=== PATIENT | female | born 1945 | race Caucasian/White ===

== ENCOUNTER → 2016-05-04 | Outpatient (CLI) | payer MEDICARE ==
--- NOTE | 2016-05-04 11:31 | BD ---
EXAMINATION TYPE: MG DEXA axial skeleton. DATE OF EXAM: 05/04/2016 9:32 AM COMPARISON: 09.09.2012 CLINICAL HISTORY: M85.9 DISORDER OF BONE Height: 60 Weight: 190 FRAX RISK QUESTIONS: Alcohol (3 or more units per day): NO Family History (Parent hip fracture): NO BROKEN BONES Glucocorticoids (More than 3mos): NO (Ex: prednisone, prednisolone, methylprednisolone, dexamethasone, and hydrocortisone). History of Fracture in Adulthood: YES Secondary Osteoporosis: NO 1. Type 1 Diabetes: NO 2. Hyperthyroidism: NO 3. Menopause before 45: NO, AT 43 4. Malnutrition: NO 5. Chronic liver disease: SLIGHTLY FATTY Rheumatoid Arthritis: NO Current Tobacco Use: NO RISK FACTORS HISTORY OF: Surgery to LT WRIST CARPAL TUNNEL SURG When: 6-8 YRS AGO Family History of Osteoporosis: YES, HER MOTHER Active: SOMEWHAT Diet low in dairy products/other sources of calcium: NO Postmenopausal woman: TOTAL HYST AT AGE 43 Take estrogen and/or progesterone medications: TOOK HORMONES FOR ONLY 1 MONTH Lost more than 2 inches in height since high school: YES Adrenal Insufficiency: NO STRESS FX, LT FOOT 2 YRS AGO MEDICATIONS: Additional Medications: LOPRESSOR, PRILOSEC, ENALAPRIL MALEATE, MAGNESIUM, ASPIRIN, ALIGN, SIMVASTATI N Additional History: ANEMIA, DJD, REFLUX, DIVERTICULITIS...BLEEDING, VIT D DEFICENCY EXAM MEASUREMENTS: Bone mineral densitometry was performed using the [employer] System. Bone mineral density as measured about the Lumbar spine is: ----- L1-L4(G/cm2): 1.232 T Score Values are as follows: ----- L1: -0.7 ----- L2: -0.7 ----- L3: 0.9 ----- L4: 1.6 ----- L1-L4: 0.4 Bone mineral density has: Increased 2.5% since study of: 09.09.2012 Bone mineral density about the R hip (g/cm2): 0.970 Bone mineral density about the L hip (g/cm2): 0.841 T Score values are as follows: -----R Neck: -0.5 -----L Neck: -1.4 -----R Intertrochanter: -1.8 -----L Intertrochanter: -2.3 Bone mineral density has: Increased 0.5% since study of: 09.09.2012 FRAX %'S: FOR MAJOR OSTEOPOROTIC FX: 14.8%.......FOR HIP FX: 2.1% PROBABILITY OF FX IN 10 YRS TIME IMPRESSION: Osteopenia (T Score between -2.5 and -1 as noted by T score values There is slightly increased risk of fracture and the patient may be considered for treatment. Re-Screen 1-2 years. FOR BOTH OF HER HIPS NOTE: T-SCORE=SD OF THE YOUNG ADULT MEAN.
--- NOTE | 2016-05-05 10:07 | MM ---
Reason for exam: screening (asymptomatic). Last mammogram was performed 2 years and 5 months ago. History: Patient is postmenopausal. Family history of breast cancer in 2 cousins at age 55. Benign excisional biopsy of the right breast, 1989. Physical Findings: A clinical breast exam by your physician is recommended on an annual basis and results should be correlated with mammographic findings. MG 3D Screening Mammo W/Cad Bilateral CC and MLO view(s) were taken. Prior study comparison: November 28, 2013, bilateral MG screening mammo w CAD. September 09, 2012, bilateral digital screening mammo w/CAD. There are scattered fibroglandular densities. Finding: There are typically benign vascular, round calcifications in both breasts. There is no discrete abnormality. ASSESSMENT: Benign, BI-RAD 2 RECOMMENDATION: Routine screening mammogram of both breasts in 1 year.
== END | disposition home or self-care (01) ==
LOC: RADMAMWWP 08:48
PROVIDERS: ATTEND Internal Medicine
DX: Z12.31 Encounter for screening mammogram for malignant neoplasm of breast (principal); M85.851 Other specified disorders of bone density and structure, right thigh; M85.852 Other specified disorders of bone density and structure, left thigh
CPT/HCPCS: 77080; 77063; G0202

== ENCOUNTER → 2017-05-02 | Outpatient (CLI) | payer MEDICARE ==
--- NOTE | 2017-05-02 10:59 | XR ---
EXAMINATION TYPE: XR cervical spine comp DATE OF EXAM: 05/02/2017 COMPARISON: NONE HISTORY: Pain TECHNIQUE: Four views are submitted. FINDINGS: The odontoid view is limited. There are no compression deformities. The prevertebral soft tissue st ructures are within normal limits. Degenerative disc disease at C4-5, C5-6 and C6-C7. Multilevel fac et arthropathy. Foraminal encroachment level C3-C7 bilaterally. IMPRESSION: 1. Multilevel degenerative disc disease, facet arthropathy and foraminal encroachment. Correlate with MRI as clinically warranted.
== END | disposition home or self-care (01) ==
LOC: RADXRMAIN 10:22
PROVIDERS: ATTEND Internal Medicine
DX: M50.321 Other cervical disc degeneration at C4-C5 level (principal); M46.92 Unspecified inflammatory spondylopathy, cervical region
CPT/HCPCS: 72050

== ENCOUNTER → 2017-05-19 | Outpatient (CLI) | payer MEDICARE ==
--- NOTE | 2017-05-19 14:47 | MR ---
EXAMINATION TYPE: MR cervical spine wo con DATE OF EXAM: 05/19/2017 COMPARISON: NONE HISTORY: Cervical disc degeneration TECHNIQUE: Multiplanar, multisequence images of the cervical spine were acquired. C2-C3: No evidence for degenerative disc disease. No disc bulge/herniation or protrusion. No Canal stenosis. Foramina are patent bilaterally. C3-C4: No evidence for degenerative disc disease. No disc bulge/herniation or protrusion. No Canal stenosis. Foramina are patent bilaterally. C4-C5: Broad-based disc bulge is present with mild anterior thecal sac compression. No cord contact i s evident. No spinal canal stenosis present. Vertebral joint hypertrophy is present with mild to mode rate foraminal narrowing bilaterally C5-C6: Minimal disc bulge is present with anterior thecal sac contact. No AP spinal canal stenosis or neural foraminal stenosis present. C6-C7: Mild symmetrical disc bulging is anterior thecal sac flattening. No AP spinal canal stenosis p resent. Neural foramen are patent. C7-T1: No evidence for degenerative disc disease. No disc bulge/herniation or protrusion. No Canal stenosis. Foramina are patent bilaterally. Cervical spinal cord appears normal. Vertebral body heights are preserved. Disc hydration appears pre served. There is narrowing of the C4-5 disc height. IMPRESSION: Disc bulge and uncovertebral joint hypertrophy C4-5 with mild anterior thecal sac compression and mil d to moderate bilateral foraminal narrowing. 2. Minimal disc bulge C5-6, C6-7
== END | disposition home or self-care (01) ==
LOC: RADMRIMAIN 13:56
PROVIDERS: ATTEND Internal Medicine
DX: M99.71 Connective tissue and disc stenosis of intervertebral foramina of cervical region (principal); M50.021 Cervical disc disorder at C4-C5 level with myelopathy; M53.82 Other specified dorsopathies, cervical region
CPT/HCPCS: 72141

== ENCOUNTER → 2017-05-29 | Outpatient (CLI) | payer MEDICARE ==
--- NOTE | 2017-05-31 10:54 | MM ---
Reason for exam: screening (asymptomatic). Last mammogram was performed 1 year and 1 month ago. History: Patient is postmenopausal. Family history of breast cancer in 2 cousins at age 55. Benign excisional biopsy of the right breast, 1989. Physical Findings: A clinical breast exam by your physician is recommended on an annual basis and results should be correlated with mammographic findings. MG 3D Screening Mammo W/Cad Bilateral CC and MLO view(s) were taken. Prior study comparison: May 04, 2016, bilateral MG 3d screening mammo w/cad. November 28, 2013, bilateral MG screening mammo w CAD. Finding: There are stable coarse heterogeneous, grouped/clustered calcifications in the lower inner quadrant, middle position of the right breast consistent with 2017, increased in density from 2013. New finding since May 04, 2016 ASSESSMENT: Incomplete: need additional imaging evaluation, BI-RAD 0 RECOMMENDATION: Special view mammogram of the right breast. If lesion persists on supplemental views, image directed ultrasound is recommended. [facility] will attempt to contact patient to return for supplemental views and ultrasound if indicated.
== END | disposition home or self-care (01) ==
LOC: RADMAMWWP 10:24
PROVIDERS: ATTEND Internal Medicine
DX: Z12.31 Encounter for screening mammogram for malignant neoplasm of breast (principal)
CPT/HCPCS: 77063; 77067

== ENCOUNTER → 2017-06-04 | Outpatient (CLI) | payer MEDICARE ==
--- NOTE | 2017-06-05 08:41 | MM ---
Reason for exam: additional evaluation requested from abnormal screening. Last mammogram was performed less than 1 month ago. History: Patient is postmenopausal. Family history of breast cancer in 2 cousins at age 55. Benign excisional biopsy of the right breast, 1989. Physical Findings: Nurse did not find any significant physical abnormalities on exam. MG 3D Work Up W/Cad RT CC with magnification, LM with magnification, and LM view(s) were taken of the right breast. Prior study comparison: May 29, 2017, bilateral MG 3d screening mammo w/cad. May 04, 2016, bilateral MG 3d screening mammo w/cad. There are scattered fibroglandular densities. There are benign appearing vascular calcifications, rounded calcifications and 3mm group of heterogeneous stable calcifications in the lower inner quadrant on the right breast unchanged back to 2012. No suspicious abnormality. These results were verbally communicated with the patient and result sheet given to the patient on 06/04/17. ASSESSMENT: Benign, BI-RAD 2 RECOMMENDATION: Return to routine screening mammogram schedule for both breasts.
== END | disposition home or self-care (01) ==
LOC: RADMAMWWP 14:23
PROVIDERS: ATTEND Internal Medicine
DX: R92.8 Other abnormal and inconclusive findings on diagnostic imaging of breast (principal)
CPT/HCPCS: 77065; G0279

== ENCOUNTER 2017-06-20 08:04 | Day surgery (SDC) | payer MEDICARE ==
[2017-06-14 16:57] VITALS: BMI 37.0
[~2017-06-20 08:04] MED LIST: LACTATED RINGERS 1,000 ML IV SCH; LIDOCAINE 1% 20 ML VIAL (10MG/ML) FOR IV START INTRADERMA PRN
--- NOTE | 2017-06-20 08:12 | P.GSHP ---
History of Present Illness H&P Date: 06/20/17 CHIEF COMPLAINT: Colon screen HISTORY OF PRESENT ILLNESS: The patient is a 71-year-old female who presents for colon screen. Lower endoscopy was offered for further evaluation and management. PAST MEDICAL HISTORY: Please see list. PAST SURGICAL HISTORY: Please see list. MEDICATIONS: Please see list. ALLERGIES: Please see list. SOCIAL HISTORY: No illicit drug use FAMILY HISTORY: No reports of Crohn disease or ulcerative colitis. REVIEW OF ORGAN SYSTEMS: CONSTITUTIONAL: No reports of fevers or chills. PHYSICAL EXAM: VITAL SIGNS: Stable GENERAL: Well-developed pleasant in no acute distress. HEENT: No scleral icterus. Extraocular movements grossly intact. Moist buccal mucosa. NECK: Supple without lymphadenopathy. CHEST: Unlabored respirations. Equal bilateral excursions. CARDIOVASCULAR: Regular rate and rhythm. Distal 2+ pulses. ABDOMEN: Soft, nontender, nondistended. MUSCULOSKELETAL: No clubbing, cyanosis, or edema. ASSESSMENT: 1. Colon screen. PLAN: 1. Recommend proceeding with a lower endoscopy Past Medical History Past Medical History: Chest Pain / Angina, GERD/Reflux, GI Bleed, Hyperlipidemia , Hypertension, Musculoskeletal Disorder, Osteoarthritis (OA) Additional Past Medical History / Comment(s): Diverticulitis - HX RESECTION. OLD HX Angina. Hiatal hernia. RECTAL BLEEDING. DDD IN NECK. History of Any Multi-Drug Resistant Organisms: None Reported Past Surgical History: Bowel Resection, Heart Catheterization, Hysterectomy, Orthopedic Surgery Additional Past Surgical History / Comment(s): LT Foot sx. CTR LT WRIST. Past Anesthesia/Blood Transfusion Reactions: No Reported Reaction Smoking Status: Never smoker - Past Family History Father Family Medical History: Cancer Mother Family Medical History: Cancer Brother(s) Family Medical History: Coronary Artery Disease (CAD), Myocardial Infarction ([place] ) Sister(s) Family Medical History: Neurologic Disorder Additional Family Medical History / Comment(s): PARKINSON'S Daughter(s) Family Medical History: Pulmonary Embolus Son(s) Family Medical History: Coronary Artery Disease (CAD) Medications and Allergies Home Medications Medication Instructions Recorded Confirmed Type Enalapril [Vasotec] 20 mg PO BID 09/07/15 06/14/17 History Metoprolol Tartrate [Lopressor] 50 mg PO BID 09/07/15 06/14/17 History Omeprazole [PriLOSEC] 20 mg PO AC-BRKFST 09/07/15 06/14/17 History Simvastatin [Zocor] 20 mg PO HS 09/07/15 06/14/17 History [place]-3 Fatty Acids/Fish Oil [Fish 1,200 mg PO DAILY 09/08/15 06/14/17 History Oil 1,000 mg Softgel] Aspirin EC [Ecotrin Low Dose] 325 mg PO DAILY 10/28/15 06/14/17 History Cholecalciferol (Vitamin D3) 2,000 unit PO DAILY 06/14/17 06/14/17 History [Vitamin D3] Citrucel Tab 500 mg PO DAILY 06/14/17 History Docusate [Colace] 100 mg PO BID 06/14/17 06/14/17 History L.acidoph,Paracasei, B.lactis 1 each PO DAILY 06/14/17 06/14/17 History [Probiotic] Magnesium Oxide [Mag-Ox] 250 mg PO DAILY 06/14/17 06/14/17 History Allergies Allergy/AdvReac Type Severity Reaction Status Date / Time ciprofloxacin Allergy Rash/Hives Verified 06/14/17 16:35 cortisone Allergy HAD Verified 06/14/17 16:35 NUMBNESS AT BACK OF HEAD FOLLOWING INJECTION hydrocortisone Allergy Unknown Verified 06/14/17 16:35 [From Cortizone-10] Penicillins Allergy Rash/Hives Verified 06/14/17 16:35
[2017-06-20 09:00] VITALS: TEMP 97.8
[2017-06-20] MEDS ORDERED: PROPOFOL 10 MG/ML 20 ML VIAL IV ONE (09:31)
[2017-06-20] MEDS ORDERED: LIDOCAINE 1% INJ 10MG/ML (20 ML MDV) ONE (09:31)
[2017-06-20 10:00] VITALS: RESP 18
[2017-06-20 10:09] VITALS: BP 121/71; PULSE 65
--- NOTE | 2017-06-20 10:46 | P.PCN ---
Date of Procedure: 06/20/17 Description of Procedure: PREOPERATIVE DIAGNOSIS: Colonoscopy screening. History of diverticulitis. History of sigmoid resection POSTOPERATIVE DIAGNOSIS: Colonoscopy screening. History of diverticulitis. History of sigmoid resection Severe scattered diverticulosis including descending colon Proctitis Internal hemorrhoids, grade 2 External hemorrhoids, grade 3 Colon lesion, sigmoid Proctitis OPERATION: Colonoscopy to the ileocecal valve and appendiceal orifice. Colonoscopy with cold forceps biopsy along sigmoid colon SURGEON: Mariya Carbajal MD. ANESTHESIA: MAC. INDICATIONS: The patient is a 71-year-old female who presents for colonoscopy screening. Benefits and risks were described and informed consent was obtained. DESCRIPTION OF PROCEDURE: The patient had undergone Gatorade, MiraLAX and Dulcolax prep. She had been brought into the operating room and laid in the left lateral decubitus position. After adequate intravenous sedation, the rectum was examined with 2% lidocaine jelly. External hemorrhoids were encountered. The rectal tone was within normal limits. No lesions were palpated in the rectal vault. An Olympus colonoscope was advanced until the ileocecal valve and appendiceal orifice were clearly viewed. The prep was excellent with clear visualization of the mucosal folds. The scope was removed with visualization of each mucosal fold. Severe scattered diverticulosis was encountered including along the remnant sigmoid colon and descending colon. No colonic polyps were found. Focal colitis was found at the rectum. A flat lesion of the anastomosis biopsied. Retroflexion of the scope demonstrated grade 2 internal hemorrhoids with inflammation. The colon was desufflated. The patient had tolerated the procedure well. Withdrawal time was over 6 minutes. FINDINGS: Internal hemorrhoids, grade 2 External hemorrhoids, grade 3 No arteriovenous malformations. No adenomatous polyps. Proctitis with recent bleed Severe sigmoid diverticulosis including along the descending colon and scattered RECOMMENDATIONS: Lower endoscopy in 5 years, 2022 Start Flagyl for proctitis Plan - Discharge Summary New Discharge Prescriptions: New metroNIDAZOLE [Flagyl] 500 mg PO TID #30 tab No Action Omeprazole [PriLOSEC] 20 mg PO AC-BRKFST Simvastatin [Zocor] 20 mg PO HS Metoprolol Tartrate [Lopressor] 50 mg PO BID Enalapril [Vasotec] 20 mg PO BID [place]-3 Fatty Acids/Fish Oil [Fish Oil 1,000 mg Softgel] 1,200 mg PO DAILY Aspirin EC [Ecotrin Low Dose] 325 mg PO DAILY Cholecalciferol (Vitamin D3) [Vitamin D3] 2,000 unit PO DAILY Citrucel Tab 500 mg PO DAILY Docusate [Colace] 100 mg PO BID L.acidoph,Paracasei, B.lactis [Probiotic] 1 each PO DAILY Magnesium Oxide [Mag-Ox] 250 mg PO DAILY Discharge Medication List Enalapril [Vasotec] 20 mg PO BID 09/07/15 [History] Metoprolol Tartrate [Lopressor] 50 mg PO BID 09/07/15 [History] Omeprazole [PriLOSEC] 20 mg PO AC-BRKFST 09/07/15 [History] Simvastatin [Zocor] 20 mg PO HS 09/07/15 [History] [place]-3 Fatty Acids/Fish Oil [Fish Oil 1,000 mg Softgel] 1,200 mg PO DAILY 09/07 [History] Aspirin EC [Ecotrin Low Dose] 325 mg PO DAILY 10/28/15 [History] Cholecalciferol (Vitamin D3) [Vitamin D3] 2,000 unit PO DAILY 06/14/17 [History] Citrucel Tab 500 mg PO DAILY 06/14/17 [History] Docusate [Colace] 100 mg PO BID 06/14/17 [History] L.acidoph,Paracasei, B.lactis [Probiotic] 1 each PO DAILY 06/14/17 [History] Magnesium Oxide [Mag-Ox] 250 mg PO DAILY 06/14/17 [History] metroNIDAZOLE [Flagyl] 500 mg PO TID #30 tab 06/20/17 [Rx] Follow up Appointment(s)/Referral(s): Mariya Carbajal MD [STAFF PHYSICIAN] - 07/17/17 Patient Instructions/Handouts: Diverticulitis Diet (GEN), Diverticulitis (GEN) Discharge Disposition: HOME SELF-CARE
== END 2017-06-20 10:52 | disposition home or self-care (01) ==
LOC: ORWHC2ENDO 08:04
PROVIDERS: ATTEND Surgery Plastic and Reconstructive Surgery
DX: Z12.11 Encounter for screening for malignant neoplasm of colon (principal); K62.89 Other specified diseases of anus and rectum; E78.5 Hyperlipidemia, unspecified; K64.1 Second degree hemorrhoids; K64.4 Residual hemorrhoidal skin tags; K57.31 Diverticulosis of large intestine without perforation or abscess with bleeding; I10 Essential (primary) hypertension; K21.9 Gastro-esophageal reflux disease without esophagitis; M19.90 Unspecified osteoarthritis, unspecified site; Z90.49 Acquired absence of other specified parts of digestive tract; Z90.710 Acquired absence of both cervix and uterus; Z82.49 Family history of ischemic heart disease and other diseases of the circulatory system; Z88.1 Allergy status to other antibiotic agents; Z88.8 Allergy status to other drugs, medicaments and biological substances; Z88.0 Allergy status to penicillin; Z79.82 Long term (current) use of aspirin
CPT/HCPCS: 45380; J2001; J2704; 88305

== ENCOUNTER → 2020-01-08 | Outpatient (CLI) | payer MEDICARE ==
--- NOTE | 2020-01-08 15:23 | BD ---
EXAMINATION TYPE: Axial Bone Density DATE OF EXAM: 01/08/2020 COMPARISON: DEXA bone scan May 04, 2016 CLINICAL HISTORY: Postmenopausal female. Osteoporosis. Height: 63 Weight: 198.9 FRAX RISK QUESTIONS: Alcohol (3 or more units per day): NO Family History (Parent hip fracture): no Glucocorticoids (More than 3mos): no (Ex: prednisone, prednisolone, methylprednisolone, dexamethasone, and hydrocortisone). History of Fracture in Adulthood: yes Secondary Osteoporosis: 1. Type 1 Diabetes: no 2. Hyperthyroidism: no 3. Menopause before 45: yes 4. Malnutrition: no 5. Chronic liver disease: no Rheumatoid Arthritis: no Current Tobacco Use: no RISK FACTORS HISTORY OF: Surgery to Spine/Hip(right/left)/Wrist (right/left): no Family History of Osteoporosis: yes Active: yes Diet low in dairy products/other sources of calcium: yes Postmenopausal woman: age 39 Lost more than 2 inches in height since high school: yes MEDICATIONS: blood pressure meds , cholesterol meds Additional History: EXAM MEASUREMENTS: Bone mineral densitometry was performed using the [employer] System. Bone mineral density as measured about the Lumbar spine is: ----- L1-L4(G/cm2): 1.262 T Score Values are as follows: ----- L2: -0.5 ----- L3: 1.8 ----- L4: 1.8 ----- L1-L4: 0.7 Bone mineral density has: increased 3.7 % since study of: 05.04.2016 Bone mineral density about the R hip (g/cm2): 0.841 Bone mineral density about the L hip (g/cm2): 0.840 T Score values are as follows: -----R Neck: -1.4 -----L Neck: -1.4 -----R Total: -1.4 -----L Total: -1.5 Bone mineral density has: increased 0.1 % since study of: 05.04.2016 IMPRESSION: Osteopenia (T Score between -2.5 and -1) in both hips now identified. There remains slightly increased risk of fracture and the patient may be considered for treatment. Re-Screen 2-5 years. NOTE: T-SCORE=SD OF THE YOUNG ADULT MEAN.
--- NOTE | 2020-01-12 13:58 | MM ---
Reason for exam: screening (asymptomatic). Last mammogram was performed 2 years and 7 months ago. History: Patient is postmenopausal. Family history of breast cancer in 2 cousins at age 55 and breast cancer in daughter at age 47. Benign excisional biopsy of the right breast, 1989. Physical Findings: A clinical breast exam by your physician is recommended on an annual basis and results should be correlated with mammographic findings. MG 3D Screening Mammo W/Cad Bilateral CC and MLO view(s) were taken. Prior study comparison: June 04, 2017, right breast MG 3d work up w/cad RT. May 29, 2017, bilateral MG 3d screening mammo w/cad. There are scattered fibroglandular densities. No significant changes when compared with prior studies. ASSESSMENT: Benign, BI-RAD 2 RECOMMENDATION: Routine screening mammogram of both breasts in 1 year.
== END | disposition home or self-care (01) ==
LOC: RADMAMWWP 12:42
PROVIDERS: ATTEND Internal Medicine
DX: Z12.31 Encounter for screening mammogram for malignant neoplasm of breast (principal); M85.89 Other specified disorders of bone density and structure, multiple sites
CPT/HCPCS: 77063; 77067; 77080

== ENCOUNTER → 2020-08-11 | Outpatient (CLI) | payer MEDICARE ==
--- NOTE | 2020-08-11 16:17 | XR ---
EXAMINATION TYPE: XR thoracic spine 2V DATE OF EXAM: 08/11/2020 COMPARISON: CT abdomen and pelvis 09/07/2015 CLINICAL HISTORY: Back pain for a few years, progressively worse Findings:: Hypoplastic ribs at T12. There is mild dextrocurvature of the lumbar spine centered at T10 vertebral body. There is bony demineralization causing limited evaluation for acute fracture. Multip le minimal superior compression deformities of the mid to lower thoracic vertebral bodies. If focal p ain, MRI could be obtained. Paravertebral soft tissues are unremarkable. Atherosclerotic aortic knob. IMPRESSION: 1. Minimal superior endplate compression deformities of mid to lower thoracic vertebral bodies. These may represent age-indeterminate fractures. If clinically indicated, with focal pain, MRI could be ob tained.
== END | disposition home or self-care (01) ==
LOC: RADXRMAIN 12:26
PROVIDERS: ATTEND Internal Medicine
DX: M43.8X4 Other specified deforming dorsopathies, thoracic region (principal)
CPT/HCPCS: 72070

== ENCOUNTER 2020-12-08 07:29 | Day surgery (SDC) | payer MEDICARE ==
[2020-12-07 09:42] VITALS: BMI 37.8
--- NOTE | 2020-12-08 07:05 | P.GSHP ---
History of Present Illness H&P Date: 12/08/20 CHIEF COMPLAINT: GERD and colon screen HISTORY OF PRESENT ILLNESS: The patient is a 75-year-old female who presents with gastroesophageal reflux disease and need for colon screen. Upper and lower endoscopy were offered for further evaluation and management. PAST MEDICAL HISTORY: Please see list. PAST SURGICAL HISTORY: Please see list. MEDICATIONS: Please see list. ALLERGIES: Please see list. SOCIAL HISTORY: No illicit drug use FAMILY HISTORY: No reports of Crohn disease or ulcerative colitis. REVIEW OF ORGAN SYSTEMS: CONSTITUTIONAL: No reports of fevers or chills. GI: Denies any blood in stools or constipation. PHYSICAL EXAM: VITAL SIGNS: Stable GENERAL: Well-developed pleasant in no acute distress. HEENT: No scleral icterus. Extraocular movements grossly intact. Moist buccal mucosa. NECK: Supple without lymphadenopathy. CHEST: Unlabored respirations. Equal bilateral excursions. CARDIOVASCULAR: Regular rate and rhythm. Distal 2+ pulses. ABDOMEN: Soft, nondistended. MUSCULOSKELETAL: No clubbing, cyanosis, or edema. ASSESSMENT: 1. Gastroesophageal reflux disease 2. Colon screen. PLAN: 1. Recommend proceeding with an upper and lower endoscopy Past Medical History Past Medical History: GERD/Reflux, GI Bleed, Hypertension, Osteoarthritis (OA) Additional Past Medical History / Comment(s): Diverticulitis. Angina. Hiatal hernia. Recent stomach problems and rectal bleeding. "Bad back, disintegrating discs in neck, head shakes." History of Any Multi-Drug Resistant Organisms: None Reported Past Surgical History: Bowel Resection, Heart Catheterization, Hysterectomy, Orthopedic Surgery Additional Past Surgical History / Comment(s): Left foot surgery, left carpal tunnel surgery, colonoscopy X2. Past Anesthesia/Blood Transfusion Reactions: No Reported Reaction Past Psychological History: No Psychological Hx Reported Smoking Status: Never smoker Past Alcohol Use History: None Reported Past Drug Use History: None Reported - Past Family History Father Family Medical History: Cancer Mother Family Medical History: Cancer Brother(s) Family Medical History: Coronary Artery Disease (CAD), Myocardial Infarction ([place]) Sister(s) Family Medical History: Neurologic Disorder Daughter(s) Family Medical History: Pulmonary Embolus Son(s) Family Medical History: Coronary Artery Disease (CAD) Medications and Allergies Home Medications Medication Instructions Recorded Confirmed Type Enalapril [Vasotec] 20 mg PO BID 09/07/15 12/07/20 History Metoprolol Tartrate [Lopressor] 50 mg PO BID 09/07/15 12/07/20 History Omeprazole [PriLOSEC] 20 mg PO DAILY 09/07/15 12/07/20 History [place]-3 Fatty Acids/Fish Oil [Fish 1,030 mg PO DAILY 09/08/15 12/07/20 History Oil 1,000 mg Softgel] Cholecalciferol (Vitamin D3) 2,000 unit PO DAILY 06/14/17 12/07/20 History [Vitamin D3] L.acidoph,Paracasei, B.lactis 1 each PO DAILY 06/14/17 12/07/20 History [Probiotic] Magnesium Oxide [Mag-Ox] 250 mg PO DAILY 06/14/17 12/07/20 History Aspirin [Adult Low Dose Aspirin EC] 81 mg PO DAILY 12/07/20 12/07/20 History Cyanocobalamin (Vitamin B-12) 1,000 mcg PO DAILY 12/07/20 12/07/20 History [Vitamin B-12] amLODIPine [Norvasc] 10 mg PO HS 12/07/20 12/07/20 History Allergies Allergy/AdvReac Type Severity Reaction Status Date / Time ciprofloxacin Allergy Rash/Hives Verified 12/07/20 09:22 cortisone Allergy HAD Verified 12/07/20 09:22 NUMBNESS AT BACK OF HEAD FOLLOWING INJECTION hydrocortisone Allergy Unknown Verified 12/07/20 09:22 [From Cortizone-10] Penicillins Allergy Rash/Hives Verified 12/07/20 09:22
[~2020-12-08 07:29] MED LIST changes: -LIDOCAINE 1% 20 ML VIAL (10MG/ML) FOR IV START INTRADERMA PRN
[2020-12-08 08:21] VITALS: RESP 16; TEMP 97
[2020-12-08] MEDS ORDERED: LIDOCAINE 1% (10MG/ML) FOR IV START INTRADERMA ONE (08:21)
[2020-12-08] MEDS ORDERED: PROPOFOL 10 MG/ML 20 ML VIAL IV ONE (08:45)
[2020-12-08] MEDS ORDERED: LIDOCAINE 1% INJ 10MG/ML (20 ML MDV) ONE (08:45)
--- NOTE | 2020-12-08 09:03 | P.PCN ---
Date of Procedure: 12/08/20 Description of Procedure: PREOPERATIVE DIAGNOSIS: Anemia Epigastric abdominal pain Gastrointestinal bleeding POSTOPERATIVE DIAGNOSIS: Gastric polyps Anemia Epigastric abdominal pain Gastrointestinal bleeding OPERATION: Esophagogastroduodenoscopy SURGEON: Mariya Carbajal MD ANESTHESIA: MAC. INDICATIONS: The patient is a 44-year-old female who presents with anemia, gastrointestinal bleeding and epigastric abdominal pain. Benefits and risks of the procedure were described. Informed consent was obtained. DESCRIPTION: The patient was brought into the endoscopy suite and laid in the left lateral decubitus position. An Olympus gastroscope was passed along the posterior oropharynx down to the distal esophagus where the squamocolumnar junction was encountered at 39 cm from the incisors. The stomach was entered and no bile reflux was found. Additional findings are listed below. Biopsies with cold forceps were obtained of the antrum. The first through third portion of the duodenum was examined and unremarkable. Retroflexion of the scope confirmed Hill grade 2 lower esophageal valve. The squamocolumnar junction demonstrated LA grade A erosive esophagitis. The stomach was desufflated. The patient tolerated the procedure well. FINDINGS: Squamocolumnar junction 39 cm from the incisors. Diaphragmatic hiatus at 39 cm. Hill grade 2 lower esophageal valve. LA grade A erosive esophagitis. No active duodenitis. Gastric polyps RECOMMENDATIONS: Upper endoscopy as needed.
[2020-12-08 09:20] VITALS: PULSE 64
--- NOTE | 2020-12-08 09:21 | P.PCN ---
Date of Procedure: 12/08/20 Description of Procedure: PREOPERATIVE DIAGNOSIS: Gastrointestinal bleeding Anemia Rectal bleeding POSTOPERATIVE DIAGNOSIS: Gastrointestinal bleeding Anemia Rectal bleeding Grade 3 internal/external hemorrhoids Sigmoid diverticulitis Pandiverticulosis OPERATION: Colonoscopy to the cecum, ileocecal valve and appendiceal orifice. Colonoscopy with cold forceps biopsy SURGEON: Mariya Carbajal MD. ANESTHESIA: MAC. INDICATIONS: The patient is a 75-year-old female who presents with anemia including rectal bleeding. Benefits and risks were described and informed consent was obtained. DESCRIPTION OF PROCEDURE: The patient had undergone Sutab prep. The patient had been brought into the operating room and laid in the left lateral decubitus position. After adequate intravenous sedation, the rectum was examined with 2% lidocaine jelly. External hemorrhoids were encountered. The rectal tone was within normal limits. No lesions were palpated in the rectal vault. An Olympus colonoscope was advanced until the cecum, ileocecal valve and appendiceal orifice were clearly viewed. The prep was excellent. Pandiverticulosis with erythematous sigmoid colon along the anastomosis and sigmoid diverticulitis was found. Blind portion of the rectum had moderate erythema with biopsies obtained with cold forceps. No colonic polyps were found. Retroflexion of the scope demonstrated grade 3 internal hemorrhoids without active bleeding or inflammation. The colon was desufflated. The patient had tolerated the procedure well. Withdrawal time was over 6 minutes. FINDINGS: Aronchick preparation quality scale 1 (1-5) Internal hemorrhoids, grade 3 External prolapsed hemorrhoids, grade 3 No arteriovenous malformations. No adenomatous polyps. Sigmoid diverticulitis at anastomosis, 15 cm from the anal verge including blind rectal stump Pandiverticulosis RECOMMENDATIONS: Lower endoscopy as needed Plan - Discharge Summary Discharge Rx Participant: No New Discharge Prescriptions: Continue Omeprazole [PriLOSEC] 20 mg PO DAILY Metoprolol Tartrate [Lopressor] 50 mg PO BID Enalapril [Vasotec] 20 mg PO BID [place]-3 Fatty Acids/Fish Oil [Fish Oil 1,000 mg Softgel] 1,030 mg PO DAILY Cholecalciferol (Vitamin D3) [Vitamin D3] 2,000 unit PO DAILY L.acidoph,Paracasei, B.lactis [Probiotic] 1 each PO DAILY Magnesium Oxide [Mag-Ox] 250 mg PO DAILY Aspirin [Adult Low Dose Aspirin EC] 81 mg PO DAILY amLODIPine [Norvasc] 10 mg PO HS Cyanocobalamin (Vitamin B-12) [Vitamin B-12] 1,000 mcg PO DAILY Discharge Medication List Enalapril [Vasotec] 20 mg PO BID 09/07/15 [History] Metoprolol Tartrate [Lopressor] 50 mg PO BID 09/07/15 [History] Omeprazole [PriLOSEC] 20 mg PO DAILY 09/07/15 [History] [place]-3 Fatty Acids/Fish Oil [Fish Oil 1,000 mg Softgel] 1,030 mg PO DAILY 09/08/15 [History] Cholecalciferol (Vitamin D3) [Vitamin D3] 2,000 unit PO DAILY 06/14/17 [History] L.acidoph,Paracasei, B.lactis [Probiotic] 1 each PO DAILY 06/14/17 [History] Magnesium Oxide [Mag-Ox] 250 mg PO DAILY 06/14/17 [History] Aspirin [Adult Low Dose Aspirin EC] 81 mg PO DAILY 12/07/20 [History] Cyanocobalamin (Vitamin B-12) [Vitamin B-12] 1,000 mcg PO DAILY 12/07/20 [History] amLODIPine [Norvasc] 10 mg PO HS 12/07/20 [History] Follow up Appointment(s)/Referral(s): Mariya Carbajal MD [STAFF PHYSICIAN] - 12/21/20 Patient Instructions/Handouts: Diverticulitis (DC), Diverticulitis Diet (DC) Activity/Diet/Wound Care/Special Instructions: Lower endoscopy as needed Discharge Disposition: HOME SELF-CARE
[2020-12-08 09:36] VITALS: BP 124/73
== END 2020-12-08 10:19 | disposition home or self-care (01) ==
LOC: ORWHC2ENDO 07:29
PROVIDERS: ATTEND Surgery Plastic and Reconstructive Surgery
DX: K52.9 Noninfective gastroenteritis and colitis, unspecified (principal); K51.30 Ulcerative (chronic) rectosigmoiditis without complications; K57.32 Diverticulitis of large intestine without perforation or abscess without bleeding; K22.10 Ulcer of esophagus without bleeding; K64.2 Third degree hemorrhoids; K44.9 Diaphragmatic hernia without obstruction or gangrene; Z90.49 Acquired absence of other specified parts of digestive tract; D64.9 Anemia, unspecified; K31.7 Polyp of stomach and duodenum; K21.9 Gastro-esophageal reflux disease without esophagitis; I10 Essential (primary) hypertension; M19.90 Unspecified osteoarthritis, unspecified site; M53.82 Other specified dorsopathies, cervical region; Z90.710 Acquired absence of both cervix and uterus; Z98.890 Other specified postprocedural states; Z80.9 Family history of malignant neoplasm, unspecified; Z82.49 Family history of ischemic heart disease and other diseases of the circulatory system; Z82.0 Family history of epilepsy and other diseases of the nervous system; Z79.82 Long term (current) use of aspirin; Z79.899 Other long term (current) drug therapy; Z88.1 Allergy status to other antibiotic agents; Z88.0 Allergy status to penicillin; Z88.8 Allergy status to other drugs, medicaments and biological substances
CPT/HCPCS: 88305; 88342; 88341; 45380; 43235; J2001; J2704

== ENCOUNTER → 2020-12-22 | Outpatient (CLI) | payer MEDICARE ==
--- NOTE | 2020-12-22 09:08 | US ---
EXAMINATION TYPE: US gallbladder DATE OF EXAM: 12/22/2020 COMPARISON: NONE CLINICAL HISTORY: K81.1 CHRONIC CHOLYCISTITIS. EXAM MEASUREMENTS: Liver Length: 14.0 cm Gallbladder Wall: 0.3 cm CBD: 0.3 cm Right Kidney: 9.0 x 4.1 x 4.4 cm Pancreas: visualized portions wnl Liver: cyst left lobe measures 1.2 x 0.9 x 1.1 cm Gallbladder: No stones seen Evidence for sonographic Doyle's sign: No CBD: wnl Right Kidney: No hydronephrosis or masses seen IMPRESSION: 1. Hepatic cyst
== END | disposition home or self-care (01) ==
LOC: RADUSWWP 07:38
PROVIDERS: ATTEND Surgery Plastic and Reconstructive Surgery
DX: K76.89 Other specified diseases of liver (principal)
CPT/HCPCS: 76705

== ENCOUNTER 2021-01-25 01:13 | Inpatient (IN) | payer MEDICARE ==
--- NOTE | 2021-01-25 02:32 | XR ---
EXAMINATION TYPE: XR chest 1V portable DATE OF EXAM: 01/25/2021 COMPARISON: NONE HISTORY: Diverticulitis TECHNIQUE: Single view FINDINGS: There is coarse interstitial density in the lungs. There is pulmonary interstitial edema. T here are chest leads. There are no hilar masses. Mediastinum is normal. IMPRESSION: There is pulmonary interstitial edema and probable small right pleural effusion which are new compared to old exam. This could be acute heart failure or acute pneumonia.
[2021-01-25 02:44] LABS: Basophils # (A) 0.2 k/uL (0-0.2); Basophils % (A) 1 %; Eosinophils # (A) 0.3 k/uL (0-0.7); Eosinophils % (A) 2 %; HGB 11.8 gm/dL (11.4-16.0); Hypochromasia Moderate; Lymphocytes # (A) 4.7 k/uL (1.0-4.8); Lymphocytes % (A) 32 %; MCH 28.5 pg (25.0-35.0); MCHC 31.1 g/dL (31.0-37.0); MCV 91.5 fL (80.0-100.0); Mean Platelet Volume 9.2; Monocytes # (A) 0.6 k/uL (0-1.0); Monocytes % (A) 4 %; Neutrophils # (A) 8.5 k/uL (1.3-7.7); Neutrophils % (A) 59 %; Platelet Count 328 k/uL (150-450); RBC 4.15 m/uL (3.80-5.40); RDW 13.3 % (11.5-15.5); WBC 14.5 k/uL (3.8-10.6)
[2021-01-25 02:54] LABS: INR 0.9 (<1.2); Partial Thromboplastin Time 22.9 sec (22.0-30.0); Prothrombin Time 9.9 sec (9.0-12.0)
[2021-01-25 02:55] LABS: Albumin 4.4 g/dL (3.5-5.0); Calcium 9.8 mg/dL (8.4-10.2); Potassium 4.5 mmol/L (3.5-5.1); Total Bilirubin 0.4 mg/dL (0.2-1.3); Total Protein 7.5 g/dL (6.3-8.2)
[2021-01-25] MEDS ORDERED: ASPIRIN 325 MG TAB PO STA (04:53)
--- NOTE | 2021-01-25 04:59 | ED ---
General Adult HPI - General Chief complaint: Chest Pain Stated complaint: Chest pain, SOB Time Seen by Provider: 01/25/21 01:32 Source: patient Mode of arrival: wheelchair Limitations: no limitations - History of Present Illness Initial comments: This patient is 75-year-old woman who presents to be evaluated for chest pain and dyspnea. The patient states that she had been having some mild upper back and upper chest pressure going on for a few days. She states that tonight at 10 she noticed she was starting to feel more short of breath and the pressure was heavier. She waited at home for a couple of hours and when things did not get better she woke her and they came here to be evaluated. Patient states that symptoms are worse if she lies flat. She has had occasional cough she felt was related to a cold. -: days(s) Location: chest, back Quality: dull Consistency: constant Improves with: none Worsens with: none Associated Symptoms: shortness of breath - Related Data Home Medications Medication Instructions Recorded Confirmed Enalapril [Vasotec] 20 mg PO BID 09/07/15 01/25/21 Metoprolol Tartrate [Lopressor] 50 mg PO BID 09/07/15 01/25/21 [place]-3 Fatty Acids/Fish Oil [Fish 1 cap PO DAILY 09/08/15 01/25/21 Oil 1,000 mg Softgel] Cholecalciferol (Vitamin D3) 50 mcg PO DAILY 06/14/17 01/25/21 [Vitamin D3] L.acidoph,Paracasei, B.lactis 1 cap PO DAILY 06/14/17 01/25/21 [Probiotic] Magnesium Oxide [Mag-Ox] 250 mg PO DAILY 06/14/17 01/25/21 Aspirin [Adult Low Dose Aspirin EC] 81 mg PO DAILY 12/07/20 01/25/21 Cyanocobalamin (Vitamin B-12) 1,000 mcg PO DAILY 12/07/20 01/25/21 [Vitamin B-12] amLODIPine [Norvasc] 10 mg PO HS 12/07/20 01/25/21 Acetaminophen/Chlorpheniramine 1 - 2 tab PO Q6H PRN 01/25/21 01/25/21 [Coricidin Hbp Cold & Flu Tab] Omeprazole 40 mg PO DAILY 01/25/21 01/25/21 Simvastatin [Zocor] 20 mg PO HS 01/25/21 01/25/21 Allergies Allergy/AdvReac Type Severity Reaction Status Date / Time ciprofloxacin Allergy Rash/Hives Verified 01/25/21 07:09 cortisone Allergy HAD Verified 01/25/21 07:09 NUMBNESS AT BACK OF HEAD FOLLOWING INJECTION hydrocortisone Allergy Unknown Verified 01/25/21 07:09 [From Cortizone-10] Penicillins Allergy Rash/Hives Verified 01/25/21 07:09 Review of Systems ROS Statement: Those systems with pertinent positive or pertinent negative responses have been documented in the HPI. ROS Other: All systems not noted in ROS Statement are negative. Constitutional: Denies: fever, chills Respiratory: Reports: cough, dyspnea. Denies: wheezes, hemoptysis Cardiovascular: Reports: chest pain, orthopnea. Denies: palpitations, edema, syncope Gastrointestinal: Denies: abdominal pain, nausea, vomiting Genitourinary: Denies: dysuria, hematuria Musculoskeletal: Denies: back pain Skin: Denies: rash Neurological: Denies: headache, weakness, numbness Past Medical History Past Medical History: GERD/Reflux, GI Bleed, Hypertension, Osteoarthritis (OA) Additional Past Medical History / Comment(s): Diverticulitis. Angina. Hiatal hernia. Recent stomach problems and rectal bleeding. "Bad back, disintegrating discs in neck, head shakes." History of Any Multi-Drug Resistant Organisms: None Reported Past Surgical History: Bowel Resection, Heart Catheterization, Hysterectomy, Orthopedic Surgery Additional Past Surgical History / Comment(s): Left foot surgery, left carpal tunnel surgery, colonoscopy X2. Past Anesthesia/Blood Transfusion Reactions: No Reported Reaction Past Psychological History: No Psychological Hx Reported Smoking Status: Never smoker Past Alcohol Use History: None Reported Past Drug Use History: None Reported - Past Family History Father Family Medical History: Cancer Mother Family Medical History: Cancer Brother(s) Family Medical History: Coronary Artery Disease (CAD), Myocardial Infarction (CA) Sister(s) Family Medical History: Neurologic Disorder Daughter(s) Family Medical History: Pulmonary Embolus Son(s) Family Medical History: Coronary Artery Disease (CAD) General Exam Limitations: no limitations General appearance: alert, in no apparent distress Head exam: Present: atraumatic, normocephalic Eye exam: Present: normal appearance. Absent: scleral icterus, conjunctival injection ENT exam: Present: normal oropharynx Neck exam: Present: normal inspection Respiratory exam: Present: respiratory distress (Mild tachypnea), rales (To the mid lungs bilaterally), accessory muscle use. Absent: wheezes, rhonchi, stridor, decreased breath sounds, prolonged expiratory Cardiovascular Exam: Present: normal rhythm, tachycardia, normal heart sounds. Absent: systolic murmur, diastolic murmur, rubs, gallop GI/Abdominal exam: Present: soft. Absent: distended, tenderness, guarding, rebound, rigid, mass Extremities exam: Present: normal inspection, normal capillary refill. Absent: pedal edema, calf tenderness Back exam: Present: normal inspection. Absent: CVA tenderness (R), CVA tenderness (L) Neurological exam: Present: alert Skin exam: Present: warm, dry, intact, normal color. Absent: rash Course Vital Signs 01/25/21 01/25/21 01/25/21 01:13 01:35 01:55 Temperature 97.7 F Pulse Rate 99 92 Respiratory 22 32 H 28 H Rate Blood Pressure 119/87 116/70 O2 Sat by Pulse 92 L 97 Oximetry 01/25/21 01/25/21 01/25/21 02:26 03:00 04:00 Temperature Pulse Rate 87 78 82 Respiratory 22 20 20 Rate Blood Pressure 126/80 113/75 114/71 O2 Sat by Pulse 99 97 97 Oximetry 01/25/21 01/25/21 05:03 06:20 Temperature Pulse Rate 86 92 Respiratory 18 21 Rate Blood Pressure 114/78 123/81 O2 Sat by Pulse 96 98 Oximetry EKG Findings - EKG Comments: EKG Findings:: Posterior infarct. Finding appears new when compared with previous from 2016 - EKG Results: EKG: interpreted by ERMD, sinus rhythm (Rate 102 BPM), normal axis Procedures - [place] Protocol (Time Out) Nurse: Cely Chen Medical Decision Making - Medical Decision Making Patient is 75-year-old woman presenting with thoracic discomfort and orthopnea. The patient has had relief of symptoms with medication here. Patient's troponin is elevated and suspect that she has had recent CA and developed some congestive heart failure secondary to that. Patient's case is discussed with her funds transfer clerk and with the hole filler and she'll be admitted for further evaluation and treatment. - Lab Data Result diagrams: 01/25/21 02:22 01/25/21 02:22 Lab Results 01/25/21 01/25/21 01/25/21 Range/Units 02:22 02:22 02:22 WBC 14.5 H (3.8-10.6) k/uL RBC 4.15 (3.80-5.40) m/uL Hgb 11.8 (11.4-16.0) gm/dL Hct 38.0 (34.0-46.0) % MCV 91.5 (80.0-100.0) fL MCH 28.5 (25.0-35.0) pg MCHC 31.1 (31.0-37.0) g/dL RDW 13.3 (11.5-15.5) % Plt Count 328 (150-450) k/uL MPV 9.2 Neutrophils % 59 % Lymphocytes % 32 % Monocytes % 4 % Eosinophils % 2 % Basophils % 1 % Neutrophils # 8.5 H (1.3-7.7) k/uL Lymphocytes # 4.7 (1.0-4.8) k/uL Monocytes # 0.6 (0-1.0) k/uL Eosinophils # 0.3 (0-0.7) k/uL Basophils # 0.2 (0-0.2) k/uL Hypochromasia Moderate PT 9.9 (9.0-12.0) sec INR 0.9 (<1.2) APTT 22.9 (22.0-30.0) sec Sodium 135 L (137-145) mmol/L Potassium 4.5 (3.5-5.1) mmol/L Chloride 104 (98-107) mmol/L Carbon Dioxide 15 L (22-30) mmol/L Anion Gap 16 mmol/L BUN 17 (7-17) mg/dL Creatinine 0.75 (0.52-1.04) mg/dL Est GFR (CKD-EPI)AfAm 89 (>60 ml/min/1.73 sqM) Est GFR (CKD-EPI)NonAf 77 (>60 ml/min/1.73 sqM) Glucose 194 H (74-99) mg/dL Lactic Ac Sepsis Rflx Plasma Lactic Acid Mata (0.7-2.0) mmol/L Calcium 9.8 (8.4-10.2) mg/dL Total Bilirubin 0.4 (0.2-1.3) mg/dL AST 33 (14-36) U/L ALT 19 (4-34) U/L Alkaline Phosphatase 95 (38-126) U/L Troponin I (0.000-0.034) ng/mL NT-Pro-B Natriuret Pep pg/mL Total Protein 7.5 (6.3-8.2) g/dL Albumin 4.4 (3.5-5.0) g/dL Coronavirus (PCR) (Not Detectd) 01/25/21 01/25/21 01/25/21 Range/Units 02:22 02:22 03:13 WBC (3.8-10.6) k/uL RBC (3.80-5.40) m/uL Hgb (11.4-16.0) gm/dL Hct (34.0-46.0) % MCV (80.0-100.0) fL MCH (25.0-35.0) pg MCHC (31.0-37.0) g/dL RDW (11.5-15.5) % Plt Count (150-450) k/uL MPV Neutrophils % % Lymphocytes % % Monocytes % % Eosinophils % % Basophils % % Neutrophils # (1.3-7.7) k/uL Lymphocytes # (1.0-4.8) k/uL Monocytes # (0-1.0) k/uL Eosinophils # (0-0.7) k/uL Basophils # (0-0.2) k/uL Hypochromasia PT (9.0-12.0) sec INR (<1.2) APTT (22.0-30.0) sec Sodium (137-145) mmol/L Potassium (3.5-5.1) mmol/L Chloride (98-107) mmol/L Carbon Dioxide (22-30) mmol/L Anion Gap mmol/L BUN (7-17) mg/dL Creatinine (0.52-1.04) mg/dL Est GFR (CKD-EPI)AfAm (>60 ml/min/1.73 sqM) Est GFR (CKD-EPI)NonAf (>60 ml/min/1.73 sqM) Glucose (74-99) mg/dL Lactic Ac Sepsis Rflx Y Plasma Lactic Acid Mata 3.5 H* (0.7-2.0) mmol/L Calcium (8.4-10.2) mg/dL Total Bilirubin (0.2-1.3) mg/dL AST (14-36) U/L ALT (4-34) U/L Alkaline Phosphatase (38-126) U/L Troponin I 1.620 H* (0.000-0.034) ng/mL NT-Pro-B Natriuret Pep pg/mL Total Protein (6.3-8.2) g/dL Albumin (3.5-5.0) g/dL Coronavirus (PCR) (Not Detectd) 01/25/21 01/25/21 Range/Units 03:26 04:11 WBC (3.8-10.6) k/uL RBC (3.80-5.40) m/uL Hgb (11.4-16.0) gm/dL Hct (34.0-46.0) % MCV (80.0-100.0) fL MCH (25.0-35.0) pg MCHC (31.0-37.0) g/dL RDW (11.5-15.5) % Plt Count (150-450) k/uL MPV Neutrophils % % Lymphocytes % % Monocytes % % Eosinophils % % Basophils % % Neutrophils # (1.3-7.7) k/uL Lymphocytes # (1.0-4.8) k/uL Monocytes # (0-1.0) k/uL Eosinophils # (0-0.7) k/uL Basophils # (0-0.2) k/uL Hypochromasia PT (9.0-12.0) sec INR (<1.2) APTT (22.0-30.0) sec Sodium (137-145) mmol/L Potassium (3.5-5.1) mmol/L Chloride (98-107) mmol/L Carbon Dioxide (22-30) mmol/L Anion Gap mmol/L BUN (7-17) mg/dL Creatinine (0.52-1.04) mg/dL Est GFR (CKD-EPI)AfAm (>60 ml/min/1.73 sqM) Est GFR (CKD-EPI)NonAf (>60 ml/min/1.73 sqM) Glucose (74-99) mg/dL Lactic Ac Sepsis Rflx Plasma Lactic Acid Mata (0.7-2.0) mmol/L Calcium (8.4-10.2) mg/dL Total Bilirubin (0.2-1.3) mg/dL AST (14-36) U/L ALT (4-34) U/L Alkaline Phosphatase (38-126) U/L Troponin I (0.000-0.034) ng/mL NT-Pro-B Natriuret Pep 2700 pg/mL Total Protein (6.3-8.2) g/dL Albumin (3.5-5.0) g/dL Coronavirus (PCR) Not Detected (Not Detectd) Disposition Clinical Impression: Acute non-ST elevation myocardial infarction (NSTEMI), CHF (congestive heart failure) Disposition: ADMITTED IP TO THIS HOSP Condition: Fair
[2021-01-25] MEDS ORDERED: FUROSEMIDE 10 MG/ML 4 ML VIAL IV SCH (05:00)
[2021-01-25] MEDS ORDERED: HEPARIN SODIUM 1,000 UN/ML (10ML VL) IV ONE (05:09)
[2021-01-25] MEDS ORDERED: HEPARIN SODIUM 1,000 UN/ML (10ML VL) IV PRN (05:09)
[2021-01-25] MEDS ORDERED: MORPHINE SULFATE 4 MG/ML SYRINGE IV STA (05:09)
[2021-01-25] MEDS: HEPARIN SOD,PORK IN 0.45% NACL 25,000 UNIT in 0.45% NACL 1 250ML.BAG IV SCH (06:02)
[2021-01-25] MEDS: FUROSEMIDE 10 MG/ML 4 ML VIAL IV SCH ×3 (08:57→23:52)
[2021-01-25] MEDS: NITROGLYCERIN OINT 1 INCH/GM PACKET TOPICAL SCH ×4 (08:58→21:57)
[2021-01-25] MEDS: CHOLECALCIFEROL 25 MCG (1000 IU) TABLET PO SCH (08:58)
[2021-01-25] MEDS: LACTOBACILLUS ACIDOPH & BULGAR 1 EACH PACKET PO SCH (08:58)
[2021-01-25] MEDS: CLOPIDOGREL 75 MG TAB PO SCH (08:58)
[2021-01-25] MEDS: CYANOCOBALAMIN 500 MCG TAB PO SCH (08:59)
[2021-01-25] MEDS: MAGNESIUM OXIDE 400 MG TAB PO SCH (08:59)
[2021-01-25] MEDS: PANTOPRAZOLE 40 MG TABLET PO SCH (08:59)
[2021-01-25] MEDS: METOPROLOL TARTRATE 50 MG TAB PO SCH ×2 (08:59→21:57)
[2021-01-25] MEDS: lisinopriL 20 MG TAB PO SCH ×2 (08:59→23:53)
[2021-01-25] MEDS ORDERED: PANTOPRAZOLE 40 MG TABLET PO SCH (09:00)
[2021-01-25] MEDS ORDERED: ALPRAZolam 0.5 MG TAB PO PRN (10:10)
[2021-01-25] MEDS ORDERED: NITROGLYCERIN SL TABS 0.4 MG TAB SUBLINGUAL PRN (10:10)
--- NOTE | 2021-01-25 11:41 | P.CRDCN ---
History of Present Illness Consult date: 01/25/21 History of present illness: HISTORY OF PRESENT ILLNESS: This is a 75 year old female with a past medical history significant for hypertension and hyperlipidemia. Patient has not been seen in the office since 2016. We have been asked to see the patient in consultation for abnormal troponins. Patient examined at the bedside. Patient reports she has been having ear pain and jaw pain for the last week. She reports the pain has been intermittent. She also reports having progressive shortness of breath over the past week which prompted her to come to the ER. She currently denies chest pain or pressure. Patient was placed on a bipap and states her breathing has improved but she is still unable to lay flat. EKG reveals sinus mechanism with ST depression in anterolateral leads Chest xray there is pulmonary interstitial edema and probable small right pleural effusion which is new compared to exam. This could be acute heart failure or acute pneumonia. Most recent echocardiogram obtained in 2016 revealed ejection fraction 50-55%, mild mitral regurgitation, mild tricuspid regurgitation REVIEW OF SYSTEMS: At the time of my exam: CONSTITUTIONAL: Denies fever or chills. HEENT: Denies blurred vision, vision changes, or eye pain. Denies hemoptysis CARDIOVASCULAR: Denies chest pain. Denies orthopnea. Denies PND. Denies palpitations RESPIRATORY: Denies shortness of breath. GASTROINTESTINAL: Denies abdominal pain. Denies nausea or vomiting. HEMATOLOGIC: Denies bleeding disorders. GENITOURINARY: Denies any blood in urine. SKIN: Denies pruitis. Denies rash. PHYSICAL EXAM: VITAL SIGNS: Reviewed. GENERAL: Well-developed in no acute distress. HEENT: Head is normocephalic. Pupils are equal, round. Sclerae anicteric. Mucous membranes of the mouth are moist. Neck supple. No JVD or thyromegaly LUNGS: Respirations even and unlabored. Lungs diminished to auscultation bilaterally. HEART: Regular rate and rhythm. S1 and S2 heard. ABDOMEN: Soft. Nondistended. Nontender. EXTREMITIES: Normal range of motion. No clubbing or cyanosis. Peripheral pulses intact. Trace lower extremity edema NEUROLOGIC: Awake and alert. Oriented x 3. ASSESSMENT: Shortness of breath Acute hypoxic respiratory failure, requiring BiPAP Acute congestive heart failure, diastolic, EF 50-55% in 2016, repeat echo pending Non-STEMI Hypertension Hyperlipidemia PLAN: Obtain 2-D echo to assess cardiac structure and function Continue IV heparin Resume home cardiac medications Continue IV Lasix Monitor kidney function Patient to undergo cardiac catheterization tomorrow with Dr. Warner Further recommendations pending patient's course Nurse practitioner note has been reviewed by physician. Signing provider agrees with the documented findings, assessment, and plan of care. Past Medical History Past Medical History: GERD/Reflux, GI Bleed, Hypertension, Osteoarthritis (OA) Additional Past Medical History / Comment(s): Diverticulitis. Angina. Hiatal hernia. Recent stomach problems and rectal bleeding. "Bad back, disintegrating discs in neck, head shakes." History of Any Multi-Drug Resistant Organisms: None Reported Past Surgical History: Bowel Resection, Heart Catheterization, Hysterectomy, Orthopedic Surgery Additional Past Surgical History / Comment(s): Left foot surgery, left carpal tunnel surgery, colonoscopy X2. Past Anesthesia/Blood Transfusion Reactions: No Reported Reaction Past Psychological History: No Psychological Hx Reported Smoking Status: Never smoker Past Alcohol Use History: None Reported Past Drug Use History: None Reported - Past Family History Father Family Medical History: Cancer Mother Family Medical History: Cancer Brother(s) Family Medical History: Coronary Artery Disease (CAD), Myocardial Infarction (M I) Sister(s) Family Medical History: Neurologic Disorder Daughter(s) Family Medical History: Pulmonary Embolus Son(s) Family Medical History: Coronary Artery Disease (CAD) Medications and Allergies Home Medications Medication Instructions Recorded Confirmed Type Enalapril [Vasotec] 20 mg PO BID 09/07/15 01/25/21 History Metoprolol Tartrate [Lopressor] 50 mg PO BID 09/07/15 01/25/21 History [place]-3 Fatty Acids/Fish Oil [Fish 1 cap PO DAILY 09/08/15 01/25/21 History Oil 1,000 mg Softgel] Cholecalciferol (Vitamin D3) 50 mcg PO DAILY 06/14/17 01/25/21 History [Vitamin D3] L.acidoph,Paracasei, B.lactis 1 cap PO DAILY 06/14/17 01/25/21 History [Probiotic] Magnesium Oxide [Mag-Ox] 250 mg PO DAILY 06/14/17 01/25/21 History Aspirin [Adult Low Dose Aspirin EC] 81 mg PO DAILY 12/07/20 01/25/21 History Cyanocobalamin (Vitamin B-12) 1,000 mcg PO DAILY 12/07/20 01/25/21 History [Vitamin B-12] amLODIPine [Norvasc] 10 mg PO HS 12/07/20 01/25/21 History Acetaminophen/Chlorpheniramine 1 - 2 tab PO Q6H PRN 01/25/21 01/25/21 History [Coricidin Hbp Cold & Flu Tab] Omeprazole 40 mg PO DAILY 01/25/21 01/25/21 History Simvastatin [Zocor] 20 mg PO HS 01/25/21 01/25/21 History Allergies Allergy/AdvReac Type Severity Reaction Status Date / Time ciprofloxacin Allergy Rash/Hives Verified 01/25/21 07:09 cortisone Allergy HAD Verified 01/25/21 07:09 NUMBNESS AT BACK OF HEAD FOLLOWING INJECTION hydrocortisone Allergy Unknown Verified 01/25/21 07:09 [From Cortizone-10] Penicillins Allergy Rash/Hives Verified 01/25/21 07:09 Physical Exam Vitals: Vital Signs Temp Pulse Resp BP Pulse Ox 01/25/21 11:08 75 20 101/68 98 01/25/21 08:56 81 20 123/81 98 01/25/21 07:45 85 22 112/78 98 01/25/21 06:20 92 21 123/81 98 01/25/21 05:03 86 18 114/78 96 01/25/21 04:00 82 20 114/71 97 01/25/21 03:00 78 20 113/75 97 01/25/21 02:26 87 22 126/80 99 01/25/21 01:55 92 28 H 116/70 97 01/25/21 01:35 32 H 01/25/21 01:13 97.7 F 99 22 119/87 92 L Intake and Output 01/24/21 01/25/21 01/25/21 22:59 06:59 14:59 Other: Weight 86.636 kg Results 01/25/21 02:22 01/25/21 02:22 Cardiac Enzymes 01/25/21 01/25/21 01/25/21 Range/Units 02:22 02:22 05:15 AST 33 (14-36) U/L Troponin I 1.620 H* 1.850 H* (0.000-0.034) ng/mL 01/25/21 Range/Units 08:47 AST (14-36) U/L Troponin I 2.110 H* (0.000-0.034) ng/mL Coagulation 01/25/21 Range/Units 02:22 PT 9.9 (9.0-12.0) sec APTT 22.9 (22.0-30.0) sec CBC 01/25/21 Range/Units 02:22 WBC 14.5 H (3.8-10.6) k/uL RBC 4.15 (3.80-5.40) m/uL Hgb 11.8 (11.4-16.0) gm/dL Hct 38.0 (34.0-46.0) % Plt Count 328 (150-450) k/uL Comprehensive Metabolic Panel 01/25/21 Range/Units 02:22 Sodium 135 L (137-145) mmol/L Potassium 4.5 (3.5-5.1) mmol/L Chloride 104 (98-107) mmol/L Carbon Dioxide 15 L (22-30) mmol/L BUN 17 (7-17) mg/dL Creatinine 0.75 (0.52-1.04) mg/dL Glucose 194 H (74-99) mg/dL Calcium 9.8 (8.4-10.2) mg/dL AST 33 (14-36) U/L ALT 19 (4-34) U/L Alkaline Phosphatase 95 (38-126) U/L Total Protein 7.5 (6.3-8.2) g/dL Albumin 4.4 (3.5-5.0) g/dL Current Medications Generic Name Dose Route Start Last Admin Trade Name Freq PRN Reason Stop Dose Admin Alprazolam 0.25 mg 01/25/21 10:10 Alprazolam 0.25 Mg Tab PO Q6HR PRN Mild Anxiety Alprazolam 0.5 mg 01/25/21 10:10 Alprazolam 0.5 Mg Tab PO Q6HR PRN Moderate Anxiety Amlodipine Besylate 10 mg 01/25/21 21:00 Amlodipine 10 Mg Tab PO HS TIANNA Aspirin 81 mg 01/26/21 09:00 Aspirin 81 Mg PO DAILY TIANNA Aspirin 325 mg 01/26/21 07:00 Aspirin 325 Mg Tab PO 01/26/21 07:01 ONCE ONE Atorvastatin Calcium 80 mg 01/25/21 21:00 Atorvastatin 80 Mg Tab PO HS TIANNA Atorvastatin Calcium 80 mg 01/26/21 07:00 Atorvastatin 80 Mg Tab PO 01/26/21 07:01 ONCE ONE Cholecalciferol 50 mcg 01/25/21 09:00 01/25/21 08:58 Cholecalciferol 25 Mcg (1000 Iu) Tablet PO 50 mcg DAILY TIANNA Administration Clopidogrel Bisulfate 75 mg 01/25/21 09:00 01/25/21 08:58 Clopidogrel 75 Mg Tab PO 75 mg DAILY TIANNA Administration Cyanocobalamin 1,000 mcg 01/25/21 09:00 01/25/21 08:59 Cyanocobalamin 500 Mcg Tab PO 1,000 mcg DAILY TIANNA Administration Furosemide 40 mg 01/25/21 08:15 01/25/21 08:57 Furosemide 10 Mg/Ml 4 Ml Vial IV 40 mg Q8HR TIANNA Administration Heparin Sodium (Porcine) 0 unit 01/25/21 05:09 Heparin Sodium 1,000 Un/Ml (10ml Vl) IV PER PROTOCOL PRN Low PTT Protocol Heparin Sodium/Sodium Chloride 250 mls @ 10.05 mls/hr 01/25/21 05:15 01/25/21 06:02 25,000 unit/ Sodium Chloride IV 11.6 units/kg/hr .Q24H TIANNA 10.05 mls/hr Administration Protocol 11.6 UNITS/KG/HR Sodium Chloride 1,000 ml/ IV 1,000 mls @ 86.636 mls/hr 01/25/21 23:00 Solution IV .[id number] TIANNA 1 ML/KG/HR Heparin Sodium (Porcine) 10, 1,001 mls @ 999 mls/hr 01/26/21 07:00 000 unit/ Sodium Chloride IRRIGATION 01/26/21 23:00 ONCE PRN INTRA-OP Heparin Sodium (Porcine) 2,500 250.5 mls @ 250 mls/hr 01/26/21 07:00 unit/ Sodium Chloride IRRIGATION 01/26/21 23:00 ONCE PRN INTRA-OP Lactobacillus Acidoph/Bulgaricus 1 each 01/25/21 09:00 01/25/21 08:58 Lactobacillus Acidoph & Bulgar 1 Each Packet PO 1 each DAILY TIANNA Administration Lisinopril 20 mg 01/25/21 09:00 01/25/21 08:59 Lisinopril 20 Mg Tab PO 20 mg BID TIANNA Administration Magnesium Oxide 200 mg 01/25/21 09:00 01/25/21 08:59 Magnesium Oxide 400 Mg Tab PO 200 mg DAILY TIANNA Administration Metoprolol Tartrate 50 mg 01/25/21 09:00 01/25/21 08:59 Metoprolol Tartrate 50 Mg Tab PO 50 mg BID TIANNA Administration Nitroglycerin 0.5 inch 01/25/21 09:00 01/25/21 08:58 Nitroglycerin Oint 1 Inch/Gm Packet TOPICAL 0.5 inch QID TIANNA Administration Nitroglycerin 0.4 mg 01/25/21 10:10 Nitroglycerin Sl Tabs 0.4 Mg Tab SUBLINGUAL Q5M PRN Chest Pain Pantoprazole Sodium 40 mg 01/25/21 09:00 01/25/21 08:59 Pantoprazole 40 Mg Tablet PO 40 mg DAILY TIANNA Administration Sodium Chloride 10 ml 01/25/21 09:00 01/25/21 09:00 Sodium Chloride 0.9% Flush 10 Ml Syringe IV 10 ml BID TIANNA Administration Intake and Output 01/24/21 01/25/21 01/25/21 22:59 06:59 14:59 Other: Weight 86.636 kg 01/25/21 02:22 01/25/21 02:22
--- NOTE | 2021-01-25 12:34 | ECHOF ---
Referral Reason:Heart Failure MEASUREMENTS -------- HEIGHT: 152.4 cm WEIGHT: 86.6 kg BP: IVSd: 1.4 cm (0.6 - 1.1) LVIDd: 4.7 cm (3.9 - 5.3) LVPWd: 1.0 cm (0.6 - 1.1) IVSs: 1.7 cm LVIDs: 4.6 cm LVPWs: 1.0 cm LAESV Index (A-L): 43.35 ml/m Ao Diam: 2.8 cm (2.0 - 3.7) AV Cusp: 1.9 cm (1.5 - 2.6) MV EXCURSION: 19.436 mm (> 18.000) MV EF SLOPE: 66 mm/s (70 - 150) MV E Arpit: 0.77 m/s MV DecT: 149 ms MV A Arpit: 0.80 m/s MV E/A Ratio: 0.96 RAP: 5.00 mmHg RVSP: 28.88 mmHg FINDINGS -------- Sinus rhythm. This was a techncally difficult study with suboptimal views, , Lumason utilized for enhancement of im ages. The left ventricular size is normal. Left ventricular wall thickness is normal. Overall left vent ricular systolic function is moderate-severely impaired with, an EF between 30 - 35 %. Basal latera l LV wall motion is hypokinetic. Mid lateral LV wall motion is hypokinetic. Mid inferior LV wal l motion is hypokinetic. Apical lateral LV wall motion is hypokinetic. The right ventricle is normal in size. LA is severely dilated >40 ml/m2 The right atrial size is normal. There is mild aortic valve sclerosis. There is no evidence of aortic regurgitation. Mild mitral annular calcification present. Mild mitral regurgitation is present. The tricuspid valve appears structurally normal. Mild tricuspid regurgitation present. Right vent ricular systolic pressure is normal at < 35 mmHg. There is no pulmonic regurgitation present. The aortic root size is normal. There is no pericardial effusion. CONCLUSIONS -------- 1. This was a techncally difficult study with suboptimal views, , Lumason utilized for enhancement of images. 2. Left ventricular wall thickness is normal. 3. Overall left ventricular systolic function is moderate-severely impaired with, an EF between 30 - 35 %. 4. Basal lateral LV wall motion is hypokinetic. 5. Mid lateral LV wall motion is hypokinetic. 6. Mid inferior LV wall motion is hypokinetic. 7. Apical lateral LV wall motion is hypokinetic. 8. LA is severely dilated >40 ml/m2 9. There is mild aortic valve sclerosis. 10. Mild mitral regurgitation is present. 11. Mild tricuspid regurgitation present. 12. There is no pericardial effusion. INTERMODAL DISPATCHER: Lili Heller RDCS
--- NOTE | 2021-01-25 13:33 | P.HPIM ---
History of Present Illness H&P Date: 01/25/21 HISTORY OF PRESENT ILLNESS This is a 75-year-old female patient of Dr. 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 Patient complains of shortness of breath off and on for a week with exertional dyspnea. She states she has been sleeping on 3-4 pillows at night starting yesterday she became increasingly short of breath and couldn't lay down. She does complain of discomfort in her chest with right ear and right jaw pain. She denies any lower extremity edema. Patient presented to [facility] emergency center for e valuation. She is found to be afebrile, heart rate 99, respiratory rate 32, blood pressure 119/87, pulse ox 92% on room air. Patient was later changed over to nonrebreather and then to BiPAP. Blood work reveals WBC 14.5, hemoglobin 9.8, platelet count 328. INR 0.9. Sodium 135, potassium 4.5, chloride 104, CO2 15, BUN 17 and creatinine 0.75. Blood sugar 194. Lactic acid 3.5 and repeat of 1.3. Troponins 1.620, 1.850, 2.11. ProBNP 2700. Coronavirus PCR not detected. Chest x-ray reveals pulmonary interstitial edema and probable small right pleural effusion which are new. This could be acute heart failure or acute pneumonia. Echocardiogram reveals EF of 30-35%, LA is severely dilated, LV wall motion is hypokinetic, mild mitral regurgitation, mild tricuspid regurgitation. Patient is seen today in the emergency center waiting for bed on the cardiac stepdown unit. REVIEW OF SYSTEMS Constitutional: No fever, no chills, no night sweats. No weight change. No weakness, reports fatigue no lethargy. No daytime sleepiness. EENT: No headache. No blurred vision or double vision, no loss of vision. No loss of Hearing, no ringing in the ears, no dizziness. No nasal drainage or congestion. No epistaxis. No sore throat. Lungs: Reports shortness of breath, cough, no sputum production. No wheezing. Reports 6 social shortness of breath Cardiovascular: Reports vague chest pain, no lower extremity edema. No palpitations. No paroxysmal nocturnal dyspnea. Reports orthopnea. No lightheadedness or dizziness. No syncopal episodes. Abdominal: No abdominal pain. No nausea, vomiting. No diarrhea. No constipation. No bloody or tarry stools. No loss of appetite. Genitourinary: No dysuria, increased frequency, urgency. No urinary retention. Musculoskeletal: No myalgias. No muscle weakness, no gait dysfunction, no frequent falls. No back pain. No neck pain. Integumentary: No wounds, no lesions. No rash or pruritus. No unusual bruising. No change in hair or nails. Neurologic: No aphasia. No facial droop. No change in mentation. No head injury. No headache. No paralysis. No paresthesia. Psychiatric: No depression. No anxiety. No mood swings. Endocrine: No abnormal blood sugars. No weight change. No excessive sweating or thirst. No cold intolerance. MEDICAL HISTORY Hypertension Hyperlipidemia Gastroesophageal reflux disease History of GI bleed Diverticulitis Degenerative disc disease in the cervical spine SURGICAL HISTORY Cardiac catheterization Hysterectomy Bowels resection Left carpal tunnel release Left foot surgery Colonoscopy SOCIAL HISTORY Patient is a lifelong nonsmoker, no alcohol use, marijuana or illicit drug use. She lives at home with her . FAMILY HISTORY [ ]. PHYSICAL EXAMINATION Gen: This is a 75-year-old female. She is resting on the ER stretcher with BiPAP in place with mild accessory muscle usage HEENT: Head is atraumatic, normocephalic. Pupils equal, round. Sclerae is anicteric. NECK: Supple. No JVD. No lymphadenopathy. No thyromegaly. LUNGS: Clear to auscultation. No wheezes or rhonchi. No intercostal retractions. HEART: Regular rate and rhythm. No murmur. ABDOMEN: Soft. Bowel sounds are present. No masses. No tenderness. EXTREMITIES: No pedal edema. No calf tenderness. NEUROLOGICAL: Patient is awake, alert and oriented x3. Cranial nerves 2 through 12 are grossly intact. ASSESSMENT AND PLAN 1. Acute hypoxic respiratory failure secondary to acute diastolic heart failure. Patient has been started on IV Lasix which we'll increase to 40 mg every 8 hours, monitor I&O and daily weights, monitor renal function and electrolytes, cardiology consult. 2. Non-ST elevated myocardial infarction. Patient's been started on heparin drip, cardiology consult, possible cardiac catheterization tomorrow. Continue aspirin 81 mg daily, Lipitor 80 mg at bedtime, Plavix 75 mg daily, Lopressor 50 mg twice daily. 3. Hyperglycemia without diagnosis of diabetes. 4. Hypertension. Continue Norvasc 10 mg at bedtime, lisinopril 20 mg twice daily, Lopressor. 5. Hyperlipidemia. Continue atorvastatin 80 mg at bedtime. 6. Gastroesophageal reflux disease and GI prophylaxis. Continue Protonix 40 mg daily. 7. History of GI bleed, no active bleeding at this time. 8. History of diverticulitis. 9. Degenerative disc disease in the cervical spine. 10. DVT prophylaxis. Heparin. 11. COVID-19 testing negative. Patient has been hospitalized during a pandemic. Patient will be admitted to the hospital for a minimum of 2 night stay. DISCHARGE PLAN To be determined. Impression and plan of care have been directed as dictated by the signing physician. Lizzie Solomon nurse practitioner acting as scribe for signing physician. Past Medical History Past Medical History: GERD/Reflux, GI Bleed, Hypertension, Osteoarthritis (OA) Additional Past Medical History / Comment(s): Diverticulitis. Angina. Hiatal hernia. Recent stomach problems and rectal bleeding. "Bad back, disintegrating discs in neck, head shakes." History of Any Multi-Drug Resistant Organisms: None Reported Past Surgical History: Bowel Resection, Heart Catheterization, Hysterectomy, Orthopedic Surgery Additional Past Surgical History / Comment(s): Left foot surgery, left carpal tunnel surgery, colonoscopy X2. Past Anesthesia/Blood Transfusion Reactions: No Reported Reaction Past Psychological History: No Psychological Hx Reported Smoking Status: Never smoker Past Alcohol Use History: None Reported Past Drug Use History: None Reported - Past Family History Father Family Medical History: Cancer Mother Family Medical History: Cancer Brother(s) Family Medical History: Coronary Artery Disease (CAD), Myocardial Infarction (OR) Sister(s) Family Medical History: Neurologic Disorder Daughter(s) Family Medical History: Pulmonary Embolus Son(s) Family Medical History: Coronary Artery Disease (CAD) Medications and Allergies Home Medications Medication Instructions Recorded Confirmed Type Enalapril [Vasotec] 20 mg PO BID 09/07/15 01/25/21 History Metoprolol Tartrate [Lopressor] 50 mg PO BID 09/07/15 01/25/21 History [place]-3 Fatty Acids/Fish Oil [Fish 1 cap PO DAILY 09/08/15 01/25/21 History Oil 1,000 mg Softgel] Cholecalciferol (Vitamin D3) 50 mcg PO DAILY 06/14/17 01/25/21 History [Vitamin D3] L.acidoph,Paracasei, B.lactis 1 cap PO DAILY 06/14/17 01/25/21 History [Probiotic] Magnesium Oxide [Mag-Ox] 250 mg PO DAILY 06/14/17 01/25/21 History Aspirin [Adult Low Dose Aspirin EC] 81 mg PO DAILY 12/07/20 01/25/21 History Cyanocobalamin (Vitamin B-12) 1,000 mcg PO DAILY 12/07/20 01/25/21 History [Vitamin B-12] amLODIPine [Norvasc] 10 mg PO HS 12/07/20 01/25/21 History Acetaminophen/Chlorpheniramine 1 - 2 tab PO Q6H PRN 01/25/21 01/25/21 History [Coricidin Hbp Cold & Flu Tab] Omeprazole 40 mg PO DAILY 01/25/21 01/25/21 History Simvastatin [Zocor] 20 mg PO HS 01/25/21 01/25/21 History Allergies Allergy/AdvReac Type Severity Reaction Status Date / Time ciprofloxacin Allergy Rash/Hives Verified 01/25/21 07:09 cortisone Allergy HAD Verified 01/25/21 07:09 NUMBNESS AT BACK OF HEAD FOLLOWING INJECTION hydrocortisone Allergy Unknown Verified 01/25/21 07:09 [From Cortizone-10] Penicillins Allergy Rash/Hives Verified 01/25/21 07:09 Physical Exam Vitals: Vital Signs Temp Pulse Resp BP Pulse Ox 01/25/21 07:45 85 22 112/78 98 01/25/21 06:20 92 21 123/81 98 01/25/21 05:03 86 18 114/78 96 01/25/21 04:00 82 20 114/71 97 01/25/21 03:00 78 20 113/75 97 01/25/21 02:26 87 22 126/80 99 01/25/21 01:55 92 28 H 116/70 97 01/25/21 01:35 32 H 01/25/21 01:13 97.7 F 99 22 119/87 92 L Intake and Output 01/24/21 01/25/21 01/25/21 22:59 06:59 14:59 Other: Weight 86.636 kg Results CBC & Chem 7: 01/26/21 07:12 01/25/21 02:22 Labs: Abnormal Lab Results - Last 24 Hours (Table) 01/25/21 01/25/21 01/25/21 Range/Units 02:22 02:22 02:22 WBC 14.5 H (3.8-10.6) k/uL Neutrophils # 8.5 H (1.3-7.7) k/uL Sodium 135 L (137-145) mmol/L Carbon Dioxide 15 L (22-30) mmol/L Glucose 194 H (74-99) mg/dL Plasma Lactic Acid Mata 3.5 H* (0.7-2.0) mmol/L Troponin I (0.000-0.034) ng/mL 01/25/21 01/25/21 Range/Units 02:22 05:15 WBC (3.8-10.6) k/uL Neutrophils # (1.3-7.7) k/uL Sodium (137-145) mmol/L Carbon Dioxide (22-30) mmol/L Glucose (74-99) mg/dL Plasma Lactic Acid Mata (0.7-2.0) mmol/L Troponin I 1.620 H* 1.850 H* (0.000-0.034) ng/mL
[2021-01-25] MEDS ORDERED: ATORVASTATIN 10 MG TAB PO SCH (21:00)
[2021-01-25] MEDS ORDERED: amLODIPine 10 MG TAB PO SCH (21:00)
[2021-01-25] MEDS: ATORVASTATIN 80 MG TAB PO SCH (21:57)
[2021-01-25] MEDS: SODIUM CHLORIDE 0.9% 1,000 ML in EMPTY BAG 1 BAG IV SCH (23:03)
[2021-01-26] MEDS: HEPARIN SOD,PORK IN 0.45% NACL 25,000 UNIT in 0.45% NACL 1 250ML.BAG IV SCH (04:36)
[2021-01-26] MEDS: CLOPIDOGREL 75 MG TAB PO SCH (06:42)
[2021-01-26] MEDS: CHOLECALCIFEROL 25 MCG (1000 IU) TABLET PO SCH (06:42)
[2021-01-26] MEDS: MAGNESIUM OXIDE 400 MG TAB PO SCH (06:43)
[2021-01-26] MEDS: CYANOCOBALAMIN 500 MCG TAB PO SCH (06:43)
[2021-01-26] MEDS: METOPROLOL TARTRATE 50 MG TAB PO SCH (06:43)
[2021-01-26] MEDS: PANTOPRAZOLE 40 MG TABLET PO SCH (06:44)
[2021-01-26] MEDS: NITROGLYCERIN OINT 1 INCH/GM PACKET TOPICAL SCH ×3 (06:45→21:07)
[2021-01-26] MEDS: FUROSEMIDE 10 MG/ML 4 ML VIAL IV SCH ×2 (06:45→21:15)
[2021-01-26] MEDS: ASPIRIN 81 MG PO SCH (06:45)
[2021-01-26] MEDS: LACTOBACILLUS ACIDOPH & BULGAR 1 EACH PACKET PO SCH (06:46)
[2021-01-26] MEDS ORDERED: ATORVASTATIN 80 MG TAB PO ONE (07:00)
[2021-01-26] MEDS ORDERED: ASPIRIN 325 MG TAB PO ONE (07:00)
[2021-01-26] MEDS ORDERED: HEPARIN SODIUM,PORCINE 10,000 UNIT in SODIUM CHLORIDE 0.9% 1,000 ML IRRIGATION PRN (07:00)
[2021-01-26] MEDS ORDERED: HEPARIN SODIUM,PORCINE 2,500 UNIT in SODIUM CHLORIDE 0.9% 250 ML IRRIGATION PRN (07:00)
[2021-01-26 07:55] LABS: Basophils % (A) 1 %; Eosinophils # (A) 0.2 k/uL (0-0.7); Eosinophils % (A) 3 %; HCT 31.2 % (34.0-46.0); Lymphocytes # (A) 2.1 k/uL (1.0-4.8); Lymphocytes % (A) 28 %; MCH 27.9 pg (25.0-35.0); MCHC 32.3 g/dL (31.0-37.0); Monocytes # (A) 0.4 k/uL (0-1.0); Monocytes % (A) 6 %; Neutrophils # (A) 4.6 k/uL (1.3-7.7); Neutrophils % (A) 60 %; Platelet Count 427 k/uL (150-450); RBC 3.62 m/uL (3.80-5.40); RDW 13.7 % (11.5-15.5); WBC 7.6 k/uL (3.8-10.6)
[2021-01-26 08:02] LABS: MCV 86.4 fL (80.0-100.0)
[2021-01-26 08:03] LABS: HGB 10.1 gm/dL (11.4-16.0)
[2021-01-26 08:15] LABS: Partial Thromboplastin Time 40.3 sec (22.0-30.0); Prothrombin Time 10.6 sec (9.0-12.0)
[2021-01-26 08:59] LABS: Calcium 9.2 mg/dL (8.4-10.2); Potassium 3.8 mmol/L (3.5-5.1)
[2021-01-26] MEDS ORDERED: ASPIRIN 325 MG TAB PO SCH (09:00)
[2021-01-26] MEDS: lisinopriL 20 MG TAB PO SCH (10:11)
[2021-01-26] MEDS ORDERED: IV FLUID CONTINUATION 1,000 ML IV ONE (12:14)
[2021-01-26] MEDS ORDERED: MIDAZOLAM 2 MG/2 ML VIAL IV ONE (12:43)
[2021-01-26] MEDS ORDERED: LIDOCAINE 1% INJ 10MG/ML (20 ML MDV) SQ ONE ×2 (12:43→12:52)
[2021-01-26] MEDS ORDERED: fentaNYL (PF) 50 MCG/ML 2 ML AMP IV ONE (12:43)
[2021-01-26 13:24] VITALS: BMI 36.7
[2021-01-26] MEDS ORDERED: RX INFO: IV CONTRAST WAS GIVEN 1 EACH MISC MISCELLANE PRN (13:34)
--- NOTE | 2021-01-26 13:48 | P.CARDCATH ---
Date of Procedure: 01/26/21 Preoperative Diagnosis: Non-STEMIAnd the pulmonary edema and ischemic cardiomyopathy Postoperative Diagnosis: Triple-vessel disease, critical left main and subtotal circumflex Procedure(s) Performed: Left heart catheterization without left ventriculography and also intra-aortic balloon insertion Description of Procedure: HISTORY: This is a 75-year-old female with history of hypertension and hypercholesterolemia and also probably GI bleeding was admitted to the hospital with complaints of chest pain and progressive shortness of breath. Her troponins are mildly elevated and she was in pulmonary edema. Echo Cardigan showed severe hypokinesis of the inferolateral wall with generalized hypokinesia and ejection fraction about 35%. Patient is advised to have cardiac catheterization for definitive diagnosis CONSENT:I have discussed the risks, benefits and alternative therapies for the above-mentioned procedure and for both sedation/analgesia as well as necessary blood product administration, if indicated, as they pertain to this patient. The patient has indicated understanding and acceptance of the risks and procedures discussed. PROCEDURE: Patient was brought to the lab in a fasting state. Patient was given some IV sedation. The right groin is infiltrated with lidocaine and right femoral artery was entered using Seldinger technique. A 6-[place] catheter was left in place and selective coronary arteriography was performed. Patient tolerated the procedure well. Patient is found to have left main and severe triple-vessel disease ,started having chest pain which was not relieved with nitroglycerin.Patient had implantable pump insertion. A stat cardiac surgery consult is obtained. Versed: 1 mg Fentanyl 25 g Duration 49minutes HEMODYNAMICS: The aortic pressure has been 100/70. Left ventricle end-diastolic pressure is close to 30 SELECTIVE CORONARY ARTERIOGRAPHY: LEFT MAIN: 95% eccentric lesion THE LEFT ANTERIOR DESCENDING CORONARY ARTERY: Fair caliber vessel with the ostial involvement of the lesion from the left main. 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 Patient also went to have intra-aortic balloon pump PROGNOSIS: Guarded
[2021-01-26] MEDS ORDERED: HEPARIN SODIUM 1,000 UN/ML (10ML VL) IV ONE (13:50)
--- NOTE | 2021-01-26 13:50 | P.PCN ---
Date of Procedure: 01/26/21 Preoperative Diagnosis: Severe triple-vessel disease with ongoing angina Postoperative Diagnosis: The same Procedure(s) Performed: Intra-aortic balloon pump insertion Description of Procedure: Patient is already in the table, prepped and draped. The sheath in the right groin is exchanged for intractable with the 7.5-Macedonian sheath. A 7.5-Macedonian balloon pump was inserted and was placed just below the arch of the aorta. This is connected to the balloon pump and one-to-one information is initiated. Patient tolerated the procedure well. The sheath was sutured to the floor. By Final impression: Successful implantation of antibiotic balloon pump
[2021-01-26 13:51] LABS: Magnesium 1.9 mg/dL (1.6-2.3)
[2021-01-26] MEDS ORDERED: HEPARIN SOD,PORK IN 0.45% NACL 25,000 UNIT in 0.45% NACL 1 250ML.BAG IV ONE (13:52)
--- NOTE | 2021-01-26 15:27 | P.PN ---
Subjective Progress Note Date: 01/26/21 HISTORY OF PRESENT ILLNESS This is a 75-year-old female patient of Dr. Avina with past medical history of hypertension, hyperlipidemia, gastroesophageal reflux disease, history of GI bleed, recurrent sigmoid diverticulitis status post sigmoid colectomy and low anterior resection, degenerative disc disease in the cervical spine. Patient complains of shortness of breath off and on for a week with exertional dyspnea. She states she has been sleeping on 3-4 pillows at night starting yesterday she became increasingly short of breath and couldn't lay down. She does complain of discomfort in her chest with right ear and right jaw pain. She denies any lower extremity edema. Patient presented to [facility] emergency center for evaluation. She is found to be afebrile, heart rate 99, respiratory rate 32, blood pressure 119/87, pulse ox 92% on room air. Patient was later changed over to nonrebreather and then to BiPAP. Blood work reveals WBC 14.5, hemoglobin 9.8, platelet count 328. INR 0.9. Sodium 135, potassium 4.5, chloride 104, CO2 15, BUN 17 and creatinine 0.75. Blood sugar 194. Lactic acid 3.5 and repeat of 1.3. Troponins 1.620, 1.850, 2.11. ProBNP 2700. Coronavirus PCR not detected. Chest x-ray reveals pulmonary interstitial edema and probable small right pleural effusion which are new. This could be acute heart failure or acute pne umonia. Echocardiogram reveals EF of 30-35%, LA is severely dilated, LV wall motion is hypokinetic, mild mitral regurgitation, mild tricuspid regurgitation. Patient is seen today in the emergency center waiting for bed on the cardiac stepdown unit. 01/26: Patient is seen today on the selective care unit, sitting up her recliner and is at bedside. She currently states that she is feeling better from yesterday and denied any chest pain or pressure and denies any neck pain. Patient does state that she did have some rectal bleeding most likely secondary to her history of diverticulosis. Patient underwent heart catheterization which revealed left main disease of 95%, LAD total occlusion of the diagonal branches, left circumflex subtotally occluded, right coronary artery 70-80% distally. Due to severe triple-vessel disease, patient was transferred to the intensive care unit post procedure. Patient also underwent intra-aortic balloon pump insertion. After procedures, patient went to the intensive care unit and consult with cardiothoracic surgery added. REVIEW OF SYSTEMS Constitutional: No fever, no chills, no night sweats. No weight change. No we akness, reports fatigue no lethargy. No daytime sleepiness. EENT: No headache. No blurred vision or double vision, no loss of vision. No loss of Hearing, no ringing in the ears, no dizziness. No nasal drainage or congestion. No epistaxis. No sore throat. Lungs: Reports shortness of breath, cough, no sputum production. No wheezing. Reports exertional shortness of breath Cardiovascular: Denies chest pain, no lower extremity edema. No palpitations. No paroxysmal nocturnal dyspnea. Reports orthopnea. No lightheadedness or dizziness. No syncopal episodes. Abdominal: No abdominal pain. No nausea, vomiting. No diarrhea. No constipation. No bloody or tarry stools. No loss of appetite. Genitourinary: No dysuria, increased frequency, urgency. No urinary retention. Musculoskeletal: No myalgias. No muscle weakness, no gait dysfunction, no frequent falls. No back pain. No neck pain. Integumentary: No wounds, no lesions. No rash or pruritus. No unusual bruising. No change in hair or nails. Neurologic: No aphasia. No facial droop. No change in mentation. No head injury. No headache. No paralysis. No paresthesia. Psychiatric: No depression. No anxiety. No mood swings. Endocrine: No abnormal blood sugars. No weight change. No excessive sweating or thirst. No cold intolerance. PHYSICAL EXAMINATION Gen: This is a 75-year-old female. She is sitting in recliner on the cardiac stepdown unit. is at bedside. HEENT: Head is atraumatic, normocephalic. Pupils equal, round. Sclerae is anicteric. NECK: Supple. No JVD. No lymphadenopathy. No thyromegaly. LUNGS: Clear to auscultation. No wheezes or rhonchi. No intercostal retractions. HEART: Regular rate and rhythm. No murmur. ABDOMEN: Soft. Bowel sounds are present. No masses. No tenderness. EXTREMITIES: No pedal edema. No calf tenderness. Dorsalis pedis palpable bilaterally. NEUROLOGICAL: Patient is awake, alert and oriented x3. Cranial nerves 2 through 12 are grossly intact. ASSESSMENT AND PLAN 1. Acute hypoxic respiratory failure secondary to acute systolic heart failure. Continue IV Lasix 40 mg every 12 hours, monitor I&O and daily weights, monitor renal function and electrolytes, cardiology consult appreciated. Echocardiogram as above. 2. Non-ST elevated myocardial infarction status post heart catheterization finding triple-vessel disease, status post intra-aortic balloon pump. Patient's been transferred to the intensive care unit, consult with cardiothoracic surgery. Continue aspirin 81 mg daily, Lipitor 80 mg at bedtime, heparin drip. 3. Hyperglycemia without diagnosis of diabetes. Continue to monitor. 4. Hypertension. Patient is off Norvasc, lisinopril and Lopressor due to hypotension. 5. Hyperlipidemia. Continue atorvastatin 80 mg at bedtime. 6. Gastroesophageal reflux disease and GI prophylaxis. Continue Protonix 40 mg daily. 7. History of GI bleed, no active bleeding at this time. Patient had rectal bleeding 1 most likely secondary to diverticulitis 8. History of diverticulitis status post sigmoid colectomy and low anterior resection. 9. Degenerative disc disease in the cervical spine. 10. DVT prophylaxis. Heparin. 11. COVID-19 testing negative. Patient has been hospitalized during a pandemic. DISCHARGE PLAN To be determined. Impression and plan of care have been directed as dictated by the signing physician. Lizzie Solomon nurse practitioner acting as scribe for signing physician. Objective - Vital Signs Vital signs: Vital Signs Temp 97.8 F 01/26/21 04:00 Pulse 77 01/26/21 04:00 Resp 18 01/26/21 04:00 BP 113/74 01/26/21 06:41 Pulse Ox 97 01/26/21 04:00 Intake & Output 01/25/21 01/26/21 01/26/21 18:59 06:59 18:59 Intake Total 236.795 Output Total 820 Balance -583.205 Weight 85.3 kg Intake: IV 10 Invasive Line 1 10 Intake, IV Titration 226.795 Amount Heparin Sod,Pork in 0.45% 226.795 NaCl 25,000 unit In 0.45 % NaCl 1 250ml.bag @ 11.6 UNITS/KG/HR 10.05 mls/hr IV .Q24H [facility] Rx#: [id number] Output: Urine 820 Other: Voiding Method Bedside Commode - Labs CBC & Chem 7: 01/26/21 07:12 01/26/21 07:12 Labs: Abnormal Lab Results - Last 24 Hours (Table) 01/25/21 01/25/21 01/26/21 Range/Units 08:47 11:05 07:12 RBC 3.62 L (3.80-5.40) m/uL Hgb 10.1 L (11.4-16.0) gm/dL Hct 31.2 L (34.0-46.0) % APTT 47.3 H (22.0-30.0) sec Troponin I 2.110 H* (0.000-0.034) ng/mL
--- NOTE | 2021-01-26 15:32 | P.GSCN ---
History of Present Illness Consult date: 01/26/21 Reason for Consult: Triple-vessel coronary artery disease with left main disease, non-STEMI this admission Requesting physician: Gus Warner History of present illness: This is a 75-year-old female patient who follows on an outpatient basis with Dr. Avina for primary care. She has a previous medical history of hypertension, hyperlipidemia, GERD, GI bleed, diverticulosis status post robotic-assisted colectomy, degenerative disc disease, and family history of coronary artery disease. She presented to [facility] emergency room with complaints of intermittent jaw and ear pain with chest pressure and progressive shortness of breath, along with orthopnea over the previous week. In addition she reports bright red blood from her rectum, most recent colonoscopy and EGD completed in November of this year. Chest x-ray demonstrated evidence of heart failure. EKG demonstrated ST depression in anterolateral leads. Troponins were elevated and patient was ruled in for non-STEMI. In addition her BNP was 2700, transthoracic echocardiogram was completed demonstrating impaired left ventricular systolic function with EF 30-35%, left ventricular wall hypokinesis, mild mitral and tricuspid regurgitation. She was initiated on IV Lasix. She was recommended to undergo heart catheterization which was completed today and which demonstrated 95% distal left main stenosis with ostial LAD involvement 1 00%, occluded diagonal, subtotal proximal circumflex, and 70-80% distal RCA stenosis. She continued to have 9 out of 10 chest pain on the Lathe Set Up Operator table and intra-aortic balloon pump was placed with mostly relieved chest pain. Consultation was placed to Dr. Ruiz from cardiothoracic surgery for re vascularization recommendations. Review of Systems Review of systems was completed and was negative except as noted - Cardiovascular Reports as per HPI, Reports chest pain, Reports decreased exercise tolerance, Reports orthopnea, Reports shortness of breath - Gastrointestinal Reports as per HPI, Reports BRBPR Past Medical History Past Medical History: GERD/Reflux, GI Bleed, Hyperlipidemia, Hypertension, Osteoarthritis (OA) Additional Past Medical History / Comment(s): Diverticulitis. Angina. Hiatal hernia. Recent stomach problems and rectal bleeding. "Bad back, disintegrating discs in neck, head shakes." History of Any Multi-Drug Resistant Organisms: None Reported Past Surgical History: Bowel Resection, Heart Catheterization, Hysterectomy, Orthopedic Surgery Additional Past Surgical History / Comment(s): Left foot surgery, left carpal tunnel surgery, colonoscopy X2. Past Anesthesia/Blood Transfusion Reactions: No Reported Reaction Past Psychological History: No Psychological Hx Reported Smoking Status: Never smoker Past Alcohol Use History: None Reported Past Drug Use History: None Reported - Past Family History Father Family Medical History: Cancer Mother Family Medical History: Cancer Brother(s) Family Medical History: Coronary Artery Disease (CAD), Myocardial Infarction (PA) Sister(s) Family Medical History: Neurologic Disorder Daughter(s) Family Medical History: Pulmonary Embolus Son(s) Family Medical History: Coronary Artery Disease (CAD) Medications and Allergies Home Medications Medication Instructions Recorded Confirmed Type Enalapril [Vasotec] 20 mg PO BID 09/07/15 01/25/21 History Metoprolol Tartrate [Lopressor] 50 mg PO BID 09/07/15 01/25/21 History [place]-3 Fatty Acids/Fish Oil [Fish 1 cap PO DAILY 09/08/15 01/25/21 History Oil 1,000 mg Softgel] Cholecalciferol (Vitamin D3) 50 mcg PO DAILY 06/14/17 01/25/21 History [Vitamin D3] L.acidoph,Paracasei, B.lactis 1 cap PO DAILY 06/14/17 01/25/21 History [Probiotic] Magnesium Oxide [Mag-Ox] 250 mg PO DAILY 06/14/17 01/25/21 History Aspirin [Adult Low Dose Aspirin EC] 81 mg PO DAILY 12/07/20 01/25/21 History Cyanocobalamin (Vitamin B-12) 1,000 mcg PO DAILY 12/07/20 01/25/21 History [Vitamin B-12] amLODIPine [Norvasc] 10 mg PO HS 12/07/20 01/25/21 History Acetaminophen/Chlorpheniramine 1 - 2 tab PO Q6H PRN 01/25/21 01/25/21 History [Coricidin Hbp Cold & Flu Tab] Omeprazole 40 mg PO DAILY 01/25/21 01/25/21 History Simvastatin [Zocor] 20 mg PO HS 01/25/21 01/25/21 History Allergies Allergy/AdvReac Type Severity Reaction Status Date / Time ciprofloxacin Allergy Rash/Hives Verified 01/25/21 07:09 cortisone Allergy HAD Verified 01/25/21 07:09 NUMBNESS AT BACK OF HEAD FOLLOWING INJECTION hydrocortisone Allergy Unknown Verified 01/25/21 07:09 [From Cortizone-10] Penicillins Allergy Rash/Hives Verified 01/25/21 07:09 Surgical - Exam Vital Signs Temp Pulse Resp BP Pulse Ox 97.7 F 99 22 119/87 92 L 01/25/21 01:13 01/25/21 01:13 01/25/21 01:13 01/25/21 01:13 01/25/21 01:13 CONSTITUTIONAL: Awake and alert, appears comfortable, cooperative, well- developed, well-nourished, no pain, no acute distress EYES: Pupils equal, round, reactive to light, normal ocular movement ENT: Moist mucous membranes without oral lesions present NECK: No masses, no bruits, trachea midline RESPIRATORY: Lungs sounds clear to auscultation bilaterally. Respirations even, nonlabored. Currently on 6 L nasal cannula with oxygen saturation 97%. Strong cough. No chest wall deformities. No clubbing or cyanosis present CARDIOVASCULAR: S1, S2 present. Regular rate and rhythm, sinus rhythm on telemetry. Palpable peripheral pulses bilaterally. No edema present. No calf pain or tenderness noted. No significant lower extremity varicosities noted. GASTROINTESTINAL: Abdomen soft, nontender, nondistended without masses or organomegaly noted. There is no rebound or guarding present. Active bowel s ounds present 4 quadrants. GENITOURINARY: Deferred INTEGUMENTARY: Skin is warm and dry with evidence of good perfusion. NEUROLOGIC: Cranial nerves II through XII intact, normal coordination, no obvious motor or sensory deficits, speech is normal MUSKULOSKELETAL: Able to move all extremities, strength equal bilaterally, normal posture PSYCHIATRIC: Alert and oriented to person place and time, appropriate affect, intact judgment and insight Results - Labs 01/26/21 07:12 01/26/21 07:12 Abnormal Lab Results - Last 24 Hours (Table) 01/26/21 01/26/21 01/26/21 Range/Units 07:12 07:12 07:12 RBC 3.62 L (3.80-5.40) m/uL Hgb 10.1 L (11.4-16.0) gm/dL Hct 31.2 L (34.0-46.0) % APTT 40.3 H (22.0-30.0) sec Sodium 135 L (137-145) mmol/L BUN 19 H (7-17) mg/dL Glucose 108 H (74-99) mg/dL Diabetes panel 01/26/21 Range/Units 07:12 Sodium 135 L (137-145) mmol/L Potassium 3.8 (3.5-5.1) mmol/L Chloride 100 (98-107) mmol/L Carbon Dioxide 27 (22-30) mmol/L BUN 19 H (7-17) mg/dL Creatinine 0.91 (0.52-1.04) mg/dL Glucose 108 H (74-99) mg/dL Calcium 9.2 (8.4-10.2) mg/dL Thyroid panel 01/26/21 Range/Units 07:12 TSH 1.310 (0.465-4.680) mIU/L Calcium panel 01/26/21 Range/Units 07:12 Calcium 9.2 (8.4-10.2) mg/dL Pituitary panel 01/26/21 01/26/21 Range/Units 07:12 07:12 Sodium 135 L (137-145) mmol/L Potassium 3.8 (3.5-5.1) mmol/L Chloride 100 (98-107) mmol/L Carbon Dioxide 27 (22-30) mmol/L BUN 19 H (7-17) mg/dL Creatinine 0.91 (0.52-1.04) mg/dL Glucose 108 H (74-99) mg/dL Calcium 9.2 (8.4-10.2) mg/dL TSH 1.310 (0.465-4.680) mIU/L Adrenal panel 01/26/21 Range/Units 07:12 Sodium 135 L (137-145) mmol/L Potassium 3.8 (3.5-5.1) mmol/L Chloride 100 (98-107) mmol/L Carbon Dioxide 27 (22-30) mmol/L BUN 19 H (7-17) mg/dL Creatinine 0.91 (0.52-1.04) mg/dL Glucose 108 H (74-99) mg/dL Calcium 9.2 (8.4-10.2) mg/dL - Imaging Chest x-ray: report reviewed, image reviewed EKG: image reviewed Additional studies: Heart catheterization and echocardiogram films reviewed with Dr. Ruiz Assessment and Plan Assessment: 1. Triple-vessel coronary artery disease with left main disease 2. Chest pain, progressive shortness of breath on admission, non-STEMI on admission 3. Acute systolic heart failure present on admission 4. History of hypertension 5. History of hyperlipidemia, treated 6. GERD 7. History of GI bleed with bleeding per rectum this morning 8. History of diverticulosis status post robotic-assisted colectomy 9. Degenerative disc disease 10. Family history of coronary artery disease Plan: The patient was seen and examined in the extended stay unit with Dr. Ruiz. Chart/diagnostics reviewed. Patient states her pain is currently 3 out of 10 which is much improved since placement of intra-aortic balloon pump. She does report bleeding per rectum this morning without bowel movement, hemoglobin 10.1 this morning which is about the patient's normal. She did have Plavix this morning as well as yesterday morning. The usual perioperative course of open heart surgery was discussed in detail with the patient and her , risks and benefits were reviewed, all questions were answered. Preoperative testing has been initiated. We recommend continuing aspirin, statin, beta carlo therapy. Plavix was discontinued. We will consult Dr. Carbajal who is well known to the patient with most recent colonoscopy and EGD at the beginning of November this year. We will consult pulmonology for anesthesia assistant management. Once preoperative testing has been completed we will calculate STS risk score and discussed with the patient and her . No 5 m walk test to be completed as patient is currently on strict bedrest with IABP in place. Ideally we would like patient to be off Plavix for 5-7 days prior to any surgical intervention, however patient's course of treatment will depend on her symptomatology as well as results of preoperative testing and consultation from Dr. Carbajal. This was discussed between Dr. Ruiz and Dr. Warner. More recommendations to follow depending on patient's progress. Thank you Dr. Warner for this consult. We look forward to working with you in the care of your patient Time with Patient: Greater than 30
--- NOTE | 2021-01-26 15:57 | US ---
EXAMINATION TYPE: US carotid duplex BILAT DATE OF EXAM: 01/26/2021 COMPARISON: NONE CLINICAL HISTORY: 75-year-old female preop cardiac surgery. TECHNIQUE: Carotid duplex ultrasound examination. An direct Doppler criteria is utilized. FINDINGS: EXAM MEASUREMENTS: RIGHT: Peak Systolic Velocity (PSV) cm/sec ----- Right CCA: 79.4 ----- Right ICA: 91.2 ----- Right ECA: 67.7 ICA/CCA ratio: 1.1 RIGHT: End Diastole cm/sec ----- Right CCA: 32.5 ----- Right ICA: 6.4 ----- Right ECA: 5.1 LEFT: Peak Systolic Velocity (PSV) cm/sec ----- Left CCA: 68.0 ----- Left ICA: 92.2 ----- Left ECA: 49.9 ICA/CCA ratio: 1.4 LEFT: End Diastole cm/sec ----- Left CCA: 19.7 ----- Left ICA: 2.1 ----- Left ECA: 16.0 VERTEBRALS (direction of flow): Right Vertebral: Antegrade Left Vertebral: Antegrade Rhythm: Arrhythmia No significant stenosis seen. IMPRESSION: No hemodynamically significant ICA stenosis on either side. Incidentally, the textile colorist dyer notes an ar rhythmia. Clinically correlate. Criteria for Assigning % of Stenosis / Diameter reduction (Estimation based on the indirect measurements of the internal carotid artery velocities (ICA PSV). 1. Normal (no stenosis)=ICA PSV < 125 cm/s: ratio < 2.0: ICA EDV<40 cm/s. 2. Less than 50% stenosis=ICA PSV < 125 cm/s: ratio < 2.0: ICA EDV<40 cm/s. 3. 50 to 69% stenosis=ICA PSV of 125 to 230 cm/s: ration 2.0 ? 4.0: ICA EDV 40-100 cm/s. 4. Greater than 70% stenosis to near occlusion= ICA PSV > 230 cm/s: ratio > 4.0: ICA EDV > 100 cm/s. 5. Near occlusion= ICA PSV velocities may be low or undetectable: variable ratio and ICA EDV. 6. Total occlusion=unable to detect flow.
[2021-01-26 17:01] LABS: Glucose,Whole Blood 96 mg/dL (75-99)
[2021-01-26] MEDS: SODIUM CHLORIDE 0.9% 1,000 ML in EMPTY BAG 1 BAG IV SCH (18:25)
[2021-01-26] MEDS: SODIUM CHLORIDE 0.9% 1,000 ML IV SCH (18:26)
[2021-01-26 20:16] LABS: LDL Cholesterol,Calculated 47.1 mg/dL (0.0-131.0)
[2021-01-26] MEDS ORDERED: lisinopriL 10 MG TAB PO SCH (21:00)
[2021-01-26] MEDS: ATORVASTATIN 80 MG TAB PO SCH (21:16)
[2021-01-27 04:52] LABS: HCT 29.1 % (34.0-46.0); HGB 9.5 gm/dL (11.4-16.0); MCH 28.1 pg (25.0-35.0); MCHC 32.8 g/dL (31.0-37.0); MCV 85.7 fL (80.0-100.0); Mean Platelet Volume 7.1; Platelet Count 373 k/uL (150-450); RBC 3.39 m/uL (3.80-5.40); RDW 13.8 % (11.5-15.5); WBC 6.9 k/uL (3.8-10.6)
[2021-01-27 05:17] LABS: Albumin 3.7 g/dL (3.5-5.0); Calcium 9.1 mg/dL (8.4-10.2); Potassium 3.9 mmol/L (3.5-5.1); Total Bilirubin 0.5 mg/dL (0.2-1.3); Total Protein 6.6 g/dL (6.3-8.2)
[2021-01-27] MEDS: NITROGLYCERIN OINT 1 INCH/GM PACKET TOPICAL SCH ×5 (05:32→22:00)
[2021-01-27] MEDS ORDERED: ACETAMINOPHEN TAB 325 MG TAB PO PRN (07:16)
--- NOTE | 2021-01-27 08:08 | XR ---
EXAMINATION TYPE: XR chest 1V portable DATE OF EXAM: 01/27/2021 COMPARISON: 01/25/2021 INDICATION: Heart failure TECHNIQUE: Single frontal view of the chest is obtained. FINDINGS: The heart size is normal. The pulmonary vasculature is normal. Previous infiltrates have largely resolved. IMPRESSION: 1. Resolving heart failure.
[2021-01-27] MEDS: LIDOCAINE 5% PATCH TOPICAL SCH (08:41)
--- NOTE | 2021-01-27 08:59 | P.PN ---
Subjective Progress Note Date: 01/27/21 Principal diagnosis: Triple-vessel coronary artery disease with left main disease, chest pain, progressive shortness of breath, non-STEMI, acute systolic heart failure present on admission, reported bleeding per rectum. Previous medical history of hypertension, hyperlipidemia, GERD, GI bleed, diverticulosis, localized colitis, degenerative disc disease with chronic low back pain, and family history of coronary artery disease The patient is currently laying in bed in the intensive care unit in no acute distress. Intra-aortic balloon pump in place with 1:1 augmentation. Patient denies any chest pain or shortness of breath currently, her only complaint is of lower back pain which is chronic for her. Denies any further episodes of rectal bleeding, remains on IV heparin, Plavix discontinued yesterday after patient received dose. Remains in sinus rhythm and hemodynamically stable. Preoperative testing completed except pulmonary function test and 5 m walk test which are unable to be obtained as patient is laying flat in bed. Preoperative teaching continues. Objective - Vital Signs Vital signs: Vital Signs Temp 98.6 F 01/27/21 04:00 Pulse 85 01/27/21 07:40 Resp 22 01/27/21 07:40 BP 108/59 01/27/21 07:40 Pulse Ox 97 01/27/21 07:40 Intake & Output 01/26/21 01/27/21 01/27/21 18:59 06:59 18:59 Intake Total 102 950 50 Output Total 200 1600 0 Balance -98 -650 50 Weight 85.3 kg 86 kg Intake: IV 102 700 50 0.9 700 50 Intake, IV Titration 250 Amount Heparin Sod,Pork in 0.45% 250 NaCl 25,000 unit In 0.45 % NaCl 1 250ml.bag @ 11.6 UNITS/KG/HR 10.05 mls/hr IV .[facility] Rx#: [id number] Oral 0 Output: Urine 200 1600 0 Other: Voiding Method Bedside Commode External Catheter - Exam CONSTITUTIONAL: Appears comfortable, cooperative, no acute distress RESPIRATORY: Lungs sounds diminished bilaterally. Respirations even, nonlabored. Currently on 2 L nasal cannula with oxygen saturation 96%. Able to achieve 1000 mL on incentive spirometry. Strong nonproductive cough. CARDIOVASCULAR: S1, S2 present. Regular rate and rhythm, sinus rhythm on telemetry. Palpable peripheral pulses bilaterally, Doppler pulse to right DP/PT. No edema present. No calf pain or tenderness noted. GASTROINTESTINAL: Abdomen soft, nontender, nondistended. Active bowel sounds present 4 quadrants. Tolerating full liquid diet. GENITOURINARY: Continues to void clear, yellow urine, [place] in place INTEGUMENTARY: Skin is warm and dry with evidence of good perfusion. NEUROLOGIC: Cranial nerves II through XII intact MUSKULOSKELETAL: Able to move all extremities, strength equal bilaterally PSYCHIATRIC: Alert and oriented to person place and time, appropriate affect, intact judgment and insight INVASIVE LINES AND TUBES: Right femoral intra-aortic balloon pump in place, 1:1 augmentation, EKG triggered, 34 cc/7.5-Indian sheath with with no blood backup present in the tubing, right groin is soft and nontender - Allied health notes Allied health notes reviewed: nursing - Labs CBC & Chem 7: 01/27/21 04:08 01/27/21 04:08 Labs: Abnormal Lab Results - Last 24 Hours (Table) 01/26/21 01/26/21 01/26/21 Range/Units 07:12 07:12 17:10 RBC (3.80-5.40) m/uL Hgb (11.4-16.0) gm/dL Hct (34.0-46.0) % APTT (22.0-30.0) sec Sodium 135 L (137-145) mmol/L BUN 19 H (7-17) mg/dL Glucose 108 H (74-99) mg/dL Troponin I 1.550 H* (0.000-0.034) ng/mL Triglycerides 152.00 H (0.00-149.00) mg/dL 01/26/21 01/27/21 01/27/21 Range/Units 20:12 04:08 04:08 RBC 3.39 L (3.80-5.40) m/uL Hgb 9.5 L (11.4-16.0) gm/dL Hct 29.1 L (34.0-46.0) % APTT 44.2 H 40.5 H (22.0-30.0) sec Sodium (137-145) mmol/L BUN (7-17) mg/dL Glucose (74-99) mg/dL Troponin I (0.000-0.034) ng/mL Triglycerides (0.00-149.00) mg/dL 01/27/21 Range/Units 04:08 RBC (3.80-5.40) m/uL Hgb (11.4-16.0) gm/dL Hct (34.0-46.0) % APTT (22.0-30.0) sec Sodium 135 L (137-145) mmol/L BUN (7-17) mg/dL Glucose 101 H (74-99) mg/dL Troponin I (0.000-0.034) ng/mL Triglycerides (0.00-149.00) mg/dL - Imaging and Cardiology Chest x-ray: report reviewed, image reviewed Assessment and Plan Assessment: 1. Triple-vessel coronary artery disease with left main disease 2. Chest pain, progressive shortness of breath on admission, non-STEMI on admission 3. Acute systolic heart failure present on admission 4. History of hypertension 5. History of hyperlipidemia, treated 6. GERD 7. History of GI bleed with reported bleeding per rectum this admission 8. History of diverticulosis, localized colitis 9. Degenerative disc disease, chronic low back pain 10. Family history of coronary artery disease Plan: 1. Continue aspirin, statin. Recommend initiation of low-dose beta carlo. Continue to hold Plavix, last dose 01/26/2021 2. Wean O2 as tolerated. Encourage incentive spirometry use 3. Patient remain on bed rest. Balloon pump, heart failure management per cardiology 4. We'll continue to monitor labs 5. Appreciate recommendations from Dr. Carbajal, no scope planned. Flagyl started per Dr. Carbajal for diverticulitis 6. Will calculate STS risk score and discuss with the patient 7. More recommendations to follow Time with Patient: Greater than 30
[2021-01-27] MEDS: SODIUM CHLORIDE 0.9% 1,000 ML in EMPTY BAG 1 BAG IV SCH ×3 (09:05→22:00)
[2021-01-27] MEDS: HEPARIN SOD,PORK IN 0.45% NACL 25,000 UNIT in 0.45% NACL 1 250ML.BAG IV SCH ×2 (09:05→13:23)
[2021-01-27] MEDS: metroNIDAZOLE-NS PMX 500 MG in SALINE 1 100ML.BAG IVPB SCH ×2 (09:07→16:02)
[2021-01-27] MEDS: SODIUM CHLORIDE 0.9% 1,000 ML IV SCH (09:12)
[2021-01-27] MEDS: FUROSEMIDE 10 MG/ML 4 ML VIAL IV SCH ×2 (09:12→20:38)
[2021-01-27] MEDS: PANTOPRAZOLE 40 MG TABLET PO SCH (09:13)
[2021-01-27] MEDS: MAGNESIUM OXIDE 400 MG TAB PO SCH (09:13)
[2021-01-27] MEDS: CHOLECALCIFEROL 25 MCG (1000 IU) TABLET PO SCH (09:13)
[2021-01-27] MEDS: CYANOCOBALAMIN 500 MCG TAB PO SCH (09:15)
[2021-01-27] MEDS: ASPIRIN 81 MG PO SCH (09:30)
[2021-01-27 10:45] LABS: Appearance,Urine Clear (Clear); Bacteria,Urine Rare /hpf; Bilirubin,Urine Negative (Negative); Blood,Urine Small (Negative); Color,Urine Light Yellow; Glucose,Urine (UA) Negative (Negative); Ketones,Urine Trace (Negative); Leukocyte Esterase,Urine Negative (Negative); Nitrite,Urine Negative (Negative); PH, Urine 5.5 (5.0-8.0); Protein,Urine Negative (Negative); Specific Gravity,Urine 1.012 (1.001-1.035); Urobilinogen,Urine <2.0 mg/dL (<2.0); WBC,Urine <1 /hpf (0-5)
[2021-01-27] MEDS: LACTOBACILLUS ACIDOPH & BULGAR 1 EACH PACKET PO SCH (11:09)
--- NOTE | 2021-01-27 11:12 | P.CNPUL ---
History of Present Illness Consult date: 01/27/21 Requesting physician: Dorian Ruiz Reason for consult: dyspnea, chest pain Chief complaint: Chest pain, shortness of breath History of present illness: This 75-year-old white female patient of Dr. Avina with past medical history of hypertension, hyperlipidemia, GERD/reflux, history of GI bleed, diverticulitis, DJD, who came to the emergency department on 01/25/2021 with complaints of chest pain, and right ear and right jaw pain and shortness of breath. Patient had been having chest pain and shortness of breath for a few nights prior to presentation. In addition patient has been having delusional dyspnea and orthopnea. No lower extremity edema. No fever or chills. She was significantl y dyspneic, patient was placed on nonrebreather mask and subsequently BiPAP support. EKG showed sinus mechanism with ST depression in anterolateral leads. Chest x-ray showed pulmonary interstitial edema and probable small right pleural effusion which was new compared to old exam. Initial blood work showed white blood cell count of 14.5, hemoglobin of 11.8, Coreg patient profile was within normal limits, sodium was 135, potassium is 4.5, CO2 is 15, BUN was 17, creatinine 0.75, lactic acid was 3.5, troponins were 1.620, 1.850, 2.110, 1.550, proBNP was 2700, progesterone level was 0.04, COVID-19 screen was negative. Patient was diagnosed acute congestive heart failure systolic dysfunction, echocardiogram was completed showing EF of 30-35%, mild mitral regurgitation, mild tricuspid regurgitation, and right ventricular systolic pressure was less than 35 mmHg. Patient was started on heparin infusion, diuretics in the form of Lasix 40 mg every 12 hours. Patient was also seen in consultation by by GI service in regards to her history of diverticulitis status post robotic-assisted colectomy, and patient had a recent colonoscopy and EGD in November of this year. She is currently on Flagyl. Patient underwent heart catheterization yesterday on 01/26/2021 and was found to have 95% distal left main stenosis with ostial LAD involvement of 100%, occluded diagonal, subtotal proximal circumflex, and 70-80% distal RCA stenosis. Patient continued to have chest pain, in the [facility], and intra-aortic balloon pump was placed. Consultation has been placed to CT surgery for revascularization recommendations. Patient is currently seen in the intensive care unit where she was admitted yesterday, she is awake and alert, oriented 3, resting comfortably in bed, denies any chest pain, no shortness of breath, she is on 2 L of oxygen pulse ox is 98%, hemodynamically patient is stable, she is on 0.9, saline at a rate of 50 ML per hour, no other drips, she is in sinus mechanism. She continues on Lasix 40 mg every 12 hours, Hackett catheter is in place, and she is in -748 mL negative fluid balance in the last 24 hours, today's chest x-ray showing resolving heart failure. Today's white count is 6.9, hemoglobin is 9.5, sodium is 135, the rest of electrolytes are within normal limits, urinalysis showed trace ketones and small amount of blood, negative for infection. Review of Systems All systems: negative Constitutional: Denies chills, Denies fever Eyes: denies blurred vision, denies pain Ears, nose, mouth and throat: Denies headache, Denies sore throat Cardiovascular: Reports chest pain, Reports dyspnea on exertion, Reports orthopnea, Denies shortness of breath Respiratory: Denies cough Gastrointestinal: Denies abdominal pain, Denies diarrhea, Denies nausea, Denies vomiting Genitourinary: Denies dysuria, Denies hematuria Musculoskeletal: Denies myalgias Integumentary: Denies pruritus, Denies rash Neurological: Denies numbness, Denies weakness Psychiatric: Denies anxiety, Denies depression Endocrine: Denies fatigue, Denies weight change Past Medical History Past Medical History: GERD/Reflux, GI Bleed, Hyperlipidemia, Hypertension, Osteoarthritis (OA) Additional Past Medical History / Comment(s): Diverticulitis. Angina. Hiatal hernia. Recent stomach problems and rectal bleeding. "Bad back, disintegrating discs in neck, head shakes." History of Any Multi-Drug Resistant Organisms: None Reported Past Surgical History: Bowel Resection, Heart Catheterization, Hysterectomy, Orthopedic Surgery Additional Past Surgical History / Comment(s): Left foot surgery, left carpal tunnel surgery, colonoscopy X2. Past Anesthesia/Blood Transfusion Reactions: No Reported Reaction Past Psychological History: No Psychological Hx Reported Smoking Status: Never smoker Past Alcohol Use History: None Reported Past Drug Use History: None Reported - Past Family History Father Family Medical History: Cancer Mother Family Medical History: Cancer Brother(s) Family Medical History: Coronary Artery Disease (CAD), Myocardial Infarction (ND) Sister(s) Family Medical History: Neurologic Disorder Daughter(s) Family Medical History: Pulmonary Embolus Son(s) Family Medical History: Coronary Artery Disease (CAD) Medications and Allergies Home Medications Medication Instructions Recorded Confirmed Type Enalapril [Vasotec] 20 mg PO BID 09/07/15 01/25/21 History Metoprolol Tartrate [Lopressor] 50 mg PO BID 09/07/15 01/25/21 History [place]-3 Fatty Acids/Fish Oil [Fish 1 cap PO DAILY 09/08/15 01/25/21 History Oil 1,000 mg Softgel] Cholecalciferol (Vitamin D3) 50 mcg PO DAILY 06/14/17 01/25/21 History [Vitamin D3] L.acidoph,Paracasei, B.lactis 1 cap PO DAILY 06/14/17 01/25/21 History [Probiotic] Magnesium Oxide [Mag-Ox] 250 mg PO DAILY 06/14/17 01/25/21 History Aspirin [Adult Low Dose Aspirin EC] 81 mg PO DAILY 12/07/20 01/25/21 History Cyanocobalamin (Vitamin B-12) 1,000 mcg PO DAILY 12/07/20 01/25/21 History [Vitamin B-12] amLODIPine [Norvasc] 10 mg PO HS 12/07/20 01/25/21 History Acetaminophen/Chlorpheniramine 1 - 2 tab PO Q6H PRN 01/25/21 01/25/21 History [Coricidin Hbp Cold & Flu Tab] Omeprazole 40 mg PO DAILY 01/25/21 01/25/21 History Simvastatin [Zocor] 20 mg PO HS 01/25/21 01/25/21 History Allergies Allergy/AdvReac Type Severity Reaction Status Date / Time ciprofloxacin Allergy Rash/Hives Verified 01/25/21 07:09 cortisone Allergy HAD Verified 01/25/21 07:09 NUMBNESS AT BACK OF HEAD FOLLOWING INJECTION hydrocortisone Allergy Unknown Verified 01/25/21 07:09 [From Cortizone-10] Penicillins Allergy Rash/Hives Verified 01/25/21 07:09 Physical Exam Vitals: Vital Signs Temp Pulse Pulse Resp BP BP BP 01/27/21 10:00 93 23 90/58 01/27/21 09:00 90 24 99/70 01/27/21 08:00 98.5 F 88 22 115/36 01/27/21 07:40 85 22 108/59 01/27/21 07:20 86 23 108/53 01/27/21 07:00 84 22 95/45 01/27/21 06:40 86 22 88/67 01/27/21 06:20 86 23 110/52 01/27/21 06:00 88 20 107/58 01/27/21 05:40 87 22 98/42 01/27/21 05:20 85 22 90/56 01/27/21 05:00 87 15 106/92 01/27/21 04:40 83 17 109/49 01/27/21 04:20 85 21 91/47 01/27/21 04:00 98.6 F 85 21 102/37 01/27/21 03:40 83 19 81/40 01/27/21 03:20 82 18 113/58 01/27/21 03:00 85 20 103/44 01/27/21 02:40 85 22 88/59 01/27/21 02:20 85 19 90/42 01/27/21 02:00 85 20 81/40 01/27/21 01:40 83 17 89/59 01/27/21 01:20 86 20 97/43 01/27/21 01:00 87 18 86/43 01/27/21 00:40 86 19 85/40 01/27/21 00:20 82 19 101/48 01/27/21 00:00 98.4 F 84 20 111/47 01/26/21 23:40 84 18 99/69 01/26/21 23:20 86 21 103/46 01/26/21 23:00 84 26 H 112/77 01/26/21 22:40 83 24 104/55 01/26/21 22:38 01/26/21 22:20 88 12 83/39 01/26/21 22:00 90 18 113/59 01/26/21 21:40 89 22 95/53 01/26/21 21:20 89 19 107/47 01/26/21 21:00 89 20 114/50 01/26/21 20:40 90 25 H 123/47 01/26/21 20:20 91 22 113/51 01/26/21 20:00 87 18 100/48 01/26/21 19:40 88 21 106/64 01/26/21 19:20 92 16 111/43 01/26/21 19:00 91 19 112/70 01/26/21 18:00 89 23 111/40 01/26/21 17:00 97 23 01/26/21 16:57 97 21 114/65 01/26/21 16:00 84 18 87/55 01/26/21 15:38 74 18 84/70 01/26/21 15:01 80 16 122/74 01/26/21 14:45 79 16 133/61 01/26/21 14:31 83 16 124/60 01/26/21 14:16 80 16 125/60 01/26/21 14:02 16 107/55 Pulse Ox 01/27/21 10:00 98 01/27/21 09:00 99 01/27/21 08:00 98 01/27/21 07:40 97 01/27/21 07:20 99 01/27/21 07:00 98 01/27/21 06:40 97 01/27/21 06:20 97 01/27/21 06:00 97 01/27/21 05:40 96 01/27/21 05:20 97 01/27/21 05:00 98 01/27/21 04:40 97 01/27/21 04:20 97 01/27/21 04:00 97 01/27/21 03:40 97 01/27/21 03:20 97 01/27/21 03:00 98 01/27/21 02:40 97 01/27/21 02:20 97 01/27/21 02:00 98 01/27/21 01:40 96 01/27/21 01:20 96 01/27/21 01:00 94 L 01/27/21 00:40 96 01/27/21 00:20 98 01/27/21 00:00 99 01/26/21 23:40 99 01/26/21 23:20 98 01/26/21 23:00 97 01/26/21 22:40 97 01/26/21 22:38 98 01/26/21 22:20 95 01/26/21 22:00 95 01/26/21 21:40 97 01/26/21 21:20 94 L 01/26/21 21:00 92 L 01/26/21 20:40 92 L 01/26/21 20:20 90 L 01/26/21 20:00 89 L 01/26/21 19:40 86 L 01/26/21 19:20 87 L 01/26/21 19:00 87 L 01/26/21 18:00 88 L 01/26/21 17:00 88 L 01/26/21 16:57 91 L 01/26/21 16:00 98 01/26/21 15:38 98 01/26/21 15:01 97 01/26/21 14:45 97 01/26/21 14:31 97 01/26/21 14:16 97 01/26/21 14:02 90 L Intake and Output 01/26/21 01/27/21 01/27/21 22:59 06:59 14:59 Intake Total 300 650 625.34 Output Total 1600 650 Balance 300 -950 -24.66 Intake: IV 300 400 100 0.9 300 400 100 Intake, IV Titration 250 285.34 Amount Heparin Sod,Pork in 0.45% 35.34 NaCl 25,000 unit In 0.45 % NaCl 1 250ml.bag @ 0 mls/hr IV .[facility] Rx #:[id number] Heparin Sod,Pork in 0.45% 250 NaCl 25,000 unit In 0.45 % NaCl 1 250ml.bag @ 11.6 UNITS/KG/HR 10.05 mls/hr IV .Q24H [facility] Rx#: [id number] Sodium Chloride 0.9% 1, 150 000 ml @ 50 mls/hr IV . Q20H [facility] Rx#:[id number] metroNIDAZOLE-NS PMX 500 100 mg In Saline 1 100ml.bag @ 100 mls/hr IVPB Q8HR [facility] Rx#:[id number] Oral 240 Output: Urine 1600 650 Other: Voiding Method External Catheter External Catheter Weight 86 kg GENERAL EXAM: Alert, very pleasant, 75-year-old white female, on 2 L of oxygen with a pulse ox of 100%, resting comfortably in bed, in intensive care unit, comfortable in no apparent distress. Patient currently has intra-aortic balloon pump placed via right groin to 1-1 augmentation HEAD: Normocephalic/atraumatic. EYES: Normal reaction of pupils, equal size. Conjunctiva pink, sclera white. NOSE: Clear with pink turbinates. THROAT: No erythema or exudates. NECK: No masses, no JVD, no thyroid enlargement, no adenopathy. CHEST: No chest wall deformity. Symmetrical expansion. LUNGS: Equal air entry with no crackles, wheeze, rhonchi or dullness. CVS: Regular rate and rhythm, normal S1 and S2, no gallops, no murmurs, no rubs ABDOMEN: Soft, nontender. No hepatosplenomegaly, normal bowel sounds, no guarding or rigidity. EXTREMITIES: No clubbing, no edema, no cyanosis, 2+ pulses and upper and lower extremities. MUSCULOSKELETAL: Muscle strength and tone normal. Right groin sheath in place, with intra-aortic balloon pump with 1-1 augmentation SPINE: No scoliosis or deformity SKIN: No rashes CENTRAL NERVOUS SYSTEM: Alert and oriented -3. No focal deficits, tone is normal in all 4 extremities. PSYCHIATRIC: Alert and oriented -3. Appropriate affect. Intact judgment and insight. Results - Laboratory Findings CBC and BMP: 01/27/21 04:08 01/27/21 04:08 PT/INR, D-dimer PT 10.6 sec (9.0-12.0) 01/26/21 07:12 INR 1.0 (<1.2) 01/26/21 07:12 Abnormal lab findings: Abnormal Labs 01/25/21 01/25/21 01/25/21 02:22 02:22 02:22 WBC 14.5 H RBC Hgb Hct Neutrophils # 8.5 H APTT Sodium 135 L Carbon Dioxide 15 L BUN Glucose 194 H Plasma Lactic Acid Mata 3.5 H* Troponin I Triglycerides 01/25/21 01/25/21 01/25/21 02:22 05:15 08:47 WBC RBC Hgb Hct Neutrophils # APTT Sodium Carbon Dioxide BUN Glucose Plasma Lactic Acid Mata Troponin I 1.620 H* 1.850 H* 2.110 H* Triglycerides 01/25/21 01/26/21 01/26/21 11:05 07:12 07:12 WBC RBC 3.62 L Hgb 10.1 L Hct 31.2 L Neutrophils # APTT 47.3 H 40.3 H Sodium Carbon Dioxide BUN Glucose Plasma Lactic Acid Mata Troponin I Triglycerides 01/26/21 01/26/21 01/26/21 07:12 07:12 17:10 WBC RBC Hgb Hct Neutrophils # APTT Sodium 135 L Carbon Dioxide BUN 19 H Glucose 108 H Plasma Lactic Acid Mata Troponin I 1.550 H* Triglycerides 152.00 H 01/26/21 01/27/21 01/27/21 20:12 04:08 04:08 WBC RBC 3.39 L Hgb 9.5 L Hct 29.1 L Neutrophils # APTT 44.2 H 40.5 H Sodium Carbon Dioxide BUN Glucose Plasma Lactic Acid Mata Troponin I Triglycerides 01/27/21 04:08 WBC RBC Hgb Hct Neutrophils # APTT Sodium 135 L Carbon Dioxide BUN Glucose 101 H Plasma Lactic Acid Mata Troponin I Triglycerides - Diagnostic Findings Chest x-ray: report reviewed, image reviewed Assessment and Plan Plan: Assessment: #1. Acute non-ST elevated myocardial infarction #2. Multivessel coronary artery disease with left main stenosis of 95%, awaiting evaluation for coronary artery bypass grafting #3. Acute congestive heart failure, with pulmonary edema with systolic dysfunction, requiring placement of intra-aortic balloon pump on 01/26/2021 currently with one-to-one augmentation #4. Hypertension #5. Hyperlipidemia #6. History of GI bleeding, with a recent history of colonoscopy and EGD on 12/08/2020, postop diagnosis of gastric polyps, hemorrhoids and colitis #7. History of diverticulitis with perforation, status post bowel resection in 2016 #8. DJD #9. Chronic back pain #10. Osteoarthritis #12. History of hysterectomy, left carpal tunnel surgery #13. Lifetime nonsmoker, no history of chronic lung disease Plan: We'll continue current medical management Continue close hemodynamic monitoring in the intensive care unit, Shortness of breath is improving, no complaints of chest pain Intra-aortic balloon pump is in place with one-to-one augmentation Continue IV diuretics Patient is maintaining negative fluid balance Breathing easier We will await recommendations from CT surgery in terms of timing of the surgery We will obtain bedside FEV1 if possible We'll continue to closely follow I performed a history & physical examination of the patient and discussed their management with my nurse practitioner, Polly Molina. I reviewed the nurse grisel burch's note and agree with the documented findings and plan of care. Lung sounds are positive for diminished breath sounds throughout the lung rodas. The findings and the impression was discussed with the patient. I attest to the documentation by the nurse practitioner. Time with Patient: Greater than 30
--- NOTE | 2021-01-27 11:18 | P.PN ---
Subjective Progress Note Date: 01/27/21 This is a 75-year-old female who was admitted to the hospital with non-STEMI and CHF and pulmonary edema. Patient had a cardiac catheterization yesterday and was noted to have significant left main disease and subtotal occlusion of proximal circumflex and significant lesion involving the RCA. Patient also had intact balloon pump because of ongoing angina. Today she is complaining of back pain. It. No complaints of chest pain. Her troponin value was stable. Chest x-ray shows improvement. Urine output has been good. Patient had evaluation by Dr. Fuentes for her GI bleeding. She started her some Flagyl for diverticulitis but cleared for surgery. Patient is also seen by pulmonology and cleared for surgery waiting for surgery to make additional regarding timing. Lungs are clear. Heart regular. So we'll continue current management. She is off DREW inhibitor R because of low blood pressure. Prognosis still guarded Objective - Vital Signs Vital signs: Vital Signs Temp 98.5 F 01/27/21 08:00 Pulse 90 01/27/21 11:00 Resp 16 01/27/21 11:00 BP 108/87 01/27/21 11:00 Pulse Ox 97 01/27/21 11:00 Intake & Output 01/26/21 01/27/21 01/27/21 18:59 06:59 18:59 Intake Total 102 950 687.04 Output Total 200 1600 650 Balance -98 -650 37.04 Weight 85.3 kg 86 kg Intake: IV 102 700 100 0.9 700 100 Intake, IV Titration 250 347.04 Amount Heparin Sod,Pork in 0.45% 47.04 NaCl 25,000 unit In 0.45 % NaCl 1 250ml.bag @ 0 mls/hr IV .[facility] Rx #:[id number] Heparin Sod,Pork in 0.45% 250 NaCl 25,000 unit In 0.45 % NaCl 1 250ml.bag @ 11.6 UNITS/KG/HR 10.05 mls/hr IV .Q24H [facility] Rx#: [id number] Sodium Chloride 0.9% 1, 200 000 ml @ 50 mls/hr IV . Q20H [facility] Rx#:[id number] metroNIDAZOLE-NS PMX 500 100 mg In Saline 1 100ml.bag @ 100 mls/hr IVPB Q8HR [facility] Rx#:[id number] Oral 0 240 Output: Urine 200 1600 650 Other: Voiding Method Bedside Commode External Catheter External Catheter - Exam GENERAL EXAM: Patient is alert and oriented and doesn't appear to be in any acute distress HEENT: Normocephalic. Normal reaction of pupils, equal size, normal range of extraocular motion. No erythema or exudates in the throat. NECK: No masses, no nuchal rigidity. CHEST: No chest wall deformity. LUNGS: Equal air entry with no crackles or wheeze. HEART: S1 and S2 normal with no audible mumurs or gallops. Regular rhythm, femorals equal on both sides.. ABDOMEN: No hepatosplenomegaly, normal bowel sounds, no guarding or rigidity. SKIN: No rashes CENTRAL NERVOUS SYSTEM: No focal deficits. EXTREMITIES: No cyanosis, clubbing or edema. Balloon pump in place - Labs CBC & Chem 7: 01/27/21 04:08 01/27/21 04:08 Labs: Abnormal Lab Results - Last 24 Hours (Table) 01/26/21 01/26/21 01/26/21 Range/Units 07:12 17:10 20:12 RBC (3.80-5.40) m/uL Hgb (11.4-16.0) gm/dL Hct (34.0-46.0) % APTT 44.2 H (22.0-30.0) sec Sodium (137-145) mmol/L Glucose (74-99) mg/dL Troponin I 1.550 H* (0.000-0.034) ng/mL Triglycerides 152.00 H (0.00-149.00) mg/dL Urine Ketones (Negative) Urine Blood (Negative) Urine Bacteria (None) /hpf 01/27/21 01/27/21 01/27/21 Range/Units 04:08 04:08 04:08 RBC 3.39 L (3.80-5.40) m/uL Hgb 9.5 L (11.4-16.0) gm/dL Hct 29.1 L (34.0-46.0) % APTT 40.5 H (22.0-30.0) sec Sodium 135 L (137-145) mmol/L Glucose 101 H (74-99) mg/dL Troponin I (0.000-0.034) ng/mL Triglycerides (0.00-149.00) mg/dL Urine Ketones (Negative) Urine Blood (Negative) Urine Bacteria (None) /hpf 01/27/21 Range/Units 10:25 RBC (3.80-5.40) m/uL Hgb (11.4-16.0) gm/dL Hct (34.0-46.0) % APTT (22.0-30.0) sec Sodium (137-145) mmol/L Glucose (74-99) mg/dL Troponin I (0.000-0.034) ng/mL Triglycerides (0.00-149.00) mg/dL Urine Ketones Trace H (Negative) Urine Blood Small H (Negative) Urine Bacteria Rare H (None) /hpf Microbiology - Last 24 Hours (Table) 01/27/21 04:45 Nasal Screen MRSA/MSSA - Preliminary Nasal Swab Assessment and Plan (1) Acute non-ST elevation myocardial infarction (NSTEMI) Current Visit: Yes Status: Acute Code(s): I21.4 - NON-ST ELEVATION (NSTEMI) MYOCARDIAL INFARCTION SNOMED Code(s): 675029482 (2) CHF (congestive heart failure) Current Visit: Yes Status: Acute Code(s): I50.9 - HEART FAILURE, UNSPECIFIED SNOMED Code(s): 79736297 (3) Diverticulosis Current Visit: No Status: Acute Code(s): K57.90 - DVRTCLOS OF INTEST, PART UNSP, W/O PERF OR ABSCESS W/O BLEED SNOMED Code(s): 44150876 (4) GI bleed Current Visit: No Status: Acute Code(s): K92.2 - GASTROINTESTINAL HEMORRHAGE, UNSPECIFIED SNOMED Code(s): 81108901 (5) Severe obesity (BMI 35.0-35.9 with comorbidity) Current Visit: No Status: Chronic Code(s): E66.01 - MORBID (SEVERE) OBESITY DUE TO EXCESS CALORIES; Z68.35 - BODY MASS INDEX [BMI] 35.0-35.9, ADULT SNOMED Code(s): 326239415 Plan: Continue current management. Surgical and also pulmonary consults obtained. The waiting for the cardiac surgery decision making regarding timing of the surgery.
--- NOTE | 2021-01-27 11:32 | P.GSCN ---
History of Present Illness Consult date: 01/27/21 Requesting physician: Bisi Robles History of present illness: CHIEF COMPLAINT: Chest pain and shortness of breath HISTORY OF PRESENT ILLNESS: This a 75-year-old female with a past medical history including hypertension, hyperlipidemia, gastro-esophageal reflux disease, and history of diverticulitis status post colectomy who presented to the emergency department 2 days ago with complaints of shortness of breath with chest pain and chest pressure. Patient was a Non-STEMI with pulmonary edema and ischemic cardiomyopathy. She underwent heart catheterization yesterday that demonstrated triple-vessel coronary artery disease with left main disease. She had an antibiotic balloon pump implanted. Patient was seen by cardiothoracic surgery and plan is to move forward with possible CABG. Apparently yesterday the patient also had some complaints of bright red blood per rectum. Patient states she was urinating and noticed there was bright red blood in the toilet. General surgery has been consulted for rectal bleeding. Patient does have a history of recent lower GI bleed and underwent EGD and colonoscopy by Dr. Carbajal. On 12/08/2020 patient underwent EGD showing gastric polyps and colonoscopy showed grade 3 internal hemorrhoids and external hemorrhoids, sigmoid reticulitis and P and diverticulosis. The patient states she has not had any further bleeding since that one episode. States her last bowel movement was Sunday. She is denying any abdominal pain or cramping, denying any nausea or vomiting. The patient recently was seen as well and Dr. Carbajal's office for focal colitis and recommended to follow up outpatient with the colorectal specialist. On admission patient had mild elevation in WBC of 14.5, today's labs WBC 6.9 hemoglobin 9.5 platelet count 373,000 sodium 135, potassium 3.9 BUN 16 creatinine 0.76, troponins elevated 2. Patient has been afebrile. She is currently on heparin drip PAST MEDICAL HISTORY: Hypertension, hyperlipidemia, gastroesophageal reflux disease, diverticulitis status post colectomy, focal colitis, pulmonary edema, ischemic cardiomyopathy PAST SURGICAL HISTORY: Bowel resection, heart catheterization, hysterectomy, orthopedic surgery MEDICATIONS: See list. ALLERGIES: See list. SOCIAL HISTORY: No illicit drug use. Nonsmoker. REVIEW OF SYSTEMS: CONSTITUTIONAL: Denies fever or chills. HEENT: Denies blurred vision, vision changes, or eye pain. Denies hemoptysis ENDOCRINE: Denies heat or cold intolerance. CARDIOVASCULAR: Patient had chest pain and pressure on admission, currently denies at this time. RESPIRATORY: Shortness of breath on admission, stable at this time. GASTROINTESTINAL: Denies abdominal pain. Denies nausea or vomiting. Patient states had one episode of bright red blood in toilet after urinating. NEURO: Denies history of seizures. PSYCH: No depression or suicidal ideation HEMATOLOGIC: Denies bleeding disorders. LYMPHATIC: The patient denies any lumps and bumps around the neck. GENITOURINARY: Denies any blood in urine or increased urinary frequency. MUSCULOSKELETAL: Denies myalgias. Denies joint swelling. Denies decreased range of motion beyond patients baseline. SKIN: Denies pruitis. Denies rash. PHYSICAL EXAM: VITAL SIGNS: Reviewed GENERAL: Well-developed in no acute distress. HEENT: No sclera icterus. Extraocular movements grossly intact. Moist buccal mucosa. Head is atraumatic, normocephalic. Hears conversational speech. No nasal drainage. NECK: Supple without lymphadenopathy. CHEST: Non-labored respirations and equal bilateral excursions. CARDIOVASCULAR: Palpable 2+ radial pulses. ABDOMEN: Soft. Nondistended. Nontender MUSCULOSKELETAL: No clubbing or cyanosis. NEUROLOGIC: No focal or lateralizing signs. Cranial nerves II through XII grossly intact. PSYCH: Appropriate affect. Alert and oriented to person, place and time. SKIN: Well perfused. Good skin turgor. LABORATORY DATA: WBC 6.9 hemoglobin 9.5 hematocrit 29 platelet count 373,000 INR 1.0 Sodium 135 potassium 3.9 BUN 16 creatinine 0.76 glucose 101 Troponins were 2.11, 1.55 BNP 2700 IMAGING: Chest x-ray reports heart size normal, pulmonary vasculature normal, previous infiltrates have largely resolved. ASSESSMENT: 1. Rectal bleeding likely related to focal colitis 2. History of Grade 3 internal hemorrhoids/external hemorrhoids 3. History of diverticulitis status post colectomy 4. Non-STEMI with triple-vessel coronary artery disease with left main disease 5. Congestive heart failure 6. History of hypertension 7. History of hyperlipidemia 8. History of diverticulitis status post colectomy 9. Gastroesophageal reflux disease PLAN: -Continue Protonix as ordered -Continue ICU medical management -No plans on any endoscopic evaluation or indications for surgical intervention Thank you for this consultation, and allowing us take part in the plan of care of your patient during her hospital stay. The impression and plan of care has been dictated as directed. Dr. Carbajal I performed a history and examination of this patient, discussed the same with the dictator. I agree with the dictator's note ,documented as a scribe. Any additional findings or plans will be noted. Past Medical History Past Medical History: GERD/Reflux, GI Bleed, Hyperlipidemia, Hypertension, Osteoarthritis (OA) Additional Past Medical History / Comment(s): Diverticulitis. Angina. Hiatal hernia. Recent stomach problems and rectal bleeding. "Bad back, disintegrating discs in neck, head shakes." History of Any Multi-Drug Resistant Organisms: None Reported Past Surgical History: Bowel Resection, Heart Catheterization, Hysterectomy, Orthopedic Surgery Additional Past Surgical History / Comment(s): Left foot surgery, left carpal tunnel surgery, colonoscopy X2. Past Anesthesia/Blood Transfusion Reactions: No Reported Reaction Past Psychological History: No Psychological Hx Reported Smoking Status: Never smoker Past Alcohol Use History: None Reported Past Drug Use History: None Reported - Past Family History Father Family Medical History: Cancer Mother Family Medical History: Cancer Brother(s) Family Medical History: Coronary Artery Disease (CAD), Myocardial Infarction ([place]) Sister(s) Family Medical History: Neurologic Disorder Daughter(s) Family Medical History: Pulmonary Embolus Son(s) Family Medical History: Coronary Artery Disease (CAD) Medications and Allergies Home Medications Medication Instructions Recorded Confirmed Type Enalapril [Vasotec] 20 mg PO BID 09/07/15 01/25/21 History Metoprolol Tartrate [Lopressor] 50 mg PO BID 09/07/15 01/25/21 History Maddock-3 Fatty Acids/Fish Oil [Fish 1 cap PO DAILY 09/08/15 01/25/21 History Oil 1,000 mg Softgel] Cholecalciferol (Vitamin D3) 50 mcg PO DAILY 06/14/17 01/25/21 History [Vitamin D3] L.acidoph,Paracasei, B.lactis 1 cap PO DAILY 06/14/17 01/25/21 History [Probiotic] Magnesium Oxide [Mag-Ox] 250 mg PO DAILY 06/14/17 01/25/21 History Aspirin [Adult Low Dose Aspirin EC] 81 mg PO DAILY 12/07/20 01/25/21 History Cyanocobalamin (Vitamin B-12) 1,000 mcg PO DAILY 12/07/20 01/25/21 History [Vitamin B-12] amLODIPine [Norvasc] 10 mg PO HS 12/07/20 01/25/21 History Acetaminophen/Chlorpheniramine 1 - 2 tab PO Q6H PRN 01/25/21 01/25/21 History [Coricidin Hbp Cold & Flu Tab] Omeprazole 40 mg PO DAILY 01/25/21 01/25/21 History Simvastatin [Zocor] 20 mg PO HS 01/25/21 01/25/21 History Allergies Allergy/AdvReac Type Severity Reaction Status Date / Time ciprofloxacin Allergy Rash/Hives Verified 01/25/21 07:09 cortisone Allergy HAD Verified 01/25/21 07:09 NUMBNESS AT BACK OF HEAD FOLLOWING INJECTION hydrocortisone Allergy Unknown Verified 01/25/21 07:09 [From Cortizone-10] Penicillins Allergy Rash/Hives Verified 01/25/21 07:09 Surgical - Exam Vital Signs Temp Pulse Resp BP Pulse Ox 97.7 F 99 22 119/87 92 L 01/25/21 01:13 01/25/21 01:13 01/25/21 01:13 01/25/21 01:13 01/25/21 01:13 Results - Labs 01/27/21 04:08 01/27/21 04:08 Abnormal Lab Results - Last 24 Hours (Table) 01/26/21 01/26/21 01/26/21 Range/Units 07:12 07:12 17:10 RBC (3.80-5.40) m/uL Hgb (11.4-16.0) gm/dL Hct (34.0-46.0) % APTT (22.0-30.0) sec Sodium 135 L (137-145) mmol/L BUN 19 H (7-17) mg/dL Glucose 108 H (74-99) mg/dL Troponin I 1.550 H* (0.000-0.034) ng/mL Triglycerides 152.00 H (0.00-149.00) mg/dL 01/26/21 01/27/21 01/27/21 Range/Units 20:12 04:08 04:08 RBC 3.39 L (3.80-5.40) m/uL Hgb 9.5 L (11.4-16.0) gm/dL Hct 29.1 L (34.0-46.0) % APTT 44.2 H 40.5 H (22.0-30.0) sec Sodium (137-145) mmol/L BUN (7-17) mg/dL Glucose (74-99) mg/dL Troponin I (0.000-0.034) ng/mL Triglycerides (0.00-149.00) mg/dL 01/27/21 Range/Units 04:08 RBC (3.80-5.40) m/uL Hgb (11.4-16.0) gm/dL Hct (34.0-46.0) % APTT (22.0-30.0) sec Sodium 135 L (137-145) mmol/L BUN (7-17) mg/dL Glucose 101 H (74-99) mg/dL Troponin I (0.000-0.034) ng/mL Triglycerides (0.00-149.00) mg/dL Diabetes panel 01/26/21 01/26/21 01/26/21 Range/Units 07:12 07:12 07:12 Sodium 135 L (137-145) mmol/L Potassium 3.8 (3.5-5.1) mmol/L Chloride 100 (98-107) mmol/L Carbon Dioxide 27 (22-30) mmol/L BUN 19 H (7-17) mg/dL Creatinine 0.91 (0.52-1.04) mg/dL Glucose 108 H (74-99) mg/dL Hemoglobin A1c 5.6 (4.0-6.0) % Calcium 9.2 (8.4-10.2) mg/dL AST (14-36) U/L ALT (4-34) U/L Alkaline Phosphatase (38-126) U/L Total Protein (6.3-8.2) g/dL Albumin (3.5-5.0) g/dL Triglycerides 152.00 H (0.00-149.00) mg/dL HDL Cholesterol 48.50 (40.00-60.00) mg/dL 01/27/21 Range/Units 04:08 Sodium 135 L (137-145) mmol/L Potassium 3.9 (3.5-5.1) mmol/L Chloride 102 (98-107) mmol/L Carbon Dioxide 23 (22-30) mmol/L BUN 16 (7-17) mg/dL Creatinine 0.76 (0.52-1.04) mg/dL Glucose 101 H (74-99) mg/dL Hemoglobin A1c (4.0-6.0) % Calcium 9.1 (8.4-10.2) mg/dL AST 26 (14-36) U/L ALT 13 (4-34) U/L Alkaline Phosphatase 68 (38-126) U/L Total Protein 6.6 (6.3-8.2) g/dL Albumin 3.7 (3.5-5.0) g/dL Triglycerides (0.00-149.00) mg/dL HDL Cholesterol (40.00-60.00) mg/dL Thyroid panel 01/26/21 Range/Units 07:12 TSH 1.310 (0.465-4.680) mIU/L Calcium panel 01/26/21 01/27/21 Range/Units 07:12 04:08 Calcium 9.2 9.1 (8.4-10.2) mg/dL Albumin 3.7 (3.5-5.0) g/dL Pituitary panel 01/26/21 01/26/21 01/27/21 Range/Units 07:12 07:12 04:08 Sodium 135 L 135 L (137-145) mmol/L Potassium 3.8 3.9 (3.5-5.1) mmol/L Chloride 100 102 (98-107) mmol/L Carbon Dioxide 27 23 (22-30) mmol/L BUN 19 H 16 (7-17) mg/dL Creatinine 0.91 0.76 (0.52-1.04) mg/dL Glucose 108 H 101 H (74-99) mg/dL Calcium 9.2 9.1 (8.4-10.2) mg/dL TSH 1.310 (0.465-4.680) mIU/L Adrenal panel 01/26/21 01/27/21 Range/Units 07:12 04:08 Sodium 135 L 135 L (137-145) mmol/L Potassium 3.8 3.9 (3.5-5.1) mmol/L Chloride 100 102 (98-107) mmol/L Carbon Dioxide 27 23 (22-30) mmol/L BUN 19 H 16 (7-17) mg/dL Creatinine 0.91 0.76 (0.52-1.04) mg/dL Glucose 108 H 101 H (74-99) mg/dL Calcium 9.2 9.1 (8.4-10.2) mg/dL Total Bilirubin 0.5 (0.2-1.3) mg/dL AST 26 (14-36) U/L ALT 13 (4-34) U/L Alkaline Phosphatase 68 (38-126) U/L Total Protein 6.6 (6.3-8.2) g/dL Albumin 3.7 (3.5-5.0) g/dL
[2021-01-27] MEDS: HYDROcodone/APAP 5-325MG 1 EACH TAB PO PRN ×2 (13:22→20:42)
[2021-01-27] MEDS ORDERED: LACTULOSE 20 GM/30 ML CUP PO PRN (14:17)
--- NOTE | 2021-01-27 14:28 | P.PN ---
Subjective Progress Note Date: 01/27/21 HISTORY OF PRESENT ILLNESS This is a 75-year-old female patient of Dr. Avina with past medical history of hypertension, hyperlipidemia, gastroesophageal reflux disease, history of GI bleed, recurrent sigmoid diverticulitis status post sigmoid colectomy and low anterior resection, degenerative disc disease in the cervical spine. Patient complains of shortness of breath off and on for a week with exertional dyspnea. She states she has been sleeping on 3-4 pillows at night starting yesterday she became increasingly short of breath and couldn't lay down. She does complain of discomfort in her chest with right ear and right jaw pain. She denies any lower extremity edema. Patient presented to [facility] emergency center for evaluation. She is found to be afebrile, heart rate 99, respiratory rate 32, blood pressure 119/87, pulse ox 92% on room air. Patient was later changed over to nonrebreather and then to BiPAP. Blood work reveals WBC 14.5, hemoglobin 9.8, platelet count 328. INR 0.9. Sodium 135, potassium 4.5, chloride 104, CO2 15, BUN 17 and creatinine 0.75. Blood sugar 194. Lactic acid 3.5 and repeat of 1.3. Troponins 1.620, 1.850, 2.11. ProBNP 2700. Coronavirus PCR not detected. Chest x-ray reveals pulmonary interstitial edema and probable small right pleural effusion which are new. This could be acute heart failure or acute pne umonia. Echocardiogram reveals EF of 30-35%, LA is severely dilated, LV wall motion is hypokinetic, mild mitral regurgitation, mild tricuspid regurgitation. Patient is seen today in the emergency center waiting for bed on the cardiac stepdown unit. 01/26: Patient is seen today on the selective care unit, sitting up her recliner and is at bedside. She currently states that she is feeling better from yesterday and denied any chest pain or pressure and denies any neck pain. Patient does state that she did have some rectal bleeding most likely secondary to her history of diverticulosis. Patient underwent heart catheterization which revealed left main disease of 95%, LAD total occlusion of the diagonal branches, left circumflex subtotally occluded, right coronary artery 70-80% distally. Due to severe triple-vessel disease, patient was transferred to the intensive care unit post procedure. Patient also underwent intra-aortic balloon pump insertion. After procedures, patient went to the intensive care unit and consult with cardiothoracic surgery added. 01/27:Patient has been seen by cardiothoracic team with plan for CABG possibly on Sunday or Sunday. Patient is seen today in the intensive care unit and continued on intra-aortic balloon pump and continued on heparin drip. She denies having any chest pain and shortness of breath is improved. [place] 5/325 ordered. Patient was seen by Dr. Cormier regarding rectal bleeding with no plan for intervention at this time and patient started on Flagyl. Patient is also followed by pulmonary medicine with plan to obtain bedside FEV1. She remains afebrile, heart rate in the 90s, blood pressure and 100/54, pulse ox 96% on 2 L nasal cannula. athletic monitor sinus rhythm. Repeat blood work reveals WBC 6.9, hemoglobin 9.5, platelet count 373. Sodium 135, blood sugar 101. Electrolytes renal function are normal. Liver function tests are within normal limits. Urinalysis showed small amount of blood. Patient is reaching 750 on incentive spirometry. Repeat blood work and chest x-ray ordered for tomorrow morning. REVIEW OF SYSTEMS Constitutional: No fever, no chills, no night sweats. No weight change. No weakness, reports fatigue no lethargy. No daytime sleepiness. EENT: No headache. No blurred vision or double vision, no loss of vision. No loss of Hearing, no ringing in the ears, no dizziness. No nasal drainage or congestion. No epistaxis. No sore throat. Lungs: Reports shortness of breath-improved, cough, no sputum production. No wheezing. Reports exertional shortness of breath Cardiovascular: Denies chest pain, no lower extremity edema. No palpitations. No paroxysmal nocturnal dyspnea. Reports orthopnea. No lightheadedness or dizziness. No syncopal episodes. Abdominal: No abdominal pain. No nausea, vomiting. No diarrhea. No constipation. No bloody or tarry stools. No loss of appetite. Genitourinary: No dysuria, increased frequency, urgency. No urinary retention. Musculoskeletal: No myalgias. No muscle weakness, no gait dysfunction, no frequent falls. No back pain. No neck pain. Integumentary: No wounds, no lesions. No rash or pruritus. No unusual bruising. No change in hair or nails. Neurologic: No aphasia. No facial droop. No change in mentation. No head injury. No headache. No paralysis. No paresthesia. Psychiatric: No depression. No anxiety. No mood swings. Endocrine: Mildly abnormal blood sugars. No weight change. PHYSICAL EXAMINATION Gen: This is a 75-year-old female. She is resting in ICU bed and appears to be comfortable. and daughter at bedside. HEENT: Head is atraumatic, normocephalic. Pupils equal, round. Sclerae is anicteric. NECK: Supple. No JVD. No lymphadenopathy. No thyromegaly. LUNGS: Clear to auscultation. No wheezes or rhonchi. No intercostal retract ions. HEART: Regular rate and rhythm. No murmur. ABDOMEN: Soft. Bowel sounds are present. No masses. No tenderness. External female catheter in place draining clear cory urine. EXTREMITIES: No pedal edema. No calf tenderness. Dorsalis pedis palpable bilaterally. NEUROLOGICAL: Patient is awake, alert and oriented x3. Cranial nerves 2 through 12 are grossly intact. ASSESSMENT AND PLAN 1. Acute hypoxic respiratory failure secondary to acute systolic heart failure. Continue IV Lasix 40 mg every 12 hours, monitor I&O and daily weights, monitor renal function and electrolytes, cardiology consult appreciated. Echocardiogram as above. 2. Non-ST elevated myocardial infarction status post heart catheterization finding triple-vessel disease, status post intra-aortic balloon pump. Patient's been transferred to the intensive care unit, consult with cardiothoracic surgery. Continue aspirin 81 mg daily, Lipitor 80 mg at bedtime, heparin drip. 3. Ischemic cardiomyopathy. 4. Rectal bleeding secondary to diverticulitis. Consult with general surgery appreciated, patient started on Flagyl 500 mg IV piggyback every 8 hours. 5. Hyperglycemia without diagnosis of diabetes. Continue to monitor. 6. Hypertension. Patient is off Norvasc, lisinopril and Lopressor due to hypotension. 7. Hyperlipidemia. Continue atorvastatin 80 mg at bedtime. 8. Gastroesophageal reflux disease and GI prophylaxis. Continue Protonix 40 mg daily. 9. History of GI bleed, no active bleeding at this time. Patient had rectal bleeding 1 most likely secondary to diverticulitis 10. History of diverticulitis status post sigmoid colectomy and low anterior resection. 11. Degenerative disc disease in the cervical spine. 12. DVT prophylaxis. Heparin. 13. COVID-19 testing negative. Patient has been hospitalized during a pandemic. DISCHARGE PLAN To be determined. Impression and plan of care have been directed as dictated by the signing physician. Lizzie Solomon nurse practitioner acting as scribe for signing physician. Objective - Vital Signs Vital signs: Vital Signs Temp 98.5 F 01/27/21 08:00 Pulse 90 01/27/21 11:00 Resp 16 01/27/21 11:00 BP 108/87 01/27/21 11:00 Pulse Ox 97 01/27/21 11:00 Intake & Output 01/26/21 01/27/21 01/27/21 18:59 06:59 18:59 Intake Total 102 950 687.04 Output Total 200 1600 650 Balance -98 -650 37.04 Weight 85.3 kg 86 kg Intake: IV 102 700 100 0.9 700 100 Intake, IV Titration 250 347.04 Amount Heparin Sod,Pork in 0.45% 47.04 NaCl 25,000 unit In 0.45 % NaCl 1 250ml.bag @ 0 mls/hr IV .[facility] Rx #:[id number] Heparin Sod,Pork in 0.45% 250 NaCl 25,000 unit In 0.45 % NaCl 1 250ml.bag @ 11.6 UNITS/KG/HR 10.05 mls/hr IV .Q24H [facility] Rx#: [id number] Sodium Chloride 0.9% 1, 200 000 ml @ 50 mls/hr IV . Q20H [facility] Rx#:[id number] metroNIDAZOLE-NS PMX 500 100 mg In Saline 1 100ml.bag @ 100 mls/hr IVPB Q8HR [facility] Rx#:[id number] Oral 0 240 Output: Urine 200 1600 650 Other: Voiding Method Bedside Commode External Catheter External Catheter - Labs CBC & Chem 7: 01/27/21 04:08 01/27/21 04:08 Labs: Abnormal Lab Results - Last 24 Hours (Table) 01/26/21 01/26/21 01/26/21 Range/Units 07:12 17:10 20:12 RBC (3.80-5.40) m/uL Hgb (11.4-16.0) gm/dL Hct (34.0-46.0) % APTT 44.2 H (22.0-30.0) sec Sodium (137-145) mmol/L Glucose (74-99) mg/dL Troponin I 1.550 H* (0.000-0.034) ng/mL Triglycerides 152.00 H (0.00-149.00) mg/dL Urine Ketones (Negative) Urine Blood (Negative) Urine Bacteria (None) /hpf 01/27/21 01/27/21 01/27/21 Range/Units 04:08 04:08 04:08 RBC 3.39 L (3.80-5.40) m/uL Hgb 9.5 L (11.4-16.0) gm/dL Hct 29.1 L (34.0-46.0) % APTT 40.5 H (22.0-30.0) sec Sodium 135 L (137-145) mmol/L Glucose 101 H (74-99) mg/dL Troponin I (0.000-0.034) ng/mL Triglycerides (0.00-149.00) mg/dL Urine Ketones (Negative) Urine Blood (Negative) Urine Bacteria (None) /hpf 01/27/21 Range/Units 10:25 RBC (3.80-5.40) m/uL Hgb (11.4-16.0) gm/dL Hct (34.0-46.0) % APTT (22.0-30.0) sec Sodium (137-145) mmol/L Glucose (74-99) mg/dL Troponin I (0.000-0.034) ng/mL Triglycerides (0.00-149.00) mg/dL Urine Ketones Trace H (Negative) Urine Blood Small H (Negative) Urine Bacteria Rare H (None) /hpf Microbiology - Last 24 Hours (Table) 01/27/21 04:45 Nasal Screen MRSA/MSSA - Preliminary Nasal Swab
[2021-01-27] MEDS: ATORVASTATIN 80 MG TAB PO SCH (20:38)
[2021-01-27] MEDS: MUPIROCIN 2% OINT 22 GM TUBE NASAL SCH (20:46)
[2021-01-28] MEDS: metroNIDAZOLE-NS PMX 500 MG in SALINE 1 100ML.BAG IVPB SCH ×4 (00:37→23:06)
[2021-01-28] MEDS: ALPRAZolam 0.25 MG TAB PO PRN ×2 (03:33→21:16)
[2021-01-28 05:23] LABS: HGB 9.9 gm/dL (11.4-16.0); MCH 28.5 pg (25.0-35.0); MCHC 33.2 g/dL (31.0-37.0); Platelet Count 377 k/uL (150-450); RBC 3.49 m/uL (3.80-5.40); RDW 13.6 % (11.5-15.5); WBC 8.1 k/uL (3.8-10.6)
[2021-01-28 05:32] LABS: Partial Thromboplastin Time 47.5 sec (22.0-30.0)
[2021-01-28] MEDS: SODIUM CHLORIDE 0.9% 1,000 ML IV SCH (06:09)
[2021-01-28 06:20] LABS: Calcium 9.3 mg/dL (8.4-10.2); Potassium 3.8 mmol/L (3.5-5.1)
--- NOTE | 2021-01-28 07:31 | XR ---
EXAMINATION TYPE: XR chest 1V portable DATE OF EXAM: 01/28/2021 COMPARISON: 01/27/2021 HISTORY: Heart failure TECHNIQUE: Single frontal view of the chest is obtained. FINDINGS: Pulmonary edema is slightly worsened since the prior examination. Cardiac silhouette is unchanged. IMPRESSION: Interval worsening of pulmonary edema.
--- NOTE | 2021-01-28 07:47 | P.PN ---
Subjective Progress Note Date: 01/28/21 Principal diagnosis: Triple-vessel coronary artery disease with left main disease, chest pain, progressive shortness of breath, non-STEMI, acute systolic heart failure present on admission, reported bleeding per rectum. Previous medical history of hypertension, hyperlipidemia, GERD, GI bleed, diverticulosis, localized colitis, degenerative disc disease with chronic low back pain, and family history of coronary artery disease The patient is currently laying in bed in the intensive care unit in no acute distress. Intra-aortic balloon pump in place with 1:1 augmentation. Patient denies any chest pain or shortness of breath currently, states lower back pain is better controlled with the addition of [place], admits she did get some sleep last night. Denies any further episodes of rectal bleeding, remains on IV heparin, Plavix remains on hold. Remains in sinus rhythm and hemodynamically stable. Preoperative testing completed except pulmonary function test and 5 m walk test which are unable to be obtained as patient is laying flat in bed. Preoperative teaching continues. Dr. Nickerson reviewed patient's heart catheterization and echocardiogram films as well as the rest of preoperative testing. The patient continues to be chest pain free, her balloon pump was plac ed on standby by Dr. Nickerson was talking with the patient and family and she continued to be chest pain free. She would benefit from maximizing therapy including heart failure mangement, recovery from nstemi, allowing flushing of kidneys after dye load from catheterization, and Plavix metabolism and to avoid intraoperative and postoperative bleeding. This was discussed in detail with the patient and her family by Dr. Nickerson, as well as with Dr. Warner by Dr. Nickerson. The patient stated this morning she was told by nursing that there is a possibility of transfer to another facility which patient states she does not want. Objective - Vital Signs Vital signs: Vital Signs Temp 98.1 F 01/28/21 04:00 Pulse 82 01/28/21 07:00 Resp 15 01/28/21 07:00 BP 118/57 01/28/21 07:00 Pulse Ox 97 01/28/21 07:00 Intake & Output 01/27/21 01/28/21 01/28/21 18:59 06:59 18:59 Intake Total 1698.94 840.4 61.7 Output Total 1550 700 100 Balance 148.94 140.4 -38.3 Weight 87.2 kg Intake: IV 100 0.9 100 Intake, IV Titration 878.94 840.4 61.7 Amount Heparin Sod,Pork in 0.45% 128.94 140.4 11.7 NaCl 25,000 unit In 0.45 % NaCl 1 250ml.bag @ 0 mls/hr IV [facility] Rx #:[id number] Sodium Chloride 0.9% 1, 550 600 50 000 ml @ 50 mls/hr IV . Q20H [facility] Rx#:[id number] metroNIDAZOLE-NS PMX 500 200 100 mg In Saline 1 100ml.bag @ 100 mls/hr IVPB Q8HR [facility] Rx#:[id number] Oral 720 Output: Urine 1550 700 100 Other: Voiding Method External Catheter External Catheter - Exam CONSTITUTIONAL: Appears comfortable, cooperative, no acute distress RESPIRATORY: Lungs sounds diminished bilaterally. Respirations even, nonlabore d. Currently on 2 L nasal cannula with oxygen saturation 97%. Able to achieve 1000 mL on incentive spirometry. Strong nonproductive cough. CARDIOVASCULAR: S1, S2 present. Regular rate and rhythm, sinus rhythm on telemetry. Palpable peripheral pulses bilaterally, Doppler pulse to right DP/PT. No edema present. No calf pain or tenderness noted. GASTROINTESTINAL: Abdomen soft, nontender, nondistended. Active bowel sounds present 4 quadrants. Tolerating diet. GENITOURINARY: Continues to void clear, yellow urine, [place] in place INTEGUMENTARY: Skin is warm and dry with evidence of good perfusion. NEUROLOGIC: Cranial nerves II through XII intact MUSKULOSKELETAL: Able to move all extremities, strength equal bilaterally PSYCHIATRIC: Alert and oriented to person place and time, appropriate affect, intact judgment and insight INVASIVE LINES AND TUBES: Right femoral intra-aortic balloon pump in place, 1:1 augmentation, EKG triggered, 34 cc/7.5-[place] sheath with with no blood backup present in the tubing, right groin is soft and nontender - Allied health notes Allied health notes reviewed: nursing - Labs CBC & Chem 7: 01/28/21 04:58 01/28/21 04:58 Labs: Abnormal Lab Results - Last 24 Hours (Table) 01/27/21 01/27/21 01/28/21 Range/Units 10:25 12:22 04:58 RBC 3.49 L (3.80-5.40) m/uL Hgb 9.9 L (11.4-16.0) gm/dL Hct 30.0 L (34.0-46.0) % APTT 48.8 H (22.0-30.0) sec Sodium (137-145) mmol/L Glucose (74-99) mg/dL Urine Ketones Trace H (Negative) Urine Blood Small H (Negative) Urine Bacteria Rare H (None) /hpf 01/28/21 01/28/21 Range/Units 04:58 04:58 RBC (3.80-5.40) m/uL Hgb (11.4-16.0) gm/dL Hct (34.0-46.0) % APTT 47.5 H (22.0-30.0) sec Sodium 135 L (137-145) mmol/L Glucose 127 H (74-99) mg/dL Urine Ketones (Negative) Urine Blood (Negative) Urine Bacteria (None) /hpf Microbiology - Last 24 Hours (Table) 01/27/21 04:45 Nasal Screen MRSA/MSSA - Preliminary Nasal Swab - Imaging and Cardiology Chest x-ray: report reviewed, image reviewed Assessment and Plan Assessment: 1. Triple-vessel coronary artery disease with left main disease, current intra- aortic balloon pump in place 2. Chest pain, progressive shortness of breath on admission, non-STEMI on admission 3. Acute systolic heart failure present on admission 4. History of hypertension 5. History of hyperlipidemia, treated 6. GERD 7. History of GI bleed with reported bleeding per rectum this admission 8. History of diverticulosis, localized colitis 9. Degenerative disc disease, chronic low back pain 10. Family history of coronary artery disease Plan: 1. Continue aspirin, statin. Recommend initiation of low-dose beta carlo when able to tolerate. Continue to hold Plavix, last dose 01/26/2021 2. Wean O2 as tolerated. Encourage incentive spirometry use 3. Patient remains on bed rest. Balloon pump, heart failure management per cardiology. Dr. Nickerson recommends weaning and removal of balloon pump 4. We'll continue to monitor labs, chest x-rays 5. Appreciate recommendations from Dr. Carbajal, no scope planned. Flagyl started per Dr. Carbajal for diverticulitis 6. Our plan is for off pump coronary artery bypass with left internal mammary artery, endoscopic vein harvest, and ligation of left atrial appendage Sunday02/01/[address] Nickerson as long as patient continues to be stable and chest pain free 7. More recommendations to follow Time with Patient: Greater than 30
[2021-01-28] MEDS: LIDOCAINE 5% PATCH TOPICAL SCH (08:08)
[2021-01-28] MEDS: CYANOCOBALAMIN 500 MCG TAB PO SCH (08:08)
[2021-01-28] MEDS: CHOLECALCIFEROL 25 MCG (1000 IU) TABLET PO SCH (08:09)
[2021-01-28] MEDS: PANTOPRAZOLE 40 MG TABLET PO SCH (08:09)
[2021-01-28] MEDS: MAGNESIUM OXIDE 400 MG TAB PO SCH (08:09)
[2021-01-28] MEDS: FUROSEMIDE 10 MG/ML 4 ML VIAL IV SCH ×2 (08:09→20:25)
[2021-01-28] MEDS: HYDROcodone/APAP 5-325MG 1 EACH TAB PO PRN ×3 (08:09→20:25)
[2021-01-28] MEDS: ASPIRIN 81 MG PO SCH (08:09)
[2021-01-28] MEDS ORDERED: Potassium Replacement Protocol 1 EACH MISC MISCELLANE PRN (08:30)
[2021-01-28] MEDS ORDERED: POTASSIUM BICARBONATE/CIT AC 20 MEQ TABLET.EFF PO SCH (09:00)
[2021-01-28] MEDS ORDERED: lisinopriL 10 MG TAB PO SCH (09:00)
--- NOTE | 2021-01-28 09:01 | P.PN ---
Subjective Progress Note Date: 01/28/21 This 75-year-old white female patient of Dr. Avina with past medical history of hypertension, hyperlipidemia, GERD/reflux, history of GI bleed, diverticulitis, DJD, who came to the emergency department on 01/25/2021 with complaints of chest pain, and right ear and right jaw pain and shortness of breath. Patient had been having chest pain and shortness of breath for a few nights prior to presentation. In addition patient has been having delusional dyspnea and orthopnea. No lower extremity edema. No fever or chills. She was significantly dyspneic, patient was placed on nonrebreather mask and subse quently BiPAP support. EKG showed sinus mechanism with ST depression in anterolateral leads. Chest x-ray showed pulmonary interstitial edema and probable small right pleural effusion which was new compared to old exam. Initial blood work showed white blood cell count of 14.5, hemoglobin of 11.8, Coreg patient profile was within normal limits, sodium was 135, potassium is 4.5, CO2 is 15, BUN was 17, creatinine 0.75, lactic acid was 3.5, troponins were 1.620, 1.850, 2.110, 1.550, proBNP was 2700, progesterone level was 0.04, COVID- 19 screen was negative. Patient was diagnosed acute congestive heart failure systolic dysfunction, echocardiogram was completed showing EF of 30-35%, mild mitral regurgitation, mild tricuspid regurgitation, and right ventricular systolic pressure was less than 35 mmHg. Patient was started on heparin infusion, diuretics in the form of Lasix 40 mg every 12 hours. Patient was also seen in consultation by by GI service in regards to her history of diverticuli tis status post robotic-assisted colectomy, and patient had a recent colonoscopy and EGD in November of this year. She is currently on Flagyl. Patient underwent heart catheterization yesterday on 01/26/2021 and was found to have 95% distal left main stenosis with ostial LAD involvement of 100%, occluded diagonal, subtotal proximal circumflex, and 70-80% distal RCA stenosis. Patient continued to have chest pain, in the [employer]ensing [employer], and intra-aortic balloon pump was placed. Consultation has been placed to CT surgery for revascularization recommendations. Patient is currently seen in the intensive care unit where she was admitted yesterday, she is awake and alert, oriented 3, resting comfortably in bed, denies any chest pain, no shortness of breath, she is on 2 L of oxygen pulse ox is 98%, hemodynamically patient is stable, she is on 0.9, saline at a rate of 50 ML per hour, no other drips, she is in sinus mechanism. She continues on Lasix 40 mg every 12 hours, Hackett catheter is in place, and she is in -748 mL negative fluid balance in the last 24 hours, today's chest x-ray showing resolving heart failure. Today's white count is 6.9, hemoglobin is 9.5, sodium is 135, the rest of electrolytes are within normal limits, urinalysis showed trace ketones and small amount of blood, negative for infection. On today's evaluation on 01/28/2021 patient seen in follow-up in intensive care unit, she is awake and alert, she is currently on 2 L of oxygen pulse ox is 97%, breathing comfortably, no complaints of chest pain or worsening shortness of breath overnight. Her chest x-ray today still showing pulmonary edema. Patient remains on Lasix 40 mg push every 12 hours, and patient is slightly and positive net fluid balance of 289 mL over the last 24 hours, intra-aortic balloon pump remains in place via the right groin, still to 121 augmentation, augmented diastolic today is improved and is up to 141 from 96 on yesterday's exam, her blood pressure is 115/59, she is in sinus mechanism with a rate of 85 bpm. lung sounds are positive for diminished breath sounds with mild crackles at the bases, but clinically patient is breathing comfortably, she is on 0.9 normal saline at a rate of 50 ML per hour in addition to heparin infusion per weight based protocol. Patient has slightly diminished pulse in the right pedal area, and 1+ pedal pulse in the left acute oh. Extremities are warm. Today's labs have been reviewed, with blood cell count is 8.1, hemoglobin is 9.9, INR is 1.0, sodium is 135, the rest of electrolytes and renal profile were unremarkable. This has also been noted showing trace ketones and blood but no evidence of urinary tract infection. Objective - Vital Signs Vital signs: Vital Signs Temp 98.3 F 01/28/21 08:00 Pulse 80 01/28/21 08:00 Resp 20 11/12/21 08:00 BP 115/59 01/28/21 08:00 Pulse Ox 98 01/28/21 08:00 Intake & Output 01/27/21 01/28/21 01/28/21 18:59 06:59 18:59 Intake Total 1698.94 840.4 463.4 Output Total 1550 700 350 Balance 148.94 140.4 113.4 Weight 87.2 kg Intake: IV 100 0.9 100 Intake, IV Titration 878.94 840.4 223.4 Amount Heparin Sod,Pork in 0.45% 128.94 140.4 23.4 NaCl 25,000 unit In 0.45 % NaCl 1 250ml.bag @ 0 mls/hr IV .[facility] Rx #:[id number] Sodium Chloride 0.9% 1, 550 600 100 000 ml @ 50 mls/hr IV . Q20H [facility] Rx#:[id number] metroNIDAZOLE-NS PMX 500 200 100 100 mg In Saline 1 100ml.bag @ 100 mls/hr IVPB Q8HR [facility] Rx#:[id number] Oral 720 240 Output: Urine 1550 700 350 Other: Voiding Method External Catheter External Catheter - Exam GENERAL EXAM: Alert, very pleasant, 75-year-old white female, on 2 L of oxygen with a pulse ox of 100%, resting comfortably in bed, in intensive care unit, comfortable in no apparent distress. Patient currently has intra-aortic balloon pump placed via right groin to 1-1 augmentation HEAD: Normocephalic/atraumatic. EYES: Normal reaction of pupils, equal size. Conjunctiva pink, sclera white. NOSE: Clear with pink turbinates. THROAT: No erythema or exudates. NECK: No masses, no JVD, no thyroid enlargement, no adenopathy. CHEST: No chest wall deformity. Symmetrical expansion. LUNGS: Equal air entry with no crackles, wheeze, rhonchi or dullness. CVS: Regular rate and rhythm, normal S1 and S2, no gallops, no murmurs, no rubs ABDOMEN: Soft, nontender. No hepatosplenomegaly, normal bowel sounds, no guarding or rigidity. EXTREMITIES: No clubbing, no edema, no cyanosis, diminished pulse in the right pedal, and 1+ palpable pulse in the left pedal MUSCULOSKELETAL: Muscle strength and tone normal. Right groin sheath in place, with intra-aortic balloon pump with 1-1 augmentation SPINE: No scoliosis or deformity SKIN: No rashes CENTRAL NERVOUS SYSTEM: Alert and oriented -3. No focal deficits, tone is normal in all 4 extremities. PSYCHIATRIC: Alert and oriented -3. Appropriate affect. Intact judgment and insight. - Labs CBC & Chem 7: 01/28/21 04:58 01/28/21 04:58 Labs: Abnormal Lab Results - Last 24 Hours (Table) 01/27/21 01/27/21 01/28/21 Range/Units 10:25 12:22 04:58 RBC 3.49 L (3.80-5.40) m/uL Hgb 9.9 L (11.4-16.0) gm/dL Hct 30.0 L (34.0-46.0) % APTT 48.8 H (22.0-30.0) sec Sodium (137-145) mmol/L Glucose (74-99) mg/dL Urine Ketones Trace H (Negative) Urine Blood Small H (Negative) Urine Bacteria Rare H (None) /hpf 01/28/21 01/28/21 Range/Units 04:58 04:58 RBC (3.80-5.40) m/uL Hgb (11.4-16.0) gm/dL Hct (34.0-46.0) % APTT 47.5 H (22.0-30.0) sec Sodium 135 L (137-145) mmol/L Glucose 127 H (74-99) mg/dL Urine Ketones (Negative) Urine Blood (Negative) Urine Bacteria (None) /hpf Microbiology - Last 24 Hours (Table) 01/27/21 04:45 Nasal Screen MRSA/MSSA - Preliminary Nasal Swab Assessment and Plan Plan: Assessment: #1. Acute non-ST elevated myocardial infarction #2. Multivessel coronary artery disease with left main stenosis of 95%, awaiting coronary artery bypass grafting surgery possibly on Sunday02/01/2021 #3. Acute congestive heart failure, with pulmonary edema with systolic dysfunction, requiring placement of intra-aortic balloon pump on 01/26/2021 currently with one-to-one augmentation #4. Hypertension #5. Hyperlipidemia #6. History of GI bleeding, with a recent history of colonoscopy and EGD on 12/08/2020, postop diagnosis of gastric polyps, hemorrhoids and colitis #7. History of diverticulitis with perforation, status post bowel resection in 2016 #8. DJD #9. Chronic back pain #10. Osteoarthritis #12. History of hysterectomy, left carpal tunnel surgery #13. Lifetime nonsmoker, no history of chronic lung disease Plan: Continue IV diuretics, today's chest x-ray has been reviewed still showing pulmonary edema However clinically patient denies any worsening dyspnea and hypoxia, she is just on 2 L of oxygen, and has not required BiPAP support No complaints of chest pain, she still has intra-aortic balloon pump in place with 1:1 augmentation Today labs have been reviewed Continue hemodynamic monitoring No acute events overnight Defer to cardiology and CT surgery in terms of intra-aortic balloon pump management Possible surgery is scheduled for next 02/01/2021 Not able to obtain bedside FEV1 right now as the patient is on strict bedrest We'll continue to closely follow I performed a history & physical examination of the patient and discussed their management with my nurse practitioner, Polly Molina. I reviewed the nurse practitioner's note and agree with the documented findings and plan of care. Lung sounds are positive for diminished breath sounds throughout the lung rdoas. The findings and the impression was discussed with the patient. I attest to the documentation by the nurse practitioner. Time with Patient: Greater than 30
[2021-01-28] MEDS: HEPARIN SOD,PORK IN 0.45% NACL 25,000 UNIT in 0.45% NACL 1 250ML.BAG IV SCH (09:46)
[2021-01-28] MEDS: MUPIROCIN 2% OINT 22 GM TUBE NASAL SCH ×2 (09:47→20:26)
[2021-01-28] MEDS: LACTOBACILLUS ACIDOPH & BULGAR 1 EACH PACKET PO SCH (09:47)
[2021-01-28] MEDS: NITROGLYCERIN OINT 1 INCH/GM PACKET TOPICAL SCH ×4 (09:49→21:16)
--- NOTE | 2021-01-28 12:07 | P.PN ---
Subjective Progress Note Date: 01/28/21 This is a 75-year-old female who was admitted to the hospital with non-STEMI and CHF and pulmonary edema. Patient had a cardiac catheterization yesterday and was noted to have significant left main disease and subtotal occlusion of proximal circumflex and significant lesion involving the RCA. Patient also had intact balloon pump because of ongoing angina. Today she is complaining of back pain. It. No complaints of chest pain. Her troponin value was stable. Chest x-ray shows improvement. Urine output has been good. Patient had evaluation by Dr. Fuentes for her GI bleeding. She started her some Flagyl for diverticulitis but cleared for surgery. Patient is also seen by pulmonology and cleared for surgery waiting for surgery to make additional regarding timing. Lungs are clear. Heart regular. So we'll continue current management. She is off DREW inhibitor R because of low blood pressure. Prognosis still guarded. 01/28/2021: This patient seemed to be relatively stable. Denies any chest pain or shortness of breath. Still on intact balloon pump . Patient was seen and evaluated with cardiac surgeon and tentatively surgery is scheduled for next Sunday. It is felt that patient could be taken off antiarrhythmic balloon pump. As long as patient is asymptomatic, surgery will be done next Sunday. There is a concern that patient was on Plavix, patient received 2 doses of Pl avix and also had a recent NM. There is always a risk that patient become unstable, while waiting for surgery. It was discussed with family and given various options. Patient and family decided to stay here and have surgery next Sunday. Her chest x-ray shows some congestion. Patient however is lying flat without any significant difficulty. No active GI bleeding at this time. Patient is being treated with Flagyl. We'll continue current medical therapy Objective - Vital Signs Vital signs: Vital Signs Temp 98.3 F 01/28/21 08:00 Pulse 76 01/28/21 10:00 Resp 18 01/28/21 10:00 BP 113/58 01/28/21 10:00 Pulse Ox 97 01/28/21 10:00 Intake & Output 01/27/21 01/28/21 01/28/21 18:59 06:59 18:59 Intake Total 1698.94 840.4 826.956 Output Total 1550 700 800 Balance 148.94 140.4 26.956 Weight 87.2 kg Intake: IV 100 0.9 100 Intake, IV Titration 878.94 840.4 586.956 Amount Heparin Sod,Pork in 0.45% 128.94 140.4 46.8 NaCl 25,000 unit In 0.45 % NaCl 1 250ml.bag @ 0 mls/hr IV .[facility] Rx #:[id number] Heparin Sod,Pork in 0.45% 240.156 NaCl 25,000 unit In 0.45 % NaCl 1 250ml.bag @ 11.6 UNITS/KG/HR 10.05 mls/hr IV .Q24H [facility] Rx#: [id number] Sodium Chloride 0.9% 1, 550 600 200 000 ml @ 50 mls/hr IV . Q20H [facility] Rx#:[id number] metroNIDAZOLE-NS PMX 500 200 100 100 mg In Saline 1 100ml.bag @ 100 mls/hr IVPB Q8HR [facility] Rx#:[id number] Oral 720 240 Output: Urine 1550 700 800 Other: Voiding Method External Catheter External Catheter External Catheter - Exam GENERAL EXAM: Patient is alert and oriented and doesn't appear to be in any acute distress HEENT: Normocephalic. Normal reaction of pupils, equal size, normal range of extraocular motion. No erythema or exudates in the throat. NECK: No masses, no nuchal rigidity. CHEST: No chest wall deformity. LUNGS: Equal air entry with no crackles or wheeze. HEART: S1 and S2 normal with no audible mumurs or gallops. Regular rhythm, femorals equal on both sides.. ABDOMEN: No hepatosplenomegaly, normal bowel sounds, no guarding or rigidity. SKIN: No rashes CENTRAL NERVOUS SYSTEM: No focal deficits. EXTREMITIES: No cyanosis, clubbing or edema. Balloon pump in place - Labs CBC & Chem 7: 01/28/21 04:58 01/28/21 04:58 Labs: Abnormal Lab Results - Last 24 Hours (Table) 01/27/21 01/28/21 01/28/21 Range/Units 12:22 04:58 04:58 RBC 3.49 L (3.80-5.40) m/uL Hgb 9.9 L (11.4-16.0) gm/dL Hct 30.0 L (34.0-46.0) % APTT 48.8 H 47.5 H (22.0-30.0) sec Sodium (137-145) mmol/L Glucose (74-99) mg/dL 01/28/21 Range/Units 04:58 RBC (3.80-5.40) m/uL Hgb (11.4-16.0) gm/dL Hct (34.0-46.0) % APTT (22.0-30.0) sec Sodium 135 L (137-145) mmol/L Glucose 127 H (74-99) mg/dL Microbiology - Last 24 Hours (Table) 01/27/21 04:45 Nasal Screen MRSA/MSSA - Final Nasal Swab Assessment and Plan (1) Acute non-ST elevation myocardial infarction (NSTEMI) Current Visit: Yes Status: Acute Code(s): I21.4 - NON-ST ELEVATION (NSTEMI) MYOCARDIAL INFARCTION SNOMED Code(s): 000417226 (2) CHF (congestive heart failure) Current Visit: Yes Status: Acute Code(s): I50.9 - HEART FAILURE, UNSPECIFIED SNOMED Code(s): 88031177 (3) Diverticulosis Current Visit: No Status: Acute Code(s): K57.90 - DVRTCLOS OF INTEST, PART UNSP, W/O PERF OR ABSCESS W/O BLEED SNOMED Code(s): 61457210 (4) GI bleed Current Visit: No Status: Acute Code(s): K92.2 - GASTROINTESTINAL HEMORRHAGE, UNSPECIFIED SNOMED Code(s): 89962499 (5) Severe obesity (BMI 35.0-35.9 with comorbidity) Current Visit: No Status: Chronic Code(s): E66.01 - MORBID (SEVERE) OBESITY DUE TO EXCESS CALORIES; Z68.35 - BODY MASS INDEX [BMI] 35.0-35.9, ADULT SNOMED Code(s): 615388376 Plan: Remained stable. Plan to remove entirely balloon pump and monitor her closely. Surgery planned for next Sunday. Meanwhile we'll continue with medical ther apy
--- NOTE | 2021-01-28 14:08 | P.PN ---
Subjective Progress Note Date: 01/28/21 CHIEF COMPLAINT: Rectal bleeding HISTORY OF PRESENT ILLNESS: 75-year-old female with multiple comorbidities who presented to the emergency department as a Non-STEMI with pulmonary edema and ischemic cardiomyopathy she had undergone heart catheterization demonstrating triple vessel coronary artery disease with left main disease. She currently has antibiotic balloon pump implanted. Gen. surgery was consulted as the patient had reported of rectal bleeding on admission in the emergency department 1 episode. The patient has recently undergone EGD and colonoscopy on 12/08/2020. Patient had grade 3 internal hemorrhoids as well as external hemorrhoids, sigmoid diverticulitis and pandiverticulosis. Patient was referred to outpatient colorectal specialist for focal colitis. Patient is scheduled for cardiac surgery next week Sunday. She's had no reported further bleeding. Her hemoglobin has been stable 9.9. She continues to deny any abdominal pain, nausea, or vomiting. PHYSICAL EXAM: VITAL SIGNS: Reviewed GENERAL: Well-developed in no acute distress. HEENT: No sclera icterus. Extraocular movements grossly intact. Moist buccal mucosa. Head is atraumatic, normocephalic. Hears conversational speech. No nasal drainage. NECK: Supple without lymphadenopathy. CHEST: Non-labored respirations and equal bilateral excursions. CARDIOVASCULAR: Palpable 2+ radial pulses. ABDOMEN: Soft. Nondistended. Nontender. MUSCULOSKELETAL: No clubbing or cyanosis. NEUROLOGIC: No focal or lateralizing signs. Cranial nerves II through XII grossly intact. PSYCH: Appropriate affect. Alert and oriented to person, place and time. SKIN: Well perfused. Good skin turgor. ASSESSMENT: 1. Rectal bleeding likely related to focal colitis 2. History of Grade 3 internal hemorrhoids/external hemorrhoids 3. History of diverticulitis status post colectomy 4. Non-STEMI with triple-vessel coronary artery disease with left main disease 5. Congestive heart failure 6. History of hypertension 7. History of hyperlipidemia 8. History of diverticulitis status post colectomy 9. Gastroesophageal reflux disease PLAN: -Continue Protonix as ordered -Continue ICU medical management -No plans on any endoscopic evaluation or indications for surgical intervention -We will follow on an as-needed basis The impression and plan of care has been dictated as directed. Dr. Carbajal I performed a history and examination of this patient, discussed the same with the dictator. I agree with the dictator's note ,documented as a scribe. Any additional findings or plans will be noted. Objective - Vital Signs Vital signs: Vital Signs Temp 98.3 F 01/28/21 08:00 Pulse 76 01/28/21 10:00 Resp 18 01/28/21 10:00 BP 113/58 01/28/21 10:00 Pulse Ox 97 01/28/21 10:00 Intake & Output 01/27/21 01/28/21 01/28/21 18:59 06:59 18:59 Intake Total 1698.94 840.4 826.956 Output Total 1550 700 800 Balance 148.94 140.4 26.956 Weight 87.2 kg Intake: IV 100 0.9 100 Intake, IV Titration 878.94 840.4 586.956 Amount Heparin Sod,Pork in 0.45% 128.94 140.4 46.8 NaCl 25,000 unit In 0.45 % NaCl 1 250ml.bag @ 0 mls/hr IV [facility] Rx #:[id number] Heparin Sod,Pork in 0.45% 240.156 NaCl 25,000 unit In 0.45 % NaCl 1 250ml.bag @ 11.6 UNITS/KG/HR 10.05 mls/hr IV .Q24H [facility] Rx#: [id number] Sodium Chloride 0.9% 1, 550 600 200 000 ml @ 50 mls/hr IV . Q20H [facility] Rx#:[id number] metroNIDAZOLE-NS PMX 500 200 100 100 mg In Saline 1 100ml.bag @ 100 mls/hr IVPB Q8HR [facility] Rx#:[id number] Oral 720 240 Output: Urine 1550 700 800 Other: Voiding Method External Catheter External Catheter External Catheter - Labs CBC & Chem 7: 01/28/21 04:58 01/28/21 04:58 Labs: Abnormal Lab Results - Last 24 Hours (Table) 01/27/21 01/28/21 01/28/21 Range/Units 12:22 04:58 04:58 RBC 3.49 L (3.80-5.40) m/uL Hgb 9.9 L (11.4-16.0) gm/dL Hct 30.0 L (34.0-46.0) % APTT 48.8 H 47.5 H (22.0-30.0) sec Sodium (137-145) mmol/L Glucose (74-99) mg/dL 01/28/21 Range/Units 04:58 RBC (3.80-5.40) m/uL Hgb (11.4-16.0) gm/dL Hct (34.0-46.0) % APTT (22.0-30.0) sec Sodium 135 L (137-145) mmol/L Glucose 127 H (74-99) mg/dL Microbiology - Last 24 Hours (Table) 01/27/21 04:45 Nasal Screen MRSA/MSSA - Final Nasal Swab
--- NOTE | 2021-01-28 17:43 | P.PN ---
Subjective Progress Note Date: 01/28/21 Progress Note Date: 01/28/21 HISTORY OF PRESENT ILLNESS This is a 75-year-old female patient of Dr. Avina with past medical history of hypertension, hyperlipidemia, gastroesophageal reflux disease, history of GI bleed, recurrent sigmoid diverticulitis status post sigmoid colectomy and low anterior resection, degenerative disc disease in the cervical spine. Patient complains of shortness of breath off and on for a week with exertional dyspnea. She states she has been sleeping on 3-4 pillows at night starting yesterday she became increasingly short of breath and couldn't lay down. She does complain of discomfort in her chest with right ear and right jaw pain. She denies any lower extremity edema. Patient presented to [facility] emergency center for evaluation. She is found to be afebrile, heart rate 99, respiratory rate 32, blood pressure 119/87, pulse ox 92% on room air. Patient was later changed over to nonrebreather and then to BiPAP. Blood work reveals WBC 14.5, hemoglobin 9.8, platelet count 328. INR 0.9. Sodium 135, potassium 4.5, chloride 104, CO2 15, BUN 17 and creatinine 0.75. Blood sugar 194. Lactic acid 3.5 and repeat of 1.3. Troponins 1.620, 1.850, 2.11. ProBNP 2700. Coronavirus PCR not detected. Chest x-ray reveals pulmonary interstitial edema and probable small right pleural effusion which are new. This could be acute heart failure or acute pneumonia. Echocardiogram reveals EF of 30-35%, LA is severely dilated, LV wall motion is hypokinetic, mild mitral regurgitation, mild tricuspid regurgitation. Patient is seen today in the emergency center waiting for bed on the cardiac stepdown unit. 01/26: Patient is seen today on the selective care unit, sitting up her recliner and is at bedside. She currently states that she is feeling better from yesterday and denied any chest pain or pressure and denies any neck pain. Patient does state that she did have some rectal bleeding most likely secondary to her history of diverticulosis. Patient underwent heart catheterization which revealed left main disease of 95%, LAD total occlusion of the diagonal branches, left circumflex subtotally occluded, right coronary artery 70-80% distally. Due to severe triple-vessel disease, patient was transferred to the intensive care unit post procedure. Patient also underwent intra-aortic balloon pump insertion. After procedures, patient went to the intensive care unit and consult with cardiothoracic surgery added. 01/27:Patient has been seen by cardiothoracic team with plan for CABG possibly on Sunday or Sunday. Patient is seen today in the intensive care unit and continued on intra-aortic balloon pump and continued on heparin drip. She denies having any chest pain and shortness of breath is improved. [place] 5/325 ordered. Patient was seen by Dr. Cormier regarding rectal bleeding with no plan for intervention at this time and patient started on Flagyl. Patient is a lso followed by pulmonary medicine with plan to obtain bedside FEV1. She remains afebrile, heart rate in the 90s, blood pressure and 100/54, pulse ox 96% on 2 L nasal cannula. patient monitor sinus rhythm. Repeat blood work reveals WBC 6.9, hemoglobin 9.5, platelet count 373. Sodium 135, blood sugar 101. Electrolytes renal function are normal. Liver function tests are within normal limits. Urinalysis showed small amount of blood. Patient is reaching 750 on incentive spirometry. Repeat blood work and chest x-ray ordered for tomorrow morning. 01/28: Patient is laying down in bed flat to due to the fact that she had intra- aortic balloon pump, she denies any chest pain at this time, she is not complaining of shortness of breath, she stated that her pain is well controlled but she would left to take it more often than every 8 hours, I spoke with the nursing staff about increasing her [place] to every 4-6 hours as needed, moderate the patient very closely, continue with bowel care, continue lactulose and Senokot, patient was seen earlier by thoracic surgery as well as by cardiology it was recommended that the patient will go for coronary artery bypass grafting next Sunday unless she become and stable, she has been requiring 2 L nasal cannula, her blood pressure is stable, her oxygen saturation stable, her hemoglobin is stable at this time, she was seen by Dr. Fuentes and he was recommended for the patient to be continued on Flagyl for now with no further intervention. REVIEW OF SYSTEMS Constitutional: No fever, no chills, no night sweats. No weight change. No weakness, reports fatigue no lethargy. No daytime sleepiness. HEENT: No headache. No blurred vision or double vision, no loss of vision. No loss of Hearing, no ringing in the ears, no dizziness. No nasal drainage or congestion. No epistaxis. No sore throat. Lungs: Reports shortness of breath-improved, cough, no sputum production. No wheezing. Reports exertional shortness of breath Cardiovascular: Denies chest pain, no lower extremity edema. No palpitations. No paroxysmal nocturnal dyspnea. Reports orthopnea. No lightheadedness or dizziness. No syncopal episodes. Abdominal: No abdominal pain. No nausea, vomiting. No diarrhea. No constipation. No bloody or tarry stools. No loss of appetite. Genitourinary: No dysuria, increased frequency, urgency. No urinary retention. Musculoskeletal: No myalgias. No muscle weakness, no gait dysfunction, no frequent falls. Positive for back pain. No neck pain. Integumentary: No wounds, no lesions. No rash or pruritus. No unusual bruising. No change in hair or nails. Neurologic: No aphasia. No facial droop. No change in mentation. No head injury. No headache. No paralysis. No paresthesia. Psychiatric: No depression. Positive for anxiety. No mood swings. Endocrine: Mildly abnormal blood sugars. No weight change. PHYSICAL EXAMINATION Gen: This is a 75-year-old female. She is resting in ICU bed and appears to be comfortable. and daughter at bedside. HEENT: Head is atraumatic, normocephalic. Pupils equal, round. Sclerae is anicteric. NECK: Supple. No JVD. No lymphadenopathy. No thyromegaly. LUNGS: Clear to auscultation. No wheezes or rhonchi. No intercostal retractions. HEART: first heart sound is depressed, second heart sound is normal, there is systolic ejection murmur 2/6 located in the left sternal border, there is intra- aortic balloon pump in place, there is a gallop ABDOMEN: Soft. Bowel sounds are present. No masses. No tenderness. External female catheter in place draining clear cory urine. EXTREMITIES: No pedal edema. No calf tenderness. Dorsalis pedis palpable bilaterally. NEUROLOGICAL: Patient is awake, alert and oriented x3. Cranial nerves 2 through 12 are grossly intact. ASSESSMENT AND PLAN 1. Acute hypoxic respiratory failure secondary to acute systolic heart failure with cardiogenic shock Continue IV Lasix 40 mg every 12 hours, monitor I&O and daily weights, monitor renal function and electrolytes, cardiology consult appreciated. Echocardiogram as above. 2. Non-ST elevated myocardial infarction status post heart catheterization finding triple-vessel disease, status post intra-aortic balloon pump. Patient's been transferred to the intensive care unit, consult with cardiothoracic surgery. Continue aspirin 81 mg daily, Lipitor 80 mg at bedtime, heparin drip. 3. Ischemic cardiomyopathy. Ejection fraction about 30%, patient is not able to tolerate beta carlo this time, we'll continue with Lasix 40 mg IV push every 12 hours, continue aspirin 81 mg once every day, she is currently off Plavix 3 4. Rectal bleeding secondary to diverticulitis. Consult with general surgery appreciated, patient started on Flagyl 500 mg IV piggyback every 8 hours. 5. Hyperglycemia without diagnosis of diabetes. Continue to monitor. 6. Hypertension and hypertensive cardiovascular disease. Patient has been off lisinopril, and metoprolol. 7. Hyperlipidemia. Continue atorvastatin 80 mg at bedtime. 8. Gastroesophageal reflux disease and GI prophylaxis. Continue Protonix 40 mg daily. 9. History of GI bleed, no active bleeding at this time. Patient had rectal bleeding 1 most likely secondary to diverticulitis 10. History of diverticulitis status post sigmoid colectomy and low anterior resection. 11. Degenerative disc disease in the cervical spine. 12. DVT prophylaxis. Continue heparin drip. 13. COVID-19 testing negative. Patient has been hospitalized during a pandemic. Objective - Vital Signs Vital signs: Vital Signs Temp 98.1 F 01/28/21 04:00 Pulse 82 01/28/21 06:00 Resp 17 01/28/21 06:00 BP 113/64 01/28/21 06:00 Pulse Ox 98 01/28/21 06:00 Intake & Output 01/27/21 01/28/21 01/28/21 18:59 06:59 18:59 Intake Total 1698.94 840.4 61.7 Output Total 1550 700 100 Balance 148.94 140.4 -38.3 Weight 87.2 kg Intake: IV 100 0.9 100 Intake, IV Titration 878.94 840.4 61.7 Amount Heparin Sod,Pork in 0.45% 128.94 140.4 11.7 NaCl 25,000 unit In 0.45 % NaCl 1 250ml.bag @ 0 mls/hr IV .[facility] Rx #:[id number] Sodium Chloride 0.9% 1, 550 600 50 000 ml @ 50 mls/hr IV . Q20H [facility] Rx#:[id number] metroNIDAZOLE-NS PMX 500 200 100 mg In Saline 1 100ml.bag @ 100 mls/hr IVPB Q8HR [facility] Rx#:[id number] Oral 720 Output: Urine 1550 700 100 Other: Voiding Method External Catheter External Catheter - Labs CBC & Chem 7: 01/28/21 04:58 01/28/21 04:58 Labs: Abnormal Lab Results - Last 24 Hours (Table) 01/27/21 01/27/21 01/28/21 Range/Units 10:25 12:22 04:58 RBC 3.49 L (3.80-5.40) m/uL Hgb 9.9 L (11.4-16.0) gm/dL Hct 30.0 L (34.0-46.0) % APTT 48.8 H (22.0-30.0) sec Sodium (137-145) mmol/L Glucose (74-99) mg/dL Urine Ketones Trace H (Negative) Urine Blood Small H (Negative) Urine Bacteria Rare H (None) /hpf 01/28/21 01/28/21 Range/Units 04:58 04:58 RBC (3.80-5.40) m/uL Hgb (11.4-16.0) gm/dL Hct (34.0-46.0) % APTT 47.5 H (22.0-30.0) sec Sodium 135 L (137-145) mmol/L Glucose 127 H (74-99) mg/dL Urine Ketones (Negative) Urine Blood (Negative) Urine Bacteria (None) /hpf Microbiology - Last 24 Hours (Table) 01/27/21 04:45 Nasal Screen MRSA/MSSA - Preliminary Nasal Swab
[2021-01-28] MEDS: ATORVASTATIN 80 MG TAB PO SCH (20:25)
[2021-01-29] MEDS: SODIUM CHLORIDE 0.9% 1,000 ML IV SCH ×2 (06:10→22:56)
[2021-01-29] MEDS: HEPARIN SOD,PORK IN 0.45% NACL 25,000 UNIT in 0.45% NACL 1 250ML.BAG IV SCH (07:07)
[2021-01-29] MEDS ORDERED: ONDANSETRON 4 MG/2 ML VIAL IVP PRN (07:21)
[2021-01-29 07:27] LABS: HCT 30.9 % (34.0-46.0); HGB 9.9 gm/dL (11.4-16.0); MCHC 32.1 g/dL (31.0-37.0); MCV 87.2 fL (80.0-100.0); Mean Platelet Volume 7.2; Platelet Count 334 k/uL (150-450); RBC 3.54 m/uL (3.80-5.40); RDW 13.2 % (11.5-15.5); WBC 7.9 k/uL (3.8-10.6)
[2021-01-29 07:32] LABS: African American GFR (CKD) >90 (>60 ml/min/1.73 sqM); Anion Gap 7 mmol/L; Blood Urea Nitrogen 16 mg/dL (7-17); Calcium 9.3 mg/dL (8.4-10.2); Carbon Dioxide 25 mmol/L (22-30); Chloride 100 mmol/L (98-107); Glucose 123 mg/dL (74-99); Non-African American GFR(CKD) 82 (>60 ml/min/1.73 sqM); Potassium 3.8 mmol/L (3.5-5.1); Sodium 132 mmol/L (137-145)
--- NOTE | 2021-01-29 07:45 | P.PN ---
Subjective Progress Note Date: 01/29/21 Principal diagnosis: Triple-vessel coronary artery disease with left main disease, chest pain, progressive shortness of breath, non-STEMI, acute systolic heart failure present on admission, reported bleeding per rectum. Previous medical history of hypertension, hyperlipidemia, GERD, GI bleed, diverticulosis, localized colitis, degenerative disc disease with chronic low back pain, and family history of coronary artery disease The patient is currently laying in bed in the intensive care unit in no acute distress. Intra-aortic balloon pump in place with 1:1 augmentation. Patient denies any chest pain or shortness of breath currently, states lower back pain is much better controlled with the addition of [place]. Denies any further episodes of rectal bleeding, remains on IV heparin, Plavix remains on hold. Remains in sinus rhythm and hemodynamically stable. Preoperative testing completed except pulmonary function test and 5 m walk test which are unable to be obtained as patient is laying flat in bed. Preoperative teaching continues. IABP was placed on 1:2 augmentation for a while yesterday with no complaints of chest pain, was on 1:3 augmentation this morning also with no complaints of chest pain and no hemodynamic instability. Discussed with Dr. Renee, will leave IABP in for now to avoid chest pain and hemodynamic instability Objective - Vital Signs Vital signs: Vital Signs Temp 98.1 F 01/29/21 04:00 Pulse 80 01/29/21 06:00 Resp 18 01/29/21 06:00 BP 120/66 01/29/21 06:00 Pulse Ox 98 01/29/21 06:00 Intake & Output 01/28/21 01/29/21 01/29/21 18:59 06:59 18:59 Intake Total 1680.556 723.4 300 Output Total 1300 550 Balance 380.556 173.4 300 Weight 84.3 kg Intake: Intake, IV Titration 1080.556 623.4 300 Amount Heparin Sod,Pork in 0.45% 140.4 23.4 NaCl 25,000 unit In 0.45 % NaCl 1 250ml.bag @ 0 mls/hr IV .[facility] Rx #:[id number] Heparin Sod,Pork in 0.45% 240.156 250 NaCl 25,000 unit In 0.45 % NaCl 1 250ml.bag @ 11.6 UNITS/KG/HR 10.05 mls/hr IV .Q24H [facility] Rx#: [id number] Sodium Chloride 0.9% 1, 600 600 50 000 ml @ 50 mls/hr IV . Q20H [facility] Rx#:[id number] metroNIDAZOLE-NS PMX 500 100 mg In Saline 1 100ml.bag @ 100 mls/hr IVPB Q8HR [facility] Rx#:[id number] Oral 600 100 Output: Urine 1300 550 Other: Voiding Method External Catheter External Catheter # Voids 1 1 - Exam CONSTITUTIONAL: Appears comfortable, cooperative, no acute distress RESPIRATORY: Lungs sounds diminished bilaterally. Respirations even, nonlab ored. Currently on 2 L nasal cannula with oxygen saturation 98%. Able to achieve 1000 mL on incentive spirometry. Strong nonproductive cough. CARDIOVASCULAR: S1, S2 present. Regular rate and rhythm, sinus rhythm on telemetry. Palpable peripheral pulses bilaterally, Doppler pulse to right DP/ PT. No edema present. No calf pain or tenderness noted. GASTROINTESTINAL: Abdomen soft, nontender, nondistended. Active bowel sounds present 4 quadrants. Tolerating diet. GENITOURINARY: Continues to void clear, yellow urine, [place] in place INTEGUMENTARY: Skin is warm and dry with evidence of good perfusion. NEUROLOGIC: Cranial nerves II through XII intact MUSKULOSKELETAL: Able to move all extremities, strength equal bilaterally PSYCHIATRIC: Alert and oriented to person place and time, appropriate affect, intact judgment and insight INVASIVE LINES AND TUBES: Right femoral intra-aortic balloon pump in place, 1:1 augmentation, EKG triggered, 34 cc/7.5-[place]oven[place] sheath with with no blood backup present in the tubing, right groin is soft and nontender - Allied health notes Allied health notes reviewed: nursing - Labs CBC & Chem 7: 01/29/21 05:25 01/29/21 05:25 Labs: Abnormal Lab Results - Last 24 Hours (Table) 01/29/21 01/29/21 01/29/21 Range/Units 05:25 05:25 05:25 RBC 3.54 L (3.80-5.40) m/uL Hgb 9.9 L (11.4-16.0) gm/dL Hct 30.9 L (34.0-46.0) % APTT 62.1 H (22.0-30.0) sec Sodium 132 L (137-145) mmol/L Glucose 123 H (74-99) mg/dL Microbiology - Last 24 Hours (Table) 01/27/21 04:45 Nasal Screen MRSA/MSSA - Final Nasal Swab - Imaging and Cardiology Chest x-ray: image reviewed Assessment and Plan Assessment: 1. Triple-vessel coronary artery disease with left main disease, current intra- aortic balloon pump in place 2. Chest pain, progressive shortness of breath on admission, non-STEMI on admission 3. Acute systolic heart failure present on admission 4. History of hypertension 5. History of hyperlipidemia, treated 6. GERD 7. History of GI bleed with reported bleeding per rectum this admission 8. History of diverticulosis, localized colitis 9. Degenerative disc disease, chronic low back pain 10. Family history of coronary artery disease Plan: 1. Continue aspirin, statin. Recommend initiation of low-dose beta carlo when able to tolerate. Continue to hold Plavix, last dose 01/26/2021 2. Wean O2 as tolerated. Encourage incentive spirometry use 3. Patient remains on bed rest. Balloon pump, heart failure management per cardiology. Discussed with Dr. Renee-IABP to remain in place 4. We'll continue to monitor labs, chest x-rays 5. Appreciate recommendations from Dr. Carbajal, no scope planned. Flagyl started per Dr. Carbajal for diverticulitis 6. Our plan is for off pump coronary artery bypass with left internal mammary artery, endoscopic vein harvest, and ligation of left atrial appendage Sunday02/01/[address] Nickerson as long as patient continues to be stable and chest pain free 7. More recommendations to follow Time with Patient: Greater than 30
[2021-01-29] MEDS: metroNIDAZOLE-NS PMX 500 MG in SALINE 1 100ML.BAG IVPB SCH ×3 (08:58→23:55)
[2021-01-29] MEDS: ASPIRIN 81 MG PO SCH (08:59)
[2021-01-29] MEDS: CHOLECALCIFEROL 25 MCG (1000 IU) TABLET PO SCH (09:00)
[2021-01-29] MEDS: FUROSEMIDE 10 MG/ML 4 ML VIAL IV SCH ×2 (09:00→20:26)
[2021-01-29] MEDS: MAGNESIUM OXIDE 400 MG TAB PO SCH (09:01)
[2021-01-29] MEDS: CYANOCOBALAMIN 500 MCG TAB PO SCH (09:01)
[2021-01-29] MEDS: PANTOPRAZOLE 40 MG TABLET PO SCH (09:02)
[2021-01-29] MEDS: polyethylene glycoL 3350 17 GM POWD.PACK PO SCH (09:02)
[2021-01-29] MEDS: NITROGLYCERIN OINT 1 INCH/GM PACKET TOPICAL SCH ×4 (09:05→22:49)
[2021-01-29] MEDS: MUPIROCIN 2% OINT 22 GM TUBE NASAL SCH ×2 (09:07→20:27)
[2021-01-29] MEDS: LIDOCAINE 5% PATCH TOPICAL SCH (09:07)
--- NOTE | 2021-01-29 09:32 | P.PN ---
Subjective Progress Note Date: 01/29/21 Progress Note Date: 01/28/21 HISTORY OF PRESENT ILLNESS This is a 75-year-old female patient of Dr. Avina with past medical history of hypertension, hyperlipidemia, gastroesophageal reflux disease, history of GI bleed, recurrent sigmoid diverticulitis status post sigmoid colectomy and low anterior resection, degenerative disc disease in the cervical spine. Patient complains of shortness of breath off and on for a week with exertional dyspnea. She states she has been sleeping on 3-4 pillows at night starting yesterday she became increasingly short of breath and couldn't lay down. She does complain of discomfort in her chest with right ear and right jaw pain. She denies any lower extremity edema. Patient presented to [facility] emergency center for evaluation. She is found to be afebrile, heart rate 99, respiratory rate 32, blood pressure 119/87, pulse ox 92% on room air. Patient was later changed over to nonrebreather and then to BiPAP. Blood work reveals WBC 14.5, hemoglobin 9.8, platelet count 328. INR 0.9. Sodium 135, potassium 4.5, chloride 104, CO2 15, BUN 17 and creatinine 0.75. Blood sugar 194. Lactic acid 3.5 and repeat of 1.3. Troponins 1.620, 1.850, 2.11. ProBNP 2700. Coronavirus PCR not detected. Chest x-ray reveals pulmonary interstitial edema and probable small right pleural effusion which are new. This could be acute heart failure or acute pneumonia. Echocardiogram reveals EF of 30-35%, LA is severely dilated, LV wall motion is hypokinetic, mild mitral regurgitation, mild tricuspid regurgitation. Patient is seen today in the emergency center waiting for bed on the cardiac stepdown unit. 01/26: Patient is seen today on the selective care unit, sitting up her recliner and is at bedside. She currently states that she is feeling better from yesterday and denied any chest pain or pressure and denies any neck pain. Patient does state that she did have some rectal bleeding most likely secondary to her history of diverticulosis. Patient underwent heart catheterization which revealed left main disease of 95%, LAD total occlusion of the diagonal branches, left circumflex subtotally occluded, right coronary artery 70-80% distally. Due to severe triple-vessel disease, patient was transferred to the intensive care unit post procedure. Patient also underwent intra-aortic balloon pump insertion. After procedures, patient went to the intensive care unit and consult with cardiothoracic surgery added. 01/27:Patient has been seen by cardiothoracic team with plan for CABG possibly on Sunday or Sunday. Patient is seen today in the intensive care unit and continued on intra-aortic balloon pump and continued on heparin drip. She denies having any chest pain and shortness of breath is improved. [place] 5/325 ordered. Patient was seen by Dr. Cormier regarding rectal bleeding with no plan for intervention at this time and patient started on Flagyl. Patient is a lso followed by pulmonary medicine with plan to obtain bedside FEV1. She remains afebrile, heart rate in the 90s, blood pressure and 100/54, pulse ox 96% on 2 L nasal cannula. hospital monitor sinus rhythm. Repeat blood work reveals WBC 6.9, hemoglobin 9.5, platelet count 373. Sodium 135, blood sugar 101. Electrolytes renal function are normal. Liver function tests are within normal limits. Urinalysis showed small amount of blood. Patient is reaching 750 on incentive spirometry. Repeat blood work and chest x-ray ordered for tomorrow morning. 01/28: Patient is laying down in bed flat to due to the fact that she had intra- aortic balloon pump, she denies any chest pain at this time, she is not complaining of shortness of breath, she stated that her pain is well controlled but she would left to take it more often than every 8 hours, I spoke with the nursing staff about increasing her [place] to every 4-6 hours as needed, moderate the patient very closely, continue with bowel care, continue lactulose and Senokot, patient was seen earlier by thoracic surgery as well as by cardiology it was recommended that the patient will go for coronary artery bypass grafting next Sunday unless she become and stable, she has been requiring 2 L nasal cannula, her blood pressure is stable, her oxygen saturation stable, her hemoglobin is stable at this time, she was seen by Dr. Fuentes and he was recommended for the patient to be continued on Flagyl for now with no further intervention. 01/29: Patient's is laying down in bed she continued to have the intra-aortic balloon pump in place, she is nauseated she had an episode of vomiting today she denies any chest pain or shortness breath, she denies any abdominal pain, she has been constipated, she did not respond to lactulose, she would be getting MiraLAX along with a stool softener, we will monitor the patient very closely in the intensive care unit, patient will likely be operated on Sunday, continue supportive care, continue heparin drip, continue baby aspirin, continue atorvastatin, follow-up with the patient very closely. REVIEW OF SYSTEMS Constitutional: No fever, no chills, no night sweats. No weight change. No weakness, reports fatigue no lethargy. No daytime sleepiness. HEENT: No headache. No blurred vision or double vision, no loss of vision. No loss of Hearing, no ringing in the ears, no dizziness. No nasal drainage or congestion. No epistaxis. No sore throat. Lungs: Reports shortness of breath-improved, cough, no sputum production. No wheezing. Reports exertional shortness of breath Cardiovascular: Denies chest pain, no lower extremity edema. No palpitations. No paroxysmal nocturnal dyspnea. Reports orthopnea. No lightheadedness or dizziness. No syncopal episodes. Abdominal: No abdominal pain. No nausea, vomiting. No diarrhea. No constipation. No bloody or tarry stools. No loss of appetite. Genitourinary: No dysuria, increased frequency, urgency. No urinary retention. Musculoskeletal: No myalgias. No muscle weakness, no gait dysfunction, no frequent falls. Positive for back pain. No neck pain. Integumentary: No wounds, no lesions. No rash or pruritus. No unusual bruising. No change in hair or nails. Neurologic: No aphasia. No facial droop. No change in mentation. No head injury. No headache. No paralysis. No paresthesia. Psychiatric: No depression. Positive for anxiety. No mood swings. Endocrine: Mildly abnormal blood sugars. No weight change. PHYSICAL EXAMINATION Gen: This is a 75-year-old female. She is resting in ICU bed and appears to be comfortable. and daughter at bedside. HEENT: Head is atraumatic, normocephalic. Pupils equal, round. Sclerae is anicteric. NECK: Supple. No JVD. No lymphadenopathy. No thyromegaly. LUNGS: Clear to auscultation. No wheezes or rhonchi. No intercostal retractions. HEART: first heart sound is depressed, second heart sound is normal, there is systolic ejection murmur 2/6 located in the left sternal border, there is intra- aortic balloon pump in place, there is a gallop ABDOMEN: Soft. Bowel sounds are present. No masses. No tenderness. External female catheter in place draining clear cory urine. EXTREMITIES: No pedal edema. No calf tenderness. Dorsalis pedis palpable bilaterally. NEUROLOGICAL: Patient is awake, alert and oriented x3. Cranial nerves 2 through 12 are grossly intact. ASSESSMENT AND PLAN 1. Acute hypoxic respiratory failure secondary to acute systolic heart failure with cardiogenic shock Continue IV Lasix 40 mg every 12 hours, monitor I&O and daily weights, monitor renal function and electrolytes, cardiology consult appreciated. Echocardiogram as above. 2. Non-ST elevated myocardial infarction status post heart catheterization finding triple-vessel disease, status post intra-aortic balloon pump. Patient's been transferred to the intensive care unit, consult with cardiothoracic surgery. Continue aspirin 81 mg daily, Lipitor 80 mg at bedtime, heparin drip. 3. Ischemic cardiomyopathy. Ejection fraction about 30%, patient is not able to tolerate beta carlo this time, we'll continue with Lasix 40 mg IV push every 12 hours, continue aspirin 81 mg once every day, she is currently off Plavix 3 4. Rectal bleeding secondary to diverticulitis. Consult with general surgery appreciated, patient started on Flagyl 500 mg IV piggyback every 8 hours. 5. Hyperglycemia without diagnosis of diabetes. Continue to monitor. 6. Hypertension and hypertensive cardiovascular disease. Patient has been off lisinopril, and metoprolol. 7. Hyperlipidemia. Continue atorvastatin 80 mg at bedtime. 8. Gastroesophageal reflux disease and GI prophylaxis. Continue Protonix 40 mg daily. 9. History of GI bleed, no active bleeding at this time. Patient had rectal bleeding 1 most likely secondary to diverticulitis 10. History of diverticulitis status post sigmoid colectomy and low anterior resection. 11. Degenerative disc disease in the cervical spine. 12. DVT prophylaxis. Continue heparin drip. 13. COVID-19 testing negative. Patient has been hospitalized during a pandemic. 14. Opiate-induced constipation. Continue patient on MiraLAX 17 g in 8 ounces water, continue lactulose 20 g orally once every day, continue Senokot 2 tablet orally bedtime. 15. Guarded prognosis. Objective - Vital Signs Vital signs: Vital Signs Temp 97.9 F 01/29/21 08:00 Pulse 79 01/29/21 09:00 Resp 21 01/29/21 09:00 BP 109/72 01/29/21 09:00 Pulse Ox 95 01/29/21 09:00 Intake & Output 01/28/21 01/29/21 01/29/21 18:59 06:59 18:59 Intake Total 1680.556 723.4 300 Output Total 1300 550 Balance 380.556 173.4 300 Weight 84.3 kg Intake: Intake, IV Titration 1080.556 623.4 300 Amount Heparin Sod,Pork in 0.45% 140.4 23.4 NaCl 25,000 unit In 0.45 % NaCl 1 250ml.bag @ 0 mls/hr IV .[facility] Rx #:[id number] Heparin Sod,Pork in 0.45% 240.156 250 NaCl 25,000 unit In 0.45 % NaCl 1 250ml.bag @ 11.6 UNITS/KG/HR 10.05 mls/hr IV .Q24H [facility] Rx#: [id number] Sodium Chloride 0.9% 1, 600 600 50 000 ml @ 50 mls/hr IV . Q20H [facility] Rx#:[id number] metroNIDAZOLE-NS PMX 500 100 mg In Saline 1 100ml.bag @ 100 mls/hr IVPB Q8HR [facility] Rx#:[id number] Oral 600 100 Output: Urine 1300 550 Other: Voiding Method External Catheter External Catheter # Voids 1 1 - Labs CBC & Chem 7: 01/29/21 05:25 01/29/21 05:25 Labs: Abnormal Lab Results - Last 24 Hours (Table) 01/29/21 01/29/21 01/29/21 Range/Units 05:25 05:25 05:25 RBC 3.54 L (3.80-5.40) m/uL Hgb 9.9 L (11.4-16.0) gm/dL Hct 30.9 L (34.0-46.0) % APTT 62.1 H (22.0-30.0) sec Sodium 132 L (137-145) mmol/L Glucose 123 H (74-99) mg/dL Microbiology - Last 24 Hours (Table) 01/27/21 04:45 Nasal Screen MRSA/MSSA - Final Nasal Swab
[2021-01-29] MEDS: LACTOBACILLUS ACIDOPH & BULGAR 1 EACH PACKET PO SCH ×2 (09:38→12:05)
--- NOTE | 2021-01-29 09:42 | XR ---
EXAMINATION TYPE: XR chest 1V DATE OF EXAM: 01/29/2021 COMPARISON: 01/28/2021 INDICATION: Aortic balloon pump TECHNIQUE: Single frontal view of the chest is obtained. Patient is rotated to the left. FINDINGS: The heart size is normal. The pulmonary vasculature is normal. No suspicious focal consolidations. Marker appears to be just below the aortic arch level which is stable in position. IMPRESSION: 1. Stable positioning of aortic balloon marker
--- NOTE | 2021-01-29 09:44 | P.PN ---
Subjective Progress Note Date: 01/29/21 This 75-year-old white female patient of Dr. Avina with past medical history of hypertension, hyperlipidemia, GERD/reflux, history of GI bleed, diverticulitis, DJD, who came to the emergency department on 01/25/2021 with complaints of chest pain, and right ear and right jaw pain and shortness of breath. Patient had been having chest pain and shortness of breath for a few nights prior to presentation. In addition patient has been having delusional dyspnea and orthopnea. No lower extremity edema. No fever or chills. She was significantly dyspneic, patient was placed on nonrebreather mask and sub sequently BiPAP support. EKG showed sinus mechanism with ST depression in anterolateral leads. Chest x-ray showed pulmonary interstitial edema and probable small right pleural effusion which was new compared to old exam. Initial blood work showed white blood cell count of 14.5, hemoglobin of 11.8, Coreg patient profile was within normal limits, sodium was 135, potassium is 4.5, CO2 is 15, BUN was 17, creatinine 0.75, lactic acid was 3.5, troponins were 1.620, 1.850, 2.110, 1.550, proBNP was 2700, progesterone level was 0.04, COVID- 19 screen was negative. Patient was diagnosed acute congestive heart failure systolic dysfunction, echocardiogram was completed showing EF of 30-35%, mild mitral regurgitation, mild tricuspid regurgitation, and right ventricular systolic pressure was less than 35 mmHg. Patient was started on heparin infusion, diuretics in the form of Lasix 40 mg every 12 hours. Patient was also seen in consultation by by GI service in regards to her history of diverticu litis status post robotic-assisted colectomy, and patient had a recent colonoscopy and EGD in November of this year. She is currently on Flagyl. Patient underwent heart catheterization yesterday on 01/26/2021 and was found to have 95% distal left main stenosis with ostial LAD involvement of 100%, occluded diagonal, subtotal proximal circumflex, and 70-80% distal RCA stenosis. Patient continued to have chest pain, in the [employer], and intra-aortic balloon pump was placed. Consultation has been placed to CT surgery for revascularization recommendations. Patient is currently seen in the intensive care unit where she was admitted yesterday, she is awake and alert, oriented 3, resting comfortably in bed, denies any chest pain, no shortness of breath, she is on 2 L of oxygen pulse ox is 98%, hemodynamically patient is stable, she is on 0.9, saline at a rate of 50 ML per hour, no other drips, she is in sinus mechanism. She continues on Lasix 40 mg every 12 hours, Hackett catheter is in place, and she is in -748 mL negative fluid balance in the last 24 hours, today's chest x-ray showing resolving heart failure. Today's white count is 6.9, hemoglobin is 9.5, sodium is 135, the rest of electrolytes are within normal limits, urinalysis showed trace ketones and small amount of blood, negative for infection. On today's evaluation on 01/28/2021 patient seen in follow-up in intensive care unit, she is awake and alert, she is currently on 2 L of oxygen pulse ox is 97%, breathing comfortably, no complaints of chest pain or worsening shortness of breath overnight. Her chest x-ray today still showing pulmonary edema. Patient remains on Lasix 40 mg push every 12 hours, and patient is slightly and positive net fluid balance of 289 mL over the last 24 hours, intra-aortic balloon pump remains in place via the right groin, still to 121 augmentation, augmented diastolic today is improved and is up to 141 from 96 on yesterday's exam, her blood pressure is 115/59, she is in sinus mechanism with a rate of 85 bpm. lung sounds are positive for diminished breath sounds with mild crackles at the bases, but clinically patient is breathing comfortably, she is on 0.9 normal saline at a rate of 50 ML per hour in addition to heparin infusion per weight based protocol. Patient has slightly diminished pulse in the right pedal area, and 1+ pedal pulse in the left acute oh. Extremities are warm. Today's labs have been reviewed, with blood cell count is 8.1, hemoglobin is 9.9, INR is 1.0, sodium is 135, the rest of electrolytes and renal profile were unremarkable. This has also been noted showing trace ketones and blood but no evidence of urinary tract infection. 13 2020, the patient remains on 2 L about 2 by nasal cannula. She is still diuresing with Lasix. Hemodynamically, it was decided to keep the intra-aortic balloon pump with 1-1 augmentation as there was concern that the patient's condition may decompensate off the balloon pump. The mean arterial pressure currently is at 97. She is free of any angina. Her cardiac rhythm is sinus. She did have some nausea and she was given MiraLAX for bowel movements activity. The surgery is still tentatively scheduled for next week, possibly next Sunday. Otherwise, the patient is doing well. She is free of any chest pain. No cardiac arrhythmias have been noted. The patient remains on IV heparin. She is also getting a white cell count 7.9 with a hemoglobin of 9.9. Platelet counts are stable at 34. No other significant events otherwise for now. She has multivessel coronary artery disease and impairment of LV function and she is awaiting coronary artery bypass surgery. Objective - Vital Signs Vital signs: Vital Signs Temp 97.9 F 01/29/21 08:00 Pulse 79 01/29/21 09:00 Resp 21 01/29/21 09:00 BP 109/72 01/29/21 09:00 Pulse Ox 95 01/29/21 09:31 Intake & Output 01/28/21 01/29/21 01/29/21 18:59 06:59 18:59 Intake Total 1680.556 723.4 300 Output Total 1300 550 Balance 380.556 173.4 300 Weight 84.3 kg Intake: Intake, IV Titration 1080.556 623.4 300 Amount Heparin Sod,Pork in 0.45% 140.4 23.4 NaCl 25,000 unit In 0.45 % NaCl 1 250ml.bag @ 0 mls/hr IV .[facility] Rx #:[id number] Heparin Sod,Pork in 0.45% 240.156 250 NaCl 25,000 unit In 0.45 % NaCl 1 250ml.bag @ 11.6 UNITS/KG/HR 10.05 mls/hr IV .Q24H [facility] Rx#: [id number] Sodium Chloride 0.9% 1, 600 600 50 000 ml @ 50 mls/hr IV . Q20H [facility] Rx#:[id number] metroNIDAZOLE-NS PMX 500 100 mg In Saline 1 100ml.bag @ 100 mls/hr IVPB Q8HR [facility] Rx#:[id number] Oral 600 100 Output: Urine 1300 550 Other: Voiding Method External Catheter External Catheter # Voids 1 1 - Exam GENERAL EXAM: Alert, very pleasant, 75-year-old white female, on 2 L of oxygen with a pulse ox of 100%, resting comfortably in bed, in intensive care unit, comfortable in no apparent distress. Patient currently has intra-aortic balloon pump placed via right groin to 1-1 augmentation HEAD: Normocephalic/atraumatic. EYES: Normal reaction of pupils, equal size. Conjunctiva pink, sclera white. NOSE: Clear with pink turbinates. THROAT: No erythema or exudates. NECK: No masses, no JVD, no thyroid enlargement, no adenopathy. CHEST: No chest wall deformity. Symmetrical expansion. LUNGS: Equal air entry with no crackles, wheeze, rhonchi or dullness. CVS: Regular rate and rhythm, normal S1 and S2, no gallops, no murmurs, no rubs ABDOMEN: Soft, nontender. No hepatosplenomegaly, normal bowel sounds, no guarding or rigidity. EXTREMITIES: No clubbing, no edema, no cyanosis, diminished pulse in the right pedal, and 1+ palpable pulse in the left pedal MUSCULOSKELETAL: Muscle strength and tone normal. Right groin sheath in place, with intra-aortic balloon pump with 1-1 augmentation SPINE: No scoliosis or deformity SKIN: No rashes CENTRAL NERVOUS SYSTEM: Alert and oriented -3. No focal deficits, tone is normal in all 4 extremities. PSYCHIATRIC: Alert and oriented -3. Appropriate affect. Intact judgment and insight. - Labs CBC & Chem 7: 01/29/21 05:25 01/29/21 05:25 Labs: Abnormal Lab Results - Last 24 Hours (Table) 01/29/21 01/29/21 01/29/21 Range/Units 05:25 05:25 05:25 RBC 3.54 L (3.80-5.40) m/uL Hgb 9.9 L (11.4-16.0) gm/dL Hct 30.9 L (34.0-46.0) % APTT 62.1 H (22.0-30.0) sec Sodium 132 L (137-145) mmol/L Glucose 123 H (74-99) mg/dL Microbiology - Last 24 Hours (Table) 01/27/21 04:45 Nasal Screen MRSA/MSSA - Final Nasal Swab Assessment and Plan Plan: #1. Acute non-ST elevated myocardial infarction and Currently the patient is feeling of any chest pain still carries an intra-aortic balloon pump for hemodynamic stability and set on IV heparin. #2. Multivessel coronary artery disease with left main stenosis of 95%, awaiting coronary artery bypass grafting surgery possibly on Sunday02/01/2021 #3. Acute congestive heart failure, with pulmonary edema with systolic dysfunction, requiring placement of intra-aortic balloon pump on 01/26/2021 currently with one-to-one augmentation #4. Hypertension #5. Hyperlipidemia #6. History of GI bleeding, with a recent history of colonoscopy and EGD on , postop diagnosis of gastric polyps, hemorrhoids and colitis #7. History of diverticulitis with perforation, status post bowel resection in 2016 #8. DJD #9. Chronic back pain #10. Osteoarthritis #12. History of hysterectomy, left carpal tunnel surgery #13. Lifetime nonsmoker, no history of chronic lung disease Plan: Continue IV diuretics Continue 2 L of oxygen, and has not required BiPAP support No complaints of chest pain, she still has intra-aortic balloon pump in place with 1:1 augmentation Today labs have been reviewed Continue hemodynamic monitoring No acute events overnight Defer to cardiology and CT surgery in terms of intra-aortic balloon pump management Possible surgery is scheduled for next 02/01/2021 Not able to obtain bedside FEV1 right now as the patient is on strict bedrest We'll continue to closely follow
[2021-01-29] MEDS: HYDROcodone/APAP 5-325MG 1 EACH TAB PO PRN (13:14)
[2021-01-29] MEDS ORDERED: NA PHOS,M-B/NA PHOS,DI-BA 133 ML ENEMA RECTAL STA (16:52)
[2021-01-29] MEDS ORDERED: MD COMMUNICATION TO PHARMACY 1 EACH MISC PO ONE (16:56)
[2021-01-29] MEDS: ATORVASTATIN 80 MG TAB PO SCH (20:27)
[2021-01-30] MEDS ORDERED: ASPIRIN 325 MG TAB PO ONE (05:00)
[2021-01-30] MEDS ORDERED: METOPROLOL TARTRATE 12.5 MG TAB PO ONE ×2 (05:00→21:00)
[2021-01-30] MEDS ORDERED: ATORVASTATIN 10 MG TAB PO ONE (05:00)
[2021-01-30] MEDS ORDERED: CALCIUM CHLORIDE 100 MG/ML 10 ML SYRINGE IVP ONE (05:00)
[2021-01-30] MEDS ORDERED: ALBUMIN HUMAN 5% 500 ML in EMPTY BAG 1 BAG IVPB ONE ×6 (05:00)
[2021-01-30 05:03] LABS: Basophils % (A) 0 %; Eosinophils # (A) 0.2 k/uL (0-0.7); Eosinophils % (A) 3 %; HCT 30.5 % (34.0-46.0); HGB 10.1 gm/dL (11.4-16.0); Lymphocytes # (A) 1.5 k/uL (1.0-4.8); Lymphocytes % (A) 21 %; MCHC 33.2 g/dL (31.0-37.0); MCV 84.5 fL (80.0-100.0); Mean Platelet Volume 7.2; Monocytes # (A) 0.5 k/uL (0-1.0); Monocytes % (A) 7 %; Neutrophils # (A) 4.5 k/uL (1.3-7.7); Neutrophils % (A) 66 %; Platelet Count 341 k/uL (150-450); RBC 3.61 m/uL (3.80-5.40); RDW 13.7 % (11.5-15.5); WBC 6.9 k/uL (3.8-10.6)
[2021-01-30 05:33] LABS: INR 1.1 (<1.2); Partial Thromboplastin Time 45.8 sec (22.0-30.0); Prothrombin Time 11.3 sec (9.0-12.0)
[2021-01-30] MEDS: HEPARIN SOD,PORK IN 0.45% NACL 25,000 UNIT in 0.45% NACL 1 250ML.BAG IV SCH (05:41)
[2021-01-30 05:56] LABS: Albumin 3.6 g/dL (3.5-5.0); Calcium 9.1 mg/dL (8.4-10.2); Potassium 3.5 mmol/L (3.5-5.1); Total Bilirubin 0.4 mg/dL (0.2-1.3); Total Protein 6.5 g/dL (6.3-8.2)
[2021-01-30] MEDS ORDERED: ALBUMIN HUMAN 25% 50 ML in EMPTY BAG 1 BAG IVPB ONE (06:00)
[2021-01-30] MEDS ORDERED: MAGNESIUM SULFATE 16.24 MEQ in EMPTY SYRINGE 1 SYR IV ONE (06:00)
[2021-01-30] MEDS ORDERED: TRANEXAMIC ACID 2,000 MG in SODIUM CHLORIDE 0.9% 80 ML IV ONE (06:00)
[2021-01-30] MEDS ORDERED: NITROGLYCERIN-D5W PMX 50 MG in DEXTROSE/WATER 1 250ML.BAG IV SCH ×2 (06:00→12:49)
[2021-01-30] MEDS ORDERED: CHLORHEXIDINE GLUCONATE 15 ML CUP MUCOUS MEM ONE (06:00)
[2021-01-30] MEDS ORDERED: SODIUM BICARB 8.4% 50 ML SYR (1 MEQ/ML) IV ONE (06:00)
[2021-01-30] MEDS ORDERED: HEPARIN SODIUM 1,000 UN/ML (10ML VL) IV ONE (06:00)
[2021-01-30] MEDS ORDERED: MANNITOL 25% 12.5 GM/50 ML VIAL IV ONE ×2 (06:00)
[2021-01-30] MEDS ORDERED: PAPAVERINE 360 MG in SODIUM CHLORIDE 0.9% 90 ML IV ONE (06:00)
[2021-01-30] MEDS ORDERED: ceFAZolin 1,000 MG in SODIUM CHLORIDE 0.9% IRRIGATIO 1,000 ML IRRIGATION ONE (06:00)
[2021-01-30] MEDS ORDERED: PHENYLEPHRINE 10 MG/ML VIAL IV ONE (06:00)
[2021-01-30] MEDS ORDERED: PHENYLEPHRINE 40 MG in SODIUM CHLORIDE 0.9% 250 ML IV ONE (06:00)
[2021-01-30] MEDS ORDERED: INSULIN REGULAR 100 UNIT in SODIUM CHLORIDE 0.9% 100 ML IV SCH (06:00)
[2021-01-30] MEDS ORDERED: PROTAMINE SULFATE 250 MG in EMPTY BAG 1 BAG IV ONE (06:00)
[2021-01-30] MEDS ORDERED: PROTAMINE SULFATE 10 MG/ML 25 ML VIAL IV ONE (06:00)
[2021-01-30] MEDS ORDERED: ELECTROLYTE-A SOLUTION 1,000 ML with POTASSIUM CHLORIDE 100 MEQ, MAGNESIUM SULFATE 16 M... IV SCH ×5 (06:00)
[2021-01-30] MEDS ORDERED: HEPARIN SODIUM,PORCINE 5,000 UNIT in SODIUM CHLORIDE 0.9% 500 ML 500 ML IV ONE (06:00)
[2021-01-30] MEDS ORDERED: ELECTROLYTE-A SOLUTION 1,000 ML with POTASSIUM CHLORIDE 40 MEQ, MAGNESIUM SULFATE 16 ME... IV SCH ×5 (06:00)
[2021-01-30] MEDS ORDERED: NITROGLYCERIN-D5W PMX 25 MG/250 ML BTL IV ONE (06:00)
[2021-01-30] MEDS ORDERED: CLEVIDIPINE BUTYRATE 25 MG in EMPTY BAG 1 BAG IV SCH ×2 (06:00→12:49)
[2021-01-30] MEDS ORDERED: NOREPINEPHRINE 4 MG in SODIUM CHLORIDE 0.9% 250 ML IV SCH (06:00)
[2021-01-30] MEDS ORDERED: PROTAMINE SULFATE 10 MG/ML 5 ML VIAL IV ONE (07:59)
[2021-01-30] MEDS ORDERED: MAGNESIUM SULFATE 4 MEQ/ML 10ML VIAL ONE (07:59)
[2021-01-30] MEDS ORDERED: MIDAZOLAM 2 MG/2 ML VIAL ONE (07:59)
[2021-01-30] MEDS ORDERED: TRANEXAMIC ACID 1,000 MG/10 ML VIAL ONE (07:59)
[2021-01-30] MEDS ORDERED: HEPARIN SODIUM,PORCINE 10,000 UNIT/ML 1 ML VIAL ONE (07:59)
[2021-01-30] MEDS ORDERED: ELECTROLYTE-R (PH 7.4) 1,000 ML IV.SOLN IV ONE (07:59)
[2021-01-30] MEDS ORDERED: SODIUM CHLORIDE 0.9% 250 ML BAG ONE (07:59)
[2021-01-30] MEDS ORDERED: LIDOCAINE 2% SYG (PF) 100 MG/5 ML ONE (07:59)
[2021-01-30] MEDS ORDERED: VECURONIUM 10 MG VIAL IV ONE (07:59)
[2021-01-30] MEDS ORDERED: fentaNYL (PF) 50 MCG/ML 50 ML VIAL ONE (07:59)
[2021-01-30] MEDS ORDERED: NITROGLYCERIN-D5W PMX 50 MG/250 ML BOTTLE IV ONE (07:59)
[2021-01-30] MEDS ORDERED: SODIUM CHLORIDE 0.9% IRRIG 1,000 ML BTL IRRIGATION ONE (07:59)
[2021-01-30] MEDS ORDERED: SUCCINYLCHOLINE CHLORIDE 100 MG/5 ML SYR IV ONE (07:59)
[2021-01-30] MEDS ORDERED: CALCIUM CHLORIDE 100 MG/ML 10 ML SYRINGE ONE (07:59)
--- NOTE | 2021-01-30 08:40 | XR ---
EXAMINATION TYPE: XR chest 1V portable DATE OF EXAM: 01/30/2021 COMPARISON: 01/29/2021 INDICATION: Heart failure TECHNIQUE: Frontal and lateral views of the chest are obtained. FINDINGS: The heart size is normal. The pulmonary vasculature is normal. The lungs are clear. Aortic balloon pump marker is stable in position from comparison study. IMPRESSION: 1. Stable appearance of aortic balloon pump marker and chest x-ray.
[2021-01-30] MEDS ORDERED: DEXMEDETOMIDINE/0.9% NACL(PMX) 400 MCG in EMPTY BAG 1 BAG IV SCH (12:49)
[2021-01-30] MEDS ORDERED: Potassium Replacement Protocol 1 EACH MISC MISCELLANE PRN ×2 (12:49→18:41)
[2021-01-30] MEDS ORDERED: hydrALAZINE HCL 20 MG/ML 1 ML VIAL IVP PRN (12:49)
[2021-01-30] MEDS ORDERED: DEXTROSE 5% IN WATER 100 ML with AMIODARONE 150 MG IV PRN (12:49)
[2021-01-30] MEDS ORDERED: AMIODARONE 450 MG in DEXTROSE 5% IN WATER 250 ML IV PRN ×2 (12:49)
[2021-01-30] MEDS ORDERED: Magnesium Replacement Protocol 1 EACH MISC MISCELLANE PRN (12:49)
[2021-01-30] MEDS ORDERED: MORPHINE SULFATE 2 MG/ML SYRINGE IVP PRN (12:49)
[2021-01-30] MEDS ORDERED: BENZOCAINE/MENTHOL LOZENG 1 EACH LOZENGE MUCOUS MEM PRN (12:49)
[2021-01-30] MEDS ORDERED: AMIODARONE 360 MG in DEXTROSE 5% IN WATER 200 ML IV PRN ×2 (12:49)
[2021-01-30] MEDS ORDERED: ALBUMIN HUMAN 5% 250 ML in EMPTY BAG 1 BAG IVPB PRN (12:49)
[2021-01-30] MEDS ORDERED: METOCLOPRAMIDE 5 MG/ML 2 ML VIAL IVP PRN (12:49)
[2021-01-30] MEDS ORDERED: PANTOPRAZOLE 40 MG/10 ML VIAL IVP SCH (12:49)
[2021-01-30] MEDS ORDERED: Phosphorus Replacement Protoco 1 EACH MISC MISCELLANE PRN (12:49)
[2021-01-30] MEDS ORDERED: CALCIUM GLUCONATE 2 GM in SODIUM CHLORIDE 0.9% 100 ML IVPB PRN (12:49)
[2021-01-30] MEDS ORDERED: IPRATROPIUM-ALBUTEROL 3 ML NEB INHALATION PRN (12:49)
[2021-01-30] MEDS ORDERED: IPRATROPIUM-ALBUTEROL 3 ML NEB INHALATION SCH (12:49)
[2021-01-30] MEDS ORDERED: ONDANSETRON 4 MG/2 ML VIAL IVP PRN (12:49)
[2021-01-30] MEDS: metroNIDAZOLE-NS PMX 500 MG in SALINE 1 100ML.BAG IVPB SCH ×2 (12:57→16:00)
--- NOTE | 2021-01-30 13:00 | PN ---
PROGRESS NOTE Mrs. Carbajal is admitted to the hospital with a non-STEMI. She was evaluated by cardiac catheterization and was found to have severe triple-vessel disease, including left main. Patient was seen by cardiac surgeon. She has intact balloon pump with 1:1 augmentation. There was a thought process that she could be weaned off the balloon pump yesterday by cardiac surgeon. However, it appears that at this point they want to continue with 1:1 augmentation because the patient's condition may decompensate off the balloon pump. The mean arterial pressure is currently 97. Patient is free of any angina. Complaining of nausea. She was given MiraLAX for bowel movement activity. Patient is otherwise feeling well. Pulses in the right are preserved. She is on IV heparin. Hemoglobin is 9.9. Physical examination shows patient who is alert, oriented, does not appear to be in acute distress. Neck is supple. No JVD. Heart appears to be regular. Lungs appear to be free of any significant wheezing or rhonchi or rales. Extremities: No significant edema. Lab values showed a hemoglobin of 9.9. Her creatinine is 0.72. BUN is 16. FINAL IMPRESSION: 1. Bdm-LS-lnlrqiz-elevation myocardial infarction. 2. Multivessel coronary artery disease, including left main, which has 95% stenosis. 3. Congestive heart failure, pulmonary edema; seems to be resolving. 4. History of gastrointestinal bleeding and diverticulitis. PLAN: Continue current medical therapy, including balloon pump support. Possible surgery next week. Prognosis is guarded. MMODL / IJN: [id number] / BRIANNA
[2021-01-30] MEDS: LACTATED RINGERS 1,000 ML IV SCH (14:00)
[2021-01-30 14:18] LABS: Glucose,Whole Blood 152 mg/dL (75-99)
--- NOTE | 2021-01-30 14:35 | XR ---
EXAMINATION TYPE: XR chest 1V portable DATE OF EXAM: 01/30/2021 COMPARISON: Chest radiograph 01/30/2021 HISTORY: Postoperative. Cardiac surgery. TECHNIQUE: Single frontal view of the chest is obtained. FINDINGS: Median sternotomy wires. Gastric tube with tip over the expected location of the gastric f undus and the sidehole likely above the GE junction. Right [place] with tip over the main pulmonary artery. CABG changes. Endotracheal tube with tip approximately 2 cm above the gucci. Inferior appro ach mediastinal drains. Cardiac prosthesis. The cardiomediastinal silhouette and pulmonary vasculature are within normal limits. There is opacifi cation at the left base. No pneumothorax. IMPRESSION: 1. Small left effusion with adjacent atelectasis/airspace disease. 2. Lines and tubes as above. Recommend advancement of gastric tube by 3 to 5 cm.
[2021-01-30] MEDS: INSULIN REGULAR 100 UNIT in SODIUM CHLORIDE 0.9% 100 ML IV SCH (14:40)
--- NOTE | 2021-01-30 14:40 | P.PN ---
Subjective Progress Note Date: 01/30/21 This is a 75-year-old female who was admitted to the hospital with non-STEMI and CHF and pulmonary edema. Patient had a cardiac catheterization yesterday and was noted to have significant left main disease and subtotal occlusion of proximal circumflex and significant lesion involving the RCA. Patient also had intact balloon pump because of ongoing angina. Today she is complaining of back pain. It. No complaints of chest pain. Her troponin value was stable. Chest x-ray shows improvement. Urine output has been good. Patient had evaluation by Dr. Fuentes for her GI bleeding. She started her some Flagyl for diverticulitis but cleared for surgery. Patient is also seen by pulmonology and cleared for surgery waiting for surgery to make additional regarding timing. Lungs are clear. Heart regular. So we'll continue current management. She is off DREW inhibitor R because of low blood pressure. Prognosis still guarded. 01/28/2021: This patient seemed to be relatively stable. Denies any chest pain or shortness of breath. Still on intact balloon pump . Patient was seen and evaluated with cardiac surgeon and tentatively surgery is scheduled for next Sunday. It is felt that patient could be taken off antiarrhythmic balloon pump. As long as patient is asymptomatic, surgery will be done next Sunday. There is a concern that patient was on Plavix, patient received 2 doses of Pl avix and also had a recent NE. There is always a risk that patient become unstable, while waiting for surgery. It was discussed with family and given various options. Patient and family decided to stay here and have surgery next Sunday. Her chest x-ray shows some congestion. Patient however is lying flat without any significant difficulty. No active GI bleeding at this time. Patient is being treated with Flagyl. We'll continue current medical therapy 01/30/2021: This patient was taken to the OR today. Patient had three-vessel bypass surgery. Patient is on milrinone and seemed to be hemodynamically stable. Blood pressure is 110/70. Chest x-ray showed mild CHF changes. Patient is still has intact balloon pump. No arrhythmias. We'll continue current management. Prognosis is still guarded Objective - Vital Signs Vital signs: Vital Signs Temp 98.6 F 01/30/21 00:00 Pulse 80 01/30/21 06:00 Resp 20 01/30/21 06:00 BP 113/68 01/30/21 06:00 Pulse Ox 99 01/30/21 06:00 Intake & Output 01/29/21 01/30/21 01/30/21 18:59 06:59 18:59 Intake Total 900 950 368.829 Output Total 908 151 4009 Balance -25 325 -1431.171 Weight 80.4 kg Intake: IV 600 700 53 Sodium Chloride 0.9% 1, 400 600 000 ml @ 50 mls/hr IV . Q20H TIANNA Rx#:[id number] metroNIDAZOLE-NS PMX 500 200 100 mg In Saline 1 100ml.bag @ 100 mls/hr IVPB Q8HR TIANNA Rx#:[id number] Intake, IV Titration 300 250 5.829 Amount Heparin Sod,Pork in 0.45% 250 250 NaCl 25,000 unit In 0.45 % NaCl 1 250ml.bag @ 11.6 UNITS/KG/HR 10.05 mls/hr IV .Q24H TIANNA Rx#: [id number] Sodium Chloride 0.9% 1, 50 000 ml @ 50 mls/hr IV . Q20H TIANNA Rx#:[id number] propofoL 1,000 mg In 5.829 Empty Bag 1 bag @ Titrate IV .Q0M TIANNA Rx#: [id number] Blood Product 310 Rc As-1 Unit 310 [id number] Output: Urine 925 625 800 Estimated Blood Loss 1000 Other: Voiding Method External Catheter External Catheter - Exam GENERAL EXAM: Patient is intubated and sedated HEENT: Normocephalic. Normal reaction of pupils, equal size, normal range of extraocular motion. No erythema or exudates in the throat. NECK: No masses, no nuchal rigidity. CHEST: No chest wall deformity. LUNGS:diminished breath sounds HEART: S1 and S2 normal with no audible mumurs or gallops. Regular rhythm, femorals equal on both sides.. ABDOMEN: No hepatosplenomegaly, normal bowel sounds, no guarding or rigidity. SKIN: No rashes CENTRAL NERVOUS SYSTEM: deferred EXTREMITIES: No cyanosis, clubbing or edema. Balloon pump in place - Labs CBC & Chem 7: 01/30/21 04:33 01/30/21 04:33 Labs: Abnormal Lab Results - Last 24 Hours (Table) 01/29/21 01/30/21 01/30/21 Range/Units 17:12 04:33 04:33 RBC 3.61 L (3.80-5.40) m/uL Hgb 10.1 L (11.4-16.0) gm/dL Hct 30.5 L (34.0-46.0) % APTT 45.8 H (22.0-30.0) sec Sodium (137-145) mmol/L Glucose (74-99) mg/dL POC Glucose (mg/dL) (75-99) mg/dL AST (14-36) U/L Crossmatch See Detail 01/30/21 01/30/21 Range/Units 04:33 14:17 RBC (3.80-5.40) m/uL Hgb (11.4-16.0) gm/dL Hct (34.0-46.0) % APTT (22.0-30.0) sec Sodium 133 L (137-145) mmol/L Glucose 122 H (74-99) mg/dL POC Glucose (mg/dL) 152 H (75-99) mg/dL AST 40 H (14-36) U/L Crossmatch Assessment and Plan (1) Acute non-ST elevation myocardial infarction (NSTEMI) Current Visit: Yes Status: Acute Code(s): I21.4 - NON-ST ELEVATION (NSTEMI) MYOCARDIAL INFARCTION SNOMED Code(s): 155042167 (2) CHF (congestive heart failure) Current Visit: Yes Status: Acute Code(s): I50.9 - HEART FAILURE, UNSPECIFIED SNOMED Code(s): 24751736 (3) Diverticulosis Current Visit: No Status: Acute Code(s): K57.90 - DVRTCLOS OF INTEST, PART UNSP, W/O PERF OR ABSCESS W/O BLEED SNOMED Code(s): 19431417 (4) GI bleed Current Visit: No Status: Acute Code(s): K92.2 - GASTROINTESTINAL HEMORRHAGE, UNSPECIFIED SNOMED Code(s): 97816759 (5) Severe obesity (BMI 35.0-35.9 with comorbidity) Current Visit: No Status: Chronic Code(s): E66.01 - MORBID (SEVERE) OBESITY DUE TO EXCESS CALORIES; Z68.35 - BODY MASS INDEX [BMI] 35.0-35.9, ADULT SNOMED Code(s): 982849056 Plan: patient is status post CABG. Patient had three-vessel bypass. On milrinone. Hemodynamically relatively stable. Intra-aortic balloon pump is still in place
[2021-01-30 14:47] LABS: INR 1.3 (<1.2); Partial Thromboplastin Time 42.9 sec (22.0-30.0); Prothrombin Time 13.4 sec (9.0-12.0)
--- NOTE | 2021-01-30 14:47 | P.PN ---
Subjective Progress Note Date: 01/30/21 This 75-year-old white female patient of Dr. Avina with past medical history of hypertension, hyperlipidemia, GERD/reflux, history of GI bleed, diverticulitis, DJD, who came to the emergency department on 01/25/2021 with complaints of chest pain, and right ear and right jaw pain and shortness of breath. Patient had been having chest pain and shortness of breath for a few nights prior to presentation. In addition patient has been having delusional dyspnea and orthopnea. No lower extremity edema. No fever or chills. She was significantly dyspneic, patient was placed on nonrebreather mask and sub sequently BiPAP support. EKG showed sinus mechanism with ST depression in anterolateral leads. Chest x-ray showed pulmonary interstitial edema and probable small right pleural effusion which was new compared to old exam. Initial blood work showed white blood cell count of 14.5, hemoglobin of 11.8, Coreg patient profile was within normal limits, sodium was 135, potassium is 4.5, CO2 is 15, BUN was 17, creatinine 0.75, lactic acid was 3.5, troponins were 1.620, 1.850, 2.110, 1.550, proBNP was 2700, progesterone level was 0.04, COVID- 19 screen was negative. Patient was diagnosed acute congestive heart failure systolic dysfunction, echocardiogram was completed showing EF of 30-35%, mild mitral regurgitation, mild tricuspid regurgitation, and right ventricular systolic pressure was less than 35 mmHg. Patient was started on heparin infusion, diuretics in the form of Lasix 40 mg every 12 hours. Patient was also seen in consultation by by GI service in regards to her history of diverticu litis status post robotic-assisted colectomy, and patient had a recent colonoscopy and EGD in November of this year. She is currently on Flagyl. Patient underwent heart catheterization yesterday on 01/26/2021 and was found to have 95% distal left main stenosis with ostial LAD involvement of 100%, occluded diagonal, subtotal proximal circumflex, and 70-80% distal RCA stenosis. Patient continued to have chest pain, in the [employer], and intra-aortic balloon pump was placed. Consultation has been placed to CT surgery for revascularization recommendations. Patient is currently seen in the intensive care unit where she was admitted yesterday, she is awake and alert, oriented 3, resting comfortably in bed, denies any chest pain, no shortness of breath, she is on 2 L of oxygen pulse ox is 98%, hemodynamically patient is stable, she is on 0.9, saline at a rate of 50 ML per hour, no other drips, she is in sinus mechanism. She continues on Lasix 40 mg every 12 hours, Hackett catheter is in place, and she is in -748 mL negative fluid balance in the last 24 hours, today's chest x-ray showing resolving heart failure. Today's white count is 6.9, hemoglobin is 9.5, sodium is 135, the rest of electrolytes are within normal limits, urinalysis showed trace ketones and small amount of blood, negative for infection. On today's evaluation on 01/28/2021 patient seen in follow-up in intensive care unit, she is awake and alert, she is currently on 2 L of oxygen pulse ox is 97%, breathing comfortably, no complaints of chest pain or worsening shortness of breath overnight. Her chest x-ray today still showing pulmonary edema. Patient remains on Lasix 40 mg push every 12 hours, and patient is slightly and positive net fluid balance of 289 mL over the last 24 hours, intra-aortic balloon pump remains in place via the right groin, still to 121 augmentation, augmented diastolic today is improved and is up to 141 from 96 on yesterday's exam, her blood pressure is 115/59, she is in sinus mechanism with a rate of 85 bpm. lung sounds are positive for diminished breath sounds with mild crackles at the bases, but clinically patient is breathing comfortably, she is on 0.9 normal saline at a rate of 50 ML per hour in addition to heparin infusion per weight based protocol. Patient has slightly diminished pulse in the right pedal area, and 1+ pedal pulse in the left acute oh. Extremities are warm. Today's labs have been reviewed, with blood cell count is 8.1, hemoglobin is 9.9, INR is 1.0, sodium is 135, the rest of electrolytes and renal profile were unremarkable. This has also been noted showing trace ketones and blood but no evidence of urinary tract infection. 13 2020, the patient remains on 2 L about 2 by nasal cannula. She is still diuresing with Lasix. Hemodynamically, it was decided to keep the intra-aortic balloon pump with 1-1 augmentation as there was concern that the patient's condition may decompensate off the balloon pump. The mean arterial pressure currently is at 97. She is free of any angina. Her cardiac rhythm is sinus. She did have some nausea and she was given MiraLAX for bowel movements activity. The surgery is still tentatively scheduled for next week, possibly next Sunday. Otherwise, the patient is doing well. She is free of any chest pain. No cardiac arrhythmias have been noted. The patient remains on IV heparin. She is also getting a white cell count 7.9 with a hemoglobin of 9.9. Platelet counts are stable at 34. No other significant events otherwise for now. She has multivessel coronary artery disease and impairment of LV function and she is awaiting coronary artery bypass surgery. 01/30/2021, the patient was taken to the operating room and the patient underwent cardiac bypass surgery. The patient underwent urgent myocardial the vascular rosacea surgery with DOBBS to LAD, SVG to PDA and OM 1. Patient is currently in the intensive care unit. She is hemodynamically stable. The intra-aortic balloon pump is still in place with 1:1 augmentation. Cardiac output is at 4.7 with an index of 2.7. The cardiac rhythm is normal sinus. Pulmonary artery pressures are 42/21. The patient is currently sedated with pro pofol which is currently running at 30 mg/kg/m. She is on a mechanical ventilator on assist control mode with a rate of 14 with a tidal volume of 400 FiO2 100% with a PEEP of 10. I increased the rate up to 20. Meanwhile, the patient seems to have a adequate urine output. The patient is to mediastinal and left pleural chest tube and the total amount of output has been around 120 mL since she arrived from the operating room.k the patient arrived to us with a a nitroglycerin drip at 5 mg/m. The patient is also on close approximately 2 mg an hour and milrinone at 0.3 mcg/kg per minute to augment her cardiac output. She'll be systolic is also on insulin drip for blood sugar control. Objective - Vital Signs Vital signs: Vital Signs Temp 98.6 F 01/30/21 00:00 Pulse 80 01/30/21 06:00 Resp 20 01/30/21 06:00 BP 113/68 01/30/21 06:00 Pulse Ox 99 01/30/21 06:00 Intake & Output 01/29/21 01/30/21 01/30/21 18:59 06:59 18:59 Intake Total 900 950 368.829 Output Total 623 815 6482 Balance -25 325 -1431.171 Weight 80.4 kg Intake: IV 600 700 53 Sodium Chloride 0.9% 1, 400 600 000 ml @ 50 mls/hr IV . Q20H TIANNA Rx#:[id number] metroNIDAZOLE-NS PMX 500 200 100 mg In Saline 1 100ml.bag @ 100 mls/hr IVPB Q8HR TIANNA Rx#:[id number] Intake, IV Titration 300 250 5.829 Amount Heparin Sod,Pork in 0.45% 250 250 NaCl 25,000 unit In 0.45 % NaCl 1 250ml.bag @ 11.6 UNITS/KG/HR 10.05 mls/hr IV .Q24H TIANNA Rx#: [id number] Sodium Chloride 0.9% 1, 50 000 ml @ 50 mls/hr IV . Q20H TIANNA Rx#:[id number] propofoL 1,000 mg In 5.829 Empty Bag 1 bag @ Titrate IV .Q0M TIANNA Rx#: [id number] Blood Product 310 Rc As-1 Unit 310 [id number] Output: Urine 925 625 800 Estimated Blood Loss 1000 Other: Voiding Method External Catheter External Catheter - Exam GENERAL EXAM: Sedated and the patient is calm and comfortable and orogastric and orotracheal tube are both in place. The patient has a right IJ [place] catheter in place. Patient also has a intra-aortic balloon pump in the groin to 1-1 augmentation HEAD: Normocephalic/atraumatic. EYES: Normal reaction of pupils, equal size. Conjunctiva pink, sclera white. NOSE: Clear with pink turbinates. THROAT: No erythema or exudates. NECK: No masses, no JVD, no thyroid enlargement, no adenopathy. CHEST: No chest wall deformity. Symmetrical expansion. Surgical wound site and thoracotomy scar is dry clean and intact LUNGS: Equal air entry with no crackles, wheeze, rhonchi or dullness. The patient is a left pleural and 2 mediastinal chest tubes CVS: Regular rate and rhythm, normal S1 and S2, no gallops, no murmurs, no rubs ABDOMEN: Soft, nontender. No hepatosplenomegaly, normal bowel sounds, no guarding or rigidity. EXTREMITIES: No clubbing, no edema, no cyanosis, diminished pulse in the right pedal, and 1+ palpable pulse in the left pedal MUSCULOSKELETAL: Muscle strength and tone normal. Right groin sheath in place, with intra-aortic balloon pump with 1-1 augmentation SPINE: No scoliosis or deformity SKIN: Skin issues and signs are all dry clean and intact CENTRAL NERVOUS SYSTEM: Patient is sedated with propofol PSYCHIATRIC: Unable to perform - Labs CBC & Chem 7: 01/30/21 04:33 01/30/21 04:33 Labs: Abnormal Lab Results - Last 24 Hours (Table) 01/29/21 01/30/21 01/30/21 Range/Units 17:12 04:33 04:33 RBC 3.61 L (3.80-5.40) m/uL Hgb 10.1 L (11.4-16.0) gm/dL Hct 30.5 L (34.0-46.0) % APTT 45.8 H (22.0-30.0) sec Sodium (137-145) mmol/L Glucose (74-99) mg/dL POC Glucose (mg/dL) (75-99) mg/dL AST (14-36) U/L Crossmatch See Detail 01/30/21 01/30/21 Range/Units 04:33 14:17 RBC (3.80-5.40) m/uL Hgb (11.4-16.0) gm/dL Hct (34.0-46.0) % APTT (22.0-30.0) sec Sodium 133 L (137-145) mmol/L Glucose 122 H (74-99) mg/dL POC Glucose (mg/dL) 152 H (75-99) mg/dL AST 40 H (14-36) U/L Crossmatch Assessment and Plan Plan: #1. Urgent cardiac bypass surgery with DOBBS to LAD and SVG to PDA and OM1. The patient is currently postop day #0. The patient is post acute non-ST elevated myocardial infarction and Currently the patient is feeling of any chest pain still carries an intra-aortic balloon pump for hemodynamic stability. Intra- aortic balloon pump still in place. The patient is postop on a combination of milrinone in addition to chiropractic for blood pressure control and nitroglycerin. Chest tubes are in place. Hemodynamic parameters were checked. The patient is currently intubated on mechanical ventilator. Note that the patient had Multivessel coronary artery disease with left main stenosis of 95%, awaiting coronary artery bypass grafting surgery possibly on Sunday02/01/2021 #2 post thoracotomy with acute hypoxic respiratory failure, expected outcome surgery. Chest tubes are all in place. Chest x-ray was reviewed and the patient adequate positioning of the [place]-Tommy catheter, chest tubes and 82. NG tube is also in a good location. #3. Acute congestive heart failure post myocardial infarction, with pulmonary edema with systolic dysfunction, requiring placement of intra-aortic balloon pump on 01/26/2021 currently with one-to-one augmentation. Currently on milrinone with adequate cardiac output and index of 4.7 and 2.7 respectively. Watch pressures nonelevated. #4. Hypertension, history of #5. Hyperlipidemia, history of #6. History of GI bleeding, with a recent history of colonoscopy and EGD on 12/08/2020, postop diagnosis of gastric polyps, hemorrhoids and colitis, curr ently inactive in stable #7. History of diverticulitis with perforation, status post bowel resection in 2016 #8. DJD #9. Chronic back pain #10. Osteoarthritis #12. History of hysterectomy, left carpal tunnel surgery #13. Lifetime nonsmoker, no history of chronic lung disease Plan: Continue ventilator support and increased the rate up to 20 keep the PEEP at 10 with an FiO2 of 100% and obtaining as on a tidal volume of 400 and gradually make the wean on the FiO2. Chest x-ray was noted Hemodynamic parameters noted Continue milrinone Cleviprex for blood pressure control Insulin drip for blood sugar control Propofol for sedation intra-aortic balloon pump in place with 1:1 augmentation Awaiting blood gas Continue hemodynamic monitoring Possible exhibition today based on her progress. We'll continue to follow. Currently care evaluation more than 30 minutes.
[2021-01-30 14:51] LABS: ABG Base Excess -3.9 mmol/L; ABG HCO3 23 mmol/L (21-25); ABG Oxygen Saturation 99.7 % (94-97); ABG PCO2 47 mmHg (35-45); ABG PH 7.29 (7.35-7.45); ABG PO2 161 mmHg (83-108); ABG TCO2 24 mmol/L (19-24)
[2021-01-30 15:03] LABS: Basophils % (A) 0 %; Eosinophils # (A) 0.1 k/uL (0-0.7); Eosinophils % (A) 1 %; Lymphocytes # (A) 0.9 k/uL (1.0-4.8); Lymphocytes % (A) 14 %; MCH 29.1 pg (25.0-35.0); MCHC 33.3 g/dL (31.0-37.0); MCV 87.4 fL (80.0-100.0); Mean Platelet Volume 7.3; Monocytes # (A) 0.3 k/uL (0-1.0); Monocytes % (A) 5 %; Neutrophils # (A) 5.3 k/uL (1.3-7.7); Neutrophils % (A) 78 %; RBC 2.75 m/uL (3.80-5.40); RDW 14.1 % (11.5-15.5); WBC 6.7 k/uL (3.8-10.6)
[2021-01-30 15:05] LABS: Platelet Count 160 k/uL (150-450)
[2021-01-30] MEDS: IPRATROPIUM-ALBUTEROL 3 ML NEB INHALATION SCH ×2 (15:07→18:51)
[2021-01-30] MEDS: ACETAMINOPHEN IV (For NPO) 1,000 MG in EMPTY BAG 1 BAG IVPB SCH ×2 (15:11→18:29)
[2021-01-30 15:12] LABS: Ionized Calcium 4.8 mg/dL (4.5-5.3)
[2021-01-30 15:14] LABS: Allen Test Performed? no
[2021-01-30 15:20] LABS: ALT 13 U/L (4-34); AST 50 U/L (14-36); African American GFR (CKD) >90 (>60 ml/min/1.73 sqM); Albumin 2.7 g/dL (3.5-5.0); Alkaline Phosphatase 25 U/L (38-126); Anion Gap 8 mmol/L; Blood Urea Nitrogen 15 mg/dL (7-17); Calcium 7.8 mg/dL (8.4-10.2); Carbon Dioxide 20 mmol/L (22-30); Chloride 106 mmol/L (98-107); Glucose 147 mg/dL (74-99); Magnesium 2.5 mg/dL (1.6-2.3); Non-African American GFR(CKD) >90 (>60 ml/min/1.73 sqM); Potassium 3.8 mmol/L (3.5-5.1); Sodium 134 mmol/L (137-145); Total Bilirubin 0.6 mg/dL (0.2-1.3); Total Protein 4.7 g/dL (6.3-8.2)
[2021-01-30 15:56] LABS: Glucose,Whole Blood 169 mg/dL (75-99)
[2021-01-30] MEDS: HEPARIN SODIUM,PORCINE/PF 5,000 UNIT/0.5 ML SYRINGE SQ SCH (16:00)
[2021-01-30 17:04] LABS: Glucose,Whole Blood 186 mg/dL (75-99)
[2021-01-30 17:53] LABS: Basophils % (A) 0 %; Eosinophils % (A) 0 %; HCT 27.2 % (34.0-46.0); HGB 8.8 gm/dL (11.4-16.0); Lymphocytes # (A) 0.8 k/uL (1.0-4.8); Lymphocytes % (A) 9 %; MCH 28.8 pg (25.0-35.0); MCHC 32.2 g/dL (31.0-37.0); MCV 89.4 fL (80.0-100.0); Mean Platelet Volume 7.8; Monocytes # (A) 0.5 k/uL (0-1.0); Monocytes % (A) 5 %; Neutrophils # (A) 7.4 k/uL (1.3-7.7); Neutrophils % (A) 84 %; Platelet Count 201 k/uL (150-450); RBC 3.04 m/uL (3.80-5.40); RDW 13.7 % (11.5-15.5); WBC 8.8 k/uL (3.8-10.6)
[2021-01-30 17:59] LABS: Glucose,Whole Blood 175 mg/dL (75-99)
--- NOTE | 2021-01-30 18:33 | OP ---
OPERATIVE REPORT DATE OF SURGERY: 01/30/2021. SURGEON: Dr. Sarai Renee. ASSISTANTS: 1. Sd Carson. 2. JESSICA Lizama. PREOPERATIVE DIAGNOSES: 1. Iqx-[id number] myocardial infarction. 2. Triple-vessel coronary artery disease with left main disease. 3. Moderate to severe LV dysfunction with Congestive heart failure. 4. Intra-aortic balloon pump counterpulsation. 5. Hypertension. 6. Hyperlipidemia. 7. Obesity. 8. Gastroesophageal reflux disease. 9. History of gastrointestinal bleeding with preop anemia. 10. Recent Plavix intake POSTOPERATIVE DIAGNOSES: 1. Olp-RQ-hckikgarw myocardial infarction. 2. Triple-vessel coronary artery disease with left main disease. 3. Moderate to severe LV dysfunction with Congestive heart failure. 4. Intra-aortic balloon pump counterpulsation. 5. Hypertension. 6. Hyperlipidemia. 7. Obesity. 8. Gastroesophageal reflux disease. 9. History of gastrointestinal bleeding with preop anemia 10. Recent plavix intake PROCEDURE: 1. Urgent Triple coronary artery bypass grafting using the left internal mammary artery to the left anterior descending artery, reverse saphenous vein graft from the aorta to the posterior descending artery, reverse saphenous vein graft from the aorta to the subtotally occluded obtuse marginal artery. 2. Exclusion of the left atrial appendage using a 35 mm AtriClip. 3. Endoscopic harvesting of the left greater saphenous vein. 4. Intraoperative transesophageal echocardiogram and epiaortic scanning. 5. Intraoperative graft flow measurements using the T-Systemstim system. INDICATION FOR SURGERY: The patient is a 75-year-old lady who was admitted around 4 days ago with a picture of congestive heart failure and had positive enzymes. Two-D echo showed moderate left ventricular dysfunction with mild mitral valve regurgitation. Cardiac catheterization followed and that showed an ulcerated 90% + distal left main stenosis with a subtotally occluded circumflex system and severe RCA stenosis. Patient had an intra- aortic balloon pump inserted in view of the presentation and the critical anatomy. She had received Plavix. We temporized 3 days and treated her heart failure and optimized her for urgent surgery today. The increased STS risk was discussed with her and her family. They understood it and agreed to proceed. DESCRIPTION OF THE PROCEDURE: The patient was in supine position in the preoperative holding area, brought in from the ICU. A right internal jugular Converse-Tommy catheter and a right radial arterial line were placed. Her PA pressure was 50/25. Cardiac index was 2.6. Subsequently general endotracheal anesthesia was induced uneventfully in the operating room. A Hackett catheter was inserted. The chest, abdomen and both lower extremities were prepped and draped using ChloraPrep. Ioban was used to cover the skin. She received 2 grams of cefazolin intravenously. Transesophageal echocardiogram confirmed the preoperative finding of moderate global left ventricular dysfunction, mild mitral valve regurgitation, good right ventricular function. Midline sternotomy was performed and the bone was mildly osteoporotic. No bone wax was used, but only Ostene. The left hemisternum was elevated and the left internal mammary artery was harvested in a semi-skeletonized fashion. The left pleura was intentionally opened in this process and was drained with a 19-Cameroonian Johann drain. The right pleura remained intact. Patient was given 5000 units of heparin and the mammary artery was clipped distally and transected. It had excellent pulsatile flow in it and was around 1.7 mm in diameter. In the same setting, the left greater saphenous vein was harvested endoscopically from groin to above ankle levels. Leg incisions were closed over a drain. The vein was prepared by tying all the branches. We had reasonable two segments of vein to use. Mediastinal fat was transected between two ties and epiaortic scanning revealed no protruding atheroma in the ascending aorta. Pericardium was opened in an inverted T- fashion and a pericardial cradle was created. Findings included a very short soft aorta and mildly hypertrophied heart. After systemic heparinization and after placement of respective pledgeted pursestrings, the aortic cannulation in the proximal arch with a 21-Cameroonian Soft flow cannula and venous cannulation via the right atrial appendage with a 3-stage 29-Cameroonian cannula was performed. Antegrade as well as retrograde cardioplegia catheters were placed. Cardiopulmonary bypass was initiated, and with the heart empty and beating we looked at the targets. Proximal posterior descending artery, mid of left anterior descending artery and we were able to find the obtuse marginal artery and it was soft before it bifurcated, and those were the sites selected for bypass. Aorta was clamped, and during aortic clamping myocardial protection was achieved with initial dose of 800 mL of antegrade cold blood cardioplegia followed by 300 mL of retrograde cold blood cardioplegia. All subsequent doses were given retrograde at 15- minute intervals. We started by excluding the left atrial appendage by deploying a 35 mm AtriClip at its base. Subsequently, the first distal anastomosis was between a segment of vein of slightly large caliber but with pliable wall and the 1.5 mm thin-walled posterior descending artery using Prolene 7-0 in continuous fashion. I placed a 1 mm shunt that was removed before completing the anastomosis. The second distal anastomosis was between another segment of vein of a smaller caliber at around 3 mm and the subtotally occluded obtuse marginal artery which was opened and was around 1.75 mm in diameter before it bifurcated using Prolene 7-0 in continuous fashion. The third and last distal anastomosis was between the left internal mammary artery that passed in a deep groove in the left pleuropericardial fat and anastomosed to the mid anterior descending artery which was a thin-walled target around 1.7 cm in diameter, using Prolene 7-0 in continuous fashion. I had also placed a 1 mm shunt that was removed before completing the anastomosis. Satisfied with the distal anastomoses, rewarming was started as we punched out two buttons of the ascending aorta and performed the two proximal anastomoses of the two vein grafts using Prolene 6-0 in continuous fashion. Patient was half loaded with Primacor and de-airing maneuvers were followed before we unclamped the aorta. The intra-aortic balloon pump was kept on internal mode at 40 during bypass. After around 15 minutes of reperfusion, we were able to wean off cardiopulmonary bypass on moderate-dose Primacor and low-dose Levophed. The cardiac index was 2.6. ZHAO showed improved left ventricular function and no significant valvular abnormality. At this point, we proceeded with the graft flow measurements using the T-Systemstim system. The flow into the vein to the first obtuse marginal artery was 48 mL/minute, pulsatility index of 3.7, diastolic filling of 75%, showing an excellent functioning graft. The flow into the mammary artery to the left anterior descending artery was 93 mL/minute, pulsatility index of 2.4, diastolic filling of 81%, showing an excellent functioning graft. The flow into the vein graft to the posterior descending artery was 36 mL/minute, pulsatility index of 7.6, diastolic filling of 39%, with evidence of some competitive flow. With that, all pump suckers were stopped and test-dose and full-dose protamine followed. Decannulation followed. The venous cannulation sites as well as the antegrade cardioplegia sites were reinforced with pledgeted Prolene. Two monopolar atrial pacing wires had been affixed to the respective pursestrings of the right atrium. No ventricular pacing wires were placed. Two 19-Cameroonian Johann drains were left substernally. Pericardial fat was approximated over the aorta and there was a paucity of fat approximated over the right ventricle. After ensuring adequate hemostasis and hemodynamics and after correct sponge, instrument and needle counts, the sternum was closed using 5 [id number] [place] cables after interposing Fibrillar between the sternal edges. Thorough irrigation with cefazolin followed. The rest of the closure proceeded in layers. Skin glue was applied. Patient received one unit of packed red blood cells on pump in view of a very low hematocrit and received 500 mL of Cell Saver blood. She was transferred to the ICU on low-dose Primacor; no Levophed. Normal sinus rhythm with normal EKG. Cardiac index of 2.7, PA pressure of 30/15. MMODL / IJN: [id number] / [facility]
[2021-01-30 18:50] LABS: Glucose,Whole Blood 162 mg/dL (75-99)
[2021-01-30] MEDS ORDERED: POTASSIUM BICARBONATE/CIT AC 20 MEQ TABLET.EFF NG-TUBE SCH (19:00)
[2021-01-30 19:48] LABS: ABG Base Excess -3.5 mmol/L; ABG HCO3 22 mmol/L (21-25); ABG Oxygen Saturation 98.1 % (94-97); ABG PCO2 37 mmHg (35-45); ABG PH 7.38 (7.35-7.45); ABG PO2 93 mmHg (83-108); ABG TCO2 23 mmol/L (19-24)
[2021-01-30 20:12] LABS: Allen Test Performed? no
[2021-01-30 20:30] LABS: Glucose,Whole Blood 175 mg/dL (75-99)
[2021-01-30 21:26] LABS: Glucose,Whole Blood 174 mg/dL (75-99)
[2021-01-30] MEDS: HYDROcodone/APAP 5-325MG 1 EACH TAB PO PRN ×2 (22:10→22:14)
[2021-01-30 22:22] LABS: Glucose,Whole Blood 166 mg/dL (75-99)
[2021-01-30 23:06] LABS: Glucose,Whole Blood 154 mg/dL (75-99)
[2021-01-31] MEDS: HEPARIN SODIUM,PORCINE/PF 5,000 UNIT/0.5 ML SYRINGE SQ SCH ×3 (00:03→16:50)
[2021-01-31 00:11] LABS: Glucose,Whole Blood 136 mg/dL (75-99)
[2021-01-31] MEDS: metroNIDAZOLE-NS PMX 500 MG in SALINE 1 100ML.BAG IVPB SCH ×3 (01:04→16:50)
[2021-01-31 01:12] LABS: Glucose,Whole Blood 129 mg/dL (75-99)
[2021-01-31] MEDS ORDERED: MILRINONE-D5W PMX 20 MG in DEXTROSE/WATER 1 100ML.BAG IV SCH (02:00)
[2021-01-31] MEDS: HYDROcodone/APAP 5-325MG 1 EACH TAB PO PRN ×3 (02:01→11:24)
[2021-01-31 02:07] LABS: Glucose,Whole Blood 128 mg/dL (75-99)
[2021-01-31 03:10] LABS: Glucose,Whole Blood 128 mg/dL (75-99)
[2021-01-31 04:22] LABS: Glucose,Whole Blood 118 mg/dL (75-99)
[2021-01-31 04:45] LABS: Basophils % (A) 0 %; Eosinophils % (A) 0 %; HCT 24.4 % (34.0-46.0); Lymphocytes # (A) 1.1 k/uL (1.0-4.8); Lymphocytes % (A) 12 %; MCH 28.5 pg (25.0-35.0); MCHC 32.9 g/dL (31.0-37.0); MCV 86.6 fL (80.0-100.0); Mean Platelet Volume 8.3; Monocytes # (A) 0.7 k/uL (0-1.0); Monocytes % (A) 7 %; Neutrophils # (A) 7.5 k/uL (1.3-7.7); Neutrophils % (A) 79 %; Platelet Count 231 k/uL (150-450); Poikilocytosis Slight; RBC 2.81 m/uL (3.80-5.40); RDW 14.3 % (11.5-15.5); WBC 9.5 k/uL (3.8-10.6)
[2021-01-31 05:04] LABS: ALT 13 U/L (4-34); AST 47 U/L (14-36); African American GFR (CKD) >90 (>60 ml/min/1.73 sqM); Albumin 2.9 g/dL (3.5-5.0); Alkaline Phosphatase 36 U/L (38-126); Anion Gap 3 mmol/L; Blood Urea Nitrogen 15 mg/dL (7-17); Calcium 8.5 mg/dL (8.4-10.2); Carbon Dioxide 25 mmol/L (22-30); Chloride 104 mmol/L (98-107); Glucose 113 mg/dL (74-99); Magnesium 2.2 mg/dL (1.6-2.3); Non-African American GFR(CKD) 90 (>60 ml/min/1.73 sqM); Potassium 3.9 mmol/L (3.5-5.1); Sodium 132 mmol/L (137-145); Total Bilirubin 0.3 mg/dL (0.2-1.3)
[2021-01-31 05:58] LABS: Glucose,Whole Blood 127 mg/dL (75-99)
[2021-01-31 07:00] LABS: Glucose,Whole Blood 122 mg/dL (75-99)
[2021-01-31] MEDS ORDERED: POTASSIUM CHLORIDE ER 20 MEQ TAB.ER PO SCH (07:00)
--- NOTE | 2021-01-31 08:04 | XR ---
EXAMINATION TYPE: XR chest 1V portable DATE OF EXAM: 01/31/2021 Comparison: 01/30/2021 Clinical History: 75-year-old female Post Operative Cardiac Surgery Findings: Interval extubation and removal of NG tube. Right IJ [place]-Tommy catheter. Tip looped at the bifurcatio n of the main pulmonary outflow tract. Stable linear radiodensity at the AP window region. Median booker rnotomy wires post-CABG clips. 2 mediastinal drains are present. Left-sided chest tube. No appreciabl e pneumothorax. Patchy retrocardiac opacity remains but shows improvement. Retained epicardial pacer leads. Heart remains borderline in size. Impression: Similar borderline heart size. Interval extubation and removal of NG tube. Persistent but improving r etrocardiac postoperative atelectasis.
[2021-01-31] MEDS ORDERED: FUROSEMIDE 10 MG/ML 2 ML VIAL IV ONE ×2 (08:28→17:02)
[2021-01-31] MEDS ORDERED: KETOROLAC 30 MG/ML 1 ML VIAL IVP STA (08:28)
[2021-01-31 08:35] LABS: Glucose,Whole Blood 110 mg/dL (75-99)
[2021-01-31] MEDS: ASPIRIN 325 MG TAB PO SCH (08:43)
[2021-01-31] MEDS: ATORVASTATIN 40 MG TAB PO SCH (08:43)
[2021-01-31] MEDS: METOPROLOL TARTRATE 25 MG TAB PO SCH ×2 (08:43→22:17)
[2021-01-31] MEDS: CLOPIDOGREL 75 MG TAB PO SCH (08:43)
[2021-01-31] MEDS: LACTATED RINGERS 1,000 ML IV SCH (08:44)
[2021-01-31] MEDS ORDERED: METOPROLOL TARTRATE 12.5 MG TAB PO SCH (09:00)
[2021-01-31] MEDS ORDERED: PANTOPRAZOLE 40 MG/10 ML VIAL IVP SCH (09:00)
[2021-01-31] MEDS ORDERED: bisacodyL 10 MG SUPP RECTAL PRN (09:00)
[2021-01-31] MEDS ORDERED: MAGNESIUM HYDROXIDE 2,400 MG/10 ML CUP PO PRN (09:00)
--- NOTE | 2021-01-31 09:03 | P.PN ---
Subjective Progress Note Date: 01/31/21 Principal diagnosis: Triple-vessel coronary artery disease with left main disease, chest pain, progressive shortness of breath, non-STEMI, acute systolic heart failure present on admission, reported bleeding per rectum. Previous medical history of hypertension, hyperlipidemia, GERD, GI bleed with preop chronic anemia, diverticulosis, localized colitis, degenerative disc disease with chronic low back pain, obesity, and family history of coronary artery disease POD #1 urgent triple coronary artery bypass grafting using the left internal mammary artery to the left anterior descending artery, reverse saphenous vein graft from the aorta to the posterior descending artery, reverse saphenous vein graft from the aorta to the subtotally occluded obtuse marginal artery, exclusi on of the left atrial appendage using a 35 mm AtriClip, endoscopic harvesting of the left greater saphenous vein from the groin to above the ankle level, intraoperative transesophageal echocardiogram and epiaortic scanning, intraoperative graft flow measurements using the Um[employer] Product[employer] system Postopertive acute blood loss anemia, expected given hemodilution, cardiopulmonary bypass pump, and preoperative anemia The patient was seen and examined this morning in the ICU with Dr. Renee. She was successfully extubated last night at 19:56. She remains laying in bed with intra-aortic balloon pump in place. Remains in sinus rhythm, hemodynamically stable on primacor. Right internal jugular swan/cordis, right radial arterial line, mediastinal and left pleural chest tubes remain. Patient complains of pain at chest tube site and chronic back pain, denies shortness of breath. Urine output marginal. Labs, CXR reviewed with Dr. Renee Objective - Vital Signs Vital signs: Vital Signs Temp 99.3 F 01/31/21 06:00 Pulse 87 01/31/21 07:00 Resp 15 01/31/21 07:00 BP 130/63 01/30/21 12:00 Pulse Ox 91 L 01/31/21 07:00 Intake & Output 01/30/21 01/31/21 01/31/21 18:59 06:59 18:59 Intake Total 1096.459 761.268 101.485 Output Total 2550 575 20 Balance -1453.541 186.268 81.485 Weight 89.4 kg Intake: IV 745.5 705.5 53 ACETAMINOPHEN IV (For NPO 200 ) 1,000 mg In Empty Bag 1 bag @ 400 mls/hr IVPB Q6H [facility] Rx#:[id number] Cardiac Output 40 80 Lactated Ringers 1,000 ml 250 600 50 @ 50 mls/hr IV .Q20H [facility] Rx#:[id number] Nitroglycerin-D5w Pmx 50 7.5 1.5 mg In Dextrose/Water 1 250ml.bag @ 5 MCG/MIN 1.5 mls/hr IV .Q24H [facility]NA Rx#: [id number] Pressure Bag 0.9 Sodium 45 24 3 Chloride ceFAZolin 2 gm In Sodium 50 Chloride 0.9% 50 ml @ 100 mls/hr IVPB ONCE ONE Rx# :[id number] metroNIDAZOLE-NS PMX 500 100 mg In Saline 1 100ml.bag @ 100 mls/hr IVPB Q8HR [facility] Rx#:[id number] Intake, IV Titration 40.959 55.768 48.485 Amount Clevidipine Butyrate 25 1.666 mg In Empty Bag 1 bag @ 1 MG/HR 2 mls/hr IV .Q24H [facility] Rx#:[id number] Insulin Regular 100 unit 10.832 47.471 2.778 In Sodium Chloride 0.9% 100 ml @ Per Protocol IV .Q0M [facility] Rx#:[id number] Milrinone-D5w Pmx 20 mg 45.707 In Dextrose/Water 1 100ml .bag @ 0.3 MCG/KG/MIN 7. 236 mls/hr IV .[id number] [facility] Rx#:[id number] propofoL 1,000 mg In 28.461 8.297 Empty Bag 1 bag @ Titrate IV .Q0M [facility] Rx#: [id number] Blood Product 310 Rc As-1 Unit 310 [id number] Output: Chest Tube Drainage 310 205 Bilateral Mediastinal 170 150 Left Lateral Chest 140 55 Drainage 30 30 Left Calf 30 30 Urine 1210 340 20 Estimated Blood Loss 1000 Other: Voiding Method Indwelling Catheter Indwelling Catheter ABP, PAP, CO, CI - Last Documented Arterial Blood Pressure 130/49 Pulmonary Artery Pressure 38/16 Cardiac Output 4.6 Cardiac Index 2.6 - Exam CONSTITUTIONAL: Appears comfortable, cooperative, no acute distress RESPIRATORY: Lungs sounds diminished bilaterally. Respirations even, nonlabored. Currently on 6 liters high flow nasal cannula with oxygen saturation 90-92%. Able to achieve 250 mL on incentive spirometry. Strong cough. CARDIOVASCULAR: S1, S2 present. Regular rate and rhythm, sinus rhythm on telemetry. Sternum stable. Palpable peripheral pulses bilaterally, Doppler right DP/PT pulse. No edema present. No calf pain or tenderness noted. Heart hugger in place with patient demonstrating appropriate use. Antiembolism stockings, SCDs present. GASTROINTESTINAL: Abdomen soft, nontender, nondistended. Active bowel sounds present 4 quadrants. Tolerating clear liquids. Positive bowel movement after surgery. GENITOURINARY: Hackett present draining clear, yellow urine. Output overnight 20-35 mL per hour INTEGUMENTARY: Skin is warm and dry with evidence of good perfusion. Anterior chest incision well approximated and covered with dry intact dressing. Left lower extremity EVH site well approximated without redness, BUDDY drain present with minimal drainage. NEUROLOGIC: Cranial nerves II through XII intact MUSKULOSKELETAL: Able to move all extremities, strength equal bilaterally PSYCHIATRIC: Alert and oriented to person place and time, appropriate affect, intact judgment and insight INVASIVE LINES AND TUBES: Mediastinal/left pleural chest tubes present and connected to wall suction, no air leaks present. Mediastinal tube with 80 mL serosanguineous drainage overnight, 300 mL since surgery. Left pleural chest tube with 20 mL serosanguineous drainage overnight, 200 mL since surgery. Atrial epicardial pacemaker wires present, grounded. Right internal jugular Minerva/Cordis, right radial arterial line present. Last CO/CI 4.6/2.6, PA 46/19, CVP 19. Right femoral intra-aortic balloon pump in place, 1:1 augmentation, EKG triggered, 34 cc/7.5-Moldovan sheath with with no blood backup present in the tubing, right groin is soft and nontender - Allied health notes Allied health notes reviewed: nursing - Labs CBC & Chem 7: 01/31/21 04:20 01/31/21 04:20 Labs: Abnormal Lab Results - Last 24 Hours (Table) 01/29/21 01/30/21 01/30/21 Range/Units 17:12 14:17 14:17 RBC 2.75 L (3.80-5.40) m/uL Hgb 8.0 L D (11.4-16.0) gm/dL Hct 24.0 L (34.0-46.0) % Lymphocytes # 0.9 L (1.0-4.8) k/uL PT 13.4 H (9.0-12.0) sec INR 1.3 H (<1.2) APTT 42.9 H (22.0-30.0) sec ABG pH (7.35-7.45) ABG pCO2 (35-45) mmHg ABG pO2 (83-108) mmHg ABG O2 Saturation (94-97) % Sodium (137-145) mmol/L Carbon Dioxide (22-30) mmol/L Glucose (74-99) mg/dL POC Glucose (mg/dL) (75-99) mg/dL Calcium (8.4-10.2) mg/dL Magnesium (1.6-2.3) mg/dL AST (14-36) U/L Alkaline Phosphatase (38-126) U/L Total Protein (6.3-8.2) g/dL Albumin (3.5-5.0) g/dL Crossmatch See Detail 01/30/21 01/30/21 01/30/21 Range/Units 14:17 14:17 14:47 RBC (3.80-5.40) m/uL Hgb (11.4-16.0) gm/dL Hct (34.0-46.0) % Lymphocytes # (1.0-4.8) k/uL PT (9.0-12.0) sec INR (<1.2) APTT (22.0-30.0) sec ABG pH 7.29 L (7.35-7.45) ABG pCO2 47 H (35-45) mmHg ABG pO2 161 H (83-108) mmHg ABG O2 Saturation 99.7 H (94-97) % Sodium 134 L (137-145) mmol/L Carbon Dioxide 20 L (22-30) mmol/L Glucose 147 H (74-99) mg/dL POC Glucose (mg/dL) 152 H (75-99) mg/dL Calcium 7.8 L (8.4-10.2) mg/dL Magnesium 2.5 H (1.6-2.3) mg/dL AST 50 H (14-36) U/L Alkaline Phosphatase 25 L (38-126) U/L Total Protein 4.7 L (6.3-8.2) g/dL Albumin 2.7 L (3.5-5.0) g/dL Crossmatch 01/30/21 01/30/21 01/30/21 Range/Units 15:55 17:00 17:02 RBC 3.04 L (3.80-5.40) m/uL Hgb 8.8 L (11.4-16.0) gm/dL Hct 27.2 L (34.0-46.0) % Lymphocytes # 0.8 L (1.0-4.8) k/uL PT (9.0-12.0) sec INR (<1.2) APTT (22.0-30.0) sec ABG pH (7.35-7.45) ABG pCO2 (35-45) mmHg ABG pO2 (83-108) mmHg ABG O2 Saturation (94-97) % Sodium (137-145) mmol/L Carbon Dioxide (22-30) mmol/L Glucose (74-99) mg/dL POC Glucose (mg/dL) 169 H 186 H (75-99) mg/dL Calcium (8.4-10.2) mg/dL Magnesium (1.6-2.3) mg/dL AST (14-36) U/L Alkaline Phosphatase (38-126) U/L Total Protein (6.3-8.2) g/dL Albumin (3.5-5.0) g/dL Crossmatch 01/30/21 01/30/21 01/30/21 Range/Units 17:58 18:49 19:38 RBC (3.80-5.40) m/uL Hgb (11.4-16.0) gm/dL Hct (34.0-46.0) % Lymphocytes # (1.0-4.8) k/uL PT (9.0-12.0) sec INR (<1.2) APTT (22.0-30.0) sec ABG pH (7.35-7.45) ABG pCO2 (35-45) mmHg ABG pO2 (83-108) mmHg ABG O2 Saturation 98.1 H (94-97) % Sodium (137-145) mmol/L Carbon Dioxide (22-30) mmol/L Glucose (74-99) mg/dL POC Glucose (mg/dL) 175 H 162 H (75-99) mg/dL Calcium (8.4-10.2) mg/dL Magnesium (1.6-2.3) mg/dL AST (14-36) U/L Alkaline Phosphatase (38-126) U/L Total Protein (6.3-8.2) g/dL Albumin (3.5-5.0) g/dL Crossmatch 01/30/21 01/30/21 01/30/21 Range/Units 20:28 21:16 22:19 RBC (3.80-5.40) m/uL Hgb (11.4-16.0) gm/dL Hct (34.0-46.0) % Lymphocytes # (1.0-4.8) k/uL PT (9.0-12.0) sec INR (<1.2) APTT (22.0-30.0) sec ABG pH (7.35-7.45) ABG pCO2 (35-45) mmHg ABG pO2 (83-108) mmHg ABG O2 Saturation (94-97) % Sodium (137-145) mmol/L Carbon Dioxide (22-30) mmol/L Glucose (74-99) mg/dL POC Glucose (mg/dL) 175 H 174 H 166 H (75-99) mg/dL Calcium (8.4-10.2) mg/dL Magnesium (1.6-2.3) mg/dL AST (14-36) U/L Alkaline Phosphatase (38-126) U/L Total Protein (6.3-8.2) g/dL Albumin (3.5-5.0) g/dL Crossmatch 01/30/21 01/31/21 01/31/21 Range/Units 23:04 00:09 01:10 RBC (3.80-5.40) m/uL Hgb (11.4-16.0) gm/dL Hct (34.0-46.0) % Lymphocytes # (1.0-4.8) k/uL PT (9.0-12.0) sec INR (<1.2) APTT (22.0-30.0) sec ABG pH (7.35-7.45) ABG pCO2 (35-45) mmHg ABG pO2 (83-108) mmHg ABG O2 Saturation (94-97) % Sodium (137-145) mmol/L Carbon Dioxide (22-30) mmol/L Glucose (74-99) mg/dL POC Glucose (mg/dL) 154 H 136 H 129 H (75-99) mg/dL Calcium (8.4-10.2) mg/dL Magnesium (1.6-2.3) mg/dL AST (14-36) U/L Alkaline Phosphatase (38-126) U/L Total Protein (6.3-8.2) g/dL Albumin (3.5-5.0) g/dL Crossmatch 01/31/21 01/31/21 01/31/21 Range/Units 02:05 03:08 04:20 RBC 2.81 L (3.80-5.40) m/uL Hgb 8.0 L (11.4-16.0) gm/dL Hct 24.4 L (34.0-46.0) % Lymphocytes # (1.0-4.8) k/uL PT (9.0-12.0) sec INR (<1.2) APTT (22.0-30.0) sec ABG pH (7.35-7.45) ABG pCO2 (35-45) mmHg ABG pO2 (83-108) mmHg ABG O2 Saturation (94-97) % Sodium (137-145) mmol/L Carbon Dioxide (22-30) mmol/L Glucose (74-99) mg/dL POC Glucose (mg/dL) 128 H 128 H (75-99) mg/dL Calcium (8.4-10.2) mg/dL Magnesium (1.6-2.3) mg/dL AST (14-36) U/L Alkaline Phosphatase (38-126) U/L Total Protein (6.3-8.2) g/dL Albumin (3.5-5.0) g/dL Crossmatch 01/31/21 01/31/21 01/31/21 Range/Units 04:20 04:20 05:57 RBC (3.80-5.40) m/uL Hgb (11.4-16.0) gm/dL Hct (34.0-46.0) % Lymphocytes # (1.0-4.8) k/uL PT (9.0-12.0) sec INR (<1.2) APTT (22.0-30.0) sec ABG pH (7.35-7.45) ABG pCO2 (35-45) mmHg ABG pO2 (83-108) mmHg ABG O2 Saturation (94-97) % Sodium 132 L (137-145) mmol/L Carbon Dioxide (22-30) mmol/L Glucose 113 H (74-99) mg/dL POC Glucose (mg/dL) 118 H 127 H (75-99) mg/dL Calcium (8.4-10.2) mg/dL Magnesium (1.6-2.3) mg/dL AST 47 H (14-36) U/L Alkaline Phosphatase 36 L (38-126) U/L Total Protein 5.0 L (6.3-8.2) g/dL Albumin 2.9 L (3.5-5.0) g/dL Crossmatch 01/31/21 01/31/21 Range/Units 06:58 08:24 RBC (3.80-5.40) m/uL Hgb (11.4-16.0) gm/dL Hct (34.0-46.0) % Lymphocytes # (1.0-4.8) k/uL PT (9.0-12.0) sec INR (<1.2) APTT (22.0-30.0) sec ABG pH (7.35-7.45) ABG pCO2 (35-45) mmHg ABG pO2 (83-108) mmHg ABG O2 Saturation (94-97) % Sodium (137-145) mmol/L Carbon Dioxide (22-30) mmol/L Glucose (74-99) mg/dL POC Glucose (mg/dL) 122 H 110 H (75-99) mg/dL Calcium (8.4-10.2) mg/dL Magnesium (1.6-2.3) mg/dL AST (14-36) U/L Alkaline Phosphatase (38-126) U/L Total Protein (6.3-8.2) g/dL Albumin (3.5-5.0) g/dL Crossmatch - Imaging and Cardiology Chest x-ray: report reviewed, image reviewed Assessment and Plan Assessment: 1. Triple-vessel coronary artery disease with left main disease, current intra- aortic balloon pump in place, status post three-vessel CABG 2. Chest pain, progressive shortness of breath on admission, non-STEMI on admission 3. Acute systolic heart failure present on admission 4. History of hypertension 5. History of hyperlipidemia, treated 6. GERD 7. History of GI bleed with reported bleeding per rectum this admission with preoperative chronic anemia 8. History of diverticulosis, localized colitis 9. Degenerative disc disease, chronic low back pain 10. Family history of coronary artery disease 11. Postopertive acute blood loss anemia, expected Plan: 1. Continue aspirin, statin, Plavix, beta carlo therapy. Will increase beta acrlo therapy as tolerated, increase to 25 mg twice daily today. Will wean Primacor. DC IV nitro 2. Wean O2 as tolerated. Encourage incentive spirometry use. Bronchodilators per pulmonology. Will add Mucomyst 3. Will discontinue intra-aortic balloon pump. Bed rest for 6 hours post then increase activity as tolerated. PT/OT/cardiac rehab consulted 4. Will continue to monitor daily labs, chest x-rays. Electrolyte replacement per protocol. No further blood transfusion at this point. Will give 20 mg IV push Lasix 5. GI/DVT prophylaxis 6. Pain control with current medication regimen. Toradol added 7. Insulin management per primary care service. Patient is not diabetic, preoperative hemoglobin A1c 5.6%. Patient does need tight blood sugar control to promote sternal union, decrease infection risk 8. Continue Minerva, Cordis for now 9. Continue chest tubes for another 24 hours 10. Continue Hackett catheter for another 24 hours first direct accurate intake and output. Daily weights 11. More recommendations to follow Time with Patient: Greater than 30
--- NOTE | 2021-01-31 09:29 | PN ---
PROGRESS NOTE Mrs. Carbajal underwent aortocoronary bypass surgery yesterday with grafts to the LAD, PDA of RCA and obtuse marginal branch. She is on a small dose of Milrinone. She is still on a balloon pump, but on 1-2 balloon pump she seems to have a decent blood pressure. She is making decent progress, not on any pressors. Urine output is fair. She is in sinus rhythm. There is JVD of 1 cm. No carotid bruit. S1-S2 heard normally. Short systolic murmur noted. Lungs reveal fair air entry. Abdomen is soft. Lower extremities reveal diminished pulses. Prognosis remains guarded. We will continue current efforts. Hopefully the intra- aortic balloon pump will come out. We can leave the Milrinone the same until the balloon pump is out. Ejection fraction is in the 35% range. She has a combination of left main and triple-vessel, which has been addressed with triple-vessel bypass surgery. Prognosis remains guarded. MMODL / IJN: [id number] /
[2021-01-31] MEDS: LIDOCAINE 5% PATCH TOPICAL SCH (09:33)
[2021-01-31] MEDS: IPRATROPIUM-ALBUTEROL 3 ML NEB INHALATION SCH ×4 (09:40→20:03)
[2021-01-31 10:27] LABS: Glucose,Whole Blood 147 mg/dL (75-99)
--- NOTE | 2021-01-31 10:47 | P.PCN ---
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 An intra-aortic balloon pump was placed in the [employer] by Dr. Warner. She went for coronary artery bypass yesterday and has done well. This morning she is hemodynamically stable and is no longer in need of intra- aortic balloon pump assistance. Removal of the device was recommended. The risks, benefits, alternatives to the procedure were discussed with the patient. All questions were answered. Consent was obtained. Description of Procedure: The right groin was examined. There was no evidence of hematoma. The balloon pump was turned off. The pre-existing sheath and balloon were removed en tracey and artery was allowed to bleed both antegrade and retrograde for several beats. Direct pressure was held over the site for 45 minutes. There was no residual bleeding or hematoma noted. The groin itself was soft. The right lower extremity appeared is warm and well perfused. There were no immediate complications. She remained hemodynamically stable with good follow-up cardiac index.
[2021-01-31 11:23] LABS: Glucose,Whole Blood 128 mg/dL (75-99)
[2021-01-31] MEDS: KETOROLAC 30 MG/ML 1 ML VIAL IVP SCH ×2 (11:26→17:23)
--- NOTE | 2021-01-31 11:48 | P.PN ---
Subjective Progress Note Date: 01/31/21 HISTORY OF PRESENT ILLNESS This is a 75-year-old female patient of Dr. Avina with past medical history of hypertension, hyperlipidemia, gastroesophageal reflux disease, history of GI bleed, recurrent sigmoid diverticulitis status post sigmoid colectomy and low anterior resection, degenerative disc disease in the cervical spine. Patient complains of shortness of breath off and on for a week with exertional dyspnea. She states she has been sleeping on 3-4 pillows at night starting yesterday she became increasingly short of breath and couldn't lay down. She does complain of discomfort in her chest with right ear and right jaw pain. She denies any lower extremity edema. Patient presented to [facility] emergency center for evaluation. She is found to be afebrile, heart rate 99, respiratory rate 32, blood pressure 119/87, pulse ox 92% on room air. Patient was later changed over to nonrebreather and then to BiPAP. Blood work reveals WBC 14.5, hemoglobin 9.8, platelet count 328. INR 0.9. Sodium 135, potassium 4.5, chloride 104, CO2 15, BUN 17 and creatinine 0.75. Blood sugar 194. Lactic acid 3.5 and repeat of 1.3. Troponins 1.620, 1.850, 2.11. ProBNP 2700. Coronavirus PCR not detected. Chest x-ray reveals pulmonary interstitial edema and probable small right pleural effusion which are new. This could be acute heart failure or acute pne umonia. Echocardiogram reveals EF of 30-35%, LA is severely dilated, LV wall motion is hypokinetic, mild mitral regurgitation, mild tricuspid regurgitation. Patient is seen today in the emergency center waiting for bed on the cardiac stepdown unit. 01/26: Patient is seen today on the selective care unit, sitting up her recliner and is at bedside. She currently states that she is feeling better from yesterday and denied any chest pain or pressure and denies any neck pain. Patient does state that she did have some rectal bleeding most likely secondary to her history of diverticulosis. Patient underwent heart catheterization which revealed left main disease of 95%, LAD total occlusion of the diagonal branches, left circumflex subtotally occluded, right coronary artery 70-80% distally. Due to severe triple-vessel disease, patient was transferred to the intensive care unit post procedure. Patient also underwent intra-aortic balloon pump insertion. After procedures, patient went to the intensive care unit and consult with cardiothoracic surgery added. 01/27:Patient has been seen by cardiothoracic team with plan for CABG possibly on Sunday or Sunday. Patient is seen today in the intensive care unit and continued on intra-aortic balloon pump and continued on heparin drip. She denies having any chest pain and shortness of breath is improved. Hope 5/325 ordered. Patient was seen by Dr. Cormier regarding rectal bleeding with no plan for intervention at this time and patient started on Flagyl. Patient is also followed by pulmonary medicine with plan to obtain bedside FEV1. She remains afebrile, heart rate in the 90s, blood pressure and 100/54, pulse ox 96% on 2 L nasal cannula. monitoring tech sinus rhythm. Repeat blood work reveals WBC 6.9, hemoglobin 9.5, platelet count 373. Sodium 135, blood sugar 101. Electrolytes renal function are normal. Liver function tests are within normal limits. Urinalysis showed small amount of blood. Patient is reaching 750 on incentive spirometry. Repeat blood work and chest x-ray ordered for tomorrow morning. 01/28: Patient is laying down in bed flat to due to the fact that she had intra- aortic balloon pump, she denies any chest pain at this time, she is not complaining of shortness of breath, she stated that her pain is well controlled but she would left to take it more often than every 8 hours, I spoke with the nursing staff about increasing her Hope to every 4-6 hours as needed, moderate the patient very closely, continue with bowel care, continue lactulose and Senokot, patient was seen earlier by thoracic surgery as well as by cardiology it was recommended that the patient will go for coronary artery bypass grafting next Sunday unless she become and stable, she has been requiring 2 L nasal cannula, her blood pressure is stable, her oxygen saturation stable, her hemoglobin is stable at this time, she was seen by Dr. Fuentes and he was recommended for the patient to be continued on Flagyl for now with no further intervention. 01/29: Patient's is laying down in bed she continued to have the intra-aortic balloon pump in place, she is nauseated she had an episode of vomiting today she denies any chest pain or shortness breath, she denies any abdominal pain, she has been constipated, she did not respond to lactulose, she would be getting MiraLAX along with a stool softener, we will monitor the patient very closely in the intensive care unit, patient will likely be operated on Sunday, continue supportive care, continue heparin drip, continue baby aspirin, continue atorvastatin, follow-up with the patient very closely. 01/31: Today, patient underwent CABG with DOBBS to LAD, SVG to PDA and OM 1. Discontinued on intra-aortic balloon pump which is to be discontinued later to day. Patient is off nitroglycerin, continued on low dose Primacor. Patient was successfully extubated last evening. Pulse ox 92% on high flow nasal cannula 10 L. monitoring tech sinus rhythm. Mediastinal and left pleural chest tube in place with serosanguineous output. She is currently on insulin drip. Patient complains of feeling tired and does have significant chest discomfort from surgery. Hope was added and Toradol to be edited by cardiothoracic. Patient did have a loose bowel movement but has been receiving lactulose for constipation. Repeat blood work reveals hemoglobin of 8. Creatinine 0.57. Blood sugars are running between 118- 128. Repeat chest x-ray reveals similar borderline heart size. Interval extubation and removal of NG tube. Persistent but improving retrocardiac postoperative atelectasis. REVIEW OF SYSTEMS Constitutional: No fever, no chills, no night sweats. No weight change. No weakness, reports fatigue no lethargy. Reports daytime sleepiness. HEENT: No headache. No blurred vision or double vision, no loss of vision. No loss of Hearing, no ringing in the ears, no dizziness. No nasal drainage or congestion. No epistaxis. No sore throat. Lungs: Reports shortness of breath-improved, cough, no sputum production. No w heezing. Reports exertional shortness of breath Cardiovascular: Reports severe chest discomfort, no lower extremity edema. No palpitations. No paroxysmal nocturnal dyspnea. Reports orthopnea. No lightheadedness or dizziness. No syncopal episodes. Abdominal: No abdominal pain. No nausea, vomiting. No diarrhea. No constipation. No bloody or tarry stools. No loss of appetite. Genitourinary: No dysuria, increased frequency, urgency. No urinary retention. Musculoskeletal: No myalgias. No muscle weakness, no gait dysfunction, no frequent falls. Positive for back pain. No neck pain. Integumentary: No wounds, no lesions. No rash or pruritus. No unusual bruising. Neurologic: No aphasia. No facial droop. No change in mentation. No head injury. No headache. No paralysis. No paresthesia. Psychiatric: No depression. Positive for anxiety. No mood swings. Endocrine: Mildly abnormal blood sugars. No weight change. PHYSICAL EXAMINATION Gen: This is a 75-year-old female. She is resting in ICU bed and appears to be comfortable. HEENT: Head is atraumatic, normocephalic. Pupils equal, round. Sclerae is anicteric. NECK: Supple. No JVD. No lymphadenopathy. No thyromegaly. Right sided Cordis. LUNGS: Diminished lung sounds bilaterally. No wheezing. No intercostal retractions. Chest tubes in place. HEART: first heart sound is depressed, second heart sound is normal, there is systolic ejection murmur 2/6 located in the left sternal border, there is intra- aortic balloon pump in place, there is a gallop ABDOMEN: Soft. Bowel sounds are present. No masses. No tenderness. External female catheter in place draining clear cory urine. EXTREMITIES: No pedal edema. No calf tenderness. Dorsalis pedis palpable bilaterally. NEUROLOGICAL: Patient is awake, alert and oriented x3. Cranial nerves 2 through 12 are grossly intact. ASSESSMENT AND PLAN 1. Acute hypoxic respiratory failure secondary to acute systolic heart failure with cardiogenic shock Cardiology consult appreciated. Echocardiogram as ab ove. 2. Non-ST elevated myocardial infarction status post heart catheterization finding triple-vessel disease, status post intra-aortic balloon pump, status post urgent CABG. Continue recommendations from the cardiothoracic team. Continue aspirin, Lipitor 40 mg at bedtime. 3. Ischemic cardiomyopathy. Ejection fraction about 30%. 4. Rectal bleeding secondary to diverticulitis. Consult with general surgery appreciated, patient started on Flagyl 500 mg IV piggyback every 8 hours. 5. Hyperglycemia without diagnosis of diabetes. Continue to monitor. Patient is on insulin drip. 6. Hypertension and hypertensive cardiovascular disease. Patient has been off lisinopril, and an 10-year-old metoprolol. 7. Hyperlipidemia. Continue atorvastatin 40 mg at bedtime. 8. Gastroesophageal reflux disease and GI prophylaxis. Continue Protonix 40 mg daily. 9. History of GI bleed, no active bleeding at this time. Patient had rectal bleeding 1 most likely secondary to diverticulitis 10. History of diverticulitis status post sigmoid colectomy and low anterior resection. 11. Degenerative disc disease in the cervical spine. 12. DVT prophylaxis. 13. COVID-19 testing negative. Patient has been hospitalized during a pandemic. 14. Opiate-induced constipation. Continue patient on MiraLAX 17 g in 8 ounces water, continue lactulose 20 g orally once every day, continue Senokot 2 tablet orally bedtime. 15. Guarded prognosis. Impression and plan of care have been directed as dictated by the signing physician. Lizzie Solomon nurse practitioner acting as scribe for signing physician. Objective - Vital Signs Vital signs: Vital Signs Temp 99.3 F 01/31/21 06:00 Pulse 87 01/31/21 07:00 Resp 15 01/31/21 07:00 BP 130/63 01/30/21 12:00 Pulse Ox 91 L 01/31/21 07:00 Intake & Output 01/30/21 01/31/21 01/31/21 18:59 06:59 18:59 Intake Total 1096.459 761.268 53 Output Total 2550 575 20 Balance -1453.541 186.268 33 Weight 89.4 kg Intake: IV 745.5 705.5 53 ACETAMINOPHEN IV (For NPO 200 ) 1,000 mg In Empty Bag 1 bag @ 400 mls/hr IVPB Q6H TIANNA Rx#:[id number] Cardiac Output 40 80 Lactated Ringers 1,000 ml 250 600 50 @ 50 mls/hr IV .Q20H TIANNA Rx#:[id number] Nitroglycerin-D5w Pmx 50 7.5 1.5 mg In Dextrose/Water 1 250ml.bag @ 5 MCG/MIN 1.5 mls/hr IV .Q24H TIANNA Rx#: [id number] Pressure Bag 0.9 Sodium 45 24 3 Chloride ceFAZolin 2 gm In Sodium 50 Chloride 0.9% 50 ml @ 100 mls/hr IVPB ONCE ONE Rx# :[id number] metroNIDAZOLE-NS PMX 500 100 mg In Saline 1 100ml.bag @ 100 mls/hr IVPB Q8HR TIANNA Rx#:[id number] Intake, IV Titration 40.959 55.768 Amount Clevidipine Butyrate 25 1.666 mg In Empty Bag 1 bag @ 1 MG/HR 2 mls/hr IV .Q24H TIANNA Rx#:[id number] Insulin Regular 100 unit 10.832 47.471 In Sodium Chloride 0.9% 100 ml @ Per Protocol IV .Q0M TIANNA Rx#:[id number] propofoL 1,000 mg In 28.461 8.297 Empty Bag 1 bag @ Titrate IV .Q0M TIANNA Rx#: [id number] Blood Product 310 Rc As-1 Unit 310 [id number] Output: Chest Tube Drainage 310 205 Bilateral Mediastinal 170 150 Left Lateral Chest 140 55 Drainage 30 30 Left Calf 30 30 Urine 1210 340 20 Estimated Blood Loss 1000 Other: Voiding Method Indwelling Catheter Indwelling Catheter ABP, PAP, CO, CI - Last Documented Arterial Blood Pressure 130/49 Pulmonary Artery Pressure 38/16 Cardiac Output 4.6 Cardiac Index 2.6 - Labs CBC & Chem 7: 01/31/21 04:20 01/31/21 04:20 Labs: Abnormal Lab Results - Last 24 Hours (Table) 01/29/21 01/30/21 01/30/21 Range/Units 17:12 14:17 14:17 RBC 2.75 L (3.80-5.40) m/uL Hgb 8.0 L D (11.4-16.0) gm/dL Hct 24.0 L (34.0-46.0) % Lymphocytes # 0.9 L (1.0-4.8) k/uL PT 13.4 H (9.0-12.0) sec INR 1.3 H (<1.2) APTT 42.9 H (22.0-30.0) sec ABG pH (7.35-7.45) ABG pCO2 (35-45) mmHg ABG pO2 (83-108) mmHg ABG O2 Saturation (94-97) % Sodium (137-145) mmol/L Carbon Dioxide (22-30) mmol/L Glucose (74-99) mg/dL POC Glucose (mg/dL) (75-99) mg/dL Calcium (8.4-10.2) mg/dL Magnesium (1.6-2.3) mg/dL AST (14-36) U/L Alkaline Phosphatase (38-126) U/L Total Protein (6.3-8.2) g/dL Albumin (3.5-5.0) g/dL Crossmatch See Detail 01/30/21 01/30/21 01/30/21 Range/Units 14:17 14:17 14:47 RBC (3.80-5.40) m/uL Hgb (11.4-16.0) gm/dL Hct (34.0-46.0) % Lymphocytes # (1.0-4.8) k/uL PT (9.0-12.0) sec INR (<1.2) APTT (22.0-30.0) sec ABG pH 7.29 L (7.35-7.45) ABG pCO2 47 H (35-45) mmHg ABG pO2 161 H (83-108) mmHg ABG O2 Saturation 99.7 H (94-97) % Sodium 134 L (137-145) mmol/L Carbon Dioxide 20 L (22-30) mmol/L Glucose 147 H (74-99) mg/dL POC Glucose (mg/dL) 152 H (75-99) mg/dL Calcium 7.8 L (8.4-10.2) mg/dL Magnesium 2.5 H (1.6-2.3) mg/dL AST 50 H (14-36) U/L Alkaline Phosphatase 25 L (38-126) U/L Total Protein 4.7 L (6.3-8.2) g/dL Albumin 2.7 L (3.5-5.0) g/dL Crossmatch 01/30/21 01/30/21 01/30/21 Range/Units 15:55 17:00 17:02 RBC 3.04 L (3.80-5.40) m/uL Hgb 8.8 L (11.4-16.0) gm/dL Hct 27.2 L (34.0-46.0) % Lymphocytes # 0.8 L (1.0-4.8) k/uL PT (9.0-12.0) sec INR (<1.2) APTT (22.0-30.0) sec ABG pH (7.35-7.45) ABG pCO2 (35-45) mmHg ABG pO2 (83-108) mmHg ABG O2 Saturation (94-97) % Sodium (137-145) mmol/L Carbon Dioxide (22-30) mmol/L Glucose (74-99) mg/dL POC Glucose (mg/dL) 169 H 186 H (75-99) mg/dL Calcium (8.4-10.2) mg/dL Magnesium (1.6-2.3) mg/dL AST (14-36) U/L Alkaline Phosphatase (38-126) U/L Total Protein (6.3-8.2) g/dL Albumin (3.5-5.0) g/dL Crossmatch 01/30/21 01/30/21 01/30/21 Range/Units 17:58 18:49 19:38 RBC (3.80-5.40) m/uL Hgb (11.4-16.0) gm/dL Hct (34.0-46.0) % Lymphocytes # (1.0-4.8) k/uL PT (9.0-12.0) sec INR (<1.2) APTT (22.0-30.0) sec ABG pH (7.35-7.45) ABG pCO2 (35-45) mmHg ABG pO2 (83-108) mmHg ABG O2 Saturation 98.1 H (94-97) % Sodium (137-145) mmol/L Carbon Dioxide (22-30) mmol/L Glucose (74-99) mg/dL POC Glucose (mg/dL) 175 H 162 H (75-99) mg/dL Calcium (8.4-10.2) mg/dL Magnesium (1.6-2.3) mg/dL AST (14-36) U/L Alkaline Phosphatase (38-126) U/L Total Protein (6.3-8.2) g/dL Albumin (3.5-5.0) g/dL Crossmatch 01/30/21 01/30/21 01/30/21 Range/Units 20:28 21:16 22:19 RBC (3.80-5.40) m/uL Hgb (11.4-16.0) gm/dL Hct (34.0-46.0) % Lymphocytes # (1.0-4.8) k/uL PT (9.0-12.0) sec INR (<1.2) APTT (22.0-30.0) sec ABG pH (7.35-7.45) ABG pCO2 (35-45) mmHg ABG pO2 (83-108) mmHg ABG O2 Saturation (94-97) % Sodium (137-145) mmol/L Carbon Dioxide (22-30) mmol/L Glucose (74-99) mg/dL POC Glucose (mg/dL) 175 H 174 H 166 H (75-99) mg/dL Calcium (8.4-10.2) mg/dL Magnesium (1.6-2.3) mg/dL AST (14-36) U/L Alkaline Phosphatase (38-126) U/L Total Protein (6.3-8.2) g/dL Albumin (3.5-5.0) g/dL Crossmatch 01/30/21 01/31/21 01/31/21 Range/Units 23:04 00:09 01:10 RBC (3.80-5.40) m/uL Hgb (11.4-16.0) gm/dL Hct (34.0-46.0) % Lymphocytes # (1.0-4.8) k/uL PT (9.0-12.0) sec INR (<1.2) APTT (22.0-30.0) sec ABG pH (7.35-7.45) ABG pCO2 (35-45) mmHg ABG pO2 (83-108) mmHg ABG O2 Saturation (94-97) % Sodium (137-145) mmol/L Carbon Dioxide (22-30) mmol/L Glucose (74-99) mg/dL POC Glucose (mg/dL) 154 H 136 H 129 H (75-99) mg/dL Calcium (8.4-10.2) mg/dL Magnesium (1.6-2.3) mg/dL AST (14-36) U/L Alkaline Phosphatase (38-126) U/L Total Protein (6.3-8.2) g/dL Albumin (3.5-5.0) g/dL Crossmatch 01/31/21 01/31/21 01/31/21 Range/Units 02:05 03:08 04:20 RBC 2.81 L (3.80-5.40) m/uL Hgb 8.0 L (11.4-16.0) gm/dL Hct 24.4 L (34.0-46.0) % Lymphocytes # (1.0-4.8) k/uL PT (9.0-12.0) sec INR (<1.2) APTT (22.0-30.0) sec ABG pH (7.35-7.45) ABG pCO2 (35-45) mmHg ABG pO2 (83-108) mmHg ABG O2 Saturation (94-97) % Sodium (137-145) mmol/L Carbon Dioxide (22-30) mmol/L Glucose (74-99) mg/dL POC Glucose (mg/dL) 128 H 128 H (75-99) mg/dL Calcium (8.4-10.2) mg/dL Magnesium (1.6-2.3) mg/dL AST (14-36) U/L Alkaline Phosphatase (38-126) U/L Total Protein (6.3-8.2) g/dL Albumin (3.5-5.0) g/dL Crossmatch 01/31/21 01/31/21 01/31/21 Range/Units 04:20 04:20 05:57 RBC (3.80-5.40) m/uL Hgb (11.4-16.0) gm/dL Hct (34.0-46.0) % Lymphocytes # (1.0-4.8) k/uL PT (9.0-12.0) sec INR (<1.2) APTT (22.0-30.0) sec ABG pH (7.35-7.45) ABG pCO2 (35-45) mmHg ABG pO2 (83-108) mmHg ABG O2 Saturation (94-97) % Sodium 132 L (137-145) mmol/L Carbon Dioxide (22-30) mmol/L Glucose 113 H (74-99) mg/dL POC Glucose (mg/dL) 118 H 127 H (75-99) mg/dL Calcium (8.4-10.2) mg/dL Magnesium (1.6-2.3) mg/dL AST 47 H (14-36) U/L Alkaline Phosphatase 36 L (38-126) U/L Total Protein 5.0 L (6.3-8.2) g/dL Albumin 2.9 L (3.5-5.0) g/dL Crossmatch 01/31/21 Range/Units 06:58 RBC (3.80-5.40) m/uL Hgb (11.4-16.0) gm/dL Hct (34.0-46.0) % Lymphocytes # (1.0-4.8) k/uL PT (9.0-12.0) sec INR (<1.2) APTT (22.0-30.0) sec ABG pH (7.35-7.45) ABG pCO2 (35-45) mmHg ABG pO2 (83-108) mmHg ABG O2 Saturation (94-97) % Sodium (137-145) mmol/L Carbon Dioxide (22-30) mmol/L Glucose (74-99) mg/dL POC Glucose (mg/dL) 122 H (75-99) mg/dL Calcium (8.4-10.2) mg/dL Magnesium (1.6-2.3) mg/dL AST (14-36) U/L Alkaline Phosphatase (38-126) U/L Total Protein (6.3-8.2) g/dL Albumin (3.5-5.0) g/dL Crossmatch
[2021-01-31] MEDS: ACETYLCYSTEINE 800 MG/4 ML VIAL INHALATION SCH ×3 (12:12→20:02)
--- NOTE | 2021-01-31 13:01 | P.PN ---
Subjective Progress Note Date: 01/31/21 Principal diagnosis: Status post emergent CABG for triple vessel coronary artery disease postoperative day #1 On today's evaluation on 01/28/2021 patient seen in follow-up in intensive care unit, she is awake and alert, she is currently on 2 L of oxygen pulse ox is 97%, breathing comfortably, no complaints of chest pain or worsening shortness of breath overnight. Her chest x-ray today still showing pulmonary edema. Patient remains on Lasix 40 mg push every 12 hours, and patient is slightly and positive net fluid balance of 289 mL over the last 24 hours, intra-aortic balloon pump remains in place via the right groin, still to 121 augmentation, augmented diastolic today is improved and is up to 141 from 96 on yesterday's exam, her blood pressure is 115/59, she is in sinus mechanism with a rate of 85 bpm. lung sounds are positive for diminished breath sounds with mild crackles at the bases, but clinically patient is breathing comfortably, she is on 0.9 normal saline at a rate of 50 ML per hour in addition to heparin infusion per weight based protocol. Patient has slightly diminished pulse in the right pedal area, and 1+ pedal pulse in the left acute oh. Extremities are warm. Today's labs have been reviewed, with blood cell count is 8.1, hemoglobin is 9.9, INR is 1.0, sodium is 135, the rest of electrolytes and renal profile were unremarkable. This has also been noted showing trace ketones and blood but no evidence of urinary tract infection. 13 2020, the patient remains on 2 L about 2 by nasal cannula. She is still diuresing with Lasix. Hemodynamically, it was decided to keep the intra-aortic balloon pump with 1-1 augmentation as there was concern that the patient's condition may decompensate off the balloon pump. The mean arterial pressure currently is at 97. She is free of any angina. Her cardiac rhythm is sinus. She did have some nausea and she was given MiraLAX for bowel movements activity. The surgery is still tentatively scheduled for next week, possibly next Sunday. Otherwise, the patient is doing well. She is free of any chest pain. No cardiac arrhythmias have been noted. The patient remains on IV heparin. She is also getting a white cell count 7.9 with a hemoglobin of 9.9. Platelet counts are stable at 34. No other significant events otherwise for now. She has multivessel coronary artery disease and impairment of LV function and she is awaiting coronary artery bypass surgery. 01/30/2021, the patient was taken to the operating room and the patient underwent cardiac bypass surgery. The patient underwent urgent myocardial the vascular rosacea surgery with DOBBS to LAD, SVG to PDA and OM 1. Patient is cu rrently in the intensive care unit. She is hemodynamically stable. The intra- aortic balloon pump is still in place with 1:1 augmentation. Cardiac output is at 4.7 with an index of 2.7. The cardiac rhythm is normal sinus. Pulmonary artery pressures are 42/21. The patient is currently sedated with propofol which is currently running at 30 mg/kg/m. She is on a mechanical ventilator on assist control mode with a rate of 14 with a tidal volume of 400 FiO2 100% with a PEEP of 10. I increased the rate up to 20. Meanwhile, the patient seems to have a adequate urine output. The patient is to mediastinal and left pleural chest tube and the total amount of output has been around 120 mL since she arrived from the operating room.k the patient arrived to us with a a nitroglycerin drip at 5 mg/m. The patient is also on close approximately 2 mg an hour and milrinone at 0.3 mcg/kg per minute to augment her cardiac output. She'll be systolic is also on insulin drip for blood sugar control. Reevaluated today on 01/31/2021, patient underwent emergent CABG yesterday, she was seen by Dr. Martel, and she was extubated last night. A shunt was extubated successfully at 19:56. Remains in bed, she has an intra-aortic balloon pump in place, it will likely be removed shortly this morning. Patient is doing well, she has minimal atelectasis on the chest x-ray, she is hemodynamically stable, she is however on milrinone. At 0.15 mcg/kg/m, her cardiac index is 2.9, cardiac output is 5.2. Pulmonary artery pressure 40/12, patient is receiving Lasix 40 mg IV push this morning. She is on 10 L of nasal cannula O2 sats is 92%. ABC is relatively normal, hemoglobin is 8. PTT is 42.9. Colitis and renal profile are normal Objective - Vital Signs Vital signs: Vital Signs Temp 99.3 F 11/15/21 06:00 Pulse 85 01/31/21 12:23 Resp 18 01/31/21 11:00 BP 130/63 01/30/21 12:00 Pulse Ox 91 L 01/31/21 11:00 Intake & Output 01/30/21 01/31/21 01/31/21 18:59 06:59 18:59 Intake Total 1096.459 761.268 560.054 Output Total 2550 575 300 Balance -1453.541 186.268 260.054 Weight 89.4 kg Intake: IV 745.5 705.5 499 ACETAMINOPHEN IV (For NPO 200 ) 1,000 mg In Empty Bag 1 bag @ 400 mls/hr IVPB Q6H TIANNA Rx#:[id number] Cardiac Output 40 80 80 Lactated Ringers 1,000 ml 250 600 230 @ 20 mls/hr IV .Q24H TIANNA Rx#:[id number] Nitroglycerin-D5w Pmx 50 7.5 1.5 mg In Dextrose/Water 1 250ml.bag @ 5 MCG/MIN 1.5 mls/hr IV .Q24H TIANNA Rx#: [id number] Pressure Bag 0.9 Sodium 45 24 39 Chloride ceFAZolin 2 gm In Sodium 50 Chloride 0.9% 50 ml @ 100 mls/hr IVPB ONCE ONE Rx# :[id number] ceFAZolin 2 gm In Sodium 50 Chloride 0.9% 50 ml @ 100 mls/hr IVPB ONCE ONE Rx# :[id number] metroNIDAZOLE-NS PMX 500 100 100 mg In Saline 1 100ml.bag @ 100 mls/hr IVPB Q8HR TIANNA Rx#:[id number] Intake, IV Titration 40.959 55.768 61.054 Amount Clevidipine Butyrate 25 1.666 mg In Empty Bag 1 bag @ 1 MG/HR 2 mls/hr IV .Q24H TIANNA Rx#:[id number] Insulin Regular 100 unit 10.832 47.471 5.578 In Sodium Chloride 0.9% 100 ml @ Per Protocol IV .Q0M TIANNA Rx#:[id number] Milrinone-D5w Pmx 20 mg 55.476 In Dextrose/Water 1 100ml .bag @ 0.1 MCG/KG/MIN 2. 412 mls/hr IV .Q24H TIANNA Rx#:[id number] propofoL 1,000 mg In 28.461 8.297 Empty Bag 1 bag @ Titrate IV .Q0M TIANNA Rx#: [id number] Blood Product 310 Rc As-1 Unit 310 [id number] Output: Chest Tube Drainage 310 205 Bilateral Mediastinal 170 150 Left Lateral Chest 140 55 Drainage 30 30 Left Calf 30 30 Urine 1210 340 300 Estimated Blood Loss 1000 Other: Voiding Method Indwelling Catheter Indwelling Catheter Indwelling Catheter ABP, PAP, CO, CI - Last Documented Arterial Blood Pressure 126/56 Pulmonary Artery Pressure 39/15 Cardiac Output 5.5 Cardiac Index 3.1 - Exam CONSTITUTIONAL: Revealed a 75-year-old female in no distress, on 10 L high flow nasal cannula. RESPIRATORY: Symmetrical chest expansion, diminished at the bases no crackles or rhonchi or wheezes CARDIOVASCULAR: Normal S1 and S2, no S3 gallop. Abdomen: Soft nontender no megaly no rebound. Leena: No rashes. NEUROLOGIC: Cranial nerves II through XII intact MUSKULOSKELETAL: No deformities and no limitation in range of motion. PSYCHIATRIC: Normal mood affect and normal mental status examination. Neurologic: Alert and oriented 3 focal deficits. - Labs CBC & Chem 7: 01/31/21 04:20 01/31/21 04:20 Labs: Abnormal Lab Results - Last 24 Hours (Table) 01/29/21 01/30/21 01/30/21 Range/Units 17:12 14:17 14:17 RBC 2.75 L (3.80-5.40) m/uL Hgb 8.0 L D (11.4-16.0) gm/dL Hct 24.0 L (34.0-46.0) % Lymphocytes # 0.9 L (1.0-4.8) k/uL PT 13.4 H (9.0-12.0) sec INR 1.3 H (<1.2) APTT 42.9 H (22.0-30.0) sec ABG pH (7.35-7.45) ABG pCO2 (35-45) mmHg ABG pO2 (83-108) mmHg ABG O2 Saturation (94-97) % Sodium (137-145) mmol/L Carbon Dioxide (22-30) mmol/L Glucose (74-99) mg/dL POC Glucose (mg/dL) (75-99) mg/dL Calcium (8.4-10.2) mg/dL Magnesium (1.6-2.3) mg/dL AST (14-36) U/L Alkaline Phosphatase (38-126) U/L Total Protein (6.3-8.2) g/dL Albumin (3.5-5.0) g/dL Crossmatch See Detail 01/30/21 01/30/21 01/30/21 Range/Units 14:17 14:17 14:47 RBC (3.80-5.40) m/uL Hgb (11.4-16.0) gm/dL Hct (34.0-46.0) % Lymphocytes # (1.0-4.8) k/uL PT (9.0-12.0) sec INR (<1.2) APTT (22.0-30.0) sec ABG pH 7.29 L (7.35-7.45) ABG pCO2 47 H (35-45) mmHg ABG pO2 161 H (83-108) mmHg ABG O2 Saturation 99.7 H (94-97) % Sodium 134 L (137-145) mmol/L Carbon Dioxide 20 L (22-30) mmol/L Glucose 147 H (74-99) mg/dL POC Glucose (mg/dL) 152 H (75-99) mg/dL Calcium 7.8 L (8.4-10.2) mg/dL Magnesium 2.5 H (1.6-2.3) mg/dL AST 50 H (14-36) U/L Alkaline Phosphatase 25 L (38-126) U/L Total Protein 4.7 L (6.3-8.2) g/dL Albumin 2.7 L (3.5-5.0) g/dL Crossmatch 01/30/21 01/30/21 01/30/21 Range/Units 15:55 17:00 17:02 RBC 3.04 L (3.80-5.40) m/uL Hgb 8.8 L (11.4-16.0) gm/dL Hct 27.2 L (34.0-46.0) % Lymphocytes # 0.8 L (1.0-4.8) k/uL PT (9.0-12.0) sec INR (<1.2) APTT (22.0-30.0) sec ABG pH (7.35-7.45) ABG pCO2 (35-45) mmHg ABG pO2 (83-108) mmHg ABG O2 Saturation (94-97) % Sodium (137-145) mmol/L Carbon Dioxide (22-30) mmol/L Glucose (74-99) mg/dL POC Glucose (mg/dL) 169 H 186 H (75-99) mg/dL Calcium (8.4-10.2) mg/dL Magnesium (1.6-2.3) mg/dL AST (14-36) U/L Alkaline Phosphatase (38-126) U/L Total Protein (6.3-8.2) g/dL Albumin (3.5-5.0) g/dL Crossmatch 01/30/21 01/30/21 01/30/21 Range/Units 17:58 18:49 19:38 RBC (3.80-5.40) m/uL Hgb (11.4-16.0) gm/dL Hct (34.0-46.0) % Lymphocytes # (1.0-4.8) k/uL PT (9.0-12.0) sec INR (<1.2) APTT (22.0-30.0) sec ABG pH (7.35-7.45) ABG pCO2 (35-45) mmHg ABG pO2 (83-108) mmHg ABG O2 Saturation 98.1 H (94-97) % Sodium (137-145) mmol/L Carbon Dioxide (22-30) mmol/L Glucose (74-99) mg/dL POC Glucose (mg/dL) 175 H 162 H (75-99) mg/dL Calcium (8.4-10.2) mg/dL Magnesium (1.6-2.3) mg/dL AST (14-36) U/L Alkaline Phosphatase (38-126) U/L Total Protein (6.3-8.2) g/dL Albumin (3.5-5.0) g/dL Crossmatch 01/30/21 01/30/21 01/30/21 Range/Units 20:28 21:16 22:19 RBC (3.80-5.40) m/uL Hgb (11.4-16.0) gm/dL Hct (34.0-46.0) % Lymphocytes # (1.0-4.8) k/uL PT (9.0-12.0) sec INR (<1.2) APTT (22.0-30.0) sec ABG pH (7.35-7.45) ABG pCO2 (35-45) mmHg ABG pO2 (83-108) mmHg ABG O2 Saturation (94-97) % Sodium (137-145) mmol/L Carbon Dioxide (22-30) mmol/L Glucose (74-99) mg/dL POC Glucose (mg/dL) 175 H 174 H 166 H (75-99) mg/dL Calcium (8.4-10.2) mg/dL Magnesium (1.6-2.3) mg/dL AST (14-36) U/L Alkaline Phosphatase (38-126) U/L Total Protein (6.3-8.2) g/dL Albumin (3.5-5.0) g/dL Crossmatch 01/30/21 01/31/21 01/31/21 Range/Units 23:04 00:09 01:10 RBC (3.80-5.40) m/uL Hgb (11.4-16.0) gm/dL Hct (34.0-46.0) % Lymphocytes # (1.0-4.8) k/uL PT (9.0-12.0) sec INR (<1.2) APTT (22.0-30.0) sec ABG pH (7.35-7.45) ABG pCO2 (35-45) mmHg ABG pO2 (83-108) mmHg ABG O2 Saturation (94-97) % Sodium (137-145) mmol/L Carbon Dioxide (22-30) mmol/L Glucose (74-99) mg/dL POC Glucose (mg/dL) 154 H 136 H 129 H (75-99) mg/dL Calcium (8.4-10.2) mg/dL Magnesium (1.6-2.3) mg/dL AST (14-36) U/L Alkaline Phosphatase (38-126) U/L Total Protein (6.3-8.2) g/dL Albumin (3.5-5.0) g/dL Crossmatch 01/31/21 01/31/21 01/31/21 Range/Units 02:05 03:08 04:20 RBC 2.81 L (3.80-5.40) m/uL Hgb 8.0 L (11.4-16.0) gm/dL Hct 24.4 L (34.0-46.0) % Lymphocytes # (1.0-4.8) k/uL PT (9.0-12.0) sec INR (<1.2) APTT (22.0-30.0) sec ABG pH (7.35-7.45) ABG pCO2 (35-45) mmHg ABG pO2 (83-108) mmHg ABG O2 Saturation (94-97) % Sodium (137-145) mmol/L Carbon Dioxide (22-30) mmol/L Glucose (74-99) mg/dL POC Glucose (mg/dL) 128 H 128 H (75-99) mg/dL Calcium (8.4-10.2) mg/dL Magnesium (1.6-2.3) mg/dL AST (14-36) U/L Alkaline Phosphatase (38-126) U/L Total Protein (6.3-8.2) g/dL Albumin (3.5-5.0) g/dL Crossmatch 01/31/21 01/31/21 01/31/21 Range/Units 04:20 04:20 05:57 RBC (3.80-5.40) m/uL Hgb (11.4-16.0) gm/dL Hct (34.0-46.0) % Lymphocytes # (1.0-4.8) k/uL PT (9.0-12.0) sec INR (<1.2) APTT (22.0-30.0) sec ABG pH (7.35-7.45) ABG pCO2 (35-45) mmHg ABG pO2 (83-108) mmHg ABG O2 Saturation (94-97) % Sodium 132 L (137-145) mmol/L Carbon Dioxide (22-30) mmol/L Glucose 113 H (74-99) mg/dL POC Glucose (mg/dL) 118 H 127 H (75-99) mg/dL Calcium (8.4-10.2) mg/dL Magnesium (1.6-2.3) mg/dL AST 47 H (14-36) U/L Alkaline Phosphatase 36 L (38-126) U/L Total Protein 5.0 L (6.3-8.2) g/dL Albumin 2.9 L (3.5-5.0) g/dL Crossmatch 01/31/21 01/31/21 01/31/21 Range/Units 06:58 08:24 10:15 RBC (3.80-5.40) m/uL Hgb (11.4-16.0) gm/dL Hct (34.0-46.0) % Lymphocytes # (1.0-4.8) k/uL PT (9.0-12.0) sec INR (<1.2) APTT (22.0-30.0) sec ABG pH (7.35-7.45) ABG pCO2 (35-45) mmHg ABG pO2 (83-108) mmHg ABG O2 Saturation (94-97) % Sodium (137-145) mmol/L Carbon Dioxide (22-30) mmol/L Glucose (74-99) mg/dL POC Glucose (mg/dL) 122 H 110 H 147 H (75-99) mg/dL Calcium (8.4-10.2) mg/dL Magnesium (1.6-2.3) mg/dL AST (14-36) U/L Alkaline Phosphatase (38-126) U/L Total Protein (6.3-8.2) g/dL Albumin (3.5-5.0) g/dL Crossmatch 01/31/21 Range/Units 11:12 RBC (3.80-5.40) m/uL Hgb (11.4-16.0) gm/dL Hct (34.0-46.0) % Lymphocytes # (1.0-4.8) k/uL PT (9.0-12.0) sec INR (<1.2) APTT (22.0-30.0) sec ABG pH (7.35-7.45) ABG pCO2 (35-45) mmHg ABG pO2 (83-108) mmHg ABG O2 Saturation (94-97) % Sodium (137-145) mmol/L Carbon Dioxide (22-30) mmol/L Glucose (74-99) mg/dL POC Glucose (mg/dL) 128 H (75-99) mg/dL Calcium (8.4-10.2) mg/dL Magnesium (1.6-2.3) mg/dL AST (14-36) U/L Alkaline Phosphatase (38-126) U/L Total Protein (6.3-8.2) g/dL Albumin (3.5-5.0) g/dL Crossmatch Assessment and Plan Assessment: Impression: Status post emergent triple vessel CABG and intra-aortic balloon pump placement postoperative day #1. Non-ST elevation myocardial infarction on admission. Acute systolic congestive heart failure on admission. Dyslipidemia. History of diverticular disease. History of GI bleeding and chronic anemia. Chronic low back pain. Family history of coronary artery disease. Postoperative atelectasis, expected. Recommendation: Continue incentive spirometry. Continue aspirin and Plavix statin and beta blockers. Discontinue intra-aortic balloon pump Discontinue on necessary catheters and lines. Continue GI and DVT prophylaxis. Continue insulin Continue chest tubes and monitor output for the next 24 hours. Early ambulation. We'll continue to follow. Continue antibiotics for her GI issues. Time with Patient: Less than 30
[2021-01-31 13:08] LABS: Glucose,Whole Blood 110 mg/dL (75-99)
[2021-01-31 14:31] LABS: Glucose,Whole Blood 131 mg/dL (75-99)
[2021-01-31 15:20] LABS: Glucose,Whole Blood 139 mg/dL (75-99)
[2021-01-31] MEDS: PANTOPRAZOLE 40 MG TABLET PO SCH (16:50)
[2021-01-31] MEDS: INSULIN REGULAR 100 UNIT in SODIUM CHLORIDE 0.9% 100 ML IV SCH (16:57)
[2021-01-31 17:04] LABS: Glucose,Whole Blood 167 mg/dL (75-99)
[2021-01-31 17:47] LABS: Glucose,Whole Blood 172 mg/dL (75-99)
--- NOTE | 2021-01-31 17:52 | P.PN ---
Subjective Progress Note Date: 01/30/21 Progress Note Date: 01/30/21 HISTORY OF PRESENT ILLNESS This is a 75-year-old female patient of Dr. Avina with past medical history of hypertension, hyperlipidemia, gastroesophageal reflux disease, history of GI bleed, recurrent sigmoid diverticulitis status post sigmoid colectomy and low anterior resection, degenerative disc disease in the cervical spine. Patient complains of shortness of breath off and on for a week with exertional dyspnea. She states she has been sleeping on 3-4 pillows at night starting yesterday she became increasingly short of breath and couldn't lay down. She does complain of discomfort in her chest with right ear and right jaw pain. She denies any lower extremity edema. Patient presented to [facility] emergency center for evaluation. She is found to be afebrile, heart rate 99, respiratory rate 32, blood pressure 119/87, pulse ox 92% on room air. Patient was later changed over to nonrebreather and then to BiPAP. Blood work reveals WBC 14.5, hemoglobin 9.8, platelet count 328. INR 0.9. Sodium 135, potassium 4.5, chloride 104, CO2 15, BUN 17 and creatinine 0.75. Blood sugar 194. Lactic acid 3.5 and repeat of 1.3. Troponins 1.620, 1.850, 2.11. ProBNP 2700. Coronavirus PCR not detected. Chest x-ray reveals pulmonary interstitial edema and probable small right pleural effusion which are new. This could be acute heart failure or acute pneumonia. Echocardiogram reveals EF of 30-35%, LA is severely dilated, LV wall motion is hypokinetic, mild mitral regurgitation, mild tricuspid regurgitation. Patient is seen today in the emergency center waiting for bed on the cardiac stepdown unit. 01/26: Patient is seen today on the selective care unit, sitting up her recliner and is at bedside. She currently states that she is feeling better from yesterday and denied any chest pain or pressure and denies any neck pain. Patient does state that she did have some rectal bleeding most likely secondary to her history of diverticulosis. Patient underwent heart catheterization which revealed left main disease of 95%, LAD total occlusion of the diagonal branches, left circumflex subtotally occluded, right coronary artery 70-80% distally. Due to severe triple-vessel disease, patient was transferred to the intensive care unit post procedure. Patient also underwent intra-aortic balloon pump insertion. After procedures, patient went to the intensive care unit and consult with cardiothoracic surgery added. 01/27:Patient has been seen by cardiothoracic team with plan for CABG possibly on Sunday or Sunday. Patient is seen today in the intensive care unit and continued on intra-aortic balloon pump and continued on heparin drip. She denies having any chest pain and shortness of breath is improved. Stephenson 5/325 ordered. Patient was seen by Dr. Cormier regarding rectal bleeding with no plan for intervention at this time and patient started on Flagyl. Patient is a lso followed by pulmonary medicine with plan to obtain bedside FEV1. She remains afebrile, heart rate in the 90s, blood pressure and 100/54, pulse ox 96% on 2 L nasal cannula. 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 Repeat blood work reveals WBC 6.9, hemoglobin 9.5, platelet count 373. Sodium 135, blood sugar 101. Electrolytes renal function are normal. Liver function tests are within normal limits. Urinalysis showed small amount of blood. Patient is reaching 750 on incentive spirometry. Repeat blood work and chest x-ray ordered for tomorrow morning. 01/28: Patient is laying down in bed flat to due to the fact that she had intra- aortic balloon pump, she denies any chest pain at this time, she is not complaining of shortness of breath, she stated that her pain is well controlled but she would left to take it more often than every 8 hours, I spoke with the nursing staff about increasing her Stephenson to every 4-6 hours as needed, moderate the patient very closely, continue with bowel care, continue lactulose and Senokot, patient was seen earlier by thoracic surgery as well as by cardiology it was recommended that the patient will go for coronary artery bypass grafting next Sunday unless she become and stable, she has been requiring 2 L nasal cannula, her blood pressure is stable, her oxygen saturation stable, her hemoglobin is stable at this time, she was seen by Dr. Fuentes and he was recommended for the patient to be continued on Flagyl for now with no further intervention. 01/29: Patient's is laying down in bed she continued to have the intra-aortic balloon pump in place, she is nauseated she had an episode of vomiting today she denies any chest pain or shortness breath, she denies any abdominal pain, she has been constipated, she did not respond to lactulose, she would be getting MiraLAX along with a stool softener, we will monitor the patient very closely in the intensive care unit, patient will likely be operated on Sunday, continue supportive care, continue heparin drip, continue baby aspirin, continue atorvastatin, follow-up with the patient very closely. 01/30: Patient was taken to the OR by Dr. Renee early over the morning today for coronary artery bypass graft, as the patient has been on intra-aortic balloon pump at this point in time, she will be getting back to the intensive care unit later on today. REVIEW OF SYSTEMS Constitutional: No fever, no chills, no night sweats. No weight change. No weakness, reports fatigue no lethargy. No daytime sleepiness. HEENT: No headache. No blurred vision or double vision, no loss of vision. No loss of Hearing, no ringing in the ears, no dizziness. No nasal drainage or co ngestion. No epistaxis. No sore throat. Lungs: Reports shortness of breath-improved, cough, no sputum production. No wheezing. Reports exertional shortness of breath Cardiovascular: Denies chest pain, no lower extremity edema. No palpitations. No paroxysmal nocturnal dyspnea. Reports orthopnea. No lightheadedness or dizziness. No syncopal episodes. Abdominal: No abdominal pain. No nausea, vomiting. No diarrhea. No constipation. No bloody or tarry stools. No loss of appetite. Genitourinary: No dysuria, increased frequency, urgency. No urinary retention. Musculoskeletal: No myalgias. No muscle weakness, no gait dysfunction, no frequent falls. Positive for back pain. No neck pain. Integumentary: No wounds, no lesions. No rash or pruritus. No unusual bruising. No change in hair or nails. Neurologic: No aphasia. No facial droop. No change in mentation. No head injury. No headache. No paralysis. No paresthesia. Psychiatric: No depression. Positive for anxiety. No mood swings. Endocrine: Mildly abnormal blood sugars. No weight change. PHYSICAL EXAMINATION Gen: This is a 75-year-old female. She is resting in ICU bed and appears to be comfortable. and daughter at bedside. HEENT: Head is atraumatic, normocephalic. Pupils equal, round. Sclerae is anicteric. NECK: Supple. No JVD. No lymphadenopathy. No thyromegaly. LUNGS: Clear to auscultation. No wheezes or rhonchi. No intercostal retractions. HEART: first heart sound is depressed, second heart sound is normal, there is systolic ejection murmur 2/6 located in the left sternal border, there is intra- aortic balloon pump in place, there is a gallop ABDOMEN: Soft. Bowel sounds are present. No masses. No tenderness. External female catheter in place draining clear cory urine. EXTREMITIES: No pedal edema. No calf tenderness. Dorsalis pedis palpable bi laterally. NEUROLOGICAL: Patient is awake, alert and oriented x3. Cranial nerves 2 through 12 are grossly intact. ASSESSMENT AND PLAN 1. Acute hypoxic respiratory failure secondary to acute systolic heart failure with cardiogenic shock Continue IV Lasix 40 mg every 12 hours, monitor I&O and daily weights, monitor renal function and electrolytes, patient went to the OR for CABG. 2. Non-ST elevated myocardial infarction status post heart catheterization finding triple-vessel disease, status post intra-aortic balloon pump. Patient went to the OR for CABG 3. 3. Ischemic cardiomyopathy. Ejection fraction about 30%, patient is not able to tolerate beta carlo this time, we'll continue with Lasix 40 mg IV push every 12 hours, continue aspirin 81 mg once every day, she is currently off Plavix 3 4. Rectal bleeding secondary to diverticulitis. Consult with general surgery appreciated, patient started on Flagyl 500 mg IV piggyback every 8 hours. 5. Hyperglycemia without diagnosis of diabetes. Continue to monitor. 6. Hypertension and hypertensive cardiovascular disease. Patient has been off lisinopril, and metoprolol. 7. Hyperlipidemia. Continue atorvastatin 80 mg at bedtime. 8. Gastroesophageal reflux disease and GI prophylaxis. Continue Protonix 40 mg daily. 9. History of GI bleed, no active bleeding at this time. Patient had rectal bleeding 1 most likely secondary to diverticulitis 10. History of diverticulitis status post sigmoid colectomy and low anterior resection. 11. Degenerative disc disease in the cervical spine. 12. DVT prophylaxis. Continue heparin drip. 13. COVID-19 testing negative. Patient has been hospitalized during a pandemic. 14. Opiate-induced constipation. Continue patient on MiraLAX 17 g in 8 ounces water, continue lactulose 20 g orally once every day, continue Senokot 2 tablet orally bedtime. 15. Guarded prognosis. Objective - Vital Signs Vital signs: Vital Signs Temp 98.6 F 01/30/21 00:00 Pulse 80 01/30/21 06:00 Resp 20 01/30/21 06:00 BP 113/68 01/30/21 06:00 Pulse Ox 99 01/30/21 06:00 Intake & Output 01/29/21 01/30/21 01/30/21 18:59 06:59 18:59 Intake Total 900 950 Output Total 925 625 Balance -25 325 Weight 80.4 kg Intake: IV 600 700 Sodium Chloride 0.9% 1, 400 600 000 ml @ 50 mls/hr IV . Q20H TIANNA Rx#:[id number] metroNIDAZOLE-NS PMX 500 200 100 mg In Saline 1 100ml.bag @ 100 mls/hr IVPB Q8HR TIANNA Rx#:[id number] Intake, IV Titration 300 250 Amount Heparin Sod,Pork in 0.45% 250 250 NaCl 25,000 unit In 0.45 % NaCl 1 250ml.bag @ 11.6 UNITS/KG/HR 10.05 mls/hr IV .Q24H TIANNA Rx#: [id number] Sodium Chloride 0.9% 1, 50 000 ml @ 50 mls/hr IV . Q20H TIANNA Rx#:[id number] Output: Urine 925 625 Other: Voiding Method External Catheter External Catheter - Labs CBC & Chem 7: 01/30/21 04:33 01/30/21 04:33 Labs: Abnormal Lab Results - Last 24 Hours (Table) 01/29/21 01/30/21 01/30/21 Range/Units 17:12 04:33 04:33 RBC 3.61 L (3.80-5.40) m/uL Hgb 10.1 L (11.4-16.0) gm/dL Hct 30.5 L (34.0-46.0) % APTT 45.8 H (22.0-30.0) sec Sodium (137-145) mmol/L Glucose (74-99) mg/dL AST (14-36) U/L Crossmatch See Detail 01/30/21 Range/Units 04:33 RBC (3.80-5.40) m/uL Hgb (11.4-16.0) gm/dL Hct (34.0-46.0) % APTT (22.0-30.0) sec Sodium 133 L (137-145) mmol/L Glucose 122 H (74-99) mg/dL AST 40 H (14-36) U/L Crossmatch
[2021-01-31 19:11] LABS: Glucose,Whole Blood 146 mg/dL (75-99)
[2021-01-31 19:58] LABS: Glucose,Whole Blood 152 mg/dL (75-99)
--- NOTE | 2021-01-31 20:05 | P.PN ---
Subjective Progress Note Date: 01/31/21 CHIEF COMPLAINT: Rectal bleeding HISTORY OF PRESENT ILLNESS: The patient is a 75-year-old female status post CABG x 3, 01/30/21. She is resting comfortably. She denies any moderate rectal bleeding. No reports of abdominal pain. Her is at bedside. Her pain is tolerable. ROS: No reports of nausea and vomiting. No fevers or chills. No productive sputum PHYSICAL EXAM: VITAL SIGNS: Reviewed CONSTITUTIONAL: Well developed and in no acute distress. EYES: Conjuctivae without sclera icterus. Extraocular movements grossly intact. HEAD, EARS, NOSE, THROAT: Moist buccal mucosa. Head is atraumatic, normocephalic. Hears conversational speech. No nasal drainage. NECK: No gross thyroidomegaly. No jugular venous distention. RESPIRATORY: Non-labored respirations and equal bilateral excursions. CARDIOVASCULAR: Palpable 2+ radial pulses. ABDOMEN: Soft. No peritonitis. MUSCULOSKELETAL: No gross deformity of the lower extremities noted. No clubbing. No cyanosis. SKIN: Good skin turgor. Well perfused. NEUROLOGIC: Cranial nerves II through XII grossly intact. No focal or lat eralizing signs. PSYCH: Appropriate affect. Alert and oriented to person, place and time. CLINICAL LABS: Reviewed. White blood cell count normal at 9.5. Hgb 8.8 to 8.0 with expected anemia. ASSESSMENT: 1. Acute myocardial infarction 2. Status post CABG 3. History of rectal bleeding. 4. History sigmoid diverticulitis. PLAN: 1. Monitor Hgb 2. Diet as tolerated Objective - Vital Signs Vital signs: Vital Signs Temp 98.9 F 01/31/21 16:00 Pulse 81 01/31/21 18:45 Resp 27 H 01/31/21 19:00 BP 130/63 01/30/21 12:00 Pulse Ox 93 L 01/31/21 19:00 Intake & Output 01/31/21 01/31/21 02/01/21 06:59 18:59 06:59 Intake Total 318.383 3539.871 36 Output Total 575 692 100 Balance 186.268 310.871 -64 Weight 89.4 kg Intake: IV 705.5 920 36 Cardiac Output 80 140 Lactated Ringers 1,000 ml 600 440 30 @ 20 mls/hr IV .Q24H TIANNA Rx#:[id number] Nitroglycerin-D5w Pmx 50 1.5 mg In Dextrose/Water 1 250ml.bag @ 5 MCG/MIN 1.5 mls/hr IV .Q24H TIANNA Rx#: [id number] Pressure Bag 0.9 Sodium 24 90 6 Chloride ceFAZolin 2 gm In Sodium 50 Chloride 0.9% 50 ml @ 100 mls/hr IVPB ONCE ONE Rx# :[id number] metroNIDAZOLE-NS PMX 500 200 mg In Saline 1 100ml.bag @ 100 mls/hr IVPB Q8HR TIANNA Rx#:[id number] Intake, IV Titration 55.768 82.871 Amount Insulin Regular 100 unit 47.471 22.169 In Sodium Chloride 0.9% 100 ml @ Per Protocol IV .Q0M COUNTS INCLUDE 234 BEDS AT [facility] Rx#:[id number] Milrinone-D5w Pmx 20 mg 60.702 In Dextrose/Water 1 100ml .bag @ 0.1 MCG/KG/MIN 2. 412 mls/hr IV .Q24H TIANNA Rx#:[id number] propofoL 1,000 mg In 8.297 Empty Bag 1 bag @ Titrate IV .Q0M COUNTS INCLUDE 234 BEDS AT THE [facility] Rx#: [id number] Output: Chest Tube Drainage 205 110 0 Bilateral Mediastinal 150 50 0 Left Lateral Chest 55 60 0 Drainage 30 Left Calf 30 Urine 340 582 100 Other: Voiding Method Indwelling Catheter Indwelling Catheter ABP, PAP, CO, CI - Last Documented Arterial Blood Pressure 117/58 Pulmonary Artery Pressure 44/20 Cardiac Output 4.5 Cardiac Index 2.5 - Labs CBC & Chem 7: 01/31/21 04:20 01/31/21 04:20 Labs: Abnormal Lab Results - Last 24 Hours (Table) 01/29/21 01/30/21 01/30/21 Range/Units 17:12 19:38 20:28 RBC (3.80-5.40) m/uL Hgb (11.4-16.0) gm/dL Hct (34.0-46.0) % ABG O2 Saturation 98.1 H (94-97) % Sodium (137-145) mmol/L Glucose (74-99) mg/dL POC Glucose (mg/dL) 175 H (75-99) mg/dL AST (14-36) U/L Alkaline Phosphatase (38-126) U/L Total Protein (6.3-8.2) g/dL Albumin (3.5-5.0) g/dL Crossmatch See Detail 01/30/21 01/30/21 01/30/21 Range/Units 21:16 22:19 23:04 RBC (3.80-5.40) m/uL Hgb (11.4-16.0) gm/dL Hct (34.0-46.0) % ABG O2 Saturation (94-97) % Sodium (137-145) mmol/L Glucose (74-99) mg/dL POC Glucose (mg/dL) 174 H 166 H 154 H (75-99) mg/dL AST (14-36) U/L Alkaline Phosphatase (38-126) U/L Total Protein (6.3-8.2) g/dL Albumin (3.5-5.0) g/dL Crossmatch 01/31/21 01/31/21 01/31/21 Range/Units 00:09 01:10 02:05 RBC (3.80-5.40) m/uL Hgb (11.4-16.0) gm/dL Hct (34.0-46.0) % ABG O2 Saturation (94-97) % Sodium (137-145) mmol/L Glucose (74-99) mg/dL POC Glucose (mg/dL) 136 H 129 H 128 H (75-99) mg/dL AST (14-36) U/L Alkaline Phosphatase (38-126) U/L Total Protein (6.3-8.2) g/dL Albumin (3.5-5.0) g/dL Crossmatch 01/31/21 01/31/21 01/31/21 Range/Units 03:08 04:20 04:20 RBC 2.81 L (3.80-5.40) m/uL Hgb 8.0 L (11.4-16.0) gm/dL Hct 24.4 L (34.0-46.0) % ABG O2 Saturation (94-97) % Sodium 132 L (137-145) mmol/L Glucose 113 H (74-99) mg/dL POC Glucose (mg/dL) 128 H (75-99) mg/dL AST 47 H (14-36) U/L Alkaline Phosphatase 36 L (38-126) U/L Total Protein 5.0 L (6.3-8.2) g/dL Albumin 2.9 L (3.5-5.0) g/dL Crossmatch 01/31/21 01/31/21 01/31/21 Range/Units 04:20 05:57 06:58 RBC (3.80-5.40) m/uL Hgb (11.4-16.0) gm/dL Hct (34.0-46.0) % ABG O2 Saturation (94-97) % Sodium (137-145) mmol/L Glucose (74-99) mg/dL POC Glucose (mg/dL) 118 H 127 H 122 H (75-99) mg/dL AST (14-36) U/L Alkaline Phosphatase (38-126) U/L Total Protein (6.3-8.2) g/dL Albumin (3.5-5.0) g/dL Crossmatch 01/31/21 01/31/21 01/31/21 Range/Units 08:24 10:15 11:12 RBC (3.80-5.40) m/uL Hgb (11.4-16.0) gm/dL Hct (34.0-46.0) % ABG O2 Saturation (94-97) % Sodium (137-145) mmol/L Glucose (74-99) mg/dL POC Glucose (mg/dL) 110 H 147 H 128 H (75-99) mg/dL AST (14-36) U/L Alkaline Phosphatase (38-126) U/L Total Protein (6.3-8.2) g/dL Albumin (3.5-5.0) g/dL Crossmatch 01/31/21 01/31/21 01/31/21 Range/Units 12:57 14:20 15:09 RBC (3.80-5.40) m/uL Hgb (11.4-16.0) gm/dL Hct (34.0-46.0) % ABG O2 Saturation (94-97) % Sodium (137-145) mmol/L Glucose (74-99) mg/dL POC Glucose (mg/dL) 110 H 131 H 139 H (75-99) mg/dL AST (14-36) U/L Alkaline Phosphatase (38-126) U/L Total Protein (6.3-8.2) g/dL Albumin (3.5-5.0) g/dL Crossmatch 01/31/21 01/31/21 01/31/21 Range/Units 16:52 17:45 19:01 RBC (3.80-5.40) m/uL Hgb (11.4-16.0) gm/dL Hct (34.0-46.0) % ABG O2 Saturation (94-97) % Sodium (137-145) mmol/L Glucose (74-99) mg/dL POC Glucose (mg/dL) 167 H 172 H 146 H (75-99) mg/dL AST (14-36) U/L Alkaline Phosphatase (38-126) U/L Total Protein (6.3-8.2) g/dL Albumin (3.5-5.0) g/dL Crossmatch 01/31/21 Range/Units 19:56 RBC (3.80-5.40) m/uL Hgb (11.4-16.0) gm/dL Hct (34.0-46.0) % ABG O2 Saturation (94-97) % Sodium (137-145) mmol/L Glucose (74-99) mg/dL POC Glucose (mg/dL) 152 H (75-99) mg/dL AST (14-36) U/L Alkaline Phosphatase (38-126) U/L Total Protein (6.3-8.2) g/dL Albumin (3.5-5.0) g/dL Crossmatch
[2021-01-31] MEDS ORDERED: AMIODARONE 200 MG TAB PO SCH (21:00)
[2021-01-31] MEDS: SENNOSIDES-DOCUSATE SODIUM 1 EACH TAB PO SCH (21:24)
[2021-01-31 22:30] LABS: Glucose,Whole Blood 149 mg/dL (75-99)
[2021-02-01] MEDS: HEPARIN SODIUM,PORCINE/PF 5,000 UNIT/0.5 ML SYRINGE SQ SCH ×4 (00:05→23:40)
[2021-02-01] MEDS: metroNIDAZOLE-NS PMX 500 MG in SALINE 1 100ML.BAG IVPB SCH ×4 (00:05→23:41)
[2021-02-01] MEDS: KETOROLAC 30 MG/ML 1 ML VIAL IVP SCH ×5 (00:06→23:40)
[2021-02-01] MEDS: INSULIN REGULAR 100 UNIT in SODIUM CHLORIDE 0.9% 100 ML IV SCH (00:06)
[2021-02-01 00:20] LABS: Glucose,Whole Blood 131 mg/dL (75-99)
[2021-02-01] MEDS: HYDROcodone/APAP 5-325MG 1 EACH TAB PO PRN ×2 (02:10→08:38)
[2021-02-01 02:11] LABS: Glucose,Whole Blood 119 mg/dL (75-99)
[2021-02-01 03:46] LABS: Glucose,Whole Blood 115 mg/dL (75-99)
[2021-02-01 04:25] LABS: Basophils # (A) 0.1 k/uL (0-0.2); Basophils % (A) 0 %; Eosinophils # (A) 0.2 k/uL (0-0.7); Eosinophils % (A) 2 %; HCT 23.6 % (34.0-46.0); HGB 7.6 gm/dL (11.4-16.0); Hypochromasia Slight; Lymphocytes # (A) 2.2 k/uL (1.0-4.8); Lymphocytes % (A) 20 %; MCH 28.5 pg (25.0-35.0); MCV 89.1 fL (80.0-100.0); Monocytes # (A) 0.7 k/uL (0-1.0); Monocytes % (A) 7 %; Neutrophils # (A) 7.2 k/uL (1.3-7.7); Neutrophils % (A) 67 %; Platelet Count 212 k/uL (150-450); RBC 2.65 m/uL (3.80-5.40); RDW 14.1 % (11.5-15.5); WBC 10.9 k/uL (3.8-10.6)
[2021-02-01 04:43] LABS: Ionized Calcium 5.1 mg/dL (4.5-5.3)
[2021-02-01 05:45] LABS: Albumin 2.7 g/dL (3.5-5.0); Calcium 8.5 mg/dL (8.4-10.2); Total Bilirubin 0.2 mg/dL (0.2-1.3)
[2021-02-01] MEDS: LACTATED RINGERS 1,000 ML IV SCH (05:51)
[2021-02-01 05:57] LABS: Glucose,Whole Blood 116 mg/dL (75-99)
--- NOTE | 2021-02-01 06:29 | XR ---
EXAMINATION TYPE: XR chest 1V portable DATE OF EXAM: 02/01/2021 CLINICAL HISTORY: Difficulty breathing progress study. Postoperative cardiac surgery. TECHNIQUE: Single AP portable semiupright view of the chest is obtained. COMPARISON: Chest x-ray from one day earlier and older studies FINDINGS: There is persistent left basilar chest tube and 2 mediastinal drainage catheters. Interval removal of the right internal jugular [place] catheter. Overlying sternal wires along with left at rial appendage clip redemonstrated. Surgical clips epigastric region redemonstrated. Retained epicard ial pacer wires redemonstrated. Stable mild cardiomegaly with atherosclerotic and ectatic thoracic aorta causing some mass effect on the trachea. Chronic parenchymal changes redemonstrated with patchy left basilar atelectasis. No new focal airspace opacity. No visualized pneumothorax. Osseous structures remain intact. IMPRESSION: Chronic changes and mild cardiomegaly with left sided chest tube. No pneumothorax. Patchy left basilar atelectasis redemonstrated. No new infiltrate.
[2021-02-01] MEDS: PANTOPRAZOLE 40 MG TABLET PO SCH ×2 (07:08→17:04)
[2021-02-01] MEDS: METOPROLOL TARTRATE 25 MG TAB PO SCH ×2 (08:01→20:25)
[2021-02-01] MEDS: ASCORBIC ACID 500 MG TAB PO SCH ×2 (08:02→17:04)
[2021-02-01] MEDS: AMIODARONE 200 MG TAB PO SCH ×2 (08:02→20:25)
[2021-02-01] MEDS: CLOPIDOGREL 75 MG TAB PO SCH (08:02)
[2021-02-01] MEDS: ATORVASTATIN 40 MG TAB PO SCH (08:02)
[2021-02-01] MEDS: FERROUS SULFATE 325 MG TAB PO SCH ×2 (08:03→17:04)
--- NOTE | 2021-02-01 08:14 | P.PN ---
Subjective Progress Note Date: 02/01/21 Principal diagnosis: Triple-vessel coronary artery disease with left main disease, chest pain, progressive shortness of breath, non-STEMI, acute systolic heart failure present on admission, reported bleeding per rectum. Previous medical history of hypertension, hyperlipidemia, GERD, GI bleed with preop chronic anemia, diverticulosis, localized colitis, degenerative disc disease with chronic low back pain, obesity, and family history of coronary artery disease POD #2 urgent triple coronary artery bypass grafting using the left internal mammary artery to the left anterior descending artery, reverse saphenous vein graft from the aorta to the posterior descending artery, reverse saphenous vein graft from the aorta to the subtotally occluded obtuse marginal artery, exclusi on of the left atrial appendage using a 35 mm AtriClip, endoscopic harvesting of the left greater saphenous vein from the groin to above the ankle level, intraoperative transesophageal echocardiogram and epiaortic scanning, intraoperative graft flow measurements using the Allopticim system Postopertive acute blood loss anemia, expected given hemodilution, cardiopulmonary bypass pump, and preoperative anemia The patient was seen and examined this morning in the ICU sitting up in a recliner in no acute distress. Remains in sinus rhythm, hemodynamically stable on no inotropes or pressors. Intra-aortic balloon pump was discontinued yesterday without incident. Right internal jugular swan/cordis, right radial arterial line, mediastinal and left pleural chest tubes remain. Patient complains of pain at chest tube site and chronic back pain which is controlled with current medication regimen, denies shortness of breath. Her only real complaint at this time is feeling tired. She does state she was up to bedside commode this am and had small amount rox red blood but no bowel movement, likely from hemorrhoid. Objective - Vital Signs Vital signs: Vital Signs Temp 98.0 F 02/01/21 04:00 Pulse 80 02/01/21 07:00 Resp 13 02/01/21 07:00 BP 105/63 02/01/21 07:00 Pulse Ox 96 02/01/21 07:00 Intake & Output 01/31/21 02/01/21 02/01/21 18:59 06:59 18:59 Intake Total 1002.871 266.908 Output Total 692 380 15 Balance 310.871 -113.092 -15 Weight 89.1 kg Intake: IV 920 245 Cardiac Output 140 Lactated Ringers 1,000 ml 440 230 @ 20 mls/hr IV .Q24H [facility] Rx#:[id number] Pressure Bag 0.9 Sodium 90 15 Chloride ceFAZolin 2 gm In Sodium 50 Chloride 0.9% 50 ml @ 100 mls/hr IVPB ONCE ONE Rx# :[id number] metroNIDAZOLE-NS PMX 500 200 mg In Saline 1 100ml.bag @ 100 mls/hr IVPB Q8HR [facility] Rx#:[id number] Intake, IV Titration 82.871 21.908 Amount Insulin Regular 100 unit 22.169 21.908 In Sodium Chloride 0.9% 100 ml @ Per Protocol IV .Q0M [facility] Rx#:[id number] Milrinone-D5w Pmx 20 mg 60.702 In Dextrose/Water 1 100ml .bag @ 0.1 MCG/KG/MIN 2. 412 mls/hr IV .Q24H [facility] Rx#:[id number] Output: Chest Tube Drainage 110 50 Bilateral Mediastinal 50 30 Left Lateral Chest 60 20 Urine 582 330 15 Other: Voiding Method Indwelling Catheter Indwelling Catheter ABP, PAP, CO, CI - Last Documented Arterial Blood Pressure 94/46 Pulmonary Artery Pressure 44/20 Cardiac Output 4.5 Cardiac Index 2.5 - Exam CONSTITUTIONAL: Appears comfortable, cooperative, no acute distress RESPIRATORY: Lungs sounds diminished bilaterally. Respirations even, nonlabored. Currently on 8 liters high flow nasal cannula with oxygen saturation 92-94%. Able to achieve 500 mL on incentive spirometry. Strong cough. CARDIOVASCULAR: S1, S2 present. Regular rate and rhythm, sinus rhythm on telemetry. Sternum stable. Palpable peripheral pulses bilaterally. Trace lower extremity edema present. No calf pain or tenderness noted. Heart hugger in place with patient demonstrating appropriate use. Antiembolism stockings, SCDs present. GASTROINTESTINAL: Abdomen soft, nontender, nondistended. Active bowel sounds present 4 quadrants. Tolerating diet. Positive bowel movement after surgery, admits to small amount rox blood per rectum this am. GENITOURINARY: Hackett present draining clear, yellow urine. Output overnight 15-30 mL per hour, 912 mL in the last 24 hours INTEGUMENTARY: Skin is warm and dry with evidence of good perfusion. Anterior chest incision well approximated and covered with dry intact dressing. Left lower extremity EVH site well approximated without redness. Right groin IABP site soft and non-tender NEUROLOGIC: Cranial nerves II through XII intact MUSKULOSKELETAL: Able to move all extremities, strength equal bilaterally PSYCHIATRIC: Alert and oriented to person place and time, appropriate affect, intact judgment and insight INVASIVE LINES AND TUBES: Mediastinal/left pleural chest tubes present and connected to wall suction, no air leaks present. Mediastinal tube with 30 mL s erosanguineous drainage overnight, 150 mL in the last 24 hours. Left pleural chest tube with 30 mL serosanguineous drainage overnight, 150 mL in the last 24 hours. Atrial epicardial pacemaker wires present, grounded. Right internal jugular cordis, right radial arterial line present - Allied health notes Allied health notes reviewed: nursing - Labs CBC & Chem 7: 02/01/21 03:46 02/01/21 03:46 Labs: Abnormal Lab Results - Last 24 Hours (Table) 01/31/21 01/31/21 01/31/21 Range/Units 08:24 10:15 11:12 WBC (3.8-10.6) k/uL RBC (3.80-5.40) m/uL Hgb (11.4-16.0) gm/dL Hct (34.0-46.0) % Sodium (137-145) mmol/L BUN (7-17) mg/dL Glucose (74-99) mg/dL POC Glucose (mg/dL) 110 H 147 H 128 H (75-99) mg/dL Total Protein (6.3-8.2) g/dL Albumin (3.5-5.0) g/dL 01/31/21 01/31/21 01/31/21 Range/Units 12:57 14:20 15:09 WBC (3.8-10.6) k/uL RBC (3.80-5.40) m/uL Hgb (11.4-16.0) gm/dL Hct (34.0-46.0) % Sodium (137-145) mmol/L BUN (7-17) mg/dL Glucose (74-99) mg/dL POC Glucose (mg/dL) 110 H 131 H 139 H (75-99) mg/dL Total Protein (6.3-8.2) g/dL Albumin (3.5-5.0) g/dL 01/31/21 01/31/21 01/31/21 Range/Units 16:52 17:45 19:01 WBC (3.8-10.6) k/uL RBC (3.80-5.40) m/uL Hgb (11.4-16.0) gm/dL Hct (34.0-46.0) % Sodium (137-145) mmol/L BUN (7-17) mg/dL Glucose (74-99) mg/dL POC Glucose (mg/dL) 167 H 172 H 146 H (75-99) mg/dL Total Protein (6.3-8.2) g/dL Albumin (3.5-5.0) g/dL 01/31/21 01/31/21 02/01/21 Range/Units 19:56 22:28 00:17 WBC (3.8-10.6) k/uL RBC (3.80-5.40) m/uL Hgb (11.4-16.0) gm/dL Hct (34.0-46.0) % Sodium (137-145) mmol/L BUN (7-17) mg/dL Glucose (74-99) mg/dL POC Glucose (mg/dL) 152 H 149 H 131 H (75-99) mg/dL Total Protein (6.3-8.2) g/dL Albumin (3.5-5.0) g/dL 02/01/21 02/01/21 02/01/21 Range/Units 02:07 03:42 03:46 WBC 10.9 H (3.8-10.6) k/uL RBC 2.65 L (3.80-5.40) m/uL Hgb 7.6 L (11.4-16.0) gm/dL Hct 23.6 L (34.0-46.0) % Sodium (137-145) mmol/L BUN (7-17) mg/dL Glucose (74-99) mg/dL POC Glucose (mg/dL) 119 H 115 H (75-99) mg/dL Total Protein (6.3-8.2) g/dL Albumin (3.5-5.0) g/dL 02/01/21 02/01/21 Range/Units 03:46 05:55 WBC (3.8-10.6) k/uL RBC (3.80-5.40) m/uL Hgb (11.4-16.0) gm/dL Hct (34.0-46.0) % Sodium 133 L (137-145) mmol/L BUN 21 H (7-17) mg/dL Glucose 109 H (74-99) mg/dL POC Glucose (mg/dL) 116 H (75-99) mg/dL Total Protein 5.0 L (6.3-8.2) g/dL Albumin 2.7 L (3.5-5.0) g/dL - Imaging and Cardiology Chest x-ray: report reviewed, image reviewed Assessment and Plan Assessment: 1. Triple-vessel coronary artery disease with left main disease, current intra- aortic balloon pump in place, status post three-vessel CABG 2. Chest pain, progressive shortness of breath on admission, non-STEMI on admission 3. Acute systolic heart failure present on admission 4. History of hypertension 5. History of hyperlipidemia, treated 6. GERD 7. History of GI bleed with reported bleeding per rectum this admission with preoperative chronic anemia 8. History of diverticulosis, localized colitis 9. Degenerative disc disease, chronic low back pain 10. Family history of coronary artery disease 11. Postopertive acute blood loss anemia, expected Plan: 1. Continue aspirin, statin, Plavix, beta carlo therapy. Will increase beta carlo therapy as tolerated. Continue prophylactic amiodarone, decreased to 200 mg BID 2. Wean O2 as tolerated. Encourage incentive spirometry use. Bronchodilators per pulmonology 3. Increase activity as tolerated. PT/OT/cardiac rehab consulted 4. Will continue to monitor daily labs, chest x-rays. Electrolyte replacement per protocol. No further blood transfusion at this point. No lasix today 5. GI/DVT prophylaxis 6. Pain control with current medication regimen 7. Insulin management per primary care service. Patient is not diabetic, preoperative hemoglobin A1c 5.6%. Patient does need tight blood sugar control to promote sternal union, decrease infection risk 8. Discontinue cordis, arterial line 9. Will discontinue chest tubes 10. Continue Hackett catheter for another 24 hours first strict accurate intake and output. Daily weights 11. Iron, Vitamin C added 12. Keep in ICU for another 24 hours 13. More recommendations to follow Time with Patient: Greater than 30
[2021-02-01] MEDS: LIDOCAINE 5% PATCH TOPICAL SCH (08:26)
[2021-02-01] MEDS: ASPIRIN 325 MG TAB PO SCH (08:39)
[2021-02-01 08:53] LABS: Glucose,Whole Blood 124 mg/dL (75-99)
[2021-02-01] MEDS: ACETYLCYSTEINE 800 MG/4 ML VIAL INHALATION SCH ×4 (09:01→19:22)
[2021-02-01] MEDS: IPRATROPIUM-ALBUTEROL 3 ML NEB INHALATION SCH ×4 (09:01→19:22)
[2021-02-01 11:24] LABS: Glucose,Whole Blood 123 mg/dL (75-99)
--- NOTE | 2021-02-01 11:32 | P.PN ---
Subjective Progress Note Date: 02/01/21 HISTORY OF PRESENT ILLNESS This is a 75-year-old female patient of Dr. Avina with past medical history of hypertension, hyperlipidemia, gastroesophageal reflux disease, history of GI bleed, recurrent sigmoid diverticulitis status post sigmoid colectomy and low anterior resection, degenerative disc disease in the cervical spine. Patient complains of shortness of breath off and on for a week with exertional dyspnea. She states she has been sleeping on 3-4 pillows at night starting yesterday she became increasingly short of breath and couldn't lay down. She does complain of discomfort in her chest with right ear and right jaw pain. She denies any lower extremity edema. Patient presented to [facility] emergency center for evaluation. She is found to be afebrile, heart rate 99, respiratory rate 32, blood pressure 119/87, pulse ox 92% on room air. Patient was later changed over to nonrebreather and then to BiPAP. Blood work reveals WBC 14.5, hemoglobin 9.8, platelet count 328. INR 0.9. Sodium 135, potassium 4.5, chloride 104, CO2 15, BUN 17 and creatinine 0.75. Blood sugar 194. Lactic acid 3.5 and repeat of 1.3. Troponins 1.620, 1.850, 2.11. ProBNP 2700. Coronavirus PCR not detected. Chest x-ray reveals pulmonary interstitial edema and probable small right pleural effusion which are new. This could be acute heart failure or acute pne umonia. Echocardiogram reveals EF of 30-35%, LA is severely dilated, LV wall motion is hypokinetic, mild mitral regurgitation, mild tricuspid regurgitation. Patient is seen today in the emergency center waiting for bed on the cardiac stepdown unit. 01/26: Patient is seen today on the selective care unit, sitting up her recliner and is at bedside. She currently states that she is feeling better from yesterday and denied any chest pain or pressure and denies any neck pain. Patient does state that she did have some rectal bleeding most likely secondary to her history of diverticulosis. Patient underwent heart catheterization which revealed left main disease of 95%, LAD total occlusion of the diagonal branches, left circumflex subtotally occluded, right coronary artery 70-80% distally. Due to severe triple-vessel disease, patient was transferred to the intensive care unit post procedure. Patient also underwent intra-aortic balloon pump insertion. After procedures, patient went to the intensive care unit and consult with cardiothoracic surgery added. 01/27:Patient has been seen by cardiothoracic team with plan for CABG possibly on Sunday or Sunday. Patient is seen today in the intensive care unit and continued on intra-aortic balloon pump and continued on heparin drip. She denies having any chest pain and shortness of breath is improved. Rugby 5/325 ordered. Patient was seen by Dr. Cormier regarding rectal bleeding with no plan for intervention at this time and patient started on Flagyl. Patient is also followed by pulmonary medicine with plan to obtain bedside FEV1. She remains afebrile, heart rate in the 90s, blood pressure and 100/54, pulse ox 96% on 2 L nasal cannula. senior information security consultant sinus rhythm. Repeat blood work reveals WBC 6.9, hemoglobin 9.5, platelet count 373. Sodium 135, blood sugar 101. Electrolytes renal function are normal. Liver function tests are within normal limits. Urinalysis showed small amount of blood. Patient is reaching 750 on incentive spirometry. Repeat blood work and chest x-ray ordered for tomorrow morning. 01/28: Patient is laying down in bed flat to due to the fact that she had intra- aortic balloon pump, she denies any chest pain at this time, she is not complaining of shortness of breath, she stated that her pain is well controlled but she would left to take it more often than every 8 hours, I spoke with the nursing staff about increasing her Rugby to every 4-6 hours as needed, moderate the patient very closely, continue with bowel care, continue lactulose and Senokot, patient was seen earlier by thoracic surgery as well as by cardiology it was recommended that the patient will go for coronary artery bypass grafting next Sunday unless she become and stable, she has been requiring 2 L nasal cannula, her blood pressure is stable, her oxygen saturation stable, her hemoglobin is stable at this time, she was seen by Dr. Fuentes and he was recommended for the patient to be continued on Flagyl for now with no further intervention. 01/29: Patient's is laying down in bed she continued to have the intra-aortic balloon pump in place, she is nauseated she had an episode of vomiting today she denies any chest pain or shortness breath, she denies any abdominal pain, she has been constipated, she did not respond to lactulose, she would be getting MiraLAX along with a stool softener, we will monitor the patient very closely in the intensive care unit, patient will likely be operated on Sunday, continue supportive care, continue heparin drip, continue baby aspirin, continue atorvastatin, follow-up with the patient very closely. 01/31: Today, patient underwent CABG with DOBBS to LAD, SVG to PDA and OM 1. Discontinued on intra-aortic balloon pump which is to be discontinued later to day. Patient is off nitroglycerin, continued on low dose Primacor. Patient was successfully extubated last evening. Pulse ox 92% on high flow nasal cannula 10 L. senior information security consultant sinus rhythm. Mediastinal and left pleural chest tube in place with serosanguineous output. She is currently on insulin drip. Patient complains of feeling tired and does have significant chest discomfort from surgery. Rugby was added and Toradol to be edited by cardiothoracic. Patient did have a loose bowel movement but has been receiving lactulose for constipation. Repeat blood work reveals hemoglobin of 8. Creatinine 0.57. Blood sugars are running between 118- 128. Repeat chest x-ray reveals similar borderline heart size. Interval extubation and removal of NG tube. Persistent but improving retrocardiac postoperative atelectasis. 02/01: Patient remains in the intensive care unit, today she is sitting up in recliner and appears to be stronger from yesterday. She has been afebrile, heart rate 73, blood pressure 115/57, pulse ox 95-96% on 8 L nasal cannula. Repeat blood work reveals WBC 10.9, hemoglobin 7.6. Creatinine 0.79, potassium 4.0. Blood sugars are running between 115 and 124. Patient is not diabetic, insulin drip will be discontinued and patient placed on NovoLog scale only. est x-ray reveals chronic changes and mild cardiomegaly with left-sided chest tube. No pneumothorax. Patchy left basilar atelectasis. Patient is off balloon pump. REVIEW OF SYSTEMS Constitutional: No fever, no chills, no night sweats. No weight change. No weakness, reports fatigue no lethargy. Reports daytime sleepiness. HEENT: No headache. No blurred vision or double vision, no loss of vision. No loss of Hearing, no ringing in the ears, no dizziness. No nasal drainage or congestion. No epistaxis. No sore throat. Lungs: Reports shortness of breath-improved, cough, no sputum production. No wheezing. Reports exertional shortness of breath Cardiovascular: Reports severe chest discomfort, no lower extremity edema. No palpitations. No paroxysmal nocturnal dyspnea. Reports orthopnea. No lightheadedness or dizziness. No syncopal episodes. Abdominal: No abdominal pain. No nausea, vomiting. No diarrhea. No constipation. Occasional bloody or tarry stools. No loss of appetite. Genitourinary: No dysuria, increased frequency, urgency. No urinary retention. Musculoskeletal: No myalgias. No muscle weakness, no gait dysfunction, no frequent falls. Positive for back pain. No neck pain. Integumentary: No wounds, no lesions. No rash or pruritus. No unusual bruising. Neurologic: No aphasia. No facial droop. No change in mentation. No head injury. No headache. No paralysis. No paresthesia. Psychiatric: No depression. Positive for anxiety. No mood swings. Endocrine: Mildly abnormal blood sugars. No weight change. PHYSICAL EXAMINATION Gen: This is a 75-year-old female. She is resting in recliner and appears to be comfortable. HEENT: Head is atraumatic, normocephalic. Pupils equal, round. Sclerae is anicteric. NECK: Supple. No JVD. No lymphadenopathy. No thyromegaly. Right sided Cordis. LUNGS: Diminished lung sounds bilaterally. No wheezing. No intercostal retractions. Chest tubes in place. HEART: first heart sound is depressed, second heart sound is normal, there is systolic ejection murmur 2/6 located in the left sternal border, there is intra- aortic balloon pump in place, there is a gallop ABDOMEN: Soft. Bowel sounds are present. No masses. No tenderness. External female catheter in place draining clear cory urine. EXTREMITIES: No pedal edema. No calf tenderness. Dorsalis pedis palpable bilaterally. NEUROLOGICAL: Patient is awake, alert and oriented x3. Cranial nerves 2 through 12 are grossly intact. ASSESSMENT AND PLAN 1. Acute hypoxic respiratory failure secondary to acute systolic heart failure with cardiogenic shock Cardiology consult appreciated. Echocardiogram as above. 2. Non-ST elevated myocardial infarction status post heart catheterization finding triple-vessel disease, status post intra-aortic balloon pump, status post urgent CABG. Continue recommendations from the cardiothoracic team. Continue aspirin, Lipitor 40 mg at bedtime. 3. Ischemic cardiomyopathy. Ejection fraction about 30%. 4. Rectal bleeding secondary to diverticulitis. Consult with general surgery appreciated, patient started on Flagyl 500 mg IV piggyback every 8 hours. 5. Hyperglycemia without diagnosis of diabetes. Continue to monitor. Patient is on insulin drip which will be transitioned to NovoLog scale.. 6. Hypertension and hypertensive cardiovascular disease. Patient has been off lisinopril, and an 10-year-old metoprolol. 7. Hyperlipidemia. Continue atorvastatin 40 mg at bedtime. 8. Gastroesophageal reflux disease and GI prophylaxis. Continue Protonix 40 mg daily. 9. History of GI bleed, no active bleeding at this time. Patient had rectal bleeding 1 most likely secondary to diverticulitis 10. History of diverticulitis status post sigmoid colectomy and low anterior resection. 11. Degenerative disc disease in the cervical spine. 12. DVT prophylaxis. 13. COVID-19 testing negative. Patient has been hospitalized during a pandemic. 14. Opiate-induced constipation. Continue patient on MiraLAX 17 g in 8 ounces water, continue lactulose 20 g orally once every day, continue Senokot 2 tablet orally bedtime. 15. Guarded prognosis. Impression and plan of care have been directed as dictated by the signing physician. Lizzie Solomon nurse practitioner acting as scribe for signing physician. Objective - Vital Signs Vital signs: Vital Signs Temp 98.0 F 02/01/21 04:00 Pulse 80 02/01/21 07:00 Resp 13 02/01/21 07:00 BP 105/63 02/01/21 07:00 Pulse Ox 96 02/01/21 07:00 Intake & Output 01/31/21 02/01/21 02/01/21 18:59 06:59 18:59 Intake Total 1002.871 266.908 Output Total 692 380 15 Balance 310.871 -113.092 -15 Weight 89.1 kg Intake: IV 920 245 Cardiac Output 140 Lactated Ringers 1,000 ml 440 230 @ 20 mls/hr IV .Q24H [facility] Rx#:[id number] Pressure Bag 0.9 Sodium 90 15 Chloride ceFAZolin 2 gm In Sodium 50 Chloride 0.9% 50 ml @ 100 mls/hr IVPB ONCE ONE Rx# :[id number] metroNIDAZOLE-NS PMX 500 200 mg In Saline 1 100ml.bag @ 100 mls/hr IVPB Q8HR [facility] Rx#:[id number] Intake, IV Titration 82.871 21.908 Amount Insulin Regular 100 unit 22.169 21.908 In Sodium Chloride 0.9% 100 ml @ Per Protocol IV .Q0M [facility] Rx#:[id number] Milrinone-D5w Pmx 20 mg 60.702 In Dextrose/Water 1 100ml .bag @ 0.1 MCG/KG/MIN 2. 412 mls/hr IV .Q24H [facility] Rx#:[id number] Output: Chest Tube Drainage 110 50 Bilateral Mediastinal 50 30 Left Lateral Chest 60 20 Urine 582 330 15 Other: Voiding Method Indwelling Catheter Indwelling Catheter ABP, PAP, CO, CI - Last Documented Arterial Blood Pressure 94/46 Pulmonary Artery Pressure 44/20 Cardiac Output 4.5 Cardiac Index 2.5 - Labs CBC & Chem 7: 02/01/21 03:46 02/01/21 03:46 Labs: Abnormal Lab Results - Last 24 Hours (Table) 01/31/21 01/31/21 01/31/21 Range/Units 08:24 10:15 11:12 WBC (3.8-10.6) k/uL RBC (3.80-5.40) m/uL Hgb (11.4-16.0) gm/dL Hct (34.0-46.0) % Sodium (137-145) mmol/L BUN (7-17) mg/dL Glucose (74-99) mg/dL POC Glucose (mg/dL) 110 H 147 H 128 H (75-99) mg/dL Total Protein (6.3-8.2) g/dL Albumin (3.5-5.0) g/dL 01/31/21 01/31/21 01/31/21 Range/Units 12:57 14:20 15:09 WBC (3.8-10.6) k/uL RBC (3.80-5.40) m/uL Hgb (11.4-16.0) gm/dL Hct (34.0-46.0) % Sodium (137-145) mmol/L BUN (7-17) mg/dL Glucose (74-99) mg/dL POC Glucose (mg/dL) 110 H 131 H 139 H (75-99) mg/dL Total Protein (6.3-8.2) g/dL Albumin (3.5-5.0) g/dL 01/31/21 01/31/21 01/31/21 Range/Units 16:52 17:45 19:01 WBC (3.8-10.6) k/uL RBC (3.80-5.40) m/uL Hgb (11.4-16.0) gm/dL Hct (34.0-46.0) % Sodium (137-145) mmol/L BUN (7-17) mg/dL Glucose (74-99) mg/dL POC Glucose (mg/dL) 167 H 172 H 146 H (75-99) mg/dL Total Protein (6.3-8.2) g/dL Albumin (3.5-5.0) g/dL 01/31/21 01/31/21 02/01/21 Range/Units 19:56 22:28 00:17 WBC (3.8-10.6) k/uL RBC (3.80-5.40) m/uL Hgb (11.4-16.0) gm/dL Hct (34.0-46.0) % Sodium (137-145) mmol/L BUN (7-17) mg/dL Glucose (74-99) mg/dL POC Glucose (mg/dL) 152 H 149 H 131 H (75-99) mg/dL Total Protein (6.3-8.2) g/dL Albumin (3.5-5.0) g/dL 02/01/21 02/01/21 02/01/21 Range/Units 02:07 03:42 03:46 WBC 10.9 H (3.8-10.6) k/uL RBC 2.65 L (3.80-5.40) m/uL Hgb 7.6 L (11.4-16.0) gm/dL Hct 23.6 L (34.0-46.0) % Sodium (137-145) mmol/L BUN (7-17) mg/dL Glucose (74-99) mg/dL POC Glucose (mg/dL) 119 H 115 H (75-99) mg/dL Total Protein (6.3-8.2) g/dL Albumin (3.5-5.0) g/dL 02/01/21 02/01/21 Range/Units 03:46 05:55 WBC (3.8-10.6) k/uL RBC (3.80-5.40) m/uL Hgb (11.4-16.0) gm/dL Hct (34.0-46.0) % Sodium 133 L (137-145) mmol/L BUN 21 H (7-17) mg/dL Glucose 109 H (74-99) mg/dL POC Glucose (mg/dL) 116 H (75-99) mg/dL Total Protein 5.0 L (6.3-8.2) g/dL Albumin 2.7 L (3.5-5.0) g/dL
[2021-02-01] MEDS: INSULIN ASPART (NovoLOG) 100 UNIT/ML VIAL SQ SCH ×3 (11:45→20:26)
--- NOTE | 2021-02-01 11:53 | PN ---
PROGRESS NOTE This is a 75-year-old lady, status post aortocoronary bypass surgery. She is recovering very nicely. Her balloon pump was taken out yesterday. She remains hemodynamically stable on no pressors. Working on incentive spirometry, maintaining sinus rhythm. Vitals are stable. S1-S2 heard normally. Short systolic murmur noted. Lungs reveal bilateral improved air entry. Abdomen is soft. Lower extremities reveal diminished pulses. Central nervous system grossly no focal deficits. Plan is to continue current medications and incentive spirometry and pulmonary toilet. MMODL / IJN: [id number] /
--- NOTE | 2021-02-01 12:40 | P.PN ---
Subjective Progress Note Date: 02/01/21 CHIEF COMPLAINT: Rectal bleeding HISTORY OF PRESENT ILLNESS: The patient is a 75-year-old female status post CABG x 3, 01/30/21. Patient is sitting up at bedside chair. Patient did have some blood per rectum today which was reported when she sat on the commode. She denies any bowel movement. She is having flatus. She denies any pain in her rectum. She does have a known history of hemorrhoids and diverticulosis. Afebrile. WBC is 10.9 hemoglobin did drop from 8-7.6 PHYSICAL EXAM: VITAL SIGNS: Reviewed. GENERAL: Well-developed in no acute distress. HEENT: No sclera icterus. Extraocular movements grossly intact. Moist buccal mucosa. Head is atraumatic, normocephalic. ABDOMEN: Soft. Nondistended. Nontender. NEUROLOGIC: Alert and oriented. Cranial nerves II through XII grossly intact. ASSESSMENT: 1. Acute myocardial infarction 2. Status post CABG 3. Rectal bleeding and possible bleeding hemorrhoid 4. History sigmoid diverticulosis 5. History of hemorrhoids PLAN: -Tucks pads ordered for 3 times a day for possible hemorrhoids -Continue to monitor hemoglobin -Continue to monitor signs and symptoms of bleeding -Continue ICU management and supportive care Physician Fancy Packer note has been reviewed by physician. Signing provider agrees with the documented findings, assessment, and plan of care. Objective - Vital Signs Vital signs: Vital Signs Temp 98.0 F 02/01/21 08:00 Pulse 71 02/01/21 11:00 Resp 15 02/01/21 11:00 BP 104/68 02/01/21 11:00 Pulse Ox 90 L 02/01/21 11:00 Intake & Output 01/31/21 02/01/21 02/01/21 18:59 06:59 18:59 Intake Total 1002.871 266.908 160.681 Output Total 692 380 92 Balance 310.871 -113.092 68.681 Weight 89.1 kg Intake: IV 920 245 Cardiac Output 140 Lactated Ringers 1,000 ml 440 230 @ 20 mls/hr IV .Q24H [facility] Rx#:[id number] Pressure Bag 0.9 Sodium 90 15 Chloride ceFAZolin 2 gm In Sodium 50 Chloride 0.9% 50 ml @ 100 mls/hr IVPB ONCE ONE Rx# :[id number] metroNIDAZOLE-NS PMX 500 200 mg In Saline 1 100ml.bag @ 100 mls/hr IVPB Q8HR [facility] Rx#:[id number] Intake, IV Titration 82.871 21.908 10.681 Amount Insulin Regular 100 unit 22.169 21.908 10.681 In Sodium Chloride 0.9% 100 ml @ Per Protocol IV .Q0M [facility] Rx#:[id number] Milrinone-D5w Pmx 20 mg 60.702 In Dextrose/Water 1 100ml .bag @ 0.1 MCG/KG/MIN 2. 412 mls/hr IV .Q24H [facility] Rx#:[id number] Oral 150 Output: Chest Tube Drainage 110 50 0 Bilateral Mediastinal 50 30 0 Left Lateral Chest 60 20 0 Urine 582 330 92 Other: Voiding Method Indwelling Catheter Indwelling Catheter Indwelling Catheter # Voids 1 ABP, PAP, CO, CI - Last Documented Arterial Blood Pressure 97/59 Pulmonary Artery Pressure 44/20 Cardiac Output 4.5 Cardiac Index 2.5 - Labs CBC & Chem 7: 02/01/21 03:46 02/01/21 03:46 Labs: Abnormal Lab Results - Last 24 Hours (Table) 01/31/21 01/31/21 01/31/21 Range/Units 12:57 14:20 15:09 WBC (3.8-10.6) k/uL RBC (3.80-5.40) m/uL Hgb (11.4-16.0) gm/dL Hct (34.0-46.0) % Sodium (137-145) mmol/L BUN (7-17) mg/dL Glucose (74-99) mg/dL POC Glucose (mg/dL) 110 H 131 H 139 H (75-99) mg/dL Total Protein (6.3-8.2) g/dL Albumin (3.5-5.0) g/dL 01/31/21 01/31/21 01/31/21 Range/Units 16:52 17:45 19:01 WBC (3.8-10.6) k/uL RBC (3.80-5.40) m/uL Hgb (11.4-16.0) gm/dL Hct (34.0-46.0) % Sodium (137-145) mmol/L BUN (7-17) mg/dL Glucose (74-99) mg/dL POC Glucose (mg/dL) 167 H 172 H 146 H (75-99) mg/dL Total Protein (6.3-8.2) g/dL Albumin (3.5-5.0) g/dL 01/31/21 01/31/21 02/01/21 Range/Units 19:56 22:28 00:17 WBC (3.8-10.6) k/uL RBC (3.80-5.40) m/uL Hgb (11.4-16.0) gm/dL Hct (34.0-46.0) % Sodium (137-145) mmol/L BUN (7-17) mg/dL Glucose (74-99) mg/dL POC Glucose (mg/dL) 152 H 149 H 131 H (75-99) mg/dL Total Protein (6.3-8.2) g/dL Albumin (3.5-5.0) g/dL 02/01/21 02/01/21 02/01/21 Range/Units 02:07 03:42 03:46 WBC 10.9 H (3.8-10.6) k/uL RBC 2.65 L (3.80-5.40) m/uL Hgb 7.6 L (11.4-16.0) gm/dL Hct 23.6 L (34.0-46.0) % Sodium (137-145) mmol/L BUN (7-17) mg/dL Glucose (74-99) mg/dL POC Glucose (mg/dL) 119 H 115 H (75-99) mg/dL Total Protein (6.3-8.2) g/dL Albumin (3.5-5.0) g/dL 02/01/21 02/01/21 02/01/21 Range/Units 03:46 05:55 08:52 WBC (3.8-10.6) k/uL RBC (3.80-5.40) m/uL Hgb (11.4-16.0) gm/dL Hct (34.0-46.0) % Sodium 133 L (137-145) mmol/L BUN 21 H (7-17) mg/dL Glucose 109 H (74-99) mg/dL POC Glucose (mg/dL) 116 H 124 H (75-99) mg/dL Total Protein 5.0 L (6.3-8.2) g/dL Albumin 2.7 L (3.5-5.0) g/dL 02/01/21 Range/Units 11:23 WBC (3.8-10.6) k/uL RBC (3.80-5.40) m/uL Hgb (11.4-16.0) gm/dL Hct (34.0-46.0) % Sodium (137-145) mmol/L BUN (7-17) mg/dL Glucose (74-99) mg/dL POC Glucose (mg/dL) 123 H (75-99) mg/dL Total Protein (6.3-8.2) g/dL Albumin (3.5-5.0) g/dL
--- NOTE | 2021-02-01 13:05 | P.PN ---
Subjective Progress Note Date: 02/01/21 Principal diagnosis: Status post emergent CABG for triple vessel coronary artery disease postoperative day #2 On today's evaluation on 01/28/2021 patient seen in follow-up in intensive care unit, she is awake and alert, she is currently on 2 L of oxygen pulse ox is 97%, breathing comfortably, no complaints of chest pain or worsening shortness of breath overnight. Her chest x-ray today still showing pulmonary edema. Patient remains on Lasix 40 mg push every 12 hours, and patient is slightly and positive net fluid balance of 289 mL over the last 24 hours, intra-aortic balloon pump remains in place via the right groin, still to 121 augmentation, augmented diastolic today is improved and is up to 141 from 96 on yesterday's exam, her blood pressure is 115/59, she is in sinus mechanism with a rate of 85 bpm. lung sounds are positive for diminished breath sounds with mild crackles at the bases, but clinically patient is breathing comfortably, she is on 0.9 normal saline at a rate of 50 ML per hour in addition to heparin infusion per weight based protocol. Patient has slightly diminished pulse in the right pedal area, and 1+ pedal pulse in the left acute oh. Extremities are warm. Today's labs have been reviewed, with blood cell count is 8.1, hemoglobin is 9.9, INR is 1.0, sodium is 135, the rest of electrolytes and renal profile were unremarkable. This has also been noted showing trace ketones and blood but no evidence of urinary tract infection. 13 2020, the patient remains on 2 L about 2 by nasal cannula. She is still diuresing with Lasix. Hemodynamically, it was decided to keep the intra-aortic balloon pump with 1-1 augmentation as there was concern that the patient's condition may decompensate off the balloon pump. The mean arterial pressure currently is at 97. She is free of any angina. Her cardiac rhythm is sinus. She did have some nausea and she was given MiraLAX for bowel movements activity. The surgery is still tentatively scheduled for next week, possibly next Sunday. Otherwise, the patient is doing well. She is free of any chest pain. No cardiac arrhythmias have been noted. The patient remains on IV heparin. She is also getting a white cell count 7.9 with a hemoglobin of 9.9. Platelet counts are stable at 34. No other significant events otherwise for now. She has multivessel coronary artery disease and impairment of LV function and she is awaiting coronary artery bypass surgery. 01/30/2021, the patient was taken to the operating room and the patient underwent cardiac bypass surgery. The patient underwent urgent myocardial the vascular rosacea surgery with DOBBS to LAD, SVG to PDA and OM 1. Patient is cu rrently in the intensive care unit. She is hemodynamically stable. The intra- aortic balloon pump is still in place with 1:1 augmentation. Cardiac output is at 4.7 with an index of 2.7. The cardiac rhythm is normal sinus. Pulmonary artery pressures are 42/21. The patient is currently sedated with propofol which is currently running at 30 mg/kg/m. She is on a mechanical ventilator on assist control mode with a rate of 14 with a tidal volume of 400 FiO2 100% with a PEEP of 10. I increased the rate up to 20. Meanwhile, the patient seems to have a adequate urine output. The patient is to mediastinal and left pleural chest tube and the total amount of output has been around 120 mL since she arrived from the operating room.k the patient arrived to us with a a nitroglycerin drip at 5 mg/m. The patient is also on close approximately 2 mg an hour and milrinone at 0.3 mcg/kg per minute to augment her cardiac output. She'll be systolic is also on insulin drip for blood sugar control. Reevaluated today on 01/31/2021, patient underwent emergent CABG yesterday, she was seen by Dr. Martel, and she was extubated last night. Patient was extubated successfully at 19:56. Remains in bed, she has an intra-aortic balloon pump in place, it will likely be removed shortly this morning. Patient is doing well, she has minimal atelectasis on the chest x-ray, she is hemodynamically stable, she is however on milrinone. At 0.15 mcg/kg/m, her cardiac index is 2.9, cardiac output is 5.2. Pulmonary artery pressure 40/12, patient is receiving Lasix 40 mg IV push this morning. She is on 10 L of nasal cannula O2 sats is 92%. ABC is relatively normal, hemoglobin is 8. PTT is 42.9. Colitis and renal profile are normal Reevaluated today on 02/01/2021, patient is postoperative day #2. Patient is resting at a bedside chair, she is on 6 L nasal cannula, does not seem to be in any distress, her chest tubes have been removed. And her intra-aortic balloon pump was removed yesterday. She is hemodynamically stable, not requiring any inotropes or pressors. Doing fairly well with incentive spirometry. Chest x- ray showed minimal postoperative atelectasis. Labs including CBC and elec trolytes with renal profile are normal however her hemoglobin is 7.6. Objective - Vital Signs Vital signs: Vital Signs Temp 98.0 F 02/01/21 08:00 Pulse 71 02/01/21 11:00 Resp 15 02/01/21 11:00 BP 104/68 02/01/21 11:00 Pulse Ox 90 L 02/01/21 11:00 Intake & Output 01/31/21 02/01/21 02/01/21 18:59 06:59 18:59 Intake Total 1002.871 266.908 160.681 Output Total 692 380 92 Balance 310.871 -113.092 68.681 Weight 89.1 kg Intake: IV 920 245 Cardiac Output 140 Lactated Ringers 1,000 ml 440 230 @ 20 mls/hr IV .Q24H [facility] Rx#:[id number] Pressure Bag 0.9 Sodium 90 15 Chloride ceFAZolin 2 gm In Sodium 50 Chloride 0.9% 50 ml @ 100 mls/hr IVPB ONCE ONE Rx# :[id number] metroNIDAZOLE-NS PMX 500 200 mg In Saline 1 100ml.bag @ 100 mls/hr IVPB Q8HR [facility] Rx#:[id number] Intake, IV Titration 82.871 21.908 10.681 Amount Insulin Regular 100 unit 22.169 21.908 10.681 In Sodium Chloride 0.9% 100 ml @ Per Protocol IV .Q0M [facility] Rx#:[id number] Milrinone-D5w Pmx 20 mg 60.702 In Dextrose/Water 1 100ml .bag @ 0.1 MCG/KG/MIN 2. 412 mls/hr IV .Q24H [facility] Rx#:[id number] Oral 150 Output: Chest Tube Drainage 110 50 0 Bilateral Mediastinal 50 30 0 Left Lateral Chest 60 20 0 Urine 582 330 92 Other: Voiding Method Indwelling Catheter Indwelling Catheter Indwelling Catheter # Voids 1 ABP, PAP, CO, CI - Last Documented Arterial Blood Pressure 97/59 Pulmonary Artery Pressure 44/20 Cardiac Output 4.5 Cardiac Index 2.5 - Exam CONSTITUTIONAL: Revealed a 75-year-old female in no distress, on 6 liters nasal cannula. RESPIRATORY: Symmetrical chest expansion, diminished at the bases no crackles or rhonchi or wheezes CARDIOVASCULAR: Normal S1 and S2, no S3 gallop. Abdomen: Soft nontender no megaly no rebound. Leena: No rashes. NEUROLOGIC: Cranial nerves II through XII intact MUSKULOSKELETAL: No deformities and no limitation in range of motion. PSYCHIATRIC: Normal mood affect and normal mental status examination. Neurologic: Alert and oriented 3 focal deficits. - Labs CBC & Chem 7: 02/01/21 03:46 02/01/21 03:46 Labs: Abnormal Lab Results - Last 24 Hours (Table) 01/31/21 01/31/21 01/31/21 Range/Units 12:57 14:20 15:09 WBC (3.8-10.6) k/uL RBC (3.80-5.40) m/uL Hgb (11.4-16.0) gm/dL Hct (34.0-46.0) % Sodium (137-145) mmol/L BUN (7-17) mg/dL Glucose (74-99) mg/dL POC Glucose (mg/dL) 110 H 131 H 139 H (75-99) mg/dL Total Protein (6.3-8.2) g/dL Albumin (3.5-5.0) g/dL 01/31/21 01/31/21 01/31/21 Range/Units 16:52 17:45 19:01 WBC (3.8-10.6) k/uL RBC (3.80-5.40) m/uL Hgb (11.4-16.0) gm/dL Hct (34.0-46.0) % Sodium (137-145) mmol/L BUN (7-17) mg/dL Glucose (74-99) mg/dL POC Glucose (mg/dL) 167 H 172 H 146 H (75-99) mg/dL Total Protein (6.3-8.2) g/dL Albumin (3.5-5.0) g/dL 01/31/21 01/31/21 02/01/21 Range/Units 19:56 22:28 00:17 WBC (3.8-10.6) k/uL RBC (3.80-5.40) m/uL Hgb (11.4-16.0) gm/dL Hct (34.0-46.0) % Sodium (137-145) mmol/L BUN (7-17) mg/dL Glucose (74-99) mg/dL POC Glucose (mg/dL) 152 H 149 H 131 H (75-99) mg/dL Total Protein (6.3-8.2) g/dL Albumin (3.5-5.0) g/dL 02/01/21 02/01/21 02/01/21 Range/Units 02:07 03:42 03:46 WBC 10.9 H (3.8-10.6) k/uL RBC 2.65 L (3.80-5.40) m/uL Hgb 7.6 L (11.4-16.0) gm/dL Hct 23.6 L (34.0-46.0) % Sodium (137-145) mmol/L BUN (7-17) mg/dL Glucose (74-99) mg/dL POC Glucose (mg/dL) 119 H 115 H (75-99) mg/dL Total Protein (6.3-8.2) g/dL Albumin (3.5-5.0) g/dL 02/01/21 02/01/21 02/01/21 Range/Units 03:46 05:55 08:52 WBC (3.8-10.6) k/uL RBC (3.80-5.40) m/uL Hgb (11.4-16.0) gm/dL Hct (34.0-46.0) % Sodium 133 L (137-145) mmol/L BUN 21 H (7-17) mg/dL Glucose 109 H (74-99) mg/dL POC Glucose (mg/dL) 116 H 124 H (75-99) mg/dL Total Protein 5.0 L (6.3-8.2) g/dL Albumin 2.7 L (3.5-5.0) g/dL 02/01/21 Range/Units 11:23 WBC (3.8-10.6) k/uL RBC (3.80-5.40) m/uL Hgb (11.4-16.0) gm/dL Hct (34.0-46.0) % Sodium (137-145) mmol/L BUN (7-17) mg/dL Glucose (74-99) mg/dL POC Glucose (mg/dL) 123 H (75-99) mg/dL Total Protein (6.3-8.2) g/dL Albumin (3.5-5.0) g/dL Assessment and Plan Assessment: Impression: Status post emergent triple vessel CABG and intra-aortic balloon pump placement postoperative day number 2 Non-ST elevation myocardial infarction on admission. Acute systolic congestive heart failure on admission. Dyslipidemia. History of diverticular disease. History of GI bleeding and chronic anemia. Chronic low back pain. Family history of coronary artery disease. Postoperative atelectasis, expected. Recommendation: Continue incentive spirometry. Continue aspirin and Plavix statin and beta blockers. Continue GI and DVT prophylaxis. Ambulate as tolerated. Continue insulin We'll continue to follow. Time with Patient: Less than 30
[2021-02-01 17:03] LABS: Glucose,Whole Blood 111 mg/dL (75-99)
[2021-02-01 20:20] LABS: Glucose,Whole Blood 133 mg/dL (75-99)
[2021-02-01] MEDS: SENNOSIDES-DOCUSATE SODIUM 1 EACH TAB PO SCH (20:25)
[2021-02-02] MEDS: HYDROcodone/APAP 5-325MG 1 EACH TAB PO PRN (05:02)
[2021-02-02 05:07] LABS: Basophils # (A) 0.1 k/uL (0-0.2); Basophils % (A) 1 %; Eosinophils # (A) 0.3 k/uL (0-0.7); Eosinophils % (A) 3 %; HCT 24.4 % (34.0-46.0); Lymphocytes # (A) 2.4 k/uL (1.0-4.8); Lymphocytes % (A) 23 %; MCH 29.1 pg (25.0-35.0); MCV 88.2 fL (80.0-100.0); Mean Platelet Volume 7.9; Monocytes # (A) 0.6 k/uL (0-1.0); Monocytes % (A) 5 %; Neutrophils # (A) 6.7 k/uL (1.3-7.7); Neutrophils % (A) 64 %; Platelet Count 257 k/uL (150-450); Poikilocytosis Slight; RBC 2.76 m/uL (3.80-5.40); RDW 14.8 % (11.5-15.5); WBC 10.5 k/uL (3.8-10.6)
[2021-02-02 05:30] LABS: Albumin 2.8 g/dL (3.5-5.0); Calcium 8.6 mg/dL (8.4-10.2); Potassium 3.9 mmol/L (3.5-5.1); Total Bilirubin 0.4 mg/dL (0.2-1.3); Total Protein 5.4 g/dL (6.3-8.2)
[2021-02-02] MEDS: KETOROLAC 30 MG/ML 1 ML VIAL IVP SCH ×4 (06:15→23:14)
[2021-02-02] MEDS: LACTATED RINGERS 1,000 ML IV SCH (06:24)
[2021-02-02 06:53] LABS: Glucose,Whole Blood 129 mg/dL (75-99)
[2021-02-02] MEDS: INSULIN ASPART (NovoLOG) 100 UNIT/ML VIAL SQ SCH ×4 (07:01→20:32)
[2021-02-02] MEDS: FERROUS SULFATE 325 MG TAB PO SCH ×2 (07:02→17:17)
[2021-02-02] MEDS: PANTOPRAZOLE 40 MG TABLET PO SCH ×2 (07:03→17:17)
[2021-02-02] MEDS: ASCORBIC ACID 500 MG TAB PO SCH ×2 (07:03→17:17)
--- NOTE | 2021-02-02 07:25 | XR ---
EXAMINATION TYPE: XR chest 1V portable DATE OF EXAM: 02/02/2021 Comparison: 02/01/2021 Clinical History: 75-year-old female post cardiac surgery Findings: Median sternotomy wires are present with postoperative clips in the mediastinum. Heart remains border line enlarged. Diffuse interstitial densities may be slightly increased. Left-sided chest tube has be en removed in the interval. No appreciable pneumothorax. Slight increasing focal basilar opacities. R etained epicardial pacer leads. Mediastinal drains have been removed. Impression: Postoperative changes. There may be interval development of pulmonary vascular congestion along with trace effusions. Retrocardiac atelectasis and/or consolidation has increased as well.
--- NOTE | 2021-02-02 07:48 | P.PN ---
Subjective Progress Note Date: 02/02/21 Principal diagnosis: Triple-vessel coronary artery disease with left main disease, chest pain, progressive shortness of breath, non-STEMI, acute systolic heart failure present on admission, reported bleeding per rectum. Previous medical history of hypertension, hyperlipidemia, GERD, GI bleed with preop chronic anemia, diverticulosis, localized colitis, degenerative disc disease with chronic low back pain, obesity, and family history of coronary artery disease POD #3 urgent triple coronary artery bypass grafting using the left internal mammary artery to the left anterior descending artery, reverse saphenous vein graft from the aorta to the posterior descending artery, reverse saphenous vein graft from the aorta to the subtotally occluded obtuse marginal artery, exclusi on of the left atrial appendage using a 35 mm AtriClip, endoscopic harvesting of the left greater saphenous vein from the groin to above the ankle level, intraoperative transesophageal echocardiogram and epiaortic scanning, intraoperative graft flow measurements using the [employer] system Postopertive acute blood loss anemia, expected given hemodilution, cardiopulmonary bypass pump, and preoperative anemia The patient was seen and examined this morning in the ICU sitting up in a recliner in no acute distress. Remains in sinus rhythm, hemodynamically stable on no inotropes or pressors. Patient complains of chronic back pain which is controlled with current medication regimen, denies shortness of breath. States she feels a little better than yesterday. Urine output remains marginal, enc ouraged to drink. Ambulated to the doorway with assistance. Objective - Vital Signs Vital signs: Vital Signs Temp 97.9 F 02/02/21 04:00 Pulse 78 02/02/21 07:00 Resp 16 02/02/21 07:00 BP 109/57 02/02/21 07:00 Pulse Ox 94 L 02/02/21 07:00 Intake & Output 02/01/21 02/02/21 02/02/21 18:59 06:59 18:59 Intake Total 610.681 Output Total 216 175 15 Balance 394.681 -175 -15 Weight 91.2 kg Intake: Intake, IV Titration 10.681 Amount Insulin Regular 100 unit 10.681 In Sodium Chloride 0.9% 100 ml @ Per Protocol IV .Q0M [facility] Rx#:[id number] Oral 600 Output: Chest Tube Drainage 0 Bilateral Mediastinal 0 Left Lateral Chest 0 Urine 216 175 15 Other: Voiding Method Indwelling Catheter Indwelling Catheter # Voids 1 ABP, PAP, CO, CI - Last Documented Arterial Blood Pressure 97/59 Pulmonary Artery Pressure 44/20 Cardiac Output 4.5 Cardiac Index 2.5 - Exam CONSTITUTIONAL: Appears comfortable, cooperative, no acute distress RESPIRATORY: Lungs sounds diminished bilaterally. Respirations even, nonlabored. Currently on 3 LPM nasal cannula with oxygen saturation 95%. Able to achieve 750 mL on incentive spirometry. Strong cough. CARDIOVASCULAR: S1, S2 present. Regular rate and rhythm, sinus rhythm on telemetry. Sternum stable. Palpable peripheral pulses bilaterally. Trace lower extremity edema present. No calf pain or tenderness noted. Heart hugger in place with patient demonstrating appropriate use. Antiembolism stockings, SCDs present. GASTROINTESTINAL: Abdomen soft, nontender, nondistended. Active bowel sounds present 4 quadrants. Tolerating diet. Positive bowel movement after surgery GENITOURINARY: Ramey present draining clear, yellow urine. Output overnight 15-20 mL per hour, 381 mL in the last 24 hours INTEGUMENTARY: Skin is warm and dry with evidence of good perfusion. Anterior chest incision well approximated and covered with dry intact dressing. Left lower extremity EVH site well approximated without redness. Right groin IABP site soft and non-tender NEUROLOGIC: Cranial nerves II through XII intact MUSKULOSKELETAL: Able to move all extremities, strength equal bilaterally PSYCHIATRIC: Alert and oriented to person place and time, appropriate affect, intact judgment and insight INVASIVE LINES AND TUBES: Atrial epicardial pacemaker wires present, grounded. - Allied health notes Allied health notes reviewed: nursing - Labs CBC & Chem 7: 02/02/21 04:43 02/02/21 04:43 Labs: Abnormal Lab Results - Last 24 Hours (Table) 02/01/21 02/01/21 02/01/21 Range/Units 08:52 11:23 17:01 RBC (3.80-5.40) m/uL Hgb (11.4-16.0) gm/dL Hct (34.0-46.0) % Sodium (137-145) mmol/L BUN (7-17) mg/dL Glucose (74-99) mg/dL POC Glucose (mg/dL) 124 H 123 H 111 H (75-99) mg/dL Total Protein (6.3-8.2) g/dL Albumin (3.5-5.0) g/dL 02/01/21 02/02/21 02/02/21 Range/Units 20:18 04:43 04:43 RBC 2.76 L (3.80-5.40) m/uL Hgb 8.0 L (11.4-16.0) gm/dL Hct 24.4 L (34.0-46.0) % Sodium 132 L (137-145) mmol/L BUN 24 H (7-17) mg/dL Glucose 107 H (74-99) mg/dL POC Glucose (mg/dL) 133 H (75-99) mg/dL Total Protein 5.4 L (6.3-8.2) g/dL Albumin 2.8 L (3.5-5.0) g/dL 02/02/21 Range/Units 06:51 RBC (3.80-5.40) m/uL Hgb (11.4-16.0) gm/dL Hct (34.0-46.0) % Sodium (137-145) mmol/L BUN (7-17) mg/dL Glucose (74-99) mg/dL POC Glucose (mg/dL) 129 H (75-99) mg/dL Total Protein (6.3-8.2) g/dL Albumin (3.5-5.0) g/dL - Imaging and Cardiology Chest x-ray: report reviewed, image reviewed Assessment and Plan Assessment: 1. Triple-vessel coronary artery disease with left main disease, current intra- aortic balloon pump in place, status post three-vessel CABG 2. Chest pain, progressive shortness of breath on admission, non-STEMI on admission 3. Acute systolic heart failure present on admission 4. History of hypertension 5. History of hyperlipidemia, treated 6. GERD 7. History of GI bleed with reported bleeding per rectum this admission with preoperative chronic anemia 8. History of diverticulosis, localized colitis 9. Degenerative disc disease, chronic low back pain 10. Family history of coronary artery disease 11. Postopertive acute blood loss anemia, expected Plan: 1. Continue aspirin, statin, Plavix, beta carlo therapy. Will increase beta carlo therapy as tolerated. Continue prophylactic amiodarone 2. Wean O2 as tolerated. Encourage incentive spirometry use. Bronchodilators per pulmonology 3. Increase activity as tolerated. PT/OT/cardiac rehab following, Dr. Walker consulted for possible IPR at [place] 4. Will continue to monitor daily labs, chest x-rays. Electrolyte replacement per protocol. No further blood transfusion at this point. No lasix today 5. GI/DVT prophylaxis 6. Pain control with current medication regimen 7. Insulin management per primary care service. Patient is not diabetic, preoperative hemoglobin A1c 5.6%. Patient does need tight blood sugar control to promote sternal union, decrease infection risk 8. Ensure added, encourage patient to drink 9. DC ramey catheter, may bladder scan and straight cath for > 300 mL residual 10. Strict accurate intake and output. Daily weights. Shower daily 11. Continue Iron, Vitamin C 12. Likely will place transfer orders for 3 south cardiac stepdown later today 13. More recommendations to follow Time with Patient: Greater than 30
[2021-02-02] MEDS ORDERED: POTASSIUM CHLORIDE ER 20 MEQ TAB.ER PO SCH (08:00)
[2021-02-02] MEDS: ASPIRIN 325 MG TAB PO SCH (08:47)
[2021-02-02] MEDS: metroNIDAZOLE-NS PMX 500 MG in SALINE 1 100ML.BAG IVPB SCH (08:47)
[2021-02-02] MEDS: METOPROLOL TARTRATE 25 MG TAB PO SCH ×2 (08:48→20:32)
[2021-02-02] MEDS: LIDOCAINE 5% PATCH TOPICAL SCH (08:48)
[2021-02-02] MEDS: AMIODARONE 200 MG TAB PO SCH ×2 (08:48→20:32)
[2021-02-02] MEDS: HEPARIN SODIUM,PORCINE/PF 5,000 UNIT/0.5 ML SYRINGE SQ SCH ×3 (08:48→23:15)
[2021-02-02] MEDS: ATORVASTATIN 40 MG TAB PO SCH (08:48)
[2021-02-02] MEDS: CLOPIDOGREL 75 MG TAB PO SCH (08:48)
--- NOTE | 2021-02-02 09:14 | P.PN ---
Subjective Progress Note Date: 02/02/21 HISTORY OF PRESENT ILLNESS This is a 75-year-old female patient of Dr. Avina with past medical history of hypertension, hyperlipidemia, gastroesophageal reflux disease, history of GI bleed, recurrent sigmoid diverticulitis status post sigmoid colectomy and low anterior resection, degenerative disc disease in the cervical spine. Patient complains of shortness of breath off and on for a week with exertional dyspnea. She states she has been sleeping on 3-4 pillows at night starting yesterday she became increasingly short of breath and couldn't lay down. She does complain of discomfort in her chest with right ear and right jaw pain. She denies any lower extremity edema. Patient presented to [facility] emergency center for evaluation. She is found to be afebrile, heart rate 99, respiratory rate 32, blood pressure 119/87, pulse ox 92% on room air. Patient was later changed over to nonrebreather and then to BiPAP. Blood work reveals WBC 14.5, hemoglobin 9.8, platelet count 328. INR 0.9. Sodium 135, potassium 4.5, chloride 104, CO2 15, BUN 17 and creatinine 0.75. Blood sugar 194. Lactic acid 3.5 and repeat of 1.3. Troponins 1.620, 1.850, 2.11. ProBNP 2700. Coronavirus PCR not detected. Chest x-ray reveals pulmonary interstitial edema and probable small right pleural effusion which are new. This could be acute heart failure or acute pne umonia. Echocardiogram reveals EF of 30-35%, LA is severely dilated, LV wall motion is hypokinetic, mild mitral regurgitation, mild tricuspid regurgitation. Patient is seen today in the emergency center waiting for bed on the cardiac stepdown unit. 01/26: Patient is seen today on the selective care unit, sitting up her recliner and is at bedside. She currently states that she is feeling better from yesterday and denied any chest pain or pressure and denies any neck pain. Patient does state that she did have some rectal bleeding most likely secondary to her history of diverticulosis. Patient underwent heart catheterization which revealed left main disease of 95%, LAD total occlusion of the diagonal branches, left circumflex subtotally occluded, right coronary artery 70-80% distally. Due to severe triple-vessel disease, patient was transferred to the intensive care unit post procedure. Patient also underwent intra-aortic balloon pump insertion. After procedures, patient went to the intensive care unit and consult with cardiothoracic surgery added. 01/27:Patient has been seen by cardiothoracic team with plan for CABG possibly on Sunday or Sunday. Patient is seen today in the intensive care unit and continued on intra-aortic balloon pump and continued on heparin drip. She denies having any chest pain and shortness of breath is improved. [place] 5/325 ordered. Patient was seen by Dr. Cormier regarding rectal bleeding with no plan for intervention at this time and patient started on Flagyl. Patient is also followed by pulmonary medicine with plan to obtain bedside FEV1. She remains afebrile, heart rate in the 90s, blood pressure and 100/54, pulse ox 96% on 2 L nasal cannula. spring fitter helper sinus rhythm. Repeat blood work reveals WBC 6.9, hemoglobin 9.5, platelet count 373. Sodium 135, blood sugar 101. Electrolytes renal function are normal. Liver function tests are within normal limits. Urinalysis showed small amount of blood. Patient is reaching 750 on incentive spirometry. Repeat blood work and chest x-ray ordered for tomorrow morning. 01/28: Patient is laying down in bed flat to due to the fact that she had intra- aortic balloon pump, she denies any chest pain at this time, she is not complaining of shortness of breath, she stated that her pain is well controlled but she would left to take it more often than every 8 hours, I spoke with the nursing staff about increasing her [place] to every 4-6 hours as needed, moderate the patient very closely, continue with bowel care, continue lactulose and Senokot, patient was seen earlier by thoracic surgery as well as by cardiology it was recommended that the patient will go for coronary artery bypass grafting next Sunday unless she become and stable, she has been requiring 2 L nasal cannula, her blood pressure is stable, her oxygen saturation stable, her hemoglobin is stable at this time, she was seen by Dr. Fuentes and he was recommended for the patient to be continued on Flagyl for now with no further intervention. 01/29: Patient's is laying down in bed she continued to have the intra-aortic balloon pump in place, she is nauseated she had an episode of vomiting today she denies any chest pain or shortness breath, she denies any abdominal pain, she has been constipated, she did not respond to lactulose, she would be getting MiraLAX along with a stool softener, we will monitor the patient very closely in the intensive care unit, patient will likely be operated on Sunday, continue supportive care, continue heparin drip, continue baby aspirin, continue atorvastatin, follow-up with the patient very closely. 01/31: Today, patient underwent CABG with DOBBS to LAD, SVG to PDA and OM 1. Discontinued on intra-aortic balloon pump which is to be discontinued later to day. Patient is off nitroglycerin, continued on low dose Primacor. Patient was successfully extubated last evening. Pulse ox 92% on high flow nasal cannula 10 L. spring fitter helper sinus rhythm. Mediastinal and left pleural chest tube in place with serosanguineous output. She is currently on insulin drip. Patient complains of feeling tired and does have significant chest discomfort from surgery. [place] was added and Toradol to be edited by cardiothoracic. Patient did have a loose bowel movement but has been receiving lactulose for constipation. Repeat blood work reveals hemoglobin of 8. Creatinine 0.57. Blood sugars are running between 118- 128. Repeat chest x-ray reveals similar borderline heart size. Interval extubation and removal of NG tube. Persistent but improving retrocardiac postoperative atelectasis. 02/01: Patient remains in the intensive care unit, today she is sitting up in recliner and appears to be stronger from yesterday. She has been afebrile, heart rate 73, blood pressure 115/57, pulse ox 95-96% on 8 L nasal cannula. Repeat blood work reveals WBC 10.9, hemoglobin 7.6. Creatinine 0.79, potassium 4.0. Blood sugars are running between 115 and 124. Patient is not diabetic, insulin drip will be discontinued and patient placed on NovoLog scale only. est x-ray reveals chronic changes and mild cardiomegaly with left-sided chest tube. No pneumothorax. Patchy left basilar atelectasis. Patient is off balloon pump. 02/02: She remains in intensive care unit, found sitting up and recliner. Patient states that she is feeling better each day, ambulated in the hallway. Pain is well controlled. Incentive spirometry is reaching 1000 ML's. She does have decreased appetite. She states she did not sleep well last night. Patient has been afebrile, heart rate in the 70s, sinus rhythm, blood pressure 100/60, pulse ox 92% on 2 L. Repeat blood work reveals WBC 10.5, hemoglobin 8, creatinine 0.88. Blood sugars are running between 100-133. She is now off insulin drip and maintained only on scale insulin. Repeat chest x-ray reveals pulmonary vascular congestion along with trace effusions. Retrocardiac atelectasis and/or consolidation increased. Intra-aortic pump, Right cordis, chest tubes have been removed. Anticipate removal of Hackett catheter today. Continue to increase activity level. REVIEW OF SYSTEMS Constitutional: No fever, no chills, no night sweats. No weight change. No weakness, reports fatigue no lethargy. Reports daytime sleepiness. HEENT: No headache. No blurred vision or double vision, no loss of vision. No loss of Hearing, no ringing in the ears, no dizziness. No nasal drainage or c ongestion. No epistaxis. No sore throat. Lungs: Reports shortness of breath-improved, cough, no sputum production. No wheezing. Reports exertional shortness of breath Cardiovascular: Reports severe chest discomfort, no lower extremity edema. No palpitations. No paroxysmal nocturnal dyspnea. Reports orthopnea. No lightheadedness or dizziness. No syncopal episodes. Abdominal: No abdominal pain. No nausea, vomiting. No diarrhea. No constipation. Occasional bloody or tarry stools. No loss of appetite. Genitourinary: No dysuria, increased frequency, urgency. No urinary retention. Musculoskeletal: No myalgias. No muscle weakness, no gait dysfunction, no frequent falls. Positive for back pain. No neck pain. Integumentary: No wounds, no lesions. No rash or pruritus. No unusual bruising. Neurologic: No aphasia. No facial droop. No change in mentation. No head injury. No headache. No paralysis. No paresthesia. Psychiatric: No depression. Positive for anxiety. No mood swings. Endocrine: Mildly abnormal blood sugars. No weight change. PHYSICAL EXAMINATION Gen: This is a 75-year-old female. She is resting in recliner and appears to be comfortable. HEENT: Head is atraumatic, normocephalic. Pupils equal, round. Sclerae is anict krista. NECK: Supple. No JVD. No lymphadenopathy. No thyromegaly. LUNGS: Diminished lung sounds bilaterally. No wheezing. No intercostal retractions. Chest tubes in place. HEART: first heart sound is depressed, second heart sound is normal, there is systolic ejection murmur 2/6 located in the left sternal border, no rub ABDOMEN: Soft. Bowel sounds are present. No masses. No tenderness. Hackett catheter in place draining clear cory urine. EXTREMITIES: No pedal edema. No calf tenderness. Dorsalis pedis palpable bilaterally. NEUROLOGICAL: Patient is awake, alert and oriented x3. Cranial nerves 2 through 12 are grossly intact. ASSESSMENT AND PLAN 1. Acute hypoxic respiratory failure secondary to acute systolic heart failure with cardiogenic shock Cardiology consult appreciated. 2. Non-ST elevated myocardial infarction status post heart catheterization finding triple-vessel disease, status post intra-aortic balloon pump, status post urgent CABG. Continue recommendations from the cardiothoracic team: Amiodarone 200 mg twice daily, aspirin 325 mg daily, atorvastatin 40 mg daily, Lopressor 25 mg twice daily. 3. Ischemic cardiomyopathy. Ejection fraction about 30%. 4. Rectal bleeding secondary to diverticulitis. Consult with general surgery appreciated, patient started on Flagyl 500 mg IV piggyback every 8 hours. 5. Hyperglycemia without diagnosis of diabetes. Continue to monitor with NovoLog scale.. 6. Hypertension and hypertensive cardiovascular disease. Patient has been off lisinopril, and continue metoprolol. 7. Hyperlipidemia. Continue atorvastatin 40 mg at bedtime. 8. Gastroesophageal reflux disease and GI prophylaxis. Continue Protonix 40 mg daily. 9. History of GI bleed, no active bleeding at this time. Patient had rectal bleeding 1 most likely secondary to diverticulitis 10. History of diverticulitis status post sigmoid colectomy and low anterior resection. 11. Degenerative disc disease in the cervical spine. 12. DVT prophylaxis. 13. COVID-19 testing negative. Patient has been hospitalized during a pandemic. 14. Opiate-induced constipation. Continue patient on MiraLAX 17 g in 8 ounces water, continue lactulose 20 g orally once every day, continue Senokot 2 tablet orally bedtime. 15. Guarded prognosis. Impression and plan of care have been directed as dictated by the signing p parris. Lizzie Solomon nurse practitioner acting as scribe for signing physician. Objective - Vital Signs Vital signs: Vital Signs Temp 97.9 F 02/02/21 04:00 Pulse 78 02/02/21 07:00 Resp 16 02/02/21 07:00 BP 109/57 02/02/21 07:00 Pulse Ox 94 L 02/02/21 07:00 Intake & Output 02/01/21 02/02/21 02/02/21 18:59 06:59 18:59 Intake Total 610.681 Output Total 216 175 15 Balance 394.681 -175 -15 Weight 91.2 kg Intake: Intake, IV Titration 10.681 Amount Insulin Regular 100 unit 10.681 In Sodium Chloride 0.9% 100 ml @ Per Protocol IV .Q0M TIANNA Rx#:[id number] Oral 600 Output: Chest Tube Drainage 0 Bilateral Mediastinal 0 Left Lateral Chest 0 Urine 216 175 15 Other: Voiding Method Indwelling Catheter Indwelling Catheter # Voids 1 ABP, PAP, CO, CI - Last Documented Arterial Blood Pressure 97/59 Pulmonary Artery Pressure 44/20 Cardiac Output 4.5 Cardiac Index 2.5 - Labs CBC & Chem 7: 02/02/21 04:43 02/02/21 04:43 Labs: Abnormal Lab Results - Last 24 Hours (Table) 02/01/21 02/01/21 02/01/21 Range/Units 08:52 11:23 17:01 RBC (3.80-5.40) m/uL Hgb (11.4-16.0) gm/dL Hct (34.0-46.0) % Sodium (137-145) mmol/L BUN (7-17) mg/dL Glucose (74-99) mg/dL POC Glucose (mg/dL) 124 H 123 H 111 H (75-99) mg/dL Total Protein (6.3-8.2) g/dL Albumin (3.5-5.0) g/dL 02/01/21 02/02/21 02/02/21 Range/Units 20:18 04:43 04:43 RBC 2.76 L (3.80-5.40) m/uL Hgb 8.0 L (11.4-16.0) gm/dL Hct 24.4 L (34.0-46.0) % Sodium 132 L (137-145) mmol/L BUN 24 H (7-17) mg/dL Glucose 107 H (74-99) mg/dL POC Glucose (mg/dL) 133 H (75-99) mg/dL Total Protein 5.4 L (6.3-8.2) g/dL Albumin 2.8 L (3.5-5.0) g/dL 02/02/21 Range/Units 06:51 RBC (3.80-5.40) m/uL Hgb (11.4-16.0) gm/dL Hct (34.0-46.0) % Sodium (137-145) mmol/L BUN (7-17) mg/dL Glucose (74-99) mg/dL POC Glucose (mg/dL) 129 H (75-99) mg/dL Total Protein (6.3-8.2) g/dL Albumin (3.5-5.0) g/dL
--- NOTE | 2021-02-02 09:24 | PN ---
PROGRESS NOTE Mrs. Carbajal is in sinus rhythm. She is status post aortocoronary bypass surgery, doing reasonably well on incentive spirometry. No chest pain. She still has pacemaker wires, which may come out today. Vitals are stable. S1-S2 heard normally. Lungs reveal improved air entry. Abdomen is soft. Lower extremities reveal diminished pulses. Central nervous system grossly within normal limits. Plan is to continue current medical regimen, increase activity, incentive spirometry, and hopefully discharge in the next 48 hours. MMODL / IJN: [id number] /
[2021-02-02] MEDS: ACETYLCYSTEINE 800 MG/4 ML VIAL INHALATION SCH ×4 (09:35→20:34)
[2021-02-02] MEDS: IPRATROPIUM-ALBUTEROL 3 ML NEB INHALATION SCH ×4 (09:36→20:34)
--- NOTE | 2021-02-02 10:46 | P.CONS ---
History of Present Illness - Chief Complaint Cardiac debility - History of Present Illness I had the opportunity to see patient for inpatient rehab consultation with regard to cardiac debility. Patient admitted to [facility] January 25 with exertional dyspnea and non-ST KS which is seen by cardiology with to did undergo catheterization demonstrated multivessel disease. Seen by Dr. Enrique for ICU care. Seen by thoracic surgery who did perform CABG three-vessel. Seen by Dr. Fuentes for sigmoid diverticulitis and currently treat symptomatically. Chest x-rays followed for postoperative change and congestion. OT reports maximal assistance for upper dressing and total assist for lower dressing, bathing, toileting and 2 person mod assist for transfers. Unable take steps. Previous functional history as elicited from patient: 75-year-old right-handed white female who is lives in a first-floor apartment with . Both are retired. does the driving but they share the cooking and laundry. Patient independent with standing shower and gait without device previously. PCP Dr. Avina. Denies tobacco or alcohol. Review of Systems Review of systems: ENT: Denies sneezes or discharge. Eyes: Denies discharge or photophobia. Cardiac: Denies chest pain or palpitation. Pulmonary: Yaum-yx-[id number] shortness of breath. Breast: Denies discharge or lumps. Gastrointestinal: Denies nausea, emesis, constipation, diarrhea. Genitourinary: Denies discharge or frequency. Musculoskeletal: Denies muscle or bone aches. Neurologic: Generalized weakness. Endocrine: Denies shakes or sweats. Oncology: Denies cancers. Dermatologic: Denies rash, itching, pruritus. ALLERGY/immunology: Denies sneezes, rashes. Past Medical History Past Medical History: GERD/Reflux, GI Bleed, Hyperlipidemia, Hypertension, Osteoarthritis (OA) Additional Past Medical History / Comment(s): Diverticulitis. Angina. Hiatal hernia. Recent stomach problems and rectal bleeding. "Bad back, disintegrating discs in neck, head shakes." History of Any Multi-Drug Resistant Organisms: None Reported Past Surgical History: Bowel Resection, Heart Catheterization, Hysterectomy, Orthopedic Surgery Additional Past Surgical History / Comment(s): Left foot surgery, left carpal tunnel surgery, colonoscopy X2. Past Anesthesia/Blood Transfusion Reactions: No Reported Reaction Past Psychological History: No Psychological Hx Reported Smoking Status: Never smoker Past Alcohol Use History: None Reported Past Drug Use History: None Reported - Past Family History Father Family Medical History: Cancer Mother Family Medical History: Cancer Brother(s) Family Medical History: Coronary Artery Disease (CAD), Myocardial Infarction ([place]) Sister(s) Family Medical History: Neurologic Disorder Daughter(s) Family Medical History: Pulmonary Embolus Son(s) Family Medical History: Coronary Artery Disease (CAD) Medications and Allergies Home Medications Medication Instructions Recorded Confirmed Type Enalapril [Vasotec] 20 mg PO BID 09/07/15 01/25/21 History Metoprolol Tartrate [Lopressor] 50 mg PO BID 09/07/15 01/25/21 History [place]-3 Fatty Acids/Fish Oil [Fish 1 cap PO DAILY 09/08/15 01/25/21 History Oil 1,000 mg Softgel] Cholecalciferol (Vitamin D3) 50 mcg PO DAILY 06/14/17 01/25/21 History [Vitamin D3] L.acidoph,Paracasei, B.lactis 1 cap PO DAILY 06/14/17 01/25/21 History [Probiotic] Magnesium Oxide [Mag-Ox] 250 mg PO DAILY 06/14/17 01/25/21 History Aspirin [Adult Low Dose Aspirin EC] 81 mg PO DAILY 12/07/20 01/25/21 History Cyanocobalamin (Vitamin B-12) 1,000 mcg PO DAILY 12/07/20 01/25/21 History [Vitamin B-12] amLODIPine [Norvasc] 10 mg PO HS 12/07/20 01/25/21 History Acetaminophen/Chlorpheniramine 1 - 2 tab PO Q6H PRN 01/25/21 01/25/21 History [Coricidin Hbp Cold & Flu Tab] Omeprazole 40 mg PO DAILY 01/25/21 01/25/21 History Simvastatin [Zocor] 20 mg PO HS 01/25/21 01/25/21 History Allergies Allergy/AdvReac Type Severity Reaction Status Date / Time ciprofloxacin Allergy Rash/Hives Verified 01/25/21 07:09 cortisone Allergy HAD Verified 01/25/21 07:09 NUMBNESS AT BACK OF HEAD FOLLOWING INJECTION hydrocortisone Allergy Unknown Verified 01/25/21 07:09 [From Cortizone-10] Penicillins Allergy Rash/Hives Verified 01/25/21 07:09 Physical Exam Vitals: Vital Signs Temp Pulse Resp BP Pulse Ox 02/02/21 10:00 75 18 98/82 93 L 02/02/21 09:55 73 02/02/21 09:45 73 02/02/21 09:00 73 15 100/80 92 L 02/02/21 08:00 97.5 F L 75 15 100/60 92 L 02/02/21 07:00 78 16 109/57 94 L 02/02/21 05:00 73 15 103/60 92 L 02/02/21 04:00 97.9 F 71 15 108/58 94 L 02/02/21 03:00 69 14 99/54 97 02/02/21 02:00 72 18 92/59 92 L 02/02/21 01:00 71 16 99/60 93 L 02/02/21 00:00 98.0 F 68 17 103/63 96 02/01/21 23:00 68 14 108/57 96 02/01/21 22:00 70 14 122/65 97 02/01/21 21:00 78 14 128/87 96 02/01/21 20:00 98.1 F 84 18 121/82 96 02/01/21 19:34 84 02/01/21 19:23 84 92 L 02/01/21 19:00 86 16 124/72 02/01/21 18:00 79 15 101/53 97 02/01/21 17:00 78 13 129/84 94 L 02/01/21 16:00 98.0 F 75 16 125/66 94 L 02/01/21 15:00 74 15 115/63 94 L 02/01/21 14:00 72 17 113/66 95 02/01/21 13:00 74 24 121/73 96 02/01/21 12:00 72 16 107/63 96 02/01/21 11:00 71 15 104/68 90 L Intake and Output 02/01/21 02/02/21 02/02/21 22:59 06:59 14:59 Intake Total 100 100 Output Total 124 135 49 Balance -24 -135 51 Intake: IV 100 metroNIDAZOLE-NS PMX 500 100 mg In Saline 1 100ml.bag @ 100 mls/hr IVPB Q8HR [facility] Rx#:[id number] Oral 100 Output: Urine 124 135 49 Other: Voiding Method Indwelling Catheter Indwelling Catheter Weight 91.2 kg ABP, PAP, CO, CI - Last 8 Hours Cardiac Output 4.5 Cardiac Output 4.5 Cardiac Output 4.5 Cardiac Output 4.5 Cardiac Output 4.5 Cardiac Output 4.5 Cardiac Output 4.5 Cardiac Output 4.5 Cardiac Index 2.5 Cardiac Index 2.5 Cardiac Index 2.5 Cardiac Index 2.5 Cardiac Index 2.5 Cardiac Index 2.5 Cardiac Index 2.5 Cardiac Index 2.5 Skin: Atrophic, intact. General: Obese build and comfortable appearance. Head: Normocephalic, atraumatic. Eyes: Symmetric. Pupils equal round. Ears: Symmetric. Hearing within normal limits. Mouth: Clear. Neck: Supple. Carotid without bruit. Cardiac: Regular rate and rhythm. Sternum clean and dressed. Harness. Lungs: Clear anteriorly and posteriorly. Abdomen: Soft active nontender. Overweight. Extremities: Normal tone. Neurological: Mental status: Alert, cooperative, pleasant. Cranial nerves: Symmetric facial tone and trapezius. Motor: Active movement all 4 limbs at least antigravity in arms and less than antigravity in legs. Sensation: Intact throughout. DTRs: Symmetric and equal throughout. Mobility: Requires physical assistance for functional mobility. Patient reports ambulating in room to hallway with assistance. Results CBC & Chem 7: 02/02/21 04:43 02/02/21 04:43 Labs: Abnormal Lab Results - Last 24 Hours (Table) 02/01/21 02/01/21 02/01/21 Range/Units 11:23 17:01 20:18 RBC (3.80-5.40) m/uL Hgb (11.4-16.0) gm/dL Hct (34.0-46.0) % Sodium (137-145) mmol/L BUN (7-17) mg/dL Glucose (74-99) mg/dL POC Glucose (mg/dL) 123 H 111 H 133 H (75-99) mg/dL Total Protein (6.3-8.2) g/dL Albumin (3.5-5.0) g/dL 02/02/21 02/02/21 02/02/21 Range/Units 04:43 04:43 06:51 RBC 2.76 L (3.80-5.40) m/uL Hgb 8.0 L (11.4-16.0) gm/dL Hct 24.4 L (34.0-46.0) % Sodium 132 L (137-145) mmol/L BUN 24 H (7-17) mg/dL Glucose 107 H (74-99) mg/dL POC Glucose (mg/dL) 129 H (75-99) mg/dL Total Protein 5.4 L (6.3-8.2) g/dL Albumin 2.8 L (3.5-5.0) g/dL Assessment and Plan (1) Acute non-ST elevation myocardial infarction (NSTEMI) Current Visit: Yes Status: Acute Code(s): I21.4 - NON-ST ELEVATION (NSTEMI) MYOCARDIAL INFARCTION SNOMED Code(s): 667562989 (2) CHF (congestive heart failure) Current Visit: Yes Status: Acute Code(s): I50.9 - HEART FAILURE, UNSPECIFIED SNOMED Code(s): 98524089 (3) Acute blood loss anemia Current Visit: No Status: Acute Code(s): D62 - ACUTE POSTHEMORRHAGIC ANEMIA SNOMED Code(s): 489647223 (4) Diverticulitis Current Visit: No Status: Acute Code(s): K57.92 - DVTRCLI OF INTEST, PART UNSP, W/O PERF OR ABSCESS W/O BLEED SNOMED Code(s): 354132558 Plan: Impression: 1. Cardiac debility with non-ST [place] and status post three-vessel CABG. 2. Sigmoid diverticulitis with history of GI bleed. 3. Postoperative anemia. 4. Hypertension. 5. Dyslipidemia. 6. GERD. 7. Osteoarthritis. Comments and plan: At this time there is and OT note but no PT note. There is a comment that patient unable to take care of. Patient's preference is to return home with therapies and assistance of her . She is currently total assist and I suspect that this would be very unsafe as is 80 years old. Have discussed possible inpatient rehab with patient but again she is a little reluctant to consider currently.
[2021-02-02 11:38] LABS: Glucose,Whole Blood 154 mg/dL (75-99)
--- NOTE | 2021-02-02 13:03 | P.PN ---
Subjective Progress Note Date: 02/02/21 Principal diagnosis: Coronary artery disease status post coronary artery bypass grafting On today's evaluation on 01/28/2021 patient seen in follow-up in intensive care unit, she is awake and alert, she is currently on 2 L of oxygen pulse ox is 97%, breathing comfortably, no complaints of chest pain or worsening shortness of breath overnight. Her chest x-ray today still showing pulmonary edema. Patient remains on Lasix 40 mg push every 12 hours, and patient is slightly and positive net fluid balance of 289 mL over the last 24 hours, intra-aortic balloon pump remains in place via the right groin, still to 121 augmentation, augmented diastolic today is improved and is up to 141 from 96 on yesterday's exam, her blood pressure is 115/59, she is in sinus mechanism with a rate of 85 bpm. lung sounds are positive for diminished breath sounds with mild crackles at the base s, but clinically patient is breathing comfortably, she is on 0.9 normal saline at a rate of 50 ML per hour in addition to heparin infusion per weight based protocol. Patient has slightly diminished pulse in the right pedal area, and 1+ pedal pulse in the left acute oh. Extremities are warm. Today's labs have been reviewed, with blood cell count is 8.1, hemoglobin is 9.9, INR is 1.0, sodium is 135, the rest of electrolytes and renal profile were unremarkable. This has also been noted showing trace ketones and blood but no evidence of urinary tract infection. 13 2020, the patient remains on 2 L about 2 by nasal cannula. She is still diuresing with Lasix. Hemodynamically, it was decided to keep the intra-aortic balloon pump with 1-1 augmentation as there was concern that the patient's condition may decompensate off the balloon pump. The mean arterial pressure currently is at 97. She is free of any angina. Her cardiac rhythm is sinus. She did have some nausea and she was given MiraLAX for bowel movements activity. The surgery is still tentatively scheduled for next week, possibly next Sunday. Otherwise, the patient is doing well. She is free of any chest pain. No cardiac arrhythmias have been noted. The patient remains on IV heparin. She is also getting a white cell count 7.9 with a hemoglobin of 9.9. Platelet counts are stable at 34. No other significant events otherwise for now. She has multivessel coronary artery disease and impairment of LV function and she is awaiting coronary artery bypass surgery. 01/30/2021, the patient was taken to the operating room and the patient underwent cardiac bypass surgery. The patient underwent urgent myocardial the vascular rosacea surgery with DOBBS to LAD, SVG to PDA and OM 1. Patient is currently in the intensive care unit. She is hemodynamically stable. The intra-aortic balloon pump is still in place with 1:1 augmentation. Cardiac output is at 4.7 with an index of 2.7. The cardiac rhythm is normal sinus. Pulmonary artery pressures are 42/21. The patient is currently sedated with propofol which is currently running at 30 mg/kg/m. She is on a mechanical ventilator on assist control mode with a rate of 14 with a tidal volume of 400 FiO2 100% with a PEEP of 10. I increased the rate up to 20. Meanwhile, the patient seems to have a adequate urine output. The patient is to mediastinal and left pleural chest tube and the total amount of output has been around 120 mL since she arrived from the operating room.k the patient arrived to us with a a nitroglycerin drip at 5 mg/m. The patient is also on close approximately 2 mg an hour and milrinone at 0.3 mcg/kg per minute to augment her cardiac output. She'll be systolic is also on insulin drip for blood sugar control. Reevaluated today on 01/31/2021, patient underwent emergent CABG yesterday, she was seen by Dr. Martel, and she was extubated last night. Patient was extubated successfully at 19:56. Remains in bed, she has an intra-aortic balloon pump in place, it will likely be removed shortly this morning. Patient is doing well, she has minimal atelectasis on the chest x-ray, she is hemodynamically stable, she is however on milrinone. At 0.15 mcg/kg/m, her cardiac index is 2.9, cardiac output is 5.2. Pulmonary artery pressure 40/12, patient is receiving Lasix 40 mg IV push this morning. She is on 10 L of nasal cannula O2 sats is 92%. ABC is relatively normal, hemoglobin is 8. PTT is 42.9. Colitis and renal profile are normal Reevaluated today on 02/01/2021, patient is postoperative day #2. Patient is resting at a bedside chair, she is on 6 L nasal cannula, does not seem to be in any distress, her chest tubes have been removed. And her intra-aortic balloon pump was removed yesterday. She is hemodynamically stable, not requiring any inotropes or pressors. Doing fairly well with incentive spirometry. Chest x- ray showed minimal postoperative atelectasis. Labs including CBC and electrolytes with renal profile are normal however her hemoglobin is 7.6. The patient is seen today 02/02/2021 in follow-up in the intensive care unit. She is currently sitting up in a chair at the bedside. Awake and alert in no acute distress. This is postoperative day #3. Chest x-ray reveals a small left effusion and some atelectasis. She is working well with the incentive spirometer. She is maintaining O2 saturations in the 90s on 2 L/m per nasal cannula. She's been up ambulating with assistance. Chest tubes have been removed. She is status post 1 unit of packed red blood cells this admission. Current hemoglobin 8.0. White count 10.5. Sodium 132. Potassium 3.9. Creatinine 0.88. AST 32. ALT 10. Albumin 2.8. Glucose 107. She remains on bronchodilators. Heparin for DVT prophylaxis. Objective - Vital Signs Vital signs: Vital Signs Temp 97.5 F L 02/02/21 08:00 Pulse 75 02/02/21 10:00 Resp 18 02/02/21 10:00 BP 98/82 02/02/21 10:00 Pulse Ox 93 L 02/02/21 10:00 Intake & Output 02/01/21 02/02/21 02/02/21 18:59 06:59 18:59 Intake Total 610.681 100 Output Total 216 175 49 Balance 394.681 -175 51 Weight 91.2 kg Intake: IV 100 metroNIDAZOLE-NS PMX 500 100 mg In Saline 1 100ml.bag @ 100 mls/hr IVPB Q8HR [facility] Rx#:[id number] Intake, IV Titration 10.681 Amount Insulin Regular 100 unit 10.681 In Sodium Chloride 0.9% 100 ml @ Per Protocol IV .Q0M [facility] Rx#:[id number] Oral 600 Output: Chest Tube Drainage 0 Bilateral Mediastinal 0 Left Lateral Chest 0 Urine 216 175 49 Other: Voiding Method Indwelling Catheter Indwelling Catheter # Voids 1 ABP, PAP, CO, CI - Last Documented Arterial Blood Pressure 97/59 Pulmonary Artery Pressure 44/20 Cardiac Output 4.5 Cardiac Index 2.5 - Exam GENERAL EXAM: Alert, active, pleasant 75-year-old female patient, on 2 L nasal cannula, comfortable in no apparent distress. HEAD: Normocephalic. EYES: Normal reaction of pupils, equal size. NOSE: Clear with pink turbinates. THROAT: No erythema or exudates. NECK: No masses, no JVD. CHEST: Sternal dressing dry and intact. Heart hugger in place. LUNGS: Equal air entry with crackles in the left lung base. CVS: S1 and S2 normal with no audible murmur, regular rhythm. ABDOMEN: No hepatosplenomegaly, normal bowel sounds, no guarding or rigidity. SPINE: No scoliosis or deformity SKIN: No rashes CENTRAL NERVOUS SYSTEM: No focal deficits, tone is normal in all 4 extremities. EXTREMITIES: There is no peripheral edema. No clubbing, no cyanosis. Peripheral pulses are intact. - Labs CBC & Chem 7: 02/02/21 04:43 02/02/21 04:43 Labs: Abnormal Lab Results - Last 24 Hours (Table) 02/01/21 02/01/21 02/02/21 Range/Units 17:01 20:18 04:43 RBC 2.76 L (3.80-5.40) m/uL Hgb 8.0 L (11.4-16.0) gm/dL Hct 24.4 L (34.0-46.0) % Sodium (137-145) mmol/L BUN (7-17) mg/dL Glucose (74-99) mg/dL POC Glucose (mg/dL) 111 H 133 H (75-99) mg/dL Total Protein (6.3-8.2) g/dL Albumin (3.5-5.0) g/dL 02/02/21 02/02/21 02/02/21 Range/Units 04:43 06:51 11:36 RBC (3.80-5.40) m/uL Hgb (11.4-16.0) gm/dL Hct (34.0-46.0) % Sodium 132 L (137-145) mmol/L BUN 24 H (7-17) mg/dL Glucose 107 H (74-99) mg/dL POC Glucose (mg/dL) 129 H 154 H (75-99) mg/dL Total Protein 5.4 L (6.3-8.2) g/dL Albumin 2.8 L (3.5-5.0) g/dL Assessment and Plan Assessment: 1 Status post emergent triple vessel CABG and intra-aortic balloon pump placement postoperative day number 3 2 Non-ST elevation myocardial infarction on admission. 3 Acute systolic congestive heart failure on admission. 4 Dyslipidemia. 5 History of diverticular disease. 6 History of GI bleeding and chronic anemia. 7 Chronic low back pain. 8 Family history of coronary artery disease. 9 Postoperative atelectasis, expected. Plan: The patient was seen and evaluated by Dr. Perez Chest x-ray and labs reviewed Continue current treatment plan Increase her activity as tolerated Titrate down the FiO2 as tolerated Continue the incentive spirometer Being considered for inpatient rehabilitation We'll continue to follow I, the cosigning physician, performed a history & physical examination of the patient. Lungs sounds with crackles in left lung base. Maintaining good O2 saturations in the 90s on 2 L/m per nasal cannula. I discussed the assessment and plan of care with my nurse practitioner, Alexa Espinoza. I attest to the above note as dictated by her.
--- NOTE | 2021-02-02 14:47 | P.VSCSTY ---
Greater Saphenous Vein Mapping This is bilateral lower extremity greater saphenous vein mapping. Date of service: 01/26/2021 Vein quality and ultrasound appearance: Mild intimal thickening noted throughout Vein size groin right : 5.2 x 4.6 groin left: 6.8 x 7.6 High thigh right: 3.5 x 5.4 high thigh left: 5.5 x 4.9 Mid thigh right: 4.2 x 4.7 mid thigh left: 4.6 x 3.9 Above-knee right: 3.5 x 3.4 above- knee left: 4.6 x 3.6 Below knee right: 4.1 x 4.5 below-knee left: 3.8 x 3.6 Mid calf right: 2.6 x 2.1 mid calf left: 3.1 x 2.1 Ankle right: 3.2 x 2.7 ankle left: 2.3 x 2.0 Impression: Appears to be usable vein both greater saphenous. Due to some intimal thickening the vein should be examined closely..
[2021-02-02 16:49] LABS: Glucose,Whole Blood 271 mg/dL (75-99)
[2021-02-02 20:26] LABS: Glucose,Whole Blood 138 mg/dL (75-99)
[2021-02-02] MEDS: SENNOSIDES-DOCUSATE SODIUM 1 EACH TAB PO SCH (20:32)
[2021-02-03 04:11] LABS: HCT 23.7 % (34.0-46.0); HGB 7.8 gm/dL (11.4-16.0); Hypochromasia Slight; MCH 29.2 pg (25.0-35.0); MCHC 32.7 g/dL (31.0-37.0); MCV 89.3 fL (80.0-100.0); Mean Platelet Volume 7.8; Platelet Count 299 k/uL (150-450); RBC 2.66 m/uL (3.80-5.40); RDW 14.7 % (11.5-15.5); WBC 9.5 k/uL (3.8-10.6)
[2021-02-03 04:28] LABS: Calcium 8.5 mg/dL (8.4-10.2); Potassium 4.1 mmol/L (3.5-5.1)
[2021-02-03] MEDS: PANTOPRAZOLE 40 MG TABLET PO SCH ×2 (05:37→17:10)
[2021-02-03] MEDS: ASCORBIC ACID 500 MG TAB PO SCH ×2 (05:37→17:08)
[2021-02-03] MEDS: KETOROLAC 30 MG/ML 1 ML VIAL IVP SCH ×4 (05:37→23:46)
[2021-02-03] MEDS: FERROUS SULFATE 325 MG TAB PO SCH ×2 (05:37→17:08)
[2021-02-03] MEDS: INSULIN ASPART (NovoLOG) 100 UNIT/ML VIAL SQ SCH ×4 (05:40→22:44)
[2021-02-03 05:41] LABS: Glucose,Whole Blood 108 mg/dL (75-99)
--- NOTE | 2021-02-03 08:00 | XR ---
EXAMINATION TYPE: XR chest 2V DATE OF EXAM: 02/03/2021 COMPARISON: 02/02/2021 HISTORY: Shortness of breath TECHNIQUE: Frontal and lateral views of the chest are obtained. FINDINGS: Scattered senescent parenchymal changes noted. Hyperinflation compatible with COPD. Improving basilar linear atelectasis and small effusions. Postcardiac surgical change. Heart size is stable. Mediastinal structures are stable and grossly unremarkable. No evidence for hilar prominence. Degenerative changes dorsal spine. IMPRESSION: 1. No evidence for acute pulmonary disease.
[2021-02-03] MEDS: IPRATROPIUM-ALBUTEROL 3 ML NEB INHALATION SCH ×5 (08:20→19:57)
[2021-02-03] MEDS: ACETYLCYSTEINE 800 MG/4 ML VIAL INHALATION SCH ×5 (08:20→19:57)
[2021-02-03] MEDS: CLOPIDOGREL 75 MG TAB PO SCH (08:55)
[2021-02-03] MEDS: HEPARIN SODIUM,PORCINE/PF 5,000 UNIT/0.5 ML SYRINGE SQ SCH ×3 (08:55→23:47)
[2021-02-03] MEDS: ATORVASTATIN 40 MG TAB PO SCH (08:55)
[2021-02-03] MEDS: METOPROLOL TARTRATE 25 MG TAB PO SCH ×2 (08:55→22:47)
[2021-02-03] MEDS: LIDOCAINE 5% PATCH TOPICAL SCH (08:56)
[2021-02-03] MEDS: AMIODARONE 200 MG TAB PO SCH ×2 (08:56→22:47)
[2021-02-03] MEDS: ASPIRIN 325 MG TAB PO SCH (08:56)
--- NOTE | 2021-02-03 09:49 | P.PN ---
Subjective Progress Note Date: 02/03/21 Principal diagnosis: Triple-vessel coronary artery disease with left main disease, chest pain, progressive shortness of breath, non-STEMI, acute systolic heart failure present on admission, reported bleeding per rectum. Previous medical history of hypertension, hyperlipidemia, GERD, GI bleed with preop chronic anemia, diverticulosis, localized colitis, degenerative disc disease with chronic low back pain, obesity, and family history of coronary artery disease POD #4 urgent triple coronary artery bypass grafting using the left internal mammary artery to the left anterior descending artery, reverse saphenous vein graft from the aorta to the posterior descending artery, reverse saphenous vein graft from the aorta to the subtotally occluded obtuse marginal artery, exclusi on of the left atrial appendage using a 35 mm AtriClip, endoscopic harvesting of the left greater saphenous vein from the groin to above the ankle level, intraoperative transesophageal echocardiogram and epiaortic scanning, intraoperative graft flow measurements using the [employer] system Postopertive acute blood loss anemia, expected given hemodilution, cardiopulmonary bypass pump, and preoperative anemia The patient was seen and examined this morning on the cardiac stepdown unit sitting up in a recliner in no acute distress. Remains in sinus rhythm, hemodynamically stable. Patient complains of chronic back pain which is controlled with current medication regimen, denies shortness of breath. Hackett catheter was discontinued yesterday, patient did void once yesterday afternoon, then required straight catheterization this morning for 1300 mL urine. Ambulated to the doorway with assistance. Was seen by Dr. Walker yesterday for possible IPR at discharge, patient does not want to go to rehab, she does want to go home with home care. Objective - Vital Signs Vital signs: Vital Signs Temp 97.7 F 02/03/21 03:35 Pulse 80 02/03/21 08:33 Resp 16 02/03/21 03:35 BP 112/75 02/03/21 03:35 Pulse Ox 95 02/03/21 03:35 Intake & Output 02/02/21 02/03/21 02/03/21 18:59 06:59 18:59 Intake Total 100 240 Output Total 49 1420 Balance 51 -1420 240 Weight 89.9 kg Intake: IV 100 metroNIDAZOLE-NS PMX 500 100 mg In Saline 1 100ml.bag @ 100 mls/hr IVPB Q8HR [facility] Rx#:[id number] Oral 240 Output: Urine 49 1420 Straight 1300 Other: Voiding Method Bedside Commode Bedside Commode ABP, PAP, CO, CI - Last Documented Arterial Blood Pressure 97/59 Pulmonary Artery Pressure 44/20 Cardiac Output 4.5 Cardiac Index 2.5 - Exam CONSTITUTIONAL: Appears comfortable, cooperative, no acute distress RESPIRATORY: Lungs sounds diminished bilaterally. Respirations even, nonlabored. Currently on room air with oxygen saturation 95%. Able to achieve 800 mL on incentive spirometry. Strong cough. CARDIOVASCULAR: S1, S2 present. Regular rate and rhythm, sinus rhythm on telemetry. Sternum stable. Palpable peripheral pulses bilaterally. Trace lower extremity edema present. No calf pain or tenderness noted. Heart hugger in place with patient demonstrating appropriate use. Antiembolism stockings, SCDs present. GASTROINTESTINAL: Abdomen soft, nontender, nondistended. Active bowel sounds present 4 quadrants. Tolerating diet. Positive bowel movement after surgery GENITOURINARY: Hackett discontinued yesterday, patient voided 120 mL 1 yesterday afternoon, straight cath this morning for 1300 mL INTEGUMENTARY: Skin is warm and dry with evidence of good perfusion. Anterior chest incision well approximated and covered with dry intact dressing. Left lower extremity EVH site well approximated without redness. Right groin IABP site soft and non-tender NEUROLOGIC: Cranial nerves II through XII intact MUSKULOSKELETAL: Able to move all extremities, strength equal bilaterally PSYCHIATRIC: Alert and oriented to person place and time, appropriate affect, intact judgment and insight INVASIVE LINES AND TUBES: Atrial epicardial pacemaker wires present, grounded. - Allied health notes Allied health notes reviewed: nursing - Labs CBC & Chem 7: 02/03/21 03:39 02/03/21 03:39 Labs: Abnormal Lab Results - Last 24 Hours (Table) 02/02/21 02/02/21 02/02/21 Range/Units 11:36 16:47 20:25 RBC (3.80-5.40) m/uL Hgb (11.4-16.0) gm/dL Hct (34.0-46.0) % Sodium (137-145) mmol/L BUN (7-17) mg/dL Glucose (74-99) mg/dL POC Glucose (mg/dL) 154 H 271 H 138 H (75-99) mg/dL 02/03/21 02/03/21 02/03/21 Range/Units 03:39 03:39 05:40 RBC 2.66 L (3.80-5.40) m/uL Hgb 7.8 L (11.4-16.0) gm/dL Hct 23.7 L (34.0-46.0) % Sodium 130 L (137-145) mmol/L BUN 21 H (7-17) mg/dL Glucose 102 H (74-99) mg/dL POC Glucose (mg/dL) 108 H (75-99) mg/dL - Imaging and Cardiology Chest x-ray: report reviewed, image reviewed Assessment and Plan Assessment: 1. Triple-vessel coronary artery disease with left main disease, current intra- aortic balloon pump in place, status post three-vessel CABG 2. Chest pain, progressive shortness of breath on admission, non-STEMI on admission 3. Acute systolic heart failure present on admission 4. History of hypertension 5. History of hyperlipidemia, treated 6. GERD 7. History of GI bleed with reported bleeding per rectum this admission with preoperative chronic anemia 8. History of diverticulosis, localized colitis 9. Degenerative disc disease, chronic low back pain 10. Family history of coronary artery disease 11. Postopertive acute blood loss anemia, expected Plan: 1. Continue aspirin, statin, Plavix, beta carlo therapy. Will increase beta carlo therapy as tolerated. Continue prophylactic amiodarone. Will start low- dose Cozaar for afterload reduction 2. Encourage incentive spirometry use. Bronchodilators per pulmonology 3. Increase activity as tolerated. PT/OT/cardiac rehab following 4. Will continue to monitor daily labs, chest x-rays. Electrolyte replacement per protocol. No further blood transfusion at this point. No lasix today 5. GI/DVT prophylaxis 6. Pain control with current medication regimen 7. Insulin management per primary care service. Patient is not diabetic, preoperative hemoglobin A1c 5.6%. Patient does need tight blood sugar control to promote sternal union, decrease infection risk 8. Ensure added, encourage patient to drink 9. May bladder scan and straight cath for > 300 mL residual 10. Strict accurate intake and output. Daily weights. Shower daily 11. Continue Iron, Vitamin C 12. Will discontinue epicardial pacemaker wires. Patient remained on bedrest for 1 hour post where removal 13. Discharge planning in progress. Anticipate discharge to home with home care in the next 24-48 hrs. 14. More recommendations to follow Time with Patient: Greater than 30
[2021-02-03 11:38] LABS: Glucose,Whole Blood 114 mg/dL (75-99)
[2021-02-03] MEDS ORDERED: LOSARTAN 25 MG TAB PO SCH (12:00)
--- NOTE | 2021-02-03 12:40 | ECHOF ---
Referral Reason:eval LV for possible lifevest at DC MEASUREMENTS -------- HEIGHT: 152.4 cm WEIGHT: 91.2 kg BP: IVSd: 1.1 cm (0.6 - 1.1) LVIDd: 4.6 cm (3.9 - 5.3) LVPWd: 1.1 cm (0.6 - 1.1) IVSs: 1.5 cm LVIDs: 3.7 cm LVPWs: 1.2 cm FINDINGS -------- Sinus rhythm. This was a technically difficult study with suboptimal apical views. Limited Study TDS due to CABG and Bandages. The left ventricular size is normal. There is borderline concentric left ventricular hypertrophy. Overall left ventricular systolic function is moderately impaired with, an EF between 35 - 40 %. B santa lateral LV wall motion is hypokinetic. Mid lateral LV wall motion is hypokinetic. Mid infe rior LV wall motion is hypokinetic. There is no pericardial effusion. CONCLUSIONS -------- 1. The left ventricular size is normal. 2. There is borderline concentric left ventricular hypertrophy. 3. Overall left ventricular systolic function is moderately impaired with, an EF between 35 - 40 %. 4. Basal lateral LV wall motion is hypokinetic. 5. Mid lateral LV wall motion is hypokinetic. 6. Mid inferior LV wall motion is hypokinetic. CHAIR UPHOLSTERER: Mae Armenta RDCS
--- NOTE | 2021-02-03 12:47 | PN ---
PROGRESS NOTE Mrs. Carbajal is status post aortocoronary bypass surgery. She is recovering nicely. She went for a walk, handled it well. She is maintaining sinus rhythm. No chest pain. She has some incisional pain, but it is improving, shortness of breath is stable. No JVD. S1-S2 heard normally. Lungs reveal improved air entry. Abdomen is soft. Lower extremities reveal diminished pulses. Central nervous system grossly within normal limits. Plan is to continue current medications, continue incentive spirometry, pulmonary toilet and plan for discharge soon. Same medical regimen. MMODL / IJN: [id number] /
--- NOTE | 2021-02-03 14:00 | P.PN ---
Subjective Progress Note Date: 02/03/21 Principal diagnosis: Status post emergent CABG for triple vessel coronary artery disease postoperative day #3 On today's evaluation on 01/28/2021 patient seen in follow-up in intensive care unit, she is awake and alert, she is currently on 2 L of oxygen pulse ox is 97%, breathing comfortably, no complaints of chest pain or worsening shortness of breath overnight. Her chest x-ray today still showing pulmonary edema. Patient remains on Lasix 40 mg push every 12 hours, and patient is slightly and positive net fluid balance of 289 mL over the last 24 hours, intra-aortic balloon pump remains in place via the right groin, still to 121 augmentation, augmented diastolic today is improved and is up to 141 from 96 on yesterday's exam, her blood pressure is 115/59, she is in sinus mechanism with a rate of 85 bpm. lung sounds are positive for diminished breath sounds with mild crackles at the bases, but clinically patient is breathing comfortably, she is on 0.9 normal saline at a rate of 50 ML per hour in addition to heparin infusion per weight based protocol. Patient has slightly diminished pulse in the right pedal area, and 1+ pedal pulse in the left acute oh. Extremities are warm. Today's labs have been reviewed, with blood cell count is 8.1, hemoglobin is 9.9, INR is 1.0, sodium is 135, the rest of electrolytes and renal profile were unremarkable. This has also been noted showing trace ketones and blood but no evidence of urinary tract infection. 13 2020, the patient remains on 2 L about 2 by nasal cannula. She is still diuresing with Lasix. Hemodynamically, it was decided to keep the intra-aortic balloon pump with 1-1 augmentation as there was concern that the patient's condition may decompensate off the balloon pump. The mean arterial pressure currently is at 97. She is free of any angina. Her cardiac rhythm is sinus. She did have some nausea and she was given MiraLAX for bowel movements activity. The surgery is still tentatively scheduled for next week, possibly next Sunday. Otherwise, the patient is doing well. She is free of any chest pain. No cardiac arrhythmias have been noted. The patient remains on IV heparin. She is also getting a white cell count 7.9 with a hemoglobin of 9.9. Platelet counts are stable at 34. No other significant events otherwise for now. She has multivessel coronary artery disease and impairment of LV function and she is awaiting coronary artery bypass surgery. 01/30/2021, the patient was taken to the operating room and the patient underwent cardiac bypass surgery. The patient underwent urgent myocardial the vascular rosacea surgery with DOBBS to LAD, SVG to PDA and OM 1. Patient is cu rrently in the intensive care unit. She is hemodynamically stable. The intra- aortic balloon pump is still in place with 1:1 augmentation. Cardiac output is at 4.7 with an index of 2.7. The cardiac rhythm is normal sinus. Pulmonary artery pressures are 42/21. The patient is currently sedated with propofol which is currently running at 30 mg/kg/m. She is on a mechanical ventilator on assist control mode with a rate of 14 with a tidal volume of 400 FiO2 100% with a PEEP of 10. I increased the rate up to 20. Meanwhile, the patient seems to have a adequate urine output. The patient is to mediastinal and left pleural chest tube and the total amount of output has been around 120 mL since she arrived from the operating room.k the patient arrived to us with a a nitroglycerin drip at 5 mg/m. The patient is also on close approximately 2 mg an hour and milrinone at 0.3 mcg/kg per minute to augment her cardiac output. She'll be systolic is also on insulin drip for blood sugar control. Reevaluated today on 01/31/2021, patient underwent emergent CABG yesterday, she was seen by Dr. Martel, and she was extubated last night. Patient was extubated successfully at 19:56. Remains in bed, she has an intra-aortic balloon pump in place, it will likely be removed shortly this morning. Patient is doing well, she has minimal atelectasis on the chest x-ray, she is hemodynamically stable, she is however on milrinone. At 0.15 mcg/kg/m, her cardiac index is 2.9, cardiac output is 5.2. Pulmonary artery pressure 40/12, patient is receiving Lasix 40 mg IV push this morning. She is on 10 L of nasal cannula O2 sats is 92%. ABC is relatively normal, hemoglobin is 8. PTT is 42.9. Colitis and renal profile are normal Reevaluated today on 02/01/2021, patient is postoperative day #2. Patient is resting at a bedside chair, she is on 6 L nasal cannula, does not seem to be in any distress, her chest tubes have been removed. And her intra-aortic balloon pump was removed yesterday. She is hemodynamically stable, not requiring any inotropes or pressors. Doing fairly well with incentive spirometry. Chest x- ray showed minimal postoperative atelectasis. Labs including CBC and elec trolytes with renal profile are normal however her hemoglobin is 7.6. Reevaluated today on 02/03/2021, patient is now on the medical floor, sitting at a bedside recliner, doing well, she is on room air, O2 saturation is 95%, patient denies any pulmonary symptoms. Minimal atelectasis is noted on the chest x-ray, improving compared to previously. Labs including CBC showed a hemoglobin of 7.8 Kelby expected, electrolytes are normal renal profile is normal. Objective - Vital Signs Vital signs: Vital Signs Temp 97.9 F 02/03/21 12:00 Pulse 80 02/03/21 12:11 Resp 18 02/03/21 12:00 BP 120/73 02/03/21 12:00 Pulse Ox 95 02/03/21 12:00 Intake & Output 02/02/21 02/03/21 02/03/21 18:59 06:59 18:59 Intake Total 100 240 Output Total 49 1420 Balance 51 -1420 240 Weight 89.9 kg Intake: IV 100 metroNIDAZOLE-NS PMX 500 100 mg In Saline 1 100ml.bag @ 100 mls/hr IVPB Q8HR [facility] Rx#:[id number] Oral 240 Output: Urine 49 1420 Straight 1300 Other: Voiding Method Bedside Commode Bedside Commode Bedside Commode ABP, PAP, CO, CI - Last Documented Arterial Blood Pressure 97/59 Pulmonary Artery Pressure 44/20 Cardiac Output 4.5 Cardiac Index 2.5 - Exam CONSTITUTIONAL: Revealed a 75-year-old female in no distress, on room air at present. RESPIRATORY: Symmetrical chest expansion, clear throughout no crackles or rhonchi or wheezes. CARDIOVASCULAR: Normal S1 and S2, no S3 gallop. Abdomen: Soft nontender no megaly no rebound. Leena: No rashes. NEUROLOGIC: Cranial nerves II through XII intact MUSKULOSKELETAL: No deformities and no limitation in range of motion. PSYCHIATRIC: Normal mood affect and normal mental status examination. Neurologic: Alert and oriented 3 focal deficits. - Labs CBC & Chem 7: 02/03/21 03:39 02/03/21 03:39 Labs: Abnormal Lab Results - Last 24 Hours (Table) 02/02/21 02/02/21 02/03/21 Range/Units 16:47 20:25 03:39 RBC 2.66 L (3.80-5.40) m/uL Hgb 7.8 L (11.4-16.0) gm/dL Hct 23.7 L (34.0-46.0) % Sodium (137-145) mmol/L BUN (7-17) mg/dL Glucose (74-99) mg/dL POC Glucose (mg/dL) 271 H 138 H (75-99) mg/dL 02/03/21 02/03/21 02/03/21 Range/Units 03:39 05:40 11:31 RBC (3.80-5.40) m/uL Hgb (11.4-16.0) gm/dL Hct (34.0-46.0) % Sodium 130 L (137-145) mmol/L BUN 21 H (7-17) mg/dL Glucose 102 H (74-99) mg/dL POC Glucose (mg/dL) 108 H 114 H (75-99) mg/dL Assessment and Plan Assessment: Impression: Status post emergent triple vessel CABG and intra-aortic balloon pump placement postoperative day #3 Non-ST elevation myocardial infarction on admission. Acute systolic congestive heart failure on admission. Dyslipidemia. History of diverticular disease. History of GI bleeding and chronic anemia. Chronic low back pain. Family history of coronary artery disease. Postoperative atelectasis, expected. Recommendation: Continue incentive spirometry. Continue aspirin and Plavix statin and beta blockers. Continue GI and DVT prophylaxis. Ambulate as tolerated. Continue insulin We'll continue to follow. Time with Patient: Less than 30
--- NOTE | 2021-02-03 16:04 | P.PN ---
Subjective Progress Note Date: 02/03/21 HISTORY OF PRESENT ILLNESS This is a 75-year-old female patient of Dr. Avina with past medical history of hypertension, hyperlipidemia, gastroesophageal reflux disease, history of GI bleed, recurrent sigmoid diverticulitis status post sigmoid colectomy and low anterior resection, degenerative disc disease in the cervical spine. Patient complains of shortness of breath off and on for a week with exertional dyspnea. She states she has been sleeping on 3-4 pillows at night starting yesterday she became increasingly short of breath and couldn't lay down. She does complain of discomfort in her chest with right ear and right jaw pain. She denies any lower extremity edema. Patient presented to [facility] emergency center for evaluation. She is found to be afebrile, heart rate 99, respiratory rate 32, blood pressure 119/87, pulse ox 92% on room air. Patient was later changed over to nonrebreather and then to BiPAP. Blood work reveals WBC 14.5, hemoglobin 9.8, platelet count 328. INR 0.9. Sodium 135, potassium 4.5, chloride 104, CO2 15, BUN 17 and creatinine 0.75. Blood sugar 194. Lactic acid 3.5 and repeat of 1.3. Troponins 1.620, 1.850, 2.11. ProBNP 2700. Coronavirus PCR not detected. Chest x-ray reveals pulmonary interstitial edema and probable small right pleural effusion which are new. This could be acute heart failure or acute pne umonia. Echocardiogram reveals EF of 30-35%, LA is severely dilated, LV wall motion is hypokinetic, mild mitral regurgitation, mild tricuspid regurgitation. Patient is seen today in the emergency center waiting for bed on the cardiac stepdown unit. 01/26: Patient is seen today on the selective care unit, sitting up her recliner and is at bedside. She currently states that she is feeling better from yesterday and denied any chest pain or pressure and denies any neck pain. Patient does state that she did have some rectal bleeding most likely secondary to her history of diverticulosis. Patient underwent heart catheterization which revealed left main disease of 95%, LAD total occlusion of the diagonal branches, left circumflex subtotally occluded, right coronary artery 70-80% distally. Due to severe triple-vessel disease, patient was transferred to the intensive care unit post procedure. Patient also underwent intra-aortic balloon pump insertion. After procedures, patient went to the intensive care unit and consult with cardiothoracic surgery added. 01/27:Patient has been seen by cardiothoracic team with plan for CABG possibly on Sunday or Sunday. Patient is seen today in the intensive care unit and continued on intra-aortic balloon pump and continued on heparin drip. She denies having any chest pain and shortness of breath is improved. Emerado 5/325 ordered. Patient was seen by Dr. Cormier regarding rectal bleeding with no plan for intervention at this time and patient started on Flagyl. Patient is also followed by pulmonary medicine with plan to obtain bedside FEV1. She remains afebrile, heart rate in the 90s, blood pressure and 100/54, pulse ox 96% on 2 L nasal cannula. 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 Repeat blood work reveals WBC 6.9, hemoglobin 9.5, platelet count 373. Sodium 135, blood sugar 101. Electrolytes renal function are normal. Liver function tests are within normal limits. Urinalysis showed small amount of blood. Patient is reaching 750 on incentive spirometry. Repeat blood work and chest x-ray ordered for tomorrow morning. 01/28: Patient is laying down in bed flat to due to the fact that she had intra- aortic balloon pump, she denies any chest pain at this time, she is not complaining of shortness of breath, she stated that her pain is well controlled but she would left to take it more often than every 8 hours, I spoke with the nursing staff about increasing her Emerado to every 4-6 hours as needed, moderate the patient very closely, continue with bowel care, continue lactulose and Senokot, patient was seen earlier by thoracic surgery as well as by cardiology it was recommended that the patient will go for coronary artery bypass grafting next Sunday unless she become and stable, she has been requiring 2 L nasal cannula, her blood pressure is stable, her oxygen saturation stable, her hemoglobin is stable at this time, she was seen by Dr. Fuentes and he was recommended for the patient to be continued on Flagyl for now with no further intervention. 01/29: Patient's is laying down in bed she continued to have the intra-aortic balloon pump in place, she is nauseated she had an episode of vomiting today she denies any chest pain or shortness breath, she denies any abdominal pain, she has been constipated, she did not respond to lactulose, she would be getting MiraLAX along with a stool softener, we will monitor the patient very closely in the intensive care unit, patient will likely be operated on Sunday, continue supportive care, continue heparin drip, continue baby aspirin, continue atorvastatin, follow-up with the patient very closely. 01/31: Today, patient underwent CABG with DOBBS to LAD, SVG to PDA and OM 1. Discontinued on intra-aortic balloon pump which is to be discontinued later to day. Patient is off nitroglycerin, continued on low dose Primacor. Patient was successfully extubated last evening. Pulse ox 92% on high flow nasal cannula 10 L. 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 Mediastinal and left pleural chest tube in place with serosanguineous output. She is currently on insulin drip. Patient complains of feeling tired and does have significant chest discomfort from surgery. Emerado was added and Toradol to be edited by cardiothoracic. Patient did have a loose bowel movement but has been receiving lactulose for constipation. Repeat blood work reveals hemoglobin of 8. Creatinine 0.57. Blood sugars are running between 118- 128. Repeat chest x-ray reveals similar borderline heart size. Interval extubation and removal of NG tube. Persistent but improving retrocardiac postoperative atelectasis. 02/01: Patient remains in the intensive care unit, today she is sitting up in recliner and appears to be stronger from yesterday. She has been afebrile, heart rate 73, blood pressure 115/57, pulse ox 95-96% on 8 L nasal cannula. Repeat blood work reveals WBC 10.9, hemoglobin 7.6. Creatinine 0.79, potassium 4.0. Blood sugars are running between 115 and 124. Patient is not diabetic, insulin drip will be discontinued and patient placed on NovoLog scale only. est x-ray reveals chronic changes and mild cardiomegaly with left-sided chest tube. No pneumothorax. Patchy left basilar atelectasis. Patient is off balloon pump. 02/02: She remains in intensive care unit, found sitting up and recliner. Patient states that she is feeling better each day, ambulated in the hallway. Pain is well controlled. Incentive spirometry is reaching 1000 ML's. She does have decreased appetite. She states she did not sleep well last night. Patient has been afebrile, heart rate in the 70s, sinus rhythm, blood pressure 100/60, pulse ox 92% on 2 L. Repeat blood work reveals WBC 10.5, hemoglobin 8, creatinine 0.88. Blood sugars are running between 100-133. She is now off insulin drip and maintained only on scale insulin. Repeat chest x-ray reveals pulmonary vascular congestion along with trace effusions. Retrocardiac atelectasis and/or consolidation increased. Intra-aortic pump, Right cordis, chest tubes have been removed. Anticipate removal of Hackett catheter today. Continue to increase activity level. 02/03: Patient is now on the cardiac stepdown unit. Repeat echocardiogram reveals EF of 35-40% with borderline concentric left ventricular hypertrophy. Basal and Mid lateral inferior LV wall motion hypokinetic. Repeat chest x-ray reveals no acute pulmonary disease. WBC 9.5 and hemoglobin 7.8. Creatinine 0.78. Sodium 130. Capillary blood glucose running between 108 and 138. She did one reading of 271 yesterday afternoon. She has been afebrile, heart rate 74, blood pressure 120/73, pulse ox 95% on room air. chassis driver is a sinus rhythm. Patient denies having any chest pain. No worsening shortness of breath. She has been evaluated by Dr. Walker for possible inpatient rehab and patient appears to be a good candidate for inpatient rehab but prefers to go home. REV cardiac stepdown unit.IEW OF SYSTEMS Constitutional: No fever, no chills, no night sweats. No weight change. No weakness, reports fatigue no lethargy. Reports daytime sleepiness. HEENT: No headache. No blurred vision or double vision, no loss of vision. No loss of Hearing, no ringing in the ears, no dizziness. No nasal drainage or congestion. No epistaxis. No sore throat. Lungs: Reports shortness of breath-improved, cough, no sputum production. No wheezing. Reports exertional shortness of breath Cardiovascular: Reports severe chest discomfort, no lower extremity edema. No palpitations. No paroxysmal nocturnal dyspnea. Reports orthopnea. No lightheadedness or dizziness. No syncopal episodes. Abdominal: No abdominal pain. No nausea, vomiting. No diarrhea. No constipation. Occasional bloody or tarry stools. No loss of appetite. Genitourinary: No dysuria, increased frequency, urgency. No urinary retention. Musculoskeletal: No myalgias. No muscle weakness, no gait dysfunction, no frequent falls. Positive for back pain. No neck pain. Integumentary: No wounds, no lesions. No rash or pruritus. No unusual bruising. Neurologic: No aphasia. No facial droop. No change in mentation. No head injury. No headache. No paralysis. No paresthesia. Psychiatric: No depression. Positive for anxiety. No mood swings. Endocrine: Mildly abnormal blood sugars. No weight change. PHYSICAL EXAMINATION Gen: This is a 75-year-old female. She is resting in recliner and ap pears to be comfortable. HEENT: Head is atraumatic, normocephalic. Pupils equal, round. Sclerae is anicteric. NECK: Supple. No JVD. No lymphadenopathy. No thyromegaly. LUNGS: Diminished lung sounds bilaterally. No wheezing. No intercostal retractions. HEART: first heart sound is depressed, second heart sound is normal, there is systolic ejection murmur 2/6 located in the left sternal border, no rub ABDOMEN: Soft. Bowel sounds are present. No masses. No tenderness. EXTREMITIES: No pedal edema. No calf tenderness. Dorsalis pedis palpable bilaterally. NEUROLOGICAL: Patient is awake, alert and oriented x3. Cranial nerves 2 through 12 are grossly intact. ASSESSMENT AND PLAN 1. Acute hypoxic respiratory failure secondary to acute systolic heart failure with cardiogenic shock Cardiology consult appreciated. 2. Non-ST elevated myocardial infarction status post heart catheterization finding triple-vessel disease, status post intra-aortic balloon pump, status post urgent CABG. Continue recommendations from the cardiothoracic team: Amiodarone 200 mg twice daily, aspirin 325 mg daily, atorvastatin 40 mg daily, Lopressor 25 mg twice daily. 3. Ischemic cardiomyopathy. Ejection fraction about 30%. 4. Rectal bleeding secondary to diverticulitis. Consult with general surgery appreciated, patient started on Flagyl 500 mg IV piggyback every 8 hours, completed course . 5. Hyperglycemia without diagnosis of diabetes. Continue to monitor with NovoLog scale.. 6. Hypertension and hypertensive cardiovascular disease. Patient has been off lisinopril, and continue metoprolol. 7. Hyperlipidemia. Continue atorvastatin 40 mg at bedtime. 8. Gastroesophageal reflux disease and GI prophylaxis. Continue Protonix 40 mg twice daily. 9. History of GI bleed, no active bleeding at this time. Patient had rectal bleeding 1 most likely secondary to diverticulitis 10. History of diverticulitis status post sigmoid colectomy and low anterior resection. 11. Degenerative disc disease in the cervical spine. 12. DVT prophylaxis. 13. COVID-19 testing negative. Patient has been hospitalized during a pandemic. 14. Opiate-induced constipation. continue Senokot 2 tablet orally bedtime. 15. Guarded prognosis. Impression and plan of care have been directed as dictated by the signing physician. Lizzei Solomon nurse practitioner acting as scribe for signing physician. Objective - Vital Signs Vital signs: Vital Signs Temp 97.9 F 02/03/21 12:00 Pulse 80 02/03/21 15:44 Resp 18 02/03/21 12:00 BP 120/73 02/03/21 12:00 Pulse Ox 95 02/03/21 12:00 Intake & Output 02/02/21 02/03/21 02/03/21 18:59 06:59 18:59 Intake Total 100 240 Output Total 49 1420 Balance 51 -1420 240 Weight 89.9 kg Intake: IV 100 metroNIDAZOLE-NS PMX 500 100 mg In Saline 1 100ml.bag @ 100 mls/hr IVPB Q8HR [facility] Rx#:[id number] Oral 240 Output: Urine 49 1420 Straight 1300 Other: Voiding Method Bedside Commode Bedside Commode Bedside Commode ABP, PAP, CO, CI - Last Documented Arterial Blood Pressure 97/59 Pulmonary Artery Pressure 44/20 Cardiac Output 4.5 Cardiac Index 2.5 - Labs CBC & Chem 7: 02/03/21 03:39 02/03/21 03:39 Labs: Abnormal Lab Results - Last 24 Hours (Table) 02/02/21 02/02/21 02/03/21 Range/Units 16:47 20:25 03:39 RBC 2.66 L (3.80-5.40) m/uL Hgb 7.8 L (11.4-16.0) gm/dL Hct 23.7 L (34.0-46.0) % Sodium (137-145) mmol/L BUN (7-17) mg/dL Glucose (74-99) mg/dL POC Glucose (mg/dL) 271 H 138 H (75-99) mg/dL 02/03/21 02/03/21 02/03/21 Range/Units 03:39 05:40 11:31 RBC (3.80-5.40) m/uL Hgb (11.4-16.0) gm/dL Hct (34.0-46.0) % Sodium 130 L (137-145) mmol/L BUN 21 H (7-17) mg/dL Glucose 102 H (74-99) mg/dL POC Glucose (mg/dL) 108 H 114 H (75-99) mg/dL
[2021-02-03 16:25] LABS: Glucose,Whole Blood 118 mg/dL (75-99)
[2021-02-03 20:59] LABS: Glucose,Whole Blood 118 mg/dL (75-99)
[2021-02-03] MEDS: SENNOSIDES-DOCUSATE SODIUM 1 EACH TAB PO SCH (22:45)
[2021-02-04] MEDS: CHOLECALCIFEROL 25 MCG (1000 IU) TABLET PO SCH (00:22)
[2021-02-04] MEDS: ASPIRIN 81 MG PO SCH (00:22)
[2021-02-04] MEDS: CYANOCOBALAMIN 500 MCG TAB PO SCH (00:22)
[2021-02-04] MEDS: FUROSEMIDE 10 MG/ML 4 ML VIAL IV SCH (00:22)
[2021-02-04] MEDS: PANTOPRAZOLE 40 MG TABLET PO SCH ×3 (00:23→17:24)
[2021-02-04] MEDS: MAGNESIUM OXIDE 400 MG TAB PO SCH (00:23)
[2021-02-04] MEDS: polyethylene glycoL 3350 17 GM POWD.PACK PO SCH (00:23)
[2021-02-04] MEDS: LACTOBACILLUS ACIDOPH & BULGAR 1 EACH PACKET PO SCH (00:23)
[2021-02-04] MEDS: LIDOCAINE 5% PATCH TOPICAL SCH ×2 (00:23→09:24)
[2021-02-04] MEDS: NITROGLYCERIN OINT 1 INCH/GM PACKET TOPICAL SCH (00:23)
[2021-02-04] MEDS: MUPIROCIN 2% OINT 22 GM TUBE NASAL SCH (00:23)
[2021-02-04] MEDS: ACETAMINOPHEN TAB 325 MG TAB PO PRN (03:19)
[2021-02-04 06:13] LABS: Glucose,Whole Blood 117 mg/dL (75-99)
[2021-02-04] MEDS: FERROUS SULFATE 325 MG TAB PO SCH ×2 (06:35→17:24)
[2021-02-04] MEDS: ASCORBIC ACID 500 MG TAB PO SCH ×2 (06:35→17:24)
[2021-02-04] MEDS: KETOROLAC 30 MG/ML 1 ML VIAL IVP SCH ×4 (06:35→23:27)
--- NOTE | 2021-02-04 07:31 | XR ---
EXAMINATION TYPE: XR chest 2V DATE OF EXAM: 02/04/2021 COMPARISON: 02/03/2021 HISTORY: 75-year-old female post cardiac surgery TECHNIQUE: PA and lateral views FINDINGS: Median sternotomy wires are present with postoperative clips in the mediastinum. The heart limits of normal in size. Patchy mid and lower lung opacities are similar. Possible trace effusions on the late ral view. No appreciable pneumothorax. IMPRESSION: Continued trace effusions and patchy mid and lower lung areas of atelectasis.
[2021-02-04 07:32] LABS: HCT 24.8 % (34.0-46.0); Hypochromasia Slight; MCHC 32.2 g/dL (31.0-37.0); MCV 90.1 fL (80.0-100.0); Mean Platelet Volume 7.7; Platelet Count 385 k/uL (150-450); Poikilocytosis Slight; RBC 2.75 m/uL (3.80-5.40); RDW 15.2 % (11.5-15.5); WBC 9.1 k/uL (3.8-10.6)
[2021-02-04 07:46] LABS: Calcium 9.1 mg/dL (8.4-10.2); Potassium 4.1 mmol/L (3.5-5.1)
[2021-02-04] MEDS: INSULIN ASPART (NovoLOG) 100 UNIT/ML VIAL SQ SCH ×4 (07:55→20:54)
[2021-02-04] MEDS ORDERED: FUROSEMIDE 20 MG TAB PO SCH (09:00)
[2021-02-04] MEDS: IPRATROPIUM-ALBUTEROL 3 ML NEB INHALATION SCH ×4 (09:04→19:40)
[2021-02-04] MEDS: ACETYLCYSTEINE 800 MG/4 ML VIAL INHALATION SCH ×2 (09:04→12:43)
[2021-02-04] MEDS: CLOPIDOGREL 75 MG TAB PO SCH (09:26)
[2021-02-04] MEDS: ASPIRIN 325 MG TAB PO SCH (09:26)
[2021-02-04] MEDS: SPIRONOLACTONE 25 MG TAB PO SCH (09:26)
[2021-02-04] MEDS: HEPARIN SODIUM,PORCINE/PF 5,000 UNIT/0.5 ML SYRINGE SQ SCH ×3 (09:26→23:27)
[2021-02-04] MEDS: ATORVASTATIN 40 MG TAB PO SCH (09:26)
[2021-02-04] MEDS: METOPROLOL TARTRATE 25 MG TAB PO SCH ×2 (09:26→20:54)
[2021-02-04] MEDS: AMIODARONE 200 MG TAB PO SCH ×2 (09:27→20:54)
--- NOTE | 2021-02-04 09:52 | P.PN ---
Subjective Progress Note Date: 02/04/21 HISTORY OF PRESENT ILLNESS This is a 75-year-old female patient of Dr. Avina with past medical history of hypertension, hyperlipidemia, gastroesophageal reflux disease, history of GI bleed, recurrent sigmoid diverticulitis status post sigmoid colectomy and low anterior resection, degenerative disc disease in the cervical spine. Patient complains of shortness of breath off and on for a week with exertional dyspnea. She states she has been sleeping on 3-4 pillows at night starting yesterday she became increasingly short of breath and couldn't lay down. She does complain of discomfort in her chest with right ear and right jaw pain. She denies any lower extremity edema. Patient presented to [facility] emergency center for evaluation. She is found to be afebrile, heart rate 99, respiratory rate 32, blood pressure 119/87, pulse ox 92% on room air. Patient was later changed over to nonrebreather and then to BiPAP. Blood work reveals WBC 14.5, hemoglobin 9.8, platelet count 328. INR 0.9. Sodium 135, potassium 4.5, chloride 104, CO2 15, BUN 17 and creatinine 0.75. Blood sugar 194. Lactic acid 3.5 and repeat of 1.3. Troponins 1.620, 1.850, 2.11. ProBNP 2700. Coronavirus PCR not detected. Chest x-ray reveals pulmonary interstitial edema and probable small right pleural effusion which are new. This could be acute heart failure or acute pne umonia. Echocardiogram reveals EF of 30-35%, LA is severely dilated, LV wall motion is hypokinetic, mild mitral regurgitation, mild tricuspid regurgitation. Patient is seen today in the emergency center waiting for bed on the cardiac stepdown unit. 01/26: Patient is seen today on the selective care unit, sitting up her recliner and is at bedside. She currently states that she is feeling better from yesterday and denied any chest pain or pressure and denies any neck pain. Patient does state that she did have some rectal bleeding most likely secondary to her history of diverticulosis. Patient underwent heart catheterization which revealed left main disease of 95%, LAD total occlusion of the diagonal branches, left circumflex subtotally occluded, right coronary artery 70-80% distally. Due to severe triple-vessel disease, patient was transferred to the intensive care unit post procedure. Patient also underwent intra-aortic balloon pump insertion. After procedures, patient went to the intensive care unit and consult with cardiothoracic surgery added. 01/27:Patient has been seen by cardiothoracic team with plan for CABG possibly on Sunday or Sunday. Patient is seen today in the intensive care unit and continued on intra-aortic balloon pump and continued on heparin drip. She denies having any chest pain and shortness of breath is improved. Columbia 5/325 ordered. Patient was seen by Dr. Cormier regarding rectal bleeding with no plan for intervention at this time and patient started on Flagyl. Patient is also followed by pulmonary medicine with plan to obtain bedside FEV1. She remains afebrile, heart rate in the 90s, blood pressure and 100/54, pulse ox 96% on 2 L nasal cannula. environmental monitoring specialist sinus rhythm. Repeat blood work reveals WBC 6.9, hemoglobin 9.5, platelet count 373. Sodium 135, blood sugar 101. Electrolytes renal function are normal. Liver function tests are within normal limits. Urinalysis showed small amount of blood. Patient is reaching 750 on incentive spirometry. Repeat blood work and chest x-ray ordered for tomorrow morning. 01/28: Patient is laying down in bed flat to due to the fact that she had intra- aortic balloon pump, she denies any chest pain at this time, she is not complaining of shortness of breath, she stated that her pain is well controlled but she would left to take it more often than every 8 hours, I spoke with the nursing staff about increasing her Columbia to every 4-6 hours as needed, moderate the patient very closely, continue with bowel care, continue lactulose and Senokot, patient was seen earlier by thoracic surgery as well as by cardiology it was recommended that the patient will go for coronary artery bypass grafting next Sunday unless she become and stable, she has been requiring 2 L nasal cannula, her blood pressure is stable, her oxygen saturation stable, her hemoglobin is stable at this time, she was seen by Dr. Fuentes and he was recommended for the patient to be continued on Flagyl for now with no further intervention. 01/29: Patient's is laying down in bed she continued to have the intra-aortic balloon pump in place, she is nauseated she had an episode of vomiting today she denies any chest pain or shortness breath, she denies any abdominal pain, she has been constipated, she did not respond to lactulose, she would be getting MiraLAX along with a stool softener, we will monitor the patient very closely in the intensive care unit, patient will likely be operated on Sunday, continue supportive care, continue heparin drip, continue baby aspirin, continue atorvastatin, follow-up with the patient very closely. 01/31: Today, patient underwent CABG with DOBBS to LAD, SVG to PDA and OM 1. Discontinued on intra-aortic balloon pump which is to be discontinued later to day. Patient is off nitroglycerin, continued on low dose Primacor. Patient was successfully extubated last evening. Pulse ox 92% on high flow nasal cannula 10 L. environmental monitoring specialist sinus rhythm. Mediastinal and left pleural chest tube in place with serosanguineous output. She is currently on insulin drip. Patient complains of feeling tired and does have significant chest discomfort from surgery. Columbia was added and Toradol to be edited by cardiothoracic. Patient did have a loose bowel movement but has been receiving lactulose for constipation. Repeat blood work reveals hemoglobin of 8. Creatinine 0.57. Blood sugars are running between 118- 128. Repeat chest x-ray reveals similar borderline heart size. Interval extubation and removal of NG tube. Persistent but improving retrocardiac postoperative atelectasis. 02/01: Patient remains in the intensive care unit, today she is sitting up in recliner and appears to be stronger from yesterday. She has been afebrile, heart rate 73, blood pressure 115/57, pulse ox 95-96% on 8 L nasal cannula. Repeat blood work reveals WBC 10.9, hemoglobin 7.6. Creatinine 0.79, potassium 4.0. Blood sugars are running between 115 and 124. Patient is not diabetic, insulin drip will be discontinued and patient placed on NovoLog scale only. est x-ray reveals chronic changes and mild cardiomegaly with left-sided chest tube. No pneumothorax. Patchy left basilar atelectasis. Patient is off balloon pump. 02/02: She remains in intensive care unit, found sitting up and recliner. Patient states that she is feeling better each day, ambulated in the hallway. Pain is well controlled. Incentive spirometry is reaching 1000 ML's. She does have decreased appetite. She states she did not sleep well last night. Patient has been afebrile, heart rate in the 70s, sinus rhythm, blood pressure 100/60, pulse ox 92% on 2 L. Repeat blood work reveals WBC 10.5, hemoglobin 8, creatinine 0.88. Blood sugars are running between 100-133. She is now off insulin drip and maintained only on scale insulin. Repeat chest x-ray reveals pulmonary vascular congestion along with trace effusions. Retrocardiac atelectasis and/or consolidation increased. Intra-aortic pump, Right cordis, chest tubes have been removed. Anticipate removal of Hackett catheter today. Continue to increase activity level. 02/03: Patient is now on the cardiac stepdown unit. Repeat echocardiogram reveals EF of 35-40% with borderline concentric left ventricular hypertrophy. Basal and Mid lateral inferior LV wall motion hypokinetic. Repeat chest x-ray reveals no acute pulmonary disease. WBC 9.5 and hemoglobin 7.8. Creatinine 0.78. Sodium 130. Capillary blood glucose running between 108 and 138. She did one reading of 271 yesterday afternoon. She has been afebrile, heart rate 74, blood pressure 120/73, pulse ox 95% on room air. environmental monitoring specialist is a sinus rhythm. Patient denies having any chest pain. No worsening shortness of breath. She has been evaluated by Dr. Walker for possible inpatient rehab and patient appears to be a good candidate for inpatient rehab but prefers to go home. 02/04: Patient is seen today on the cardiac stepdown unit. She states she had diarrhea yesterday had also required Hackett catheter to be replaced due to urinary retention. Patient states in general she is not feeling well today. She is complaining of lower extremity edema and Aldactone 12.5 mg and Lasix 20 mg added. Patient is having leaking under the left breast from the previous left chest tube site that is serosanguineous, mostly serous. She's been afe brile, heart rate 87, blood pressure 129/59, pulse ox 92% on room air. REVIEW OF SYSTEMS Constitutional: No fever, no chills, no night sweats. No weight change. No weakness, reports fatigue no lethargy. Reports daytime sleepiness. HEENT: No headache. No blurred vision or double vision, no loss of vision. No loss of Hearing, no ringing in the ears, no dizziness. No nasal drainage or congestion. No epistaxis. No sore throat. Lungs: Reports shortness of breath-improved, cough, no sputum production. No wheezing. Reports exertional shortness of breath Cardiovascular: Reports severe chest discomfort, reports lower extremity edema. No palpitations. No paroxysmal nocturnal dyspnea. Reports orthopnea. No lightheadedness or dizziness. No syncopal episodes. Abdominal: No abdominal pain. No nausea, vomiting. No diarrhea. No constipation. Occasional bloody or tarry stools. No loss of appetite. Genitourinary: No dysuria, increased frequency, urgency. No urinary retention. Musculoskeletal: No myalgias. No muscle weakness, no gait dysfunction, no frequ ent falls. Positive for back pain. No neck pain. Integumentary: No wounds, no lesions. No rash or pruritus. No unusual bruising. Neurologic: No aphasia. No facial droop. No change in mentation. No head injury. No headache. No paralysis. No paresthesia. Psychiatric: No depression. Positive for anxiety. No mood swings. Endocrine: Mildly abnormal blood sugars. No weight change. PHYSICAL EXAMINATION Gen: This is a 75-year-old female. She is resting in recliner and appears to be fatigued. HEENT: Head is atraumatic, normocephalic. Pupils equal, round. Sclerae is anicteric. NECK: Supple. No JVD. No lymphadenopathy. No thyromegaly. LUNGS: Diminished lung sounds bilaterally. No wheezing. No intercostal retractions. HEART: first heart sound is depressed, second heart sound is normal, there is systolic ejection murmur 2/6 located in the left sternal border, no rub CHEST: Serosanguineous, mostly serous fluid draining from the left chest tube site under the breast. A BD pad applied. ABDOMEN: Soft. Bowel sounds are present. No masses. No tenderness. EXTREMITIES: Bilateral pedal edema. No calf tenderness. Dorsalis pedis palpable bilaterally. NEUROLOGICAL: Patient is awake, alert and oriented x3. Cranial nerves 2 through 12 are grossly intact. ASSESSMENT AND PLAN 1. Acute hypoxic respiratory failure secondary to acute systolic heart failure with cardiogenic shock Cardiology consult appreciated. Patient started on Lasix 20 mg daily and Aldactone 12.5 mg daily. 2. Non-ST elevated myocardial infarction status post heart catheterization finding triple-vessel disease, status post intra-aortic balloon pump, status post urgent CABG. Continue recommendations from the cardiothoracic team: Amioda matias 200 mg twice daily, aspirin 325 mg daily, atorvastatin 40 mg daily, Lopressor 25 mg twice daily. 3. Ischemic cardiomyopathy. Ejection fraction about 30%. 4. Rectal bleeding secondary to diverticulitis. Consult with general surgery appreciated, patient started on Flagyl 500 mg IV piggyback every 8 hours, completed course . 5. Hyperglycemia without diagnosis of diabetes. Continue to monitor with NovoLog scale.. 6. Hypertension and hypertensive cardiovascular disease. Continue losartan 50 mg daily at noon and metoprolol. 7. Hyperlipidemia. Continue atorvastatin 40 mg at bedtime. 8. Gastroesophageal reflux disease and GI prophylaxis. Continue Protonix 40 mg twice daily. 9. History of GI bleed, no active bleeding at this time. Patient had rectal bleeding 1 most likely secondary to diverticulitis 10. History of diverticulitis status post sigmoid colectomy and low anterior resection. 11. Degenerative disc disease in the cervical spine. 12. DVT prophylaxis. 13. COVID-19 testing negative. Patient has been hospitalized during a pandemic. 14. Opiate-induced constipation. continue Senokot 2 tablet orally bedtime. 15. Urinary retention requiring replacement of Hackett, expected with surgery. DISCHARGE PLAN Home with home care vs IP rehab Impression and plan of care have been directed as dictated by the signing physician. Lizzie Solomon nurse practitioner acting as scribe for signing physician. Objective - Vital Signs Vital signs: Vital Signs Temp 98.2 F 02/04/21 03:34 Pulse 87 02/04/21 03:34 Resp 18 02/04/21 03:34 BP 129/59 02/04/21 03:34 Pulse Ox 92 L 02/04/21 03:34 Intake & Output 02/03/21 02/04/21 02/04/21 18:59 06:59 18:59 Intake Total 1080 Output Total 1000 Balance 80 Weight 90.4 kg Intake: Oral 1080 Output: Urine 1000 Straight 500 Other: Voiding Method Bedside Commode Indwelling Catheter ABP, PAP, CO, CI - Last Documented Arterial Blood Pressure 97/59 Pulmonary Artery Pressure 44/20 Cardiac Output 4.5 Cardiac Index 2.5 - Labs CBC & Chem 7: 02/04/21 07:10 02/04/21 07:10 Labs: Abnormal Lab Results - Last 24 Hours (Table) 1102/03/21 02/03/21 Range/Units 11:31 16:23 20:23 RBC (3.80-5.40) m/uL Hgb (11.4-16.0) gm/dL Hct (34.0-46.0) % POC Glucose (mg/dL) 114 H 118 H 118 H (75-99) mg/dL 02/04/21 02/04/21 Range/Units 06:00 07:10 RBC 2.75 L (3.80-5.40) m/uL Hgb 8.0 L (11.4-16.0) gm/dL Hct 24.8 L (34.0-46.0) % POC Glucose (mg/dL) 117 H (75-99) mg/dL
--- NOTE | 2021-02-04 10:55 | PN ---
PROGRESS NOTE Mrs. Carbajal is status post aortocoronary bypass surgery. She is doing well. She is ambulating. Seems to be recovering nicely. Getting her strength back. Maintaining sinus rhythm. Hemodynamically stable. Vitals are stable. No JVD. S1-S2 heard normally. Short systolic murmur at the base. Lungs are clear. Abdomen is soft, nontender. Lower extremities reveal diminished pulses. Central nervous system normal. Plan is to continue current medications, incentive spirometry, and possible discharge soon. She will follow with Dr. Warner in 2 weeks after discharge. MMODL / IJN: [id number] /
--- NOTE | 2021-02-04 11:00 | P.PN ---
Subjective Progress Note Date: 02/04/21 Principal diagnosis: Triple-vessel coronary artery disease with left main disease, chest pain, progressive shortness of breath, non-STEMI, acute systolic heart failure present on admission, reported bleeding per rectum. Past medical history significant for hypertension, hyperlipidemia, GERD, GI bleed with preop chronic anemia, diverticulosis, localized colitis, degenerative disc disease with chronic low back pain, obesity, and family history of coronary artery disease. POD #5 urgent triple coronary artery bypass grafting using the left internal mammary artery to the left anterior descending artery, reverse saphenous vein graft from the aorta to the posterior descending artery, reverse saphenous vein graft from the aorta to the subtotally occluded obtuse marginal artery, exclusion of the left atrial appendage using a 35 mm AtriClip, endoscopic harvesting of the left greater saphenous vein from the groin to above the ankle level, intraoperative transesophageal echocardiogram and epiaortic scanning, intraoperative graft flow measurements using the INTTRAim system. Postopertive acute blood loss anemia, expected given hemodilution, cardiopulmonary bypass pump, and preoperative anemia. Urinary retention, requiring placement of Hackett catheter. The patient was seen in follow-up today 02/04/2021 at her bedside on the cardiac stepdown unit. Currently she is sitting up to the bedside chair, is awake, alert and oriented 3 and in no acute distress. She denies any complaints of shortness of breath or pain at this time. Oxygen saturations are 94% on room air and she is achieving 750-1000 mL on her incentive spirometry with encouragement. She did have some serous colored drainage from her previous left chest tube insertion site this morning. The patient also had some complaints of urinary retention requiring placement of a Hackett catheter. The patient reports she has been up ambulating in the cardiac stepdown unit hallway with standby assistance from physical therapy and nursing staff. Discharge planning is in place and the patient is requesting to be discharged home upon discharge. The patient's epicardial pacemaker wires removed yesterday 02/03/2021 without incident. Objective - Vital Signs Vital signs: Vital Signs Temp 98.2 F 02/04/21 03:34 Pulse 87 02/04/21 08:00 Resp 18 02/04/21 08:00 BP 114/69 02/04/21 08:00 Pulse Ox 96 02/04/21 08:00 Intake & Output 02/03/21 02/04/2102/04/21 18:59 06:59 18:59 Intake Total 1080 Output Total 1000 Balance 80 Weight 90.4 kg Intake: Oral 1080 Output: Urine 1000 Straight 500 Other: Voiding Method Bedside Commode Indwelling Catheter Indwelling Catheter ABP, PAP, CO, CI - Last Documented Arterial Blood Pressure 97/59 Pulmonary Artery Pressure 44/20 Cardiac Output 4.5 Cardiac Index 2.5 - Exam CONSTITUTIONAL: Sitting up to the bedside chair on the cardiac stepdown unit, appears comfortable, cooperative, no apparent acute distress. HEENT: Neck is supple, no JVD, no lymphadenopathy. RESPIRATORY: Lungs sounds essentially clear throughout, diminished to his bilateral bases. Respirations are symmetrical and nonlabored. Currently on room air with oxygen saturations 94%. Able to achieve 750-1000 mL on her incentive spirometry. Strong cough. CARDIOVASCULAR: Regular rhythm and rate. S1 and S2 present, negative for S3, gallop or murmur. Sternum is stable. Palpable peripheral pulses bilaterally, +1 edema to her bilateral lower extremities. No calf pain or tenderness noted. Heart hugger in place with patient demonstrating appropriate use. Knee-high RODNEY hose and sequential compression devices in place to her bilateral lower extremities. GASTROINTESTINAL: Abdomen soft, nontender, nondistended. Active bowel sounds present 4 quadrants. Tolerating diet. Passing flatus. No guarding or rigidity. GENITOURINARY: Hackett present draining clear, yellow urine with some scant sediment. INTEGUMENTARY: Skin is warm and dry with no evidence of clubbing or cyanosis. Midline sternal incision clean dry and well approximated, covered with dry intact dressing. Left lower extremity EVH sites well approximated without redness or drainage. Right groin IABP site soft and nontender. NEUROLOGIC: Cranial nerves II through XII intact. No focal deficits. MUSKULOSKELETAL: Able to move all extremities, strength equal bilaterally, generalized weakness. PSYCHIATRIC: Alert and oriented to person place and time, appropriate affect, intact judgment and insight. - Allied health notes Allied health notes reviewed: nursing - Labs CBC & Chem 7: 02/04/21 07:10 02/04/21 07:10 Labs: Abnormal Lab Results - Last 24 Hours (Table) 02/03/21 02/03/21 02/03/21 Range/Units 11:31 16:23 20:23 RBC (3.80-5.40) m/uL Hgb (11.4-16.0) gm/dL Hct (34.0-46.0) % Sodium (137-145) mmol/L Glucose (74-99) mg/dL POC Glucose (mg/dL) 114 H 118 H 118 H (75-99) mg/dL 02/04/21 02/04/21 02/04/21 Range/Units 06:00 07:10 07:10 RBC 2.75 L (3.80-5.40) m/uL Hgb 8.0 L (11.4-16.0) gm/dL Hct 24.8 L (34.0-46.0) % Sodium 135 L (137-145) mmol/L Glucose 110 H (74-99) mg/dL POC Glucose (mg/dL) 117 H (75-99) mg/dL - Imaging and Cardiology Chest x-ray: report reviewed, image reviewed Assessment and Plan Assessment: 1. Triple-vessel coronary artery disease with left main disease, current intra- aortic balloon pump in place, status post three-vessel CABG 2. Chest pain, progressive shortness of breath on admission, non-STEMI on admission 3. Acute systolic heart failure present on admission 4. History of hypertension 5. History of hyperlipidemia, treated 6. GERD 7. History of GI bleed with reported bleeding per rectum this admission with preoperative chronic anemia 8. History of diverticulosis, localized colitis 9. Degenerative disc disease, chronic low back pain 10. Family history of coronary artery disease 11. Postopertive acute blood loss anemia, expected 12. Urinary retention requiring placement of Hackett catheter Plan: 1. Continue aspirin, statin, Plavix, and beta carlo. Will increase beta carlo as tolerated. Continue prophylactic amiodarone. 2. Encourage incentive spirometry use 10 times every hour while awake. Bronchodilators per pulmonology/critical care management. 3. Increase activity as tolerated. PT/OT/cardiac rehab following. 4. Will continue to monitor daily labs, and chest x-rays. Electrolyte replacement per protocol. 6. Pain control with current medication regimen. Discontinue Hunters. 7. Insulin management per primary care service. Patient is not diabetic, preoperative hemoglobin A1c 5.6%. Patient does need tight blood sugar control to promote sternal union, decrease infection risk 8. Continue Ensure, encourage nutrition. 9. Continue Hackett catheter, consult urology for urinary retention. Send urinalysis. 10. Strict accurate intake and output. Daily weights. Shower daily. 11. Continue Iron, Vitamin C. 12. Lasix 20 mg IV daily ordered. Aldactone 12.5 mg by mouth daily added by Dr. Avina. 13. Increase Cozaar to 50 mg by mouth daily at noon for afterload reduction. 14. Discharge planning in progress. Anticipate discharge to home with home care in the next 24-48 hrs. 15. More recommendations to follow based on patient's clinical course. Time with Patient: Greater than 30
[2021-02-04 11:54] LABS: Glucose,Whole Blood 122 mg/dL (75-99)
--- NOTE | 2021-02-04 11:59 | P.PN ---
Subjective Progress Note Date: 02/04/21 Principal diagnosis: Status post emergent CABG for triple vessel coronary artery disease postoperative day #4 On today's evaluation on 01/28/2021 patient seen in follow-up in intensive care unit, she is awake and alert, she is currently on 2 L of oxygen pulse ox is 97%, breathing comfortably, no complaints of chest pain or worsening shortness of breath overnight. Her chest x-ray today still showing pulmonary edema. Patient remains on Lasix 40 mg push every 12 hours, and patient is slightly and positive net fluid balance of 289 mL over the last 24 hours, intra-aortic balloon pump remains in place via the right groin, still to 121 augmentation, augmented diastolic today is improved and is up to 141 from 96 on yesterday's exam, her blood pressure is 115/59, she is in sinus mechanism with a rate of 85 bpm. lung sounds are positive for diminished breath sounds with mild crackles at the bases, but clinically patient is breathing comfortably, she is on 0.9 normal saline at a rate of 50 ML per hour in addition to heparin infusion per weight based protocol. Patient has slightly diminished pulse in the right pedal area, and 1+ pedal pulse in the left acute oh. Extremities are warm. Today's labs have been reviewed, with blood cell count is 8.1, hemoglobin is 9.9, INR is 1.0, sodium is 135, the rest of electrolytes and renal profile were unremarkable. This has also been noted showing trace ketones and blood but no evidence of urinary tract infection. 13 2020, the patient remains on 2 L about 2 by nasal cannula. She is still diuresing with Lasix. Hemodynamically, it was decided to keep the intra-aortic balloon pump with 1-1 augmentation as there was concern that the patient's condition may decompensate off the balloon pump. The mean arterial pressure currently is at 97. She is free of any angina. Her cardiac rhythm is sinus. She did have some nausea and she was given MiraLAX for bowel movements activity. The surgery is still tentatively scheduled for next week, possibly next Sunday. Otherwise, the patient is doing well. She is free of any chest pain. No cardiac arrhythmias have been noted. The patient remains on IV heparin. She is also getting a white cell count 7.9 with a hemoglobin of 9.9. Platelet counts are stable at 34. No other significant events otherwise for now. She has multivessel coronary artery disease and impairment of LV function and she is awaiting coronary artery bypass surgery. 01/30/2021, the patient was taken to the operating room and the patient underwent cardiac bypass surgery. The patient underwent urgent myocardial the vascular rosacea surgery with DOBBS to LAD, SVG to PDA and OM 1. Patient is cu rrently in the intensive care unit. She is hemodynamically stable. The intra- aortic balloon pump is still in place with 1:1 augmentation. Cardiac output is at 4.7 with an index of 2.7. The cardiac rhythm is normal sinus. Pulmonary artery pressures are 42/21. The patient is currently sedated with propofol which is currently running at 30 mg/kg/m. She is on a mechanical ventilator on assist control mode with a rate of 14 with a tidal volume of 400 FiO2 100% with a PEEP of 10. I increased the rate up to 20. Meanwhile, the patient seems to have a adequate urine output. The patient is to mediastinal and left pleural chest tube and the total amount of output has been around 120 mL since she arrived from the operating room.k the patient arrived to us with a a nitroglycerin drip at 5 mg/m. The patient is also on close approximately 2 mg an hour and milrinone at 0.3 mcg/kg per minute to augment her cardiac output. She'll be systolic is also on insulin drip for blood sugar control. Reevaluated today on 01/31/2021, patient underwent emergent CABG yesterday, she was seen by Dr. Martel, and she was extubated last night. Patient was extubated successfully at 19:56. Remains in bed, she has an intra-aortic balloon pump in place, it will likely be removed shortly this morning. Patient is doing well, she has minimal atelectasis on the chest x-ray, she is hemodynamically stable, she is however on milrinone. At 0.15 mcg/kg/m, her cardiac index is 2.9, cardiac output is 5.2. Pulmonary artery pressure 40/12, patient is receiving Lasix 40 mg IV push this morning. She is on 10 L of nasal cannula O2 sats is 92%. ABC is relatively normal, hemoglobin is 8. PTT is 42.9. Colitis and renal profile are normal Reevaluated today on 02/01/2021, patient is postoperative day #2. Patient is resting at a bedside chair, she is on 6 L nasal cannula, does not seem to be in any distress, her chest tubes have been removed. And her intra-aortic balloon pump was removed yesterday. She is hemodynamically stable, not requiring any inotropes or pressors. Doing fairly well with incentive spirometry. Chest x- ray showed minimal postoperative atelectasis. Labs including CBC and elec trolytes with renal profile are normal however her hemoglobin is 7.6. Reevaluated today on 02/03/2021, patient is now on the medical floor, sitting at a bedside recliner, doing well, she is on room air, O2 saturation is 95%, patient denies any pulmonary symptoms. Minimal atelectasis is noted on the chest x-ray, improving compared to previously. Labs including CBC showed a hemoglobin of 7.8 Kelby expected, electrolytes are normal renal profile is normal. Reevaluated today on 02/04/21, patient remains on the cardiac floor, she is sitting at a bedside chair, doing fairly well, she is on room air, denies any pulmonary symptoms whatsoever. Her O2 sats is 94% on room air, achieving about 1000 mL with incentive spirometry. Discharge planning is in progress. Chest x- ray today is reassuring. Objective - Vital Signs Vital signs: Vital Signs Temp 98.2 F 02/04/21 03:34 Pulse 87 02/04/21 08:00 Resp 18 02/04/21 08:00 BP 114/69 02/04/21 08:00 Pulse Ox 96 02/04/21 08:00 Intake & Output 02/03/21 02/04/21 02/04/21 18:59 06:59 18:59 Intake Total 1080 Output Total 1000 Balance 80 Weight 90.4 kg Intake: Oral 1080 Output: Urine 1000 Straight 500 Other: Voiding Method Bedside Commode Indwelling Catheter Indwelling Catheter ABP, PAP, CO, CI - Last Documented Arterial Blood Pressure 97/59 Pulmonary Artery Pressure 44/20 Cardiac Output 4.5 Cardiac Index 2.5 - Exam CONSTITUTIONAL: Revealed a 75-year-old female in no distress, on room air at present. RESPIRATORY: Symmetrical chest expansion, clear throughout no crackles or rhonchi or wheezes. CARDIOVASCULAR: Normal S1 and S2, no S3 gallop. Abdomen: Soft nontender no megaly no rebound. Leena: No rashes. NEUROLOGIC: Cranial nerves II through XII intact MUSKULOSKELETAL: No deformities and no limitation in range of motion. PSYCHIATRIC: Normal mood affect and normal mental status examination. Neurologic: Alert and oriented 3 focal deficits. - Labs CBC & Chem 7: 02/04/21 07:10 02/04/21 07:10 Labs: Abnormal Lab Results - Last 24 Hours (Table) 02/03/21 02/03/21 02/04/21 Range/Units 16:23 20:23 06:00 RBC (3.80-5.40) m/uL Hgb (11.4-16.0) gm/dL Hct (34.0-46.0) % Sodium (137-145) mmol/L Glucose (74-99) mg/dL POC Glucose (mg/dL) 118 H 118 H 117 H (75-99) mg/dL 02/04/21 02/04/21 02/04/21 Range/Units 07:10 07:10 11:51 RBC 2.75 L (3.80-5.40) m/uL Hgb 8.0 L (11.4-16.0) gm/dL Hct 24.8 L (34.0-46.0) % Sodium 135 L (137-145) mmol/L Glucose 110 H (74-99) mg/dL POC Glucose (mg/dL) 122 H (75-99) mg/dL Assessment and Plan Assessment: Impression: Status post emergent triple vessel CABG and intra-aortic balloon pump placement postoperative day #4 Non-ST elevation myocardial infarction on admission. Acute systolic congestive heart failure on admission. Dyslipidemia. History of diverticular disease. History of GI bleeding and chronic anemia. Chronic low back pain. Family history of coronary artery disease. Postoperative atelectasis, expected. Recommendation: Continue to ambulate as tolerated. Continue incentive spirometry. Continue aspirin and Plavix statin and beta blockers. Continue GI and DVT prophylaxis. Discharge planning is in progress Time with Patient: Less than 30
[2021-02-04] MEDS: LOSARTAN 25 MG TAB PO SCH (12:52)
[2021-02-04] MEDS: FUROSEMIDE 10 MG/ML 2 ML VIAL IV SCH (12:53)
[2021-02-04 16:53] LABS: Glucose,Whole Blood 120 mg/dL (75-99)
[2021-02-04 20:16] LABS: Glucose,Whole Blood 137 mg/dL (75-99)
[2021-02-04] MEDS: SENNOSIDES-DOCUSATE SODIUM 1 EACH TAB PO SCH (20:57)
[2021-02-05 00:01] LABS: Amorphous Sediment,Urine Rare /hpf; Appearance,Urine Turbid (Clear); Bilirubin,Urine Negative (Negative); Blood,Urine Small (Negative); Calcium Oxalate Crystals,Urine Moderate /hpf; Color,Urine Yellow; Glucose,Urine (UA) Negative (Negative); Ketones,Urine Negative (Negative); Leukocyte Esterase,Urine Large (Negative); Mucus,Urine Many /hpf; Nitrite,Urine Negative (Negative); PH, Urine 5.5 (5.0-8.0); Protein,Urine Trace (Negative); RBC,Urine >182 /hpf (0-5); Specific Gravity,Urine 1.026 (1.001-1.035); Squamous Epithelial Cell,Urine 1 /hpf (0-4); WBC,Urine 101 /hpf (0-5)
[2021-02-05] MEDS: FERROUS SULFATE 325 MG TAB PO SCH ×2 (06:34→16:54)
[2021-02-05] MEDS: KETOROLAC 30 MG/ML 1 ML VIAL IVP SCH (06:34)
[2021-02-05] MEDS: PANTOPRAZOLE 40 MG TABLET PO SCH ×2 (06:34→16:55)
[2021-02-05] MEDS: ASCORBIC ACID 500 MG TAB PO SCH ×2 (06:34→16:55)
[2021-02-05 06:45] LABS: Glucose,Whole Blood 98 mg/dL (75-99)
[2021-02-05] MEDS: IPRATROPIUM-ALBUTEROL 3 ML NEB INHALATION SCH ×4 (07:58→20:12)
[2021-02-05 08:41] LABS: HCT 24.9 % (34.0-46.0); HGB 7.9 gm/dL (11.4-16.0); Hypochromasia Slight; MCH 28.7 pg (25.0-35.0); MCHC 31.9 g/dL (31.0-37.0); MCV 89.8 fL (80.0-100.0); Mean Platelet Volume 7.3; Platelet Count 470 k/uL (150-450); Poikilocytosis Slight; RBC 2.77 m/uL (3.80-5.40); RDW 15.5 % (11.5-15.5); WBC 10.2 k/uL (3.8-10.6)
[2021-02-05 08:49] LABS: Potassium 4.1 mmol/L (3.5-5.1)
[2021-02-05] MEDS: INSULIN ASPART (NovoLOG) 100 UNIT/ML VIAL SQ SCH ×4 (08:54→20:22)
[2021-02-05] MEDS: FUROSEMIDE 10 MG/ML 2 ML VIAL IV SCH (08:55)
[2021-02-05] MEDS: ASPIRIN 325 MG TAB PO SCH (08:55)
[2021-02-05] MEDS: HEPARIN SODIUM,PORCINE/PF 5,000 UNIT/0.5 ML SYRINGE SQ SCH ×3 (08:55→23:21)
[2021-02-05] MEDS: ATORVASTATIN 40 MG TAB PO SCH (08:55)
[2021-02-05] MEDS: SPIRONOLACTONE 25 MG TAB PO SCH (08:55)
[2021-02-05] MEDS: METOPROLOL TARTRATE 25 MG TAB PO SCH ×2 (08:55→20:33)
[2021-02-05] MEDS: AMIODARONE 200 MG TAB PO SCH ×2 (08:55→20:33)
[2021-02-05] MEDS: CLOPIDOGREL 75 MG TAB PO SCH (08:56)
[2021-02-05] MEDS: SULFAMETHOX-TMP 800-160MG 1 EACH TAB PO SCH ×2 (09:05→20:33)
--- NOTE | 2021-02-05 09:05 | XR ---
EXAMINATION TYPE: XR chest 2V DATE OF EXAM: 02/05/2021 COMPARISON: 02/04/2021 HISTORY: 69-year-old female postoperative cardiac surgery TECHNIQUE: AP and lateral views FINDINGS: Median sternotomy wires are present. Post-CABG clips. Heart borderline enlarged. Interstitial promine nce. Trace left pleural effusion. IMPRESSION: Mild interstitial prominence and trace left pleural effusion. Correlate for mild pulmonary vascular c ongestion.
[2021-02-05] MEDS: LIDOCAINE 5% PATCH TOPICAL SCH (09:06)
--- NOTE | 2021-02-05 09:33 | P.PN ---
Subjective Progress Note Date: 02/05/21 Principal diagnosis: Triple-vessel coronary artery disease with left main disease, chest pain, progressive shortness of breath, non-STEMI, acute systolic heart failure present on admission, reported bleeding per rectum. Past medical history significant for hypertension, hyperlipidemia, GERD, GI bleed with preop chronic anemia, diverticulosis, localized colitis, degenerative disc disease with chronic low back pain, obesity, and family history of coronary artery disease. POD #6 urgent triple coronary artery bypass grafting using the left internal mammary artery to the left anterior descending artery, reverse saphenous vein graft from the aorta to the posterior descending artery, reverse saphenous vein graft from the aorta to the subtotally occluded obtuse marginal artery, exclusion of the left atrial appendage using a 35 mm AtriClip, endoscopic harvesting of the left greater saphenous vein from the groin to above the ankle level, intraoperative transesophageal echocardiogram and epiaortic scanning, intraoperative graft flow measurements using the Zwamyim system. Postopertive acute blood loss anemia, expected given hemodilution, cardiopulmonary bypass pump, and preoperative anemia. Urinary retention, requiring placement of Hackett catheter. The patient was seen in follow-up today 02/05/2021 at her bedside on the cardiac stepdown unit. Currently she is sitting up to the bedside chair, is awake, alert and oriented 3 and in no acute distress. She denies any complaints of shortness of breath or pain at this time. Remote telemetry showing normal sinus rhythm heart rate 90 BPM. Oxygen saturation are 93% on room air and she is achieving 1001 L on her incentive spirometry. She reports she ambulated in the cardiac stepdown unit hallway 2 yesterday with minimal assistance from nursing and physical therapy staff. The patient is complaining of some episodes of loose stool. Hackett catheter was removed this a.m. Urinalysis result shows large leukocyte Estrace, greater than 182 RBCs, and wbc's 101. Laboratory results this morning show WBC count of 10.2, hemoglobin 7.9, hematocrit 24.9, leaflets 470, sodium 136, potassium 4.1, BUN 15, creatinine 0.92 and glucose 115. Chest x-ray this morning shows mild interstitial prominence and trace left pleural effusion. Objective - Vital Signs Vital signs: Vital Signs Temp 98.1 F 02/05/21 03:37 Pulse 88 02/05/21 08:09 Resp 16 02/05/21 08:09 BP 113/70 02/05/21 03:37 Pulse Ox 94 L 02/05/21 07:58 Intake & Output 02/04/21 02/05/21 02/05/21 18:59 06:59 18:59 Intake Total 218 140 Output Total 900 800 Balance -682 -800 140 Intake: Oral 218 140 Output: Urine 900 800 Other: Voiding Method Indwelling Catheter Indwelling Catheter ABP, PAP, CO, CI - Last Documented Arterial Blood Pressure 97/59 Pulmonary Artery Pressure 44/20 Cardiac Output 4.5 Cardiac Index 2.5 - Exam CONSTITUTIONAL: Sitting up to the bedside chair on the cardiac stepdown unit, appears comfortable, cooperative, no apparent acute distress. HEENT: Neck is supple, no JVD, no lymphadenopathy. RESPIRATORY: Lungs sounds essentially clear throughout, diminished to his bilateral bases. Respirations are symmetrical and nonlabored. Currently on room air with oxygen saturations 93%. Able to achieve 1000 mL on her incentive fiona metry. Strong cough. CARDIOVASCULAR: Regular rhythm and rate. S1 and S2 present, negative for S3, gallop or murmur. Sternum is stable. Palpable peripheral pulses bilaterally, +1 edema to her bilateral lower extremities. No calf pain or tenderness noted. Heart hugger in place with patient demonstrating appropriate use. Knee-high RODNEY hose and sequential compression devices in place to her bilateral lower extremities. GASTROINTESTINAL: Abdomen soft, nontender, nondistended. Active bowel sounds present 4 quadrants. Tolerating diet. Passing flatus. No guarding or rigidity. Loose bowel movement this morning 02/05/2021. GENITOURINARY: Hackett catheter removed this a.m. Continues to void. INTEGUMENTARY: Skin is warm and dry with no evidence of clubbing or cyanosis. Midline sternal incision clean dry and well approximated, covered with dry intact dressing. Left lower extremity EVH sites well approximated without redness or drainage. Right groin IABP site soft and nontender. NEUROLOGIC: Cranial nerves II through XII intact. No focal deficits. MUSKULOSKELETAL: Able to move all extremities, strength equal bilaterally, generalized weakness. PSYCHIATRIC: Alert and oriented to person place and time, flat affect, intact judgment and insight. - Allied health notes Allied health notes reviewed: nursing - Labs CBC & Chem 7: 02/05/21 07:55 02/05/21 07:55 Labs: Abnormal Lab Results - Last 24 Hours (Table) 02/04/21 02/04/21 02/04/21 Range/Units 11:51 16:50 20:04 RBC (3.80-5.40) m/uL Hgb (11.4-16.0) gm/dL Hct (34.0-46.0) % Plt Count (150-450) k/uL Sodium (137-145) mmol/L Glucose (74-99) mg/dL POC Glucose (mg/dL) 122 H 120 H 137 H (75-99) mg/dL Urine Appearance (Clear) Urine Protein (Negative) Urine Blood (Negative) Ur Leukocyte Esterase (Negative) Urine RBC (0-5) /hpf Urine WBC (0-5) /hpf Calcium Oxalate Crystal (None) /hpf Amorphous Sediment (None) /hpf Urine Mucus (None) /hpf 02/04/21 02/05/21 02/05/21 Range/Units 23:20 07:55 07:55 RBC 2.77 L (3.80-5.40) m/uL Hgb 7.9 L (11.4-16.0) gm/dL Hct 24.9 L (34.0-46.0) % Plt Count 470 H (150-450) k/uL Sodium 136 L (137-145) mmol/L Glucose 115 H (74-99) mg/dL POC Glucose (mg/dL) (75-99) mg/dL Urine Appearance Turbid H (Clear) Urine Protein Trace H (Negative) Urine Blood Small H (Negative) Ur Leukocyte Esterase Large H (Negative) Urine RBC >182 H (0-5) /hpf Urine WBC 101 H (0-5) /hpf Calcium Oxalate Crystal Moderate H (None) /hpf Amorphous Sediment Rare H (None) /hpf Urine Mucus Many H (None) /hpf Microbiology - Last 24 Hours (Table) 02/04/21 23:20 Urine Culture - Preliminary Urine,Voided - Imaging and Cardiology Chest x-ray: report reviewed, image reviewed Assessment and Plan Assessment: 1. Triple-vessel coronary artery disease with left main disease, current intra- aortic balloon pump in place, status post three-vessel CABG 2. Chest pain, progressive shortness of breath on admission, non-STEMI on admission 3. Acute systolic heart failure present on admission 4. History of hypertension 5. History of hyperlipidemia, treated 6. GERD 7. History of GI bleed with reported bleeding per rectum this admission with preoperative chronic anemia 8. History of diverticulosis, localized colitis 9. Degenerative disc disease, chronic low back pain 10. Family history of coronary artery disease 11. Postopertive acute blood loss anemia, expected 12. Urinary retention requiring placement of Hackett catheter Plan: 1. Continue aspirin, statin, Plavix, and beta carlo. Will increase beta carlo as tolerated. Continue prophylactic amiodarone. 2. Encourage incentive spirometry use 10 times every hour while awake. Bronchodilators per pulmonology/critical care management. 3. Increase activity as tolerated. PT/OT/cardiac rehab following. 4. Will continue to monitor daily labs, and chest x-rays. Electrolyte replacement per protocol. 6. Pain control with current medication regimen. 7. Insulin management per primary care service. Patient is not diabetic, preoperative hemoglobin A1c 5.6%. Patient does need tight blood sugar control to promote sternal union, decrease infection risk 8. Continue Ensure, encourage nutrition. 9. Bactrim DS [id number] milligrams by mouth twice a day initiated per her urinalysis results. We will follow urine culture. 10. Strict accurate intake and output. Daily weights. Shower daily. 11. Continue Iron, Vitamin C. 12. Continue Lasix 20 mg IV daily and Aldactone 12.5 mg by mouth daily added by Dr. Avina. 13. Continue Cozaar to 50 mg by mouth daily at noon for afterload reduction. 14. Discharge planning in progress. Anticipate discharge to home with home care in the next 24-48 hrs. 15. Discontinue Senokot due to loose stools. 16. More recommendations to follow based on patient's clinical course. Time with Patient: Greater than 30
[2021-02-05] MEDS: LOSARTAN 25 MG TAB PO SCH (12:34)
--- NOTE | 2021-02-05 14:35 | PN ---
PROGRESS NOTE Mrs. Carbajal is in sinus rhythm. She is status post aortocoronary bypass surgery, doing well. She is performing well on incentive spirometry. Denies any chest discomfort. Some incisional pain but improved. Vitals signs are stable. JVD 1 cm. No carotid bruit. S1-S2 heard normally. Short systolic murmur noted. Lungs revealed improved air entry. Abdomen and lower extremity exam unchanged. Plan is to continue current medical regimen. Incentive spirometry. Pulmonary toilet and upon discharge to see Dr. Warner in 2 weeks. MMODL / IJN: [id number] /
[2021-02-05 16:55] LABS: Glucose,Whole Blood 116 mg/dL (75-99)
[2021-02-05] MEDS: ACETAMINOPHEN TAB 325 MG TAB PO PRN ×2 (17:00→23:21)
[2021-02-05 19:54] LABS: Glucose,Whole Blood 137 mg/dL (75-99)
--- NOTE | 2021-02-05 21:21 | P.GSCN ---
History of Present Illness Consult date: 02/05/21 Reason for Consult: Urinary retention Requesting physician: Go Richey History of present illness: The patient is 75-year-old white female patient of Dr. Avina with a history of hypertension, hyperlipidemia, GERD/reflux, GI bleed, diverticulitis, and DJD. She presented to the emergency room on 01/25/2021 with complaints of chest pain, and right ear and right jaw pain and shortness of breath. She was found to have coronary artery disease and underwent emergent triple bypass on 01/30/2021. She has developed postoperative urinary retention. I am consulted for this reason. The patient reports an unremarkable urologic history. Specifically, she denies any prior history of UTIs or urolithiasis. Prior to admission, she did void every 2 hours, day and night, and experienced occasional urgency with urge inc ontinence. She denies dysuria, hematuria, straining, and a feeling of incomplete bladder emptying. Review of Systems - Cardiovascular Reports as per HPI - Genitourinary Genitourinary: Reports as per HPI Past Medical History Past Medical History: GERD/Reflux, GI Bleed, Hyperlipidemia, Hypertension, Osteoarthritis (OA) Additional Past Medical History / Comment(s): Diverticulitis. Angina. Hiatal hernia. Recent stomach problems and rectal bleeding. "Bad back, disintegrating discs in neck, head shakes." History of Any Multi-Drug Resistant Organisms: None Reported Past Surgical History: Bowel Resection, Heart Catheterization, Hysterectomy, Orthopedic Surgery Additional Past Surgical History / Comment(s): Left foot surgery, GURVINDER/BSO, left carpal tunnel surgery, colonoscopy X2. Past Anesthesia/Blood Transfusion Reactions: No Reported Reaction Past Psychological History: No Psychological Hx Reported Smoking Status: Never smoker Past Alcohol Use History: None Reported Past Drug Use History: None Reported - Past Family History Father Family Medical History: Cancer Mother Family Medical History: Cancer Brother(s) Family Medical History: Coronary Artery Disease (CAD), Myocardial Infarction (OR) Sister(s) Family Medical History: Neurologic Disorder Daughter(s) Family Medical History: Pulmonary Embolus Son(s) Family Medical History: Coronary Artery Disease (CAD) Medications and Allergies Home Medications Medication Instructions Recorded Confirmed Type Enalapril [Vasotec] 20 mg PO BID 09/07/15 01/25/21 History Metoprolol Tartrate [Lopressor] 50 mg PO BID 09/07/15 01/25/21 History [place]-3 Fatty Acids/Fish Oil [Fish 1 cap PO DAILY 09/08/15 01/25/21 History Oil 1,000 mg Softgel] Cholecalciferol (Vitamin D3) 50 mcg PO DAILY 06/14/17 01/25/21 History [Vitamin D3] L.acidoph,Paracasei, B.lactis 1 cap PO DAILY 06/14/17 01/25/21 History [Probiotic] Magnesium Oxide [Mag-Ox] 250 mg PO DAILY 06/14/17 01/25/21 History Aspirin [Adult Low Dose Aspirin EC] 81 mg PO DAILY 12/07/20 01/25/21 History Cyanocobalamin (Vitamin B-12) 1,000 mcg PO DAILY 12/07/20 01/25/21 History [Vitamin B-12] amLODIPine [Norvasc] 10 mg PO HS 12/07/20 01/25/21 History Acetaminophen/Chlorpheniramine 1 - 2 tab PO Q6H PRN 01/25/21 01/25/21 History [Coricidin Hbp Cold & Flu Tab] Omeprazole 40 mg PO DAILY 01/25/21 01/25/21 History Simvastatin [Zocor] 20 mg PO HS 01/25/21 01/25/21 History Allergies Allergy/AdvReac Type Severity Reaction Status Date / Time ciprofloxacin Allergy Rash/Hives Verified 01/25/21 07:09 cortisone Allergy HAD Verified 01/25/21 07:09 NUMBNESS AT BACK OF HEAD FOLLOWING INJECTION hydrocortisone Allergy Unknown Verified 01/25/21 07:09 [From Cortizone-10] Penicillins Allergy Rash/Hives Verified 01/25/21 07:09 Surgical - Exam Vital Signs Temp Pulse Resp BP Pulse Ox 97.7 F 99 22 119/87 92 L 01/25/21 01:13 01/25/21 01:13 01/25/21 01:13 01/25/21 01:13 01/25/21 01:13 - General well developed, well nourished, no distress - Respiratory normal respiratory effort - Abdomen Abdomen: soft, non tender, no guarding, no rigid, no rebound - Psychiatric oriented to time, oriented to person, oriented to place, speech is normal, memory intact Results - Labs 02/05/21 07:55 02/05/21 07:55 Abnormal Lab Results - Last 24 Hours (Table) 02/04/21 02/04/21 02/04/21 Range/Units 11:51 16:50 20:04 RBC (3.80-5.40) m/uL Hgb (11.4-16.0) gm/dL Hct (34.0-46.0) % Plt Count (150-450) k/uL Sodium (137-145) mmol/L Glucose (74-99) mg/dL POC Glucose (mg/dL) 122 H 120 H 137 H (75-99) mg/dL Urine Appearance (Clear) Urine Protein (Negative) Urine Blood (Negative) Ur Leukocyte Esterase (Negative) Urine RBC (0-5) /hpf Urine WBC (0-5) /hpf Calcium Oxalate Crystal (None) /hpf Amorphous Sediment (None) /hpf Urine Mucus (None) /hpf 02/04/21 02/05/21 02/05/21 Range/Units 23:20 07:55 07:55 RBC 2.77 L (3.80-5.40) m/uL Hgb 7.9 L (11.4-16.0) gm/dL Hct 24.9 L (34.0-46.0) % Plt Count 470 H (150-450) k/uL Sodium 136 L (137-145) mmol/L Glucose 115 H (74-99) mg/dL POC Glucose (mg/dL) (75-99) mg/dL Urine Appearance Turbid H (Clear) Urine Protein Trace H (Negative) Urine Blood Small H (Negative) Ur Leukocyte Esterase Large H (Negative) Urine RBC >182 H (0-5) /hpf Urine WBC 101 H (0-5) /hpf Calcium Oxalate Crystal Moderate H (None) /hpf Amorphous Sediment Rare H (None) /hpf Urine Mucus Many H (None) /hpf Microbiology - Last 24 Hours (Table) 02/04/21 23:20 Urine Culture - Preliminary Urine,Voided Diabetes panel 02/05/21 Range/Units 07:55 Sodium 136 L (137-145) mmol/L Potassium 4.1 (3.5-5.1) mmol/L Chloride 104 (98-107) mmol/L Carbon Dioxide 25 (22-30) mmol/L BUN 15 (7-17) mg/dL Creatinine 0.92 (0.52-1.04) mg/dL Glucose 115 H (74-99) mg/dL Calcium 9.0 (8.4-10.2) mg/dL Calcium panel 02/05/21 Range/Units 07:55 Calcium 9.0 (8.4-10.2) mg/dL Pituitary panel 02/05/21 Range/Units 07:55 Sodium 136 L (137-145) mmol/L Potassium 4.1 (3.5-5.1) mmol/L Chloride 104 (98-107) mmol/L Carbon Dioxide 25 (22-30) mmol/L BUN 15 (7-17) mg/dL Creatinine 0.92 (0.52-1.04) mg/dL Glucose 115 H (74-99) mg/dL Calcium 9.0 (8.4-10.2) mg/dL Adrenal panel 02/05/21 Range/Units 07:55 Sodium 136 L (137-145) mmol/L Potassium 4.1 (3.5-5.1) mmol/L Chloride 104 (98-107) mmol/L Carbon Dioxide 25 (22-30) mmol/L BUN 15 (7-17) mg/dL Creatinine 0.92 (0.52-1.04) mg/dL Glucose 115 H (74-99) mg/dL Calcium 9.0 (8.4-10.2) mg/dL Assessment and Plan (1) Urinary retention Current Visit: Yes Status: Acute Code(s): R33.9 - RETENTION OF URINE, UNSPECIFIED SNOMED Code(s): 938238080 Plan: I had a lengthy discussion with the patient and her . I explained to them that she may have had voiding dysfunction preoperatively, as many patients have difficulty determining whether they do or do not empty their bladders. I also explained to them that postoperative urinary retention can be multifactorial, due to anesthesia, narcotics, and immobility. Discharge home on 02/07/2021 is anticipated. I would suggest the Hackett catheter remain in place until then, and that she be given a repeat voiding trial prior to discharge. If she is unable to void or empty adequately, she will need to be discharged home with an indwelling Hackett catheter as she does not appear to be a candidate for intermittent self-catheterization. She would then follow-up as an outpatient for Hackett catheter management. Time with Patient: Greater than 30
[2021-02-06 06:48] LABS: Glucose,Whole Blood 100 mg/dL (75-99)
[2021-02-06] MEDS: ASCORBIC ACID 500 MG TAB PO SCH ×2 (06:50→17:10)
[2021-02-06] MEDS: PANTOPRAZOLE 40 MG TABLET PO SCH ×2 (06:50→17:10)
[2021-02-06] MEDS: FERROUS SULFATE 325 MG TAB PO SCH ×2 (06:50→17:10)
[2021-02-06] MEDS: INSULIN ASPART (NovoLOG) 100 UNIT/ML VIAL SQ SCH ×4 (06:55→21:00)
[2021-02-06] MEDS: IPRATROPIUM-ALBUTEROL 3 ML NEB INHALATION SCH ×4 (06:58→20:24)
[2021-02-06] MEDS: AMIODARONE 200 MG TAB PO SCH ×2 (08:08→20:58)
[2021-02-06] MEDS: SULFAMETHOX-TMP 800-160MG 1 EACH TAB PO SCH ×2 (08:08→20:59)
[2021-02-06] MEDS: ATORVASTATIN 40 MG TAB PO SCH (08:08)
[2021-02-06] MEDS: CLOPIDOGREL 75 MG TAB PO SCH (08:08)
[2021-02-06] MEDS: LIDOCAINE 5% PATCH TOPICAL SCH (08:08)
[2021-02-06] MEDS: FUROSEMIDE 10 MG/ML 2 ML VIAL IV SCH (08:08)
[2021-02-06] MEDS: SPIRONOLACTONE 25 MG TAB PO SCH (08:08)
[2021-02-06] MEDS: HEPARIN SODIUM,PORCINE/PF 5,000 UNIT/0.5 ML SYRINGE SQ SCH ×3 (08:08→23:24)
[2021-02-06] MEDS: ASPIRIN 325 MG TAB PO SCH (08:08)
[2021-02-06] MEDS: METOPROLOL TARTRATE 25 MG TAB PO SCH ×2 (08:09→20:58)
--- NOTE | 2021-02-06 08:35 | P.PN ---
Subjective Progress Note Date: 02/05/21 Progress Note Date: 02/05/21 HISTORY OF PRESENT ILLNESS This is a 75-year-old female patient of Dr. Avina with past medical history of hypertension, hyperlipidemia, gastroesophageal reflux disease, history of GI bleed, recurrent sigmoid diverticulitis status post sigmoid colectomy and low anterior resection, degenerative disc disease in the cervical spine. Patient complains of shortness of breath off and on for a week with exertional dyspnea. She states she has been sleeping on 3-4 pillows at night starting yesterday she became increasingly short of breath and couldn't lay down. She does complain of discomfort in her chest with right ear and right jaw pain. She denies any lower extremity edema. Patient presented to [facility] emergency center for evaluation. She is found to be afebrile, heart rate 99, respiratory rate 32, blood pressure 119/87, pulse ox 92% on room air. Patient was later changed over to nonrebreather and then to BiPAP. Blood work reveals WBC 14.5, hemoglobin 9.8, platelet count 328. INR 0.9. Sodium 135, potassium 4.5, chloride 104, CO2 15, BUN 17 and creatinine 0.75. Blood sugar 194. Lactic acid 3.5 and repeat of 1.3. Troponins 1.620, 1.850, 2.11. ProBNP 2700. Coronavirus PCR not detected. Chest x-ray reveals pulmonary interstitial edema and probable small right pleural effusion which are new. This could be acute heart failure or acute pneumonia. Echocardiogram reveals EF of 30-35%, LA is severely dilated, LV wall motion is hypokinetic, mild mitral regurgitation, mild tricuspid regurgitation. Patient is seen today in the emergency center waiting for bed on the cardiac stepdown unit. 01/26: Patient is seen today on the selective care unit, sitting up her recliner and is at bedside. She currently states that she is feeling better from yesterday and denied any chest pain or pressure and denies any neck pain. Patient does state that she did have some rectal bleeding most likely secondary to her history of diverticulosis. Patient underwent heart catheterization which revealed left main disease of 95%, LAD total occlusion of the diagonal branches, left circumflex subtotally occluded, right coronary artery 70-80% distally. Due to severe triple-vessel disease, patient was transferred to the intensive care unit post procedure. Patient also underwent intra-aortic balloon pump insertion. After procedures, patient went to the intensive care unit and consult with cardiothoracic surgery added. 01/27:Patient has been seen by cardiothoracic team with plan for CABG possibly on Sunday or Sunday. Patient is seen today in the intensive care unit and continued on intra-aortic balloon pump and continued on heparin drip. She denies having any chest pain and shortness of breath is improved. [place] 5/325 ordered. Patient was seen by Dr. Cormier regarding rectal bleeding with no plan for intervention at this time and patient started on Flagyl. Patient is a lso followed by pulmonary medicine with plan to obtain bedside FEV1. She remains afebrile, heart rate in the 90s, blood pressure and 100/54, pulse ox 96% on 2 L nasal cannula. technical service specialist sinus rhythm. Repeat blood work reveals WBC 6.9, hemoglobin 9.5, platelet count 373. Sodium 135, blood sugar 101. Electrolytes renal function are normal. Liver function tests are within normal limits. Urinalysis showed small amount of blood. Patient is reaching 750 on incentive spirometry. Repeat blood work and chest x-ray ordered for tomorrow morning. 01/28: Patient is laying down in bed flat to due to the fact that she had intra- aortic balloon pump, she denies any chest pain at this time, she is not complaining of shortness of breath, she stated that her pain is well controlled but she would left to take it more often than every 8 hours, I spoke with the nursing staff about increasing her [place] to every 4-6 hours as needed, moderate the patient very closely, continue with bowel care, continue lactulose and Senokot, patient was seen earlier by thoracic surgery as well as by cardiology it was recommended that the patient will go for coronary artery bypass grafting next Sunday unless she become and stable, she has been requiring 2 L nasal cannula, her blood pressure is stable, her oxygen saturation stable, her hemoglobin is stable at this time, she was seen by Dr. Fuentes and he was recommended for the patient to be continued on Flagyl for now with no further intervention. 01/29: Patient's is laying down in bed she continued to have the intra-aortic balloon pump in place, she is nauseated she had an episode of vomiting today she denies any chest pain or shortness breath, she denies any abdominal pain, she has been constipated, she did not respond to lactulose, she would be getting MiraLAX along with a stool softener, we will monitor the patient very closely in the intensive care unit, patient will likely be operated on Sunday, continue supportive care, continue heparin drip, continue baby aspirin, continue atorvastatin, follow-up with the patient very closely. 01/31: Today, patient underwent CABG with DOBBS to LAD, SVG to PDA and OM 1. Discontinued on intra-aortic balloon pump which is to be discontinued later today. Patient is off nitroglycerin, continued on low dose Primacor. Patient was successfully extubated last evening. Pulse ox 92% on high flow nasal cannula 10 L. technical service specialist sinus rhythm. Mediastinal and left pleural chest tube in place with serosanguineous output. She is currently on insulin drip. Patient complains of feeling tired and does have significant chest discomfort from surgery. [place] was added and Toradol to be edited by cardiothoracic. Patient did have a loose bowel movement but has been receiving lactulose for constipation. Repeat blood work reveals hemoglobin of 8. Creatinine 0.57. Blood sugars are running between 118- 128. Repeat chest x-ray reveals similar borderline heart size. Interval extubation and removal of NG tube. Persistent but improving retrocardiac postoperative atelectasis. 02/01: Patient remains in the intensive care unit, today she is sitting up in recliner and appears to be stronger from yesterday. She has been afebrile, heart rate 73, blood pressure 115/57, pulse ox 95-96% on 8 L nasal cannula. Repeat blood work reveals WBC 10.9, hemoglobin 7.6. Creatinine 0.79, potassium 4.0. Blood sugars are running between 115 and 124. Patient is not diabetic, insulin drip will be discontinued and patient placed on NovoLog scale only. Chest x-ray reveals chronic changes and mild cardiomegaly with left-sided chest tube. No pneumothorax. Patchy left basilar atelectasis. Patient is off balloon pump. 02/02: She remains in intensive care unit, found sitting up and recliner. Sandhya marrero states that she is feeling better each day, ambulated in the hallway. Pain is well controlled. Incentive spirometry is reaching 1000 ML's. She does have decreased appetite. She states she did not sleep well last night. Patient has been afebrile, heart rate in the 70s, sinus rhythm, blood pressure 100/60, pulse ox 92% on 2 L. Repeat blood work reveals WBC 10.5, hemoglobin 8, creatinine 0 .88. Blood sugars are running between 100-133. She is now off insulin drip and maintained only on scale insulin. Repeat chest x-ray reveals pulmonary vascular congestion along with trace effusions. Retrocardiac atelectasis and/or consolidation increased. Intra-aortic pump, Right cordis, chest tubes have been removed. Anticipate removal of Hackett catheter today. Continue to increase activity level. 02/03: Patient is now on the cardiac stepdown unit. Repeat echocardiogram reveals EF of 35-40% with borderline concentric left ventricular hypertrophy. Basal and Mid lateral inferior LV wall motion hypokinetic. Repeat chest x-ray reveals no acute pulmonary disease. WBC 9.5 and hemoglobin 7.8. Creatinine 0.78. Sodium 130. Capillary blood glucose running between 108 and 138. She did one reading of 271 yesterday afternoon. She has been afebrile, heart rate 74, blood pressure 120/73, pulse ox 95% on room air. technical service specialist is a sinus rhythm. Patient denies having any chest pain. No worsening shortness of breath. She has been evaluated by Dr. Walker for possible inpatient rehab and patient appears to be a good candidate for inpatient rehab but prefers to go home. 02/04: Patient is seen today on the cardiac stepdown unit. She states she had diarrhea yesterday had also required Hackett catheter to be replaced due to urinary retention. Patient states in general she is not feeling well today. She is complaining of lower extremity edema and Aldactone 12.5 mg and Lasix 20 mg added. Patient is having leaking under the left breast from the previous left chest tube site that is serosanguineous, mostly serous. She's been afebrile, heart rate 87, blood pressure 129/59, pulse ox 92% on room air. 02/05: Patient is sitting up in bed in no acute distress, patient was diagnosed with catheter associated UTI, she was started on Bactrim double strength 1 tablet orally twice every day, with increased fluid intake, she was supposed to be discharged home however I believe cardiothoracic service want her to be seen in consultation by urology due to patient not able to void on her own, we will continue to monitor the patient very closely, Patient had decided not to go to subacute rehab rotation or inpatient rehabitation. REVIEW OF SYSTEMS Constitutional: No fever, no chills, no night sweats. No weight change. No weakness, reports fatigue no lethargy. Reports daytime sleepiness. HEENT: No headache. No blurred vision or double vision, no loss of vision. No loss of Hearing, no ringing in the ears, no dizziness. No nasal drainage or congestion. No epistaxis. No sore throat. Lungs: Reports shortness of breath-improved, cough, no sputum production. No wheezing. Reports exertional shortness of breath Cardiovascular: Reports severe chest discomfort, reports lower extremity edema. No palpitations. No paroxysmal nocturnal dyspnea. Reports orthopnea. No lightheadedness or dizziness. No syncopal episodes. Abdominal: No abdominal pain. No nausea, vomiting. No diarrhea. No constipation. Occasional bloody or tarry stools. No loss of appetite. Genitourinary: No dysuria, increased frequency, urgency. No urinary retention. Musculoskeletal: No myalgias. No muscle weakness, no gait dysfunction, no frequent falls. Positive for back pain. No neck pain. Integumentary: No wounds, no lesions. No rash or pruritus. No unusual bruising. Neurologic: No aphasia. No facial droop. No change in mentation. No head injury. No headache. No paralysis. No paresthesia. Psychiatric: No depression. Positive for anxiety. No mood swings. Endocrine: Mildly abnormal blood sugars. No weight change. PHYSICAL EXAMINATION Gen: This is a 75-year-old female. She is resting in recliner and a ppears to be fatigued. HEENT: Head is atraumatic, normocephalic. Pupils equal, round. Sclerae is a nicteric. NECK: Supple. No JVD. No lymphadenopathy. No thyromegaly. LUNGS: Diminished lung sounds bilaterally. No wheezing. No intercostal retractions. HEART: first heart sound is depressed, second heart sound is normal, there is systolic ejection murmur 2/6 located in the left sternal border, no rub CHEST: Serosanguineous, mostly serous fluid draining from the left chest tube site under the breast. A BD pad applied. ABDOMEN: Soft. Bowel sounds are present. No masses. No tenderness. EXTREMITIES: Bilateral pedal edema. No calf tenderness. Dorsalis pedis palpable bilaterally. NEUROLOGICAL: Patient is awake, alert and oriented x3. Cranial nerves 2 through 12 are grossly intact. ASSESSMENT AND PLAN 1. Acute hypoxic respiratory failure secondary to acute systolic heart failure with cardiogenic shock. Continue patient on metoprolol 25 mg orally twice every day, losartan 25 mg once every day, continue Lasix 20 mg IV push every 24 hours, and spironolactone 12.5 mg every day. 2. Post operative day #7 status post CABG 3 with DOBBS to LAD, reverse s aphenous venous graft to the PDA, reverse saphenous venous graft to the obtuse marginal branch. Continue aspirin 325 mg once every day, Plavix 75 mg once every day, atorvastatin 40 mg every day, metoprolol 25 mg orally twice every day, amiodarone 200 mg orally twice every day. 3. Ischemic cardiomyopathy. Ejection fraction about 30%.Continue metoprolol 25 mg orally twice every day, losartan 25 mg orally once every day, Lasix 20 mg IV push every 24 hours, spironolactone 12.5 mg orally once every day. 4. Rectal bleeding secondary to diverticulitis. Was treated with IV metronidazole. 5. Hyperglycemia without diagnosis of diabetes. Continue to monitor with NovoLog scale.. 6. Hypertension and hypertensive cardiovascular disease. Continue losartan 25 mg daily at noon and metoprolol 25 mg orally twice every day. 7. Hyperlipidemia. Continue atorvastatin 40 mg at bedtime. 8. Gastroesophageal reflux disease and GI prophylaxis. Continue Protonix 40 mg twice daily. 9. History of GI bleed, no active bleeding at this time. Patient had rectal bleeding 1 most likely secondary to diverticulitis 10. History of diverticulitis status post sigmoid colectomy and low anterior r esection. 11. Degenerative disc disease in the cervical spine. 12. DVT prophylaxis. Continue heparin 5000 units subcutaneously every 8 hours. 13. COVID -19 testing negative. Patient has been hospitalized during a pandemic. 14. Opiate-induced constipation. continue Senokot 2 tablet orally bedtime. 15. Urinary retention requiring replacement of Hackett, expected with surgery. patient was seen in consultation by urology yesterday he was recommended to continue with Hackett catheterization at the patient is not able to void and follow-up with urology as an outpatient. Objective - Vital Signs Vital signs: Vital Signs Temp 98.1 F 02/05/21 03:37 Pulse 88 02/05/21 08:09 Resp 16 02/05/21 08:09 BP 113/70 02/05/21 03:37 Pulse Ox 94 L 02/05/21 07:58 Intake & Output 02/04/21 02/05/21 02/05/21 18:59 06:59 18:59 Intake Total 218 Output Total 900 800 Balance -682 -800 Intake: Oral 218 Output: Urine 900 800 Other: Voiding Method Indwelling Catheter Indwelling Catheter ABP, PAP, CO, CI - Last Documented Arterial Blood Pressure 97/59 Pulmonary Artery Pressure 44/20 Cardiac Output 4.5 Cardiac Index 2.5 - Labs CBC & Chem 7: 02/05/21 07:55 02/05/21 07:55 Labs: Abnormal Lab Results - Last 24 Hours (Table) 02/04/21 02/04/21 02/04/21 Range/Units 11:51 16:50 20:04 POC Glucose (mg/dL) 122 H 120 H 137 H (75-99) mg/dL Urine Appearance (Clear) Urine Protein (Negative) Urine Blood (Negative) Ur Leukocyte Esterase (Negative) Urine RBC (0-5) /hpf Urine WBC (0-5) /hpf Calcium Oxalate Crystal (None) /hpf Amorphous Sediment (None) /hpf Urine Mucus (None) /hpf 02/04/21 Range/Units 23:20 POC Glucose (mg/dL) (75-99) mg/dL Urine Appearance Turbid H (Clear) Urine Protein Trace H (Negative) Urine Blood Small H (Negative) Ur Leukocyte Esterase Large H (Negative) Urine RBC >182 H (0-5) /hpf Urine WBC 101 H (0-5) /hpf Calcium Oxalate Crystal Moderate H (None) /hpf Amorphous Sediment Rare H (None) /hpf Urine Mucus Many H (None) /hpf
[2021-02-06 09:16] LABS: HCT 24.8 % (34.0-46.0); HGB 7.7 gm/dL (11.4-16.0); Hypochromasia Moderate; MCH 28.1 pg (25.0-35.0); MCHC 30.9 g/dL (31.0-37.0); MCV 90.9 fL (80.0-100.0); Mean Platelet Volume 7.2; Platelet Count 527 k/uL (150-450); Poikilocytosis Slight; RBC 2.73 m/uL (3.80-5.40); RDW 15.8 % (11.5-15.5); WBC 9.6 k/uL (3.8-10.6)
[2021-02-06 09:22] LABS: Calcium 8.8 mg/dL (8.4-10.2); Magnesium 1.9 mg/dL (1.6-2.3); Potassium 3.9 mmol/L (3.5-5.1)
--- NOTE | 2021-02-06 09:53 | P.PN ---
Subjective Progress Note Date: 02/06/21 Principal diagnosis: Triple-vessel coronary artery disease with left main disease, chest pain, progressive shortness of breath, non-STEMI, acute systolic heart failure present on admission, reported bleeding per rectum. Past medical history significant for hypertension, hyperlipidemia, GERD, GI bleed with preop chronic anemia, diverticulosis, localized colitis, degenerative disc disease with chronic low back pain, obesity, and family history of coronary artery disease. POD #7 urgent triple coronary artery bypass grafting using the left internal mammary artery to the left anterior descending artery, reverse saphenous vein graft from the aorta to the posterior descending artery, reverse saphenous vein graft from the aorta to the subtotally occluded obtuse marginal artery, exclusion of the left atrial appendage using a 35 mm AtriClip, endoscopic harvesting of the left greater saphenous vein from the groin to above the ankle level, intraoperative transesophageal echocardiogram and epiaortic scanning, intraoperative graft flow measurements using the Electrochaeastim system. Postopertive acute blood loss anemia, expected given hemodilution, cardiopulmonary bypass pump, and preoperative anemia. Urinary retention, requiring placement of Hackett catheter. The patient was seen in follow-up today 02/06/2021 at her bedside on the cardiac stepdown unit. Currently she is sitting up to the bedside chair, is awake, alert and oriented 3 and in no acute distress. She denies any complaints of shortness of breath at this time, and is complaining of some pain to her bilateral lower extremities from her knee down to her toes. No further complaints of loose stools. She was seen in consultation by Dr. Forrester from urology yesterday who recommended replacement of her Hackett catheter for a postvoid residual of 700 mL. She was started on Bactrim DS yesterday due to her urinalysis results, urine culture pending. Oxygen saturations are 93% on room air and she is achieving 1250 mL on her incentive spirometry with encouragement. Remote telemetry showing sinus tachycardia heart rate 100 BPM. She remains afebrile the last 24 hours. She reports she has been up ambulating in the cardiac stepdown unit hallway with minimal assistance from nursing and physical therapy staff 3 times yesterday. Objective - Vital Signs Vital signs: Vital Signs Temp 97.9 F 02/06/21 08:23 Pulse 103 H 02/06/21 08:23 Resp 20 02/06/21 08:23 BP 108/62 02/06/21 08:23 Pulse Ox 94 L 02/06/21 08:23 Intake & Output 02/05/21 02/06/21 02/06/21 18:59 06:59 18:59 Intake Total 852 240 Output Total 700 1100 Balance 152 -1100 240 Weight 88.7 kg Intake: IV 10 Invasive Line 8 10 Oral 842 240 Output: Urine 700 1100 Other: Voiding Method Indwelling Catheter Indwelling Catheter Indwelling Catheter # Voids 1 # Bowel Movements 1 ABP, PAP, CO, CI - Last Documented Arterial Blood Pressure 97/59 Pulmonary Artery Pressure 44/20 Cardiac Output 4.5 Cardiac Index 2.5 - Exam CONSTITUTIONAL: Sitting up to the bedside chair on the cardiac stepdown unit, appears comfortable, cooperative, no apparent acute distress. HEENT: Neck is supple, no JVD, no lymphadenopathy. RESPIRATORY: Lungs sounds essentially clear throughout, diminished to his bilateral bases. Respirations are symmetrical and nonlabored. Currently on room air with oxygen saturations 93%. Able to achieve 1250 mL on her incentive spirometry. Strong cough. CARDIOVASCULAR: Regular rhythm and rate. S1 and S2 present, negative for S3, gallop or murmur. Sternum is stable. Palpable peripheral pulses bilaterally, +1 edema to her bilateral lower extremities. No calf pain or tenderness noted. Heart hugger in place with patient demonstrating appropriate use. Knee-high RODNEY hose and sequential compression devices in place to her bilateral lower extremities. GASTROINTESTINAL: Abdomen soft, nontender, nondistended. Active bowel sounds present 4 quadrants. Tolerating diet. Passing flatus. No guarding or rigidity. GENITOURINARY: Hackett in place with clear yellow urine. Urine output 1100 mL in the last 8 hours.. INTEGUMENTARY: Skin is warm and dry with no evidence of clubbing or cyanosis. Midline sternal incision clean dry and well approximated, covered with dry intact dressing. Left lower extremity EVH sites well approximated without redness or drainage. Right groin IABP site soft and nontender. NEUROLOGIC: Cranial nerves II through XII intact. No focal deficits. MUSKULOSKELETAL: Able to move all extremities, strength equal bilaterally, generalized weakness. PSYCHIATRIC: Alert and oriented to person place and time, flat affect, intact judgment and insight. - Allied health notes Allied health notes reviewed: nursing - Labs CBC & Chem 7: 02/06/21 07:28 02/06/21 07:28 Labs: Abnormal Lab Results - Last 24 Hours (Table) 02/05/21 02/05/21 02/06/21 Range/Units 16:53 19:37 06:33 RBC (3.80-5.40) m/uL Hgb (11.4-16.0) gm/dL Hct (34.0-46.0) % MCHC (31.0-37.0) g/dL RDW (11.5-15.5) % Plt Count (150-450) k/uL Sodium (137-145) mmol/L Creatinine (0.52-1.04) mg/dL Glucose (74-99) mg/dL POC Glucose (mg/dL) 116 H 137 H 100 H (75-99) mg/dL 02/06/21 02/06/21 Range/Units 07:28 07:28 RBC 2.73 L (3.80-5.40) m/uL Hgb 7.7 L (11.4-16.0) gm/dL Hct 24.8 L (34.0-46.0) % MCHC 30.9 L (31.0-37.0) g/dL RDW 15.8 H (11.5-15.5) % Plt Count 527 H (150-450) k/uL Sodium 136 L (137-145) mmol/L Creatinine 1.13 H (0.52-1.04) mg/dL Glucose 100 H (74-99) mg/dL POC Glucose (mg/dL) (75-99) mg/dL Microbiology - Last 24 Hours (Table) 02/04/21 23:20 Urine Culture - Preliminary Urine,Voided - Imaging and Cardiology Chest x-ray: report reviewed, image reviewed Assessment and Plan Assessment: 1. Triple-vessel coronary artery disease with left main disease, current intra- aortic balloon pump in place, status post three-vessel CABG 2. Chest pain, progressive shortness of breath on admission, non-STEMI on admission 3. Acute systolic heart failure present on admission 4. History of hypertension 5. History of hyperlipidemia, treated 6. GERD 7. History of GI bleed with reported bleeding per rectum this admission with preoperative chronic anemia 8. History of diverticulosis, localized colitis 9. Degenerative disc disease, chronic low back pain 10. Family history of coronary artery disease 11. Postopertive acute blood loss anemia, expected 12. Urinary retention requiring placement of Hackett catheter Plan: 1. Continue aspirin, statin, Plavix, and beta carlo. Will increase beta carlo as tolerated. Continue prophylactic amiodarone. 2. Encourage incentive spirometry use 10 times every hour while awake. Bronchodilators per pulmonology/critical care management. 3. Increase activity as tolerated. PT/OT/cardiac rehab following. 4. Will continue to monitor daily labs, and chest x-rays. Electrolyte replacement per protocol. 6. Pain control with current medication regimen. 7. Insulin management per primary care service. Patient is not diabetic, pre operative hemoglobin A1c 5.6%. Patient does need tight blood sugar control to promote sternal union, decrease infection risk 8. Continue Ensure, encourage nutrition. 9. Bactrim DS 720246 milligrams by mouth twice a day initiated per her urinalysis results. We will continue to follow urine culture results. 10. Strict accurate intake and output. Daily weights. Shower daily. 11. Continue ferrous sulfate and Vitamin C. 12. Continue Lasix 20 mg IV daily and Aldactone 12.5 mg by mouth daily added by Dr. Avina. 13. Cozaar decreased to 25 mg by mouth daily at noon for afterload reduction. 14. Discharge planning in progress. Anticipate discharge to home with home care in the next 24-48 hrs. 15. Continue Hackett catheter per Dr. Forrester recommendations. Will remove Hackett for voiding trial more morning 02/07/[address] Lara recommendations. 16. More recommendations to follow based on patient's clinical course. Time with Patient: Greater than 30
--- NOTE | 2021-02-06 10:14 | P.PN ---
Subjective Progress Note Date: 02/06/21 Progress Note Date: 02/06/21 HISTORY OF PRESENT ILLNESS This is a 75-year-old female patient of Dr. Avina with past medical history of hypertension, hyperlipidemia, gastroesophageal reflux disease, history of GI bleed, recurrent sigmoid diverticulitis status post sigmoid colectomy and low anterior resection, degenerative disc disease in the cervical spine. Patient complains of shortness of breath off and on for a week with exertional dyspnea. She states she has been sleeping on 3-4 pillows at night starting yesterday she became increasingly short of breath and couldn't lay down. She does complain of discomfort in her chest with right ear and right jaw pain. She denies any lower extremity edema. Patient presented to [facility] emergency center for evaluation. She is found to be afebrile, heart rate 99, respiratory rate 32, blood pressure 119/87, pulse ox 92% on room air. Patient was later changed over to nonrebreather and then to BiPAP. Blood work reveals WBC 14.5, hemoglobin 9.8, platelet count 328. INR 0.9. Sodium 135, potassium 4.5, chloride 104, CO2 15, BUN 17 and creatinine 0.75. Blood sugar 194. Lactic acid 3.5 and repeat of 1.3. Troponins 1.620, 1.850, 2.11. ProBNP 2700. Coronavirus PCR not detected. Chest x-ray reveals pulmonary interstitial edema and probable small right pleural effusion which are new. This could be acute heart failure or acute pneumonia. Echocardiogram reveals EF of 30-35%, LA is severely dilated, LV wall motion is hypokinetic, mild mitral regurgitation, mild tricuspid regurgitation. Patient is seen today in the emergency center waiting for bed on the cardiac stepdown unit. 01/26: Patient is seen today on the selective care unit, sitting up her recliner and is at bedside. She currently states that she is feeling better from yesterday and denied any chest pain or pressure and denies any neck pain. Patient does state that she did have some rectal bleeding most likely secondary to her history of diverticulosis. Patient underwent heart catheterization which revealed left main disease of 95%, LAD total occlusion of the diagonal branches, left circumflex subtotally occluded, right coronary artery 70-80% distally. Due to severe triple-vessel disease, patient was transferred to the intensive care unit post procedure. Patient also underwent intra-aortic balloon pump insertion. After procedures, patient went to the intensive care unit and consult with cardiothoracic surgery added. 01/27:Patient has been seen by cardiothoracic team with plan for CABG possibly on Sunday or Sunday. Patient is seen today in the intensive care unit and continued on intra-aortic balloon pump and continued on heparin drip. She denies having any chest pain and shortness of breath is improved. Clemons 5/325 ordered. Patient was seen by Dr. Cormier regarding rectal bleeding with no plan for intervention at this time and patient started on Flagyl. Patient is a lso followed by pulmonary medicine with plan to obtain bedside FEV1. She remains afebrile, heart rate in the 90s, blood pressure and 100/54, pulse ox 96% on 2 L nasal cannula. monitoring analyst sinus rhythm. Repeat blood work reveals WBC 6.9, hemoglobin 9.5, platelet count 373. Sodium 135, blood sugar 101. Electrolytes renal function are normal. Liver function tests are within normal limits. Urinalysis showed small amount of blood. Patient is reaching 750 on incentive spirometry. Repeat blood work and chest x-ray ordered for tomorrow morning. 01/28: Patient is laying down in bed flat to due to the fact that she had intra- aortic balloon pump, she denies any chest pain at this time, she is not complaining of shortness of breath, she stated that her pain is well controlled but she would left to take it more often than every 8 hours, I spoke with the nursing staff about increasing her Clemons to every 4-6 hours as needed, moderate the patient very closely, continue with bowel care, continue lactulose and Senokot, patient was seen earlier by thoracic surgery as well as by cardiology it was recommended that the patient will go for coronary artery bypass grafting next Sunday unless she become and stable, she has been requiring 2 L nasal cannula, her blood pressure is stable, her oxygen saturation stable, her hemoglobin is stable at this time, she was seen by Dr. Fuentes and he was recommended for the patient to be continued on Flagyl for now with no further intervention. 01/29: Patient's is laying down in bed she continued to have the intra-aortic balloon pump in place, she is nauseated she had an episode of vomiting today she denies any chest pain or shortness breath, she denies any abdominal pain, she has been constipated, she did not respond to lactulose, she would be getting MiraLAX along with a stool softener, we will monitor the patient very closely in the intensive care unit, patient will likely be operated on Sunday, continue supportive care, continue heparin drip, continue baby aspirin, continue atorvastatin, follow-up with the patient very closely. 01/31: Today, patient underwent CABG with DOBBS to LAD, SVG to PDA and OM 1. Discontinued on intra-aortic balloon pump which is to be discontinued later today. Patient is off nitroglycerin, continued on low dose Primacor. Patient was successfully extubated last evening. Pulse ox 92% on high flow nasal cannula 10 L. monitoring analyst sinus rhythm. Mediastinal and left pleural chest tube in place with serosanguineous output. She is currently on insulin drip. Patient complains of feeling tired and does have significant chest discomfort from surgery. Clemons was added and Toradol to be edited by cardiothoracic. Patient did have a loose bowel movement but has been receiving lactulose for constipation. Repeat blood work reveals hemoglobin of 8. Creatinine 0.57. Blood sugars are running between 118- 128. Repeat chest x-ray reveals similar borderline heart size. Interval extubation and removal of NG tube. Persistent but improving retrocardiac postoperative atelectasis. 02/01: Patient remains in the intensive care unit, today she is sitting up in recliner and appears to be stronger from yesterday. She has been afebrile, heart rate 73, blood pressure 115/57, pulse ox 95-96% on 8 L nasal cannula. Repeat blood work reveals WBC 10.9, hemoglobin 7.6. Creatinine 0.79, potassium 4.0. Blood sugars are running between 115 and 124. Patient is not diabetic, insulin drip will be discontinued and patient placed on NovoLog scale only. Chest x-ray reveals chronic changes and mild cardiomegaly with left-sided chest tube. No pneumothorax. Patchy left basilar atelectasis. Patient is off balloon pump. 02/02: She remains in intensive care unit, found sitting up and recliner. Sandhya marrero states that she is feeling better each day, ambulated in the hallway. Pain is well controlled. Incentive spirometry is reaching 1000 ML's. She does have decreased appetite. She states she did not sleep well last night. Patient has been afebrile, heart rate in the 70s, sinus rhythm, blood pressure 100/60, pulse ox 92% on 2 L. Repeat blood work reveals WBC 10.5, hemoglobin 8, creatinine 0 .88. Blood sugars are running between 100-133. She is now off insulin drip and maintained only on scale insulin. Repeat chest x-ray reveals pulmonary vascular congestion along with trace effusions. Retrocardiac atelectasis and/or consolidation increased. Intra-aortic pump, Right cordis, chest tubes have been removed. Anticipate removal of Hackett catheter today. Continue to increase activity level. 02/03: Patient is now on the cardiac stepdown unit. Repeat echocardiogram reveals EF of 35-40% with borderline concentric left ventricular hypertrophy. Basal and Mid lateral inferior LV wall motion hypokinetic. Repeat chest x-ray reveals no acute pulmonary disease. WBC 9.5 and hemoglobin 7.8. Creatinine 0.78. Sodium 130. Capillary blood glucose running between 108 and 138. She did one reading of 271 yesterday afternoon. She has been afebrile, heart rate 74, blood pressure 120/73, pulse ox 95% on room air. monitoring analyst is a sinus rhythm. Patient denies having any chest pain. No worsening shortness of breath. She has been evaluated by Dr. Walker for possible inpatient rehab and patient appears to be a good candidate for inpatient rehab but prefers to go home. 02/04: Patient is seen today on the cardiac stepdown unit. She states she had diarrhea yesterday had also required Hackett catheter to be replaced due to urinary retention. Patient states in general she is not feeling well today. She is complaining of lower extremity edema and Aldactone 12.5 mg and Lasix 20 mg added. Patient is having leaking under the left breast from the previous left chest tube site that is serosanguineous, mostly serous. She's been afebrile, heart rate 87, blood pressure 129/59, pulse ox 92% on room air. 02/05: Patient is sitting up in bed in no acute distress, patient was diagnosed with catheter associated UTI, she was started on Bactrim double strength 1 tablet orally twice every day, with increased fluid intake, she was supposed to be discharged home however I believe cardiothoracic service want her to be seen in consultation by urology due to patient not able to void on her own, we will continue to monitor the patient very closely, Patient had decided not to go to subacute rehab rotation or inpatient rehabitation. 02/06: Patient sitting up in bed in no apparent distress, she continues to be generally weak, she continues to have issues with urinary retention, she was seen in consultation by urology was recommended to insert a Hackett catheterization and follow-up with him as an outpatient she will likely be able to be discharged home the next 24 hours with Hackett catheter in place, continue current treatment plan as indicated by cardiothoracic surgery. REVIEW OF SYSTEMS Constitutional: No fever, no chills, no night sweats. No weight change. No weakness, reports fatigue no lethargy. Reports daytime sleepiness. HEENT: No headache. No blurred vision or double vision, no loss of vision. No loss of Hearing, no ringing in the ears, no dizziness. No nasal drainage or congestion. No epistaxis. No sore throat. Lungs: Reports shortness of breath-improved, cough, no sputum production. No wheezing. Reports exertional shortness of breath Cardiovascular: Reports severe chest discomfort, reports lower extremity edema. No palpitations. No paroxysmal nocturnal dyspnea. Reports orthopnea. No lightheadedness or dizziness. No syncopal episodes. Abdominal: No abdominal pain. No nausea, vomiting. No diarrhea. No cons tipation. Occasional bloody or tarry stools. No loss of appetite. Genitourinary: No dysuria, increased frequency, urgency. No urinary retention. Musculoskeletal: No myalgias. No muscle weakness, no gait dysfunction, no frequent falls. Positive for back pain. No neck pain. Integumentary: No wounds, no lesions. No rash or pruritus. No unusual bruising. Neurologic: No aphasia. No facial droop. No change in mentation. No head injury. No headache. No paralysis. No paresthesia. Psychiatric: No depression. Positive for anxiety. No mood swings. Endocrine: Mildly abnormal blood sugars. No weight change. PHYSICAL EXAMINATION Gen: This is a 75-year-old female. She is resting in recliner and appears to be fatigued. HEENT: Head is atraumatic, normocephalic. Pupils equal, round. Sclerae is anicteric. NECK: Supple. No JVD. No lymphadenopathy. No thyromegaly. LUNGS: Diminished lung sounds bilaterally. No wheezing. No intercostal retractions. HEART: first heart sound is depressed, second heart sound is normal, there is systolic ejection murmur 2/6 located in the left sternal border, no rub CHEST: Serosanguineous, mostly serous fluid draining from the left chest tube site under the breast. A BD pad applied. ABDOMEN: Soft. Bowel sounds are present. No masses. No tenderness. EXTREMITIES: Bilateral pedal edema. No calf tenderness. Dorsalis pedis palpable bilaterally. NEUROLOGICAL: Patient is awake, alert and oriented x3. Cranial nerves 2 through 12 are grossly intact. ASSESSMENT AND PLAN 1. Acute hypoxic respiratory failure secondary to acute systolic heart failure with cardiogenic shock. Continue patient on metoprolol 25 mg orally twice every day, losartan 25 mg once every day, continue Lasix 20 mg IV push every 24 hours, and spironolactone 12.5 mg every day. 2. Post operative day #7 status post CABG 3 with DOBBS to LAD, reverse saphenous venous graft to the PDA, reverse saphenous venous graft to the obtuse marginal branch. Continue aspirin 325 mg once every day, Plavix 75 mg once every day, atorvastatin 40 mg every day, metoprolol 25 mg orally twice every day, amiodarone 200 mg orally twice every day. 3. Ischemic cardiomyopathy. Ejection fraction about 30%.Continue metoprolol 25 mg orally twice every day, losartan 25 mg orally once every day, Lasix 20 mg IV push every 24 hours, spironolactone 12.5 mg orally once every day. 4. Rectal bleeding secondary to diverticulitis. Was treated with IV metronidazole. 5. Hyperglycemia without diagnosis of diabetes. Continue to monitor with NovoLog scale.. 6. Hypertension and hypertensive cardiovascular disease. Continue losartan 25 mg daily at noon and metoprolol 25 mg orally twice every day. 7. Hyperlipidemia. Continue atorvastatin 40 mg at bedtime. 8. Gastroesophageal reflux disease and GI prophylaxis. Continue Protonix 40 mg twice daily. 9. History of GI bleed, no active bleeding at this time. Patient had rectal bleeding 1 most likely secondary to diverticulitis 10. History of diverticulitis status post sigmoid colectomy and low anterior resection. 11. Degenerative disc disease in the cervical spine. 12. DVT prophylaxis. Continue heparin 5000 units subcutaneously every 8 hours. 13. COVID -19 testing negative. Patient has been hospitalized during a pandemic. 14. Opiate-induced constipation. continue Senokot 2 tablet orally bedtime. 15. Urinary retention requiring replacement of Hackett, expected with surgery. patient was seen in consultation by urology yesterday he was recommended to continue with Hackett catheterization at the patient is not able to void and follow-up with urology as an outpatient. Objective - Vital Signs Vital signs: Vital Signs Temp 97.9 F 02/06/21 08:23 Pulse 103 H 02/06/21 08:23 Resp 20 02/06/21 08:23 BP 108/62 02/06/21 08:23 Pulse Ox 94 L 02/06/21 08:23 Intake & Output 02/05/21 02/06/21 02/06/21 18:59 06:59 18:59 Intake Total 852 Output Total 700 1100 Balance 152 -1100 Weight 88.7 kg Intake: IV 10 Invasive Line 8 10 Oral 842 Output: Urine 700 1100 Other: Voiding Method Indwelling Catheter Indwelling Catheter Indwelling Catheter # Voids 1 # Bowel Movements 1 ABP, PAP, CO, CI - Last Documented Arterial Blood Pressure 97/59 Pulmonary Artery Pressure 44/20 Cardiac Output 4.5 Cardiac Index 2.5 - Labs CBC & Chem 7: 02/06/21 07:28 02/06/21 07:28 Labs: Abnormal Lab Results - Last 24 Hours (Table) 02/05/21 02/05/21 02/05/21 Range/Units 07:55 07:55 16:53 RBC 2.77 L (3.80-5.40) m/uL Hgb 7.9 L (11.4-16.0) gm/dL Hct 24.9 L (34.0-46.0) % Plt Count 470 H (150-450) k/uL Sodium 136 L (137-145) mmol/L Glucose 115 H (74-99) mg/dL POC Glucose (mg/dL) 116 H (75-99) mg/dL 02/05/21 02/06/21 Range/Units 19:37 06:33 RBC (3.80-5.40) m/uL Hgb (11.4-16.0) gm/dL Hct (34.0-46.0) % Plt Count (150-450) k/uL Sodium (137-145) mmol/L Glucose (74-99) mg/dL POC Glucose (mg/dL) 137 H 100 H (75-99) mg/dL Microbiology - Last 24 Hours (Table) 02/04/21 23:20 Urine Culture - Preliminary Urine,Voided
--- NOTE | 2021-02-06 10:48 | XR ---
EXAMINATION TYPE: XR chest 1V portable DATE OF EXAM: 02/06/2021 COMPARISON: 02/05/2021 HISTORY: 75 years Female. STUDY INDICATION GIVEN: Postop CABG . TECHNIQUE: AP chest radiograph IMPRESSION: Stable appearance of cardiomegaly with postsurgical changes and mild bilateral left greater than righ t interstitial edema and trace left pleural effusion. No right pleural effusion. No pneumothorax. Stable osseous structures.
[2021-02-06 11:38] LABS: Glucose,Whole Blood 132 mg/dL (75-99)
[2021-02-06] MEDS ORDERED: LOSARTAN 25 MG TAB PO SCH (12:00)
--- NOTE | 2021-02-06 12:54 | PN ---
PROGRESS NOTE This lady developed some urinary retention and also the question of UTI. She is status post bypass surgery recovering nicely in this regard. Has no chest pain, shortness of breath is stable. S1-S2 heard normally. Lungs reveal improved air entry. Abdomen is distended, nontender. Lower extremities reveal diminished pulses. Central nervous system no focal deficits. The patient's urinary status is being addressed but cardiac-angel stable, progressing well. MMODL / IJN: [id number] /
[2021-02-06] MEDS: LOSARTAN 25 MG TAB PO SCH (13:26)
[2021-02-06] MEDS: MAGNESIUM SULFATE-D5W PMX 1 GM in DEXTROSE/WATER 1 100ML.BAG IVPB SCH ×2 (13:26→14:23)
[2021-02-06 16:36] LABS: Glucose,Whole Blood 117 mg/dL (75-99)
[2021-02-06 20:36] LABS: Glucose,Whole Blood 138 mg/dL (75-99)
[2021-02-07] MEDS: FERROUS SULFATE 325 MG TAB PO SCH ×2 (06:24→17:12)
[2021-02-07] MEDS: PANTOPRAZOLE 40 MG TABLET PO SCH ×2 (06:24→17:12)
[2021-02-07] MEDS: ASCORBIC ACID 500 MG TAB PO SCH ×2 (06:24→17:12)
[2021-02-07] MEDS: INSULIN ASPART (NovoLOG) 100 UNIT/ML VIAL SQ SCH ×3 (06:24→17:08)
[2021-02-07 06:30] LABS: Glucose,Whole Blood 110 mg/dL (75-99)
[2021-02-07 06:57] LABS: Basophils # (A) 0.1 k/uL (0-0.2); Basophils % (A) 1 %; Eosinophils # (A) 0.4 k/uL (0-0.7); Eosinophils % (A) 4 %; HCT 26.5 % (34.0-46.0); HGB 8.3 gm/dL (11.4-16.0); Hypochromasia Moderate; Lymphocytes # (A) 2.2 k/uL (1.0-4.8); Lymphocytes % (A) 23 %; MCH 28.3 pg (25.0-35.0); MCHC 31.1 g/dL (31.0-37.0); MCV 90.9 fL (80.0-100.0); Mean Platelet Volume 7.2; Monocytes # (A) 0.6 k/uL (0-1.0); Monocytes % (A) 6 %; Neutrophils % (A) 64 %; Platelet Count 604 k/uL (150-450); Poikilocytosis Slight; RBC 2.92 m/uL (3.80-5.40); WBC 9.4 k/uL (3.8-10.6)
[2021-02-07 07:08] LABS: Albumin 3.2 g/dL (3.5-5.0); Calcium 9.1 mg/dL (8.4-10.2); Magnesium 2.2 mg/dL (1.6-2.3); Potassium 4.6 mmol/L (3.5-5.1); Total Bilirubin 0.6 mg/dL (0.2-1.3); Total Protein 6.3 g/dL (6.3-8.2)
[2021-02-07] MEDS: IPRATROPIUM-ALBUTEROL 3 ML NEB INHALATION SCH ×3 (07:34→14:55)
[2021-02-07] MEDS: HEPARIN SODIUM,PORCINE/PF 5,000 UNIT/0.5 ML SYRINGE SQ SCH ×2 (08:12→17:08)
--- NOTE | 2021-02-07 08:53 | XR ---
EXAMINATION TYPE: XR chest 1V portable DATE OF EXAM: 02/07/2021 Comparison: 02/06/2021 Clinical History: 75-year-old female post op CABG Findings: Median sternotomy wires are present. Heart normal size. Interstitial density. Small left pleural effu danny with patchy left basilar opacity increased. Impression: There may be some mild pulmonary vascular congestion. Small left pleural effusion with patchy left ba silar atelectasis slightly increased.
--- NOTE | 2021-02-07 09:23 | P.PN ---
Progress Note - Text Progress Note Date: 02/07/21 Mrs. Carbajal is feeling well overall. Her Hackett catheter was removed this morning. She does not yet feel the urge to void. When she does, post-void residuals will be checked. If she is unable to void or empties her bladder incompletely, the Hackett catheter will be replaced and she will follow up with me as an outpatient. Please notify me if I can be of any further assistance.
[2021-02-07] MEDS: SPIRONOLACTONE 25 MG TAB PO SCH (09:47)
[2021-02-07] MEDS: LOSARTAN 25 MG TAB PO SCH (09:47)
[2021-02-07] MEDS: ATORVASTATIN 40 MG TAB PO SCH (09:48)
[2021-02-07] MEDS: CLOPIDOGREL 75 MG TAB PO SCH (09:48)
[2021-02-07] MEDS: ASPIRIN 325 MG TAB PO SCH (09:48)
[2021-02-07] MEDS: FUROSEMIDE 10 MG/ML 2 ML VIAL IV SCH (09:49)
[2021-02-07] MEDS: AMIODARONE 200 MG TAB PO SCH (09:49)
--- NOTE | 2021-02-07 09:54 | P.PN ---
Subjective Progress Note Date: 02/07/21 Principal diagnosis: Triple-vessel coronary artery disease with left main disease, chest pain, progressive shortness of breath, non-STEMI, acute systolic heart failure present on admission, reported bleeding per rectum. Past medical history significant for hypertension, hyperlipidemia, GERD, GI bleed with preop chronic anemia, diverticulosis, localized colitis, degenerative disc disease with chronic low back pain, obesity, and family history of coronary artery disease. POD #8 urgent triple coronary artery bypass grafting using the left internal mammary artery to the left anterior descending artery, reverse saphenous vein graft from the aorta to the posterior descending artery, reverse saphenous vein graft from the aorta to the subtotally occluded obtuse marginal artery, exclusion of the left atrial appendage using a 35 mm AtriClip, endoscopic harvesting of the left greater saphenous vein from the groin to above the ankle level, intraoperative transesophageal echocardiogram and epiaortic scanning, intraoperative graft flow measurements using the Walkaboutstim system. Postopertive acute blood loss anemia, expected given hemodilution, cardiopulmonary bypass pump, and preoperative anemia. Urinary retention, requiring placement of Hackett catheter. The patient was seen in follow-up today 02/07/2021 at her bedside on the cardiac stepdown unit. Currently she is sitting up to the bedside chair, is awake, alert and oriented 3 and in no acute distress. She denies any complaints of pain or shortness of breath at this time. She reports she feels ready to be discharged home today. Her Hackett catheter was removed this morning per Dr. Lara recommendations. Once the patient has voided a postvoid residual will be obtained and if the patient has incompletely emptied her bladder a Hackett catheter will be placed and she will follow up with urology as an outpatient. Urine culture is showing gram-negative bacilli, she remains on Bactrim DS twice daily by mouth. She remains afebrile the last 24 hours. Oxygen saturations are 93% on room air and she is achieving 1250 mL on her incentive spirometry with encouragement. Remote telemetry is showing normal sinus rhythm heart rate 91 BPM. She remains on Lasix 20 mg IV daily with 1000 mL of urine output in the la st 8 hours. The patient has been up ambulating in the cardiac stepdown unit all way with standby assistance from nursing staff and physical therapy and her . She's been tolerating ambulating well. Objective - Vital Signs Vital signs: Vital Signs Temp 98.2 F 02/07/21 07:50 Pulse 91 02/07/21 07:53 Resp 18 02/07/21 07:53 BP 126/71 02/07/21 07:50 Pulse Ox 97 02/07/21 07:50 Intake & Output 02/06/21 02/07/21 02/07/21 18:59 06:59 18:59 Intake Total 800 Output Total 825 3000 Balance -25 -3000 Weight 88.1 kg Intake: Oral 800 Output: Urine 825 3000 Uretheral (Hackett) 825 2000 Other: Voiding Method Indwelling Catheter Indwelling Catheter ABP, PAP, CO, CI - Last Documented Arterial Blood Pressure 97/59 Pulmonary Artery Pressure 44/20 Cardiac Output 4.5 Cardiac Index 2.5 - Exam CONSTITUTIONAL: Sitting up to the bedside chair on the cardiac stepdown unit, appears comfortable, cooperative, no apparent acute distress. HEENT: Neck is supple, no JVD, no lymphadenopathy. RESPIRATORY: Lungs sounds essentially clear throughout, diminished to his bilateral bases, few scattered crackles to bilateral bases. Respirations are symmetrical and nonlabored. Currently on room air with oxygen saturations 93%. Able to achieve 1250 mL on her incentive spirometry. Strong cough. CARDIOVASCULAR: Regular rhythm and rate. S1 and S2 present, negative for S3, gallop or murmur. Sternum is stable. Palpable peripheral pulses bilaterally, +1 edema to her bilateral lower extremities. No calf pain or tenderness noted. Heart hugger in place with patient demonstrating appropriate use. Knee-high RODNEY hose and sequential compression devices in place to her bilateral lower extre mities. GASTROINTESTINAL: Abdomen soft, nontender, nondistended. Active bowel sounds present 4 quadrants. Tolerating diet. Passing flatus. No guarding or rigidity. Bowel movement yesterday 02/06/2021. GENITOURINARY: Hackett in place with clear yellow urine. Urine output 1100 mL in the last 8 hours.. INTEGUMENTARY: Skin is warm and dry with no evidence of clubbing or cyanosis. Midline sternal incision clean dry and well approximated, covered with dry intact dressing. Left lower extremity EVH sites well approximated without redness or drainage. Right groin IABP site soft and nontender. NEUROLOGIC: Cranial nerves II through XII intact. No focal deficits. MUSKULOSKELETAL: Able to move all extremities, strength equal bilaterally, generalized weakness. PSYCHIATRIC: Alert and oriented to person place and time, flat affect, intact judgment and insight. - Allied health notes Allied health notes reviewed: nursing - Labs CBC & Chem 7: 02/07/21 06:27 02/07/21 06:27 Labs: Abnormal Lab Results - Last 24 Hours (Table) 02/06/21 02/06/21 02/06/21 Range/Units 11:36 16:32 20:15 RBC (3.80-5.40) m/uL Hgb (11.4-16.0) gm/dL Hct (34.0-46.0) % RDW (11.5-15.5) % Plt Count (150-450) k/uL Creatinine (0.52-1.04) mg/dL Glucose (74-99) mg/dL POC Glucose (mg/dL) 132 H 117 H 138 H (75-99) mg/dL Albumin (3.5-5.0) g/dL 02/07/21 02/07/21 02/07/21 Range/Units 06:15 06:27 06:27 RBC 2.92 L (3.80-5.40) m/uL Hgb 8.3 L (11.4-16.0) gm/dL Hct 26.5 L (34.0-46.0) % RDW 16.0 H (11.5-15.5) % Plt Count 604 H (150-450) k/uL Creatinine 1.08 H (0.52-1.04) mg/dL Glucose 112 H (74-99) mg/dL POC Glucose (mg/dL) 110 H (75-99) mg/dL Albumin 3.2 L (3.5-5.0) g/dL Microbiology - Last 24 Hours (Table) 02/04/21 23:20 Urine Culture - Preliminary Urine,Voided Gram Neg Bacilli - Imaging and Cardiology Chest x-ray: report reviewed, image reviewed Assessment and Plan Assessment: 1. Triple-vessel coronary artery disease with left main disease, current intra- aortic balloon pump in place, status post three-vessel CABG 2. Chest pain, progressive shortness of breath on admission, non-STEMI on admission 3. Acute systolic heart failure present on admission 4. History of hypertension 5. History of hyperlipidemia, treated 6. GERD 7. History of GI bleed with reported bleeding per rectum this admission with preoperative chronic anemia 8. History of diverticulosis, localized colitis 9. Degenerative disc disease, chronic low back pain 10. Family history of coronary artery disease 11. Postopertive acute blood loss anemia, expected 12. Urinary retention requiring placement of Hackett catheter Plan: 1. Continue aspirin, statin, Plavix, and beta carlo. Will increase beta carlo as tolerated. Continue prophylactic amiodarone which was decreased to 200 mg by mouth daily. 2. Encourage incentive spirometry use 10 times every hour while awake. Bronchodilators per pulmonology/critical care management. 3. Increase activity as tolerated. PT/OT/cardiac rehab following. 4. Will continue to monitor daily labs, and chest x-rays. Electrolyte replacement per protocol. 6. Pain control with current medication regimen. 7. Insulin management per primary care service. Patient is not diabetic, preoperative hemoglobin A1c 5.6%. Patient does need tight blood sugar control to promote sternal union, decrease infection risk 8. Continue Ensure, encourage nutrition. 9. Bactrim DS [id number] milligrams by mouth twice a day initiated per her urinalysis results. urine culture pulmonary results showing gram-negative bacilli. 10. Strict accurate intake and output. Daily weights. Shower daily. 11. Continue ferrous sulfate and Vitamin C. 12. Continue Lasix 20 mg IV daily and Aldactone 12.5 mg by mouth daily added by Dr. Avina. upon discharge we will change the Lasix 20 mg by mouth daily. i13. Cozaar increased 25 mg by mouth daily at noon for afterload reduction. 14. Discharge planning in progress. Anticipate discharge to home with home care in the next 24. 15. Hackett catheter have been discontinued per Dr. Lara recommendations. She will be given a voiding trial today and if unable to void or has a incomplete emptying of her bladder with a postvoid residual the catheter will be replaced and she will be discharged home with a Hackett and follow-up with urology as an outpatient. 16. More recommendations to follow based on patient's clinical course. Time with Patient: Greater than 30
[2021-02-07] MEDS: LIDOCAINE 5% PATCH TOPICAL SCH (09:56)
[2021-02-07] MEDS: METOPROLOL TARTRATE 25 MG TAB PO SCH (09:57)
[2021-02-07] MEDS: SULFAMETHOX-TMP 800-160MG 1 EACH TAB PO SCH (09:57)
--- NOTE | 2021-02-07 11:25 | P.PN ---
Subjective This is a 75 year old female with a past medical history of 3v coronary artery disease with left main disease, hypertension, hyperlipidemia, GERD, GI bleed with preop chronic anemia, diverticulosis, degenerative disc disease with chronic low back pain, obesity. She underwent triple vessel coronary artery bypass grafting using the DOBBS to the LAD, reverse SVG from the aorta to the PAD, reverse SVG from the aorta to the subtotally occluded OM, exclusion of the left atrial appendage on 01/30/21. Patient seen and examined at bedside, She is sitting up to the bedside chair, is awake, alert and oriented 3 and in no acute distress. She denies chest pain or shortness of breath at this time. She reports she feels ready to be discharged home today. Her vital signs are stable. She is afebrie. She is using her incentive spiometer with 1250 mL. She is maintaining sinus mechanism. She is currently maintanied on Lasix 20 mg IV daily, aspirin 325 mg daily, atorvastatin 40 mg daily, Plavix 75 mg daily, losartan 12.5 mg daily, Lopressor 25 mg twice a day, spironolactone 12.5 mg daily. GENERAL: Well-appearing, well-nourished and in no acute distress. NECK: Supple without JVD or thyromegaly. LUNGS: Breath sounds clear to auscultation, diminished in bases bilaterally. Respiration equal and unlabored. No wheezes, rales or rhonchi. HEART: Regular rate and rhythm without murmurs, rubs or gallops. S1 and S2 heard. EXTREMITIES: Normal range of motion, no edema. No clubbing or cyanosis. Peripheral pulses intact. ASSESSMENT Triple-vessel coronary artery disease status post three-vessel CABG NSTEMI this admission Acute systolic heart failure History of hypertension History of hyperlipidemia GERD History of GI bleed PLAN Continue present medical therapy Post operative management per CT surgery Encourage incentive spirometer Increase activity as tolerated On discharge patient to follow up with Dr. Warner Objective - Vital Signs Vital signs: Vital Signs Temp 98.2 F 02/07/21 07:50 Pulse 92 02/07/21 11:07 Resp 18 02/07/21 07:53 BP 126/71 02/07/21 07:50 Pulse Ox 97 02/07/21 07:50 Intake & Output 02/06/21 02/07/21 02/07/21 18:59 06:59 18:59 Intake Total 800 Output Total 825 3000 Balance -25 -3000 Weight 88.1 kg Intake: Oral 800 Output: Urine 825 3000 Uretheral (Hackett) 825 2000 Other: Voiding Method Indwelling Catheter Indwelling Catheter ABP, PAP, CO, CI - Last Documented Arterial Blood Pressure 97/59 Pulmonary Artery Pressure 44/20 Cardiac Output 4.5 Cardiac Index 2.5 - Labs CBC & Chem 7: 02/07/21 06:27 02/07/21 06:27 Labs: Abnormal Lab Results - Last 24 Hours (Table) 02/06/21 02/06/21 02/06/21 Range/Units 11:36 16:32 20:15 RBC (3.80-5.40) m/uL Hgb (11.4-16.0) gm/dL Hct (34.0-46.0) % RDW (11.5-15.5) % Plt Count (150-450) k/uL Creatinine (0.52-1.04) mg/dL Glucose (74-99) mg/dL POC Glucose (mg/dL) 132 H 117 H 138 H (75-99) mg/dL Albumin (3.5-5.0) g/dL 02/07/21 02/07/21 02/07/21 Range/Units 06:15 06:27 06:27 RBC 2.92 L (3.80-5.40) m/uL Hgb 8.3 L (11.4-16.0) gm/dL Hct 26.5 L (34.0-46.0) % RDW 16.0 H (11.5-15.5) % Plt Count 604 H (150-450) k/uL Creatinine 1.08 H (0.52-1.04) mg/dL Glucose 112 H (74-99) mg/dL POC Glucose (mg/dL) 110 H (75-99) mg/dL Albumin 3.2 L (3.5-5.0) g/dL Microbiology - Last 24 Hours (Table) 02/04/21 23:20 Urine Culture - Preliminary Urine,Voided Gram Neg Bacilli
[2021-02-07 12:13] LABS: Glucose,Whole Blood 131 mg/dL (75-99)
[2021-02-07 12:28] VITALS: BP 118/55; PULSE 81; RESP 16; TEMP 97.4
--- NOTE | 2021-02-07 14:18 | P.DS ---
Providers Date of admission: 01/25/21 04:53 Expected date of discharge: 02/07/21 Attending physician: Sarai Renee Consults: 01/25/21 04:53 Consult Physician Routine Consulting Provider: Danilo Chang Consult Reason/Comments: Elevated troponin. 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-cabg Do you want consulting provider notified?: Already Contacted 01/28/21 06:32 Consult Physician Routine Consulting Provider: Kev Nickerson Consult Reason/Comments: cabg Do you want consulting provider notified?: Already Contacted 01/29/21 16:57 Consult to Anesthesia Routine Consulting Provider: Anesthesia,Services Consult Reason/Comments: Cardiac Surgery Pre-Op 01/30/21 12:49 Consult Physician Routine Consulting Provider: Vikash Avina Consult Reason/Comments: med mgmt Do you want consulting provider notified?: Already Contacted 02/02/21 07:40 Consult Physician Routine Consulting Provider: Javier Walker Consult Reason/Comments: possible IPR at DC Do you want consulting provider notified?: Yes 02/04/21 10:19 Consult Physician Routine Consulting Provider: Adair Lara Consult Reason/Comments: Urinary retention Do you want consulting provider notified?: Yes Primary care physician: Vikash Avina Hospital Course: FINAL DIAGNOSIS: 1. Triple-vessel coronary artery disease with left main disease, current intra- aortic balloon pump in place, status post three-vessel CABG 2. Chest pain, progressive shortness of breath on admission, non-STEMI on admission 3. Acute systolic heart failure present on admission 4. History of hypertension 5. History of hyperlipidemia, treated 6. GERD 7. History of GI bleed with reported bleeding per rectum this admission with preoperative chronic anemia 8. History of diverticulosis, localized colitis 9. Degenerative disc disease, chronic low back pain 10. Family history of coronary artery disease 11. Postopertive acute blood loss anemia, expected 12. Urinary retention requiring placement of Hackett catheter, patient has history of urinary retention PRINCIPAL PROCEDURE: 1. Placement of intra-aortic balloon pump preoperatively placed by Dr. Warner from cardiology 2. Urgent triple vessel coronary artery bypass grafting using the left internal mammary artery to left anterior descending coronary artery, a reverse greater saphenous vein graft from the aorta to the posterior descending coronary artery and a reverse greater saphenous vein graft from the aorta to the subtotally occluded obtuse marginal coronary artery. 3. Exclusion of the left atrial appendage using a 35 mm Atriclip. 4. Endoscopic harvesting of the left greater saphenous vein from the groin to above the ankle level. 5. Intraoperative transesophageal echocardiogram. 6. Intraoperative epi-aortic scanning. 7. Intraoperative graft flow measurement using the Medistim system. HISTORY OF PRESENT ILLNESS: This is a 75-year-old female patient who follows on an outpatient basis with Dr. Avina for her primary care service. She presented to [facility] emergency department with complaints of intermittent jaw pain and ear pain with some chest pressure and progressive shortness of breath, along with orthopnea over a 1-2 week period. In addition to the above-mentioned complaints she also had reported some bright red blood from her rectum, with her most recent colonoscopy and EGD completed in November 2020. On admission a chest x-ray was completed which showed evidence of congestive heart failure. She underwent a 12-lead EKG which demonstrated some ST depression in her anterior lateral leads. Serial troponins were completed which showed to be elevated and was subsequently ruled in for a non-ST elevated myocardial infarction. A proBNP level was also completed which showed her BNP to be 2700. For further evaluation a transthoracic 2-D echocardiogram was completed which demonstrated an impaired left ventricular systolic function with an ejection fraction of 30-35%, left ventricular wall hypokinesis, mild mitral valve and mild tricuspid valve regurgitation. She was subsequently started on a Lasix drip. A heart catheterization was completed which demonstrated a 95% stenosis to her distal left main coronary artery, 100% ostial stenosis of the left anterior descending coronary artery, an occluded diagonal coronary artery, a subtotal proximal circumflex and a 70-80% distal stenosis to her right coronary artery. During her heart cath she did continue to complain of 9 out of 10 chest pain and jaw pain and it was decided to place an intra-aortic balloon pump which brought her pain level down to a 3 out of 10. Due to her above- mentioned symptoms and findings on her heart catheterization a consult was placed to cardiothoracic surgery for further evaluation and treatment recommendations. Dr. Dorian Ruiz met with the patient and her present at her bedside, discussed treatment options including myocardial revascularization surgery and knowing and understanding these risks the patient wished to proceed with the surgical option. An STS risk score was calculated and discussed with the patient. HOSPITAL COURSE: On 01/30/2021 after obtaining consent, the patient was taken to the preoperative area, prepared in the usual fashion and subsequently taken to the operating room where Dr. Sarai Renee performed a triple-vessel coronary artery bypass grafting using the left internal mammary artery to left anterior descending coronary artery, a reverse greater saphenous vein graft from the aorta to the posterior descending coronary artery and a reverse greater saphenous vein graft from the aorta to the subtotally occluded obtuse marginal coronary artery, exclusion of the left atrial appendage using a 35 mm Atriclip, endoscopic harvesting of the left greater saphenous vein from the groin to just above the ankle level, an intraoperative transesophageal echocardiogram, intraoperative epi-aortic scanning and intraoperative graft flow measurements using the Secure[employer] system. Upon completion of the surgery the patient was transferred to the cardiovascular intensive care unit where she was recovered and monitored hemodynamically. She was extubated, all lines, tubes and supportive drips were discontinued when appropriate and she was transferred to the third floor cardiac stepdown unit for further monitoring and will dilatation. The patient did have some urinary retention requiring placement of a Hackett catheter and will subsequently be discharged home with the Hackett catheter in place per urology recommendations. Her oxygen was titrated down, she continued to work with physical and occupational therapy, she was tolerating an oral diet, her pain was well controlled and she was ready to be discharged home with [facility] care on postoperative day #8. She has received written and verbal instructions regarding her medications, activity restrictions, signs and symptoms requiring physician on occasion and her follow- up appointments. Patient Condition at Discharge: Fair Plan - Discharge Summary Discharge Rx Participant: No New Discharge Prescriptions: New Ferrous Sulfate [Iron (65 MG Elemental)] 325 mg PO BID-W/MEALS #14 tab Atorvastatin [Lipitor] 40 mg PO DAILY #30 tab Metoprolol Tartrate [Lopressor] 25 mg PO BID #60 tab Clopidogrel [Plavix] 75 mg PO DAILY #30 tab Acetaminophen Tab [Tylenol] 650 mg PO Q4HR PRN tab PRN Reason: Fever And/ Or Pain Spironolactone [Aldactone] 12.5 mg PO DAILY #15 tab Aspirin 325 mg PO DAILY #30 tab Sulfamethox-Tmp 800-160Mg [Bactrim DS 800-160 mg] 1 each PO BID 3 Days #5 tab Amiodarone [Cordarone] 200 mg PO DAILY #14 tab Losartan [Cozaar] 12.5 mg PO DAILY #15 tab Ascorbic Acid [Vitamin C] 500 mg PO BID-W/MEALS #14 tab Continue Blanchard-3 Fatty Acids/Fish Oil [Fish Oil 1,000 mg Softgel] 1 cap PO DAILY Cholecalciferol (Vitamin D3) [Vitamin D3] 50 mcg PO DAILY L.acidoph,Paracasei, B.lactis [Probiotic] 1 cap PO DAILY Magnesium Oxide [Mag-Ox] 250 mg PO DAILY Omeprazole 40 mg PO DAILY Cyanocobalamin (Vitamin B-12) [Vitamin B-12] 1,000 mcg PO DAILY Discontinued Metoprolol Tartrate [Lopressor] 50 mg PO BID Enalapril [Vasotec] 20 mg PO BID Aspirin [Adult Low Dose Aspirin EC] 81 mg PO DAILY amLODIPine [Norvasc] 10 mg PO HS Acetaminophen/Chlorpheniramine [Coricidin Hbp Cold & Flu Tab] 1 - 2 tab PO Q6H PRN PRN Reason: Cold Symptoms Simvastatin [Zocor] 20 mg PO HS Discharge Medication List Blanchard-3 Fatty Acids/Fish Oil [Fish Oil 1,000 mg Softgel] 1 cap PO DAILY 09/08/15 [History] Cholecalciferol (Vitamin D3) [Vitamin D3] 50 mcg PO DAILY 06/14/17 [History] L.acidoph,Paracasei, B.lactis [Probiotic] 1 cap PO DAILY 06/14/17 [History] Magnesium Oxide [Mag-Ox] 250 mg PO DAILY 06/14/17 [History] Cyanocobalamin (Vitamin B-12) [Vitamin B-12] 1,000 mcg PO DAILY 12/07/20 [H istory] Omeprazole 40 mg PO DAILY 01/25/21 [History] Acetaminophen Tab [Tylenol] 650 mg PO Q4HR PRN tab 02/07/21 [Rx] Amiodarone [Cordarone] 200 mg PO DAILY #14 tab 02/07/21 [Rx] Ascorbic Acid [Vitamin C] 500 mg PO BID-W/MEALS #14 tab 02/07/21 [Rx] Aspirin 325 mg PO DAILY #30 tab 02/07/21 [Rx] Atorvastatin [Lipitor] 40 mg PO DAILY #30 tab 02/07/21 [Rx] Clopidogrel [Plavix] 75 mg PO DAILY #30 tab 02/07/21 [Rx] Ferrous Sulfate [Iron (65 MG Elemental)] 325 mg PO BID-W/MEALS #14 tab 02/07/21 [Rx] Losartan [Cozaar] 12.5 mg PO DAILY #15 tab 02/07/21 [Rx] Metoprolol Tartrate [Lopressor] 25 mg PO BID #60 tab 02/07/21 [Rx] Spironolactone [Aldactone] 12.5 mg PO DAILY #15 tab 02/07/21 [Rx] Sulfamethox-Tmp 800-160Mg [Bactrim DS 800-160 mg] 1 each PO BID 3 Days #5 tab 02/07/21 [Rx] Follow up Appointment(s)/Referral(s): [facility],Cardiac [NON-STAFF] - 4 Weeks (You will be called in approximately 4-6 weeks for evaluation for cardiac rehab) Vikash Avina MD [Primary Care Provider] - 02/17/21 9:15 am Sarai Renee MD [STAFF PHYSICIAN] - 03/04/21 10:15 am Adair Lara MD [STAFF PHYSICIAN] - 1 Week (Dr Lara office will call with a follow-up appointment date and time.) Alexa Espinoza NPC [Nurse Practitioner] - 02/23/21 2:30 pm Mariya Carbajal MD [STAFF PHYSICIAN] - As Needed Go Richey NPC [Nurse Practitioner] - 02/15/21 11:00 am (Please follow-up at [address] [place] [address] [address] [place] [address] office number is [phone]) [facility], [NON-STAFF] - 3 Weeks Gus Warner MD [STAFF PHYSICIAN] - 02/17/21 3:15 pm Ambulatory/Diagnostic Orders: Complete Blood Count w/diff [LAB.AMB] Time Frame: 02/10/21, Facility: [facility], Location: [facility] Comprehensive Metabolic Panel [LAB.AMB] Time Frame: 02/10/21, Facility: [facility], Location: Laboratory [facility] Activity/Diet/Wound Care/Special Instructions: DISCHARGE INSTRUCTIONS: 1. No driving for 4 weeks, or until physician gives their ok. 2. The patient should sleep in their own bed, no medical bed needed. 3. Stairs are not an issue. If the bedroom is upstairs, it is advised that the patient go up at night and down in the morning for the first week. Go slowly, using handrail and take 1 step at a time. 4. RODNEY hose are to be worn for 30 days or until physician discontinues. 5. Heart hugger is to be worn 100% of the time until physician discontinues.(except when showering) 6. No lifting, pushing, or pulling more than 10 pounds for 12 weeks. The physician will advise of any restriction changes. 7. The patient is expected to continue the prescribed walking program. 8. Continue pain control per as needed orders. 9. Continue with incentive spirometry and splinting/heart hugger until otherwise directed by the physician. 10. Must shower daily using liquid antibacterial soap and a separate white washcloth for each individual incision. 11. Routine sternal incision care. No powders, lotions, ointments on incisions. No dressings are necessary on incisions unless they are draining. Dermabond tape is to remain on sternal incision until surgeon follow-up. 12. Please call surgeon/MANAGING COGNITIVE ENGINEER for temp greater than 101 F or purulent drainage from incisions. 13. All prescriptions given by surgeon for 30 days. Refills need to be filled through sewage treatment plant operator/primary care physician. 14. A Red armband has been placed on the patient. It should be worn for 30 days post surgery and will be removed by the cardiac surgeons. If an ER visit is necessary, please make sure the number on the Red armband is called. 15. You have been referred to and are expected to begin Cardiac Rehab in approximately 4-6 weeks. HOME HEALTH SERVICES TO PROVIDE: RN SKILLED HOME CARE SERVICES FOR POST-OP SURGICAL PATIENTS WITH THE FOLLOWING: Coronary Artery Bypass Surgery (CABG), Mitral Valve Replacement/Repair ( MVR), Aortic Valve Replacement/Repair (AVR) RN TO CONTINUE EDUCATION FROM ``ROAD TO A HEALTH HEART PATIENT EDUCATION MANUAL (GIVEN TO PATIENT IN THE HOSPITAL) MEDICATION RECONCILIATION WITH EDUCATION NEEDED ON FIRST HOME VISIT EMPHASIZE IMPORTANCE OF WEARING BREAST SUPPORT/HEART HUGGER ENCOURAGE USE OF INCENTIVE SPIROMETER 10 X EVERY HOUR WHILE AWAKE ENCOURAGE UTILIZATION OF LOWER EXTREMITY COMPRESSION STOCKINGS/RODNEY HOSE and ELEVATE LEGS ABOVE LEVEL OF HEART WHILE AT REST. ENCOURAGE AMBULATION 3-5x/day INCREASING TOLERATES, WHILE AVOIDING EXTREMES IN TEMPERATURE FREQUENCY: RN TO OPEN THE PATIENT WITHIN 24 HOURS OF DISCHARGE FROM THE HOSPITAL WITH TELEHEALTH INSTALLED AT [facility], RN TO VISIT 2-3 X A WEEK FOR 4 WEEKS ESTABLISHED BY PATIENT NEEDS. LABORATORY: CBC, CMP TO BE DRAWN ON THE THIRD DAY HOME, (RAN STAT) FAX RESULTS TO [phone]. TELEHEALTH PARAMETERS: WEIGHT: NOTIFY MD OF WEIGHT GAIN OF 2 LBS IN 24 HOURS OR 5 LBS IN ONE WEEK HR: NOTIFY MD OF HR <55 BPM OR HR>100 BPM BP: NOTIFY MD IF BP <90/55 OR BP>140/100 O2 SAT: NOTIFY MD IF PO2<93% ON ROOM AIR SEND TELEHEALTH REPORT TO OXYHYDROGEN WELDER AND CARDIOVASCULAR SURGEON THE FIRST WEEK OF CARE AND THEN BI-WEEKLY. PLEASE ADDITIONALLY COMMUNICATE ANY ABNORMALS AND NEW FINDINGS TO THE SURGEONS OFFICE. Discharge Disposition: HOME WITH HOME HEALTH SERVICES
--- NOTE | 2021-02-07 15:01 | P.PN ---
Subjective Progress Note Date: 02/07/21 HISTORY OF PRESENT ILLNESS This is a 75-year-old female patient of Dr. Avina with past medical history of hypertension, hyperlipidemia, gastroesophageal reflux disease, history of GI bleed, recurrent sigmoid diverticulitis status post sigmoid colectomy and low anterior resection, degenerative disc disease in the cervical spine. Patient complains of shortness of breath off and on for a week with exertional dyspnea. She states she has been sleeping on 3-4 pillows at night starting yesterday she became increasingly short of breath and couldn't lay down. She does complain of discomfort in her chest with right ear and right jaw pain. She denies any lower extremity edema. Patient presented to [facility] emergency center for evaluation. She is found to be afebrile, heart rate 99, respiratory rate 32, blood pressure 119/87, pulse ox 92% on room air. Patient was later changed over to nonrebreather and then to BiPAP. Blood work reveals WBC 14.5, hemoglobin 9.8, platelet count 328. INR 0.9. Sodium 135, potassium 4.5, chloride 104, CO2 15, BUN 17 and creatinine 0.75. Blood sugar 194. Lactic acid 3.5 and repeat of 1.3. Troponins 1.620, 1.850, 2.11. ProBNP 2700. Coronavirus PCR not detected. Chest x-ray reveals pulmonary interstitial edema and probable small right pleural effusion which are new. This could be acute heart failure or acute pne umonia. Echocardiogram reveals EF of 30-35%, LA is severely dilated, LV wall motion is hypokinetic, mild mitral regurgitation, mild tricuspid regurgitation. Patient is seen today in the emergency center waiting for bed on the cardiac stepdown unit. 01/26: Patient is seen today on the selective care unit, sitting up her recliner and is at bedside. She currently states that she is feeling better from yesterday and denied any chest pain or pressure and denies any neck pain. Patient does state that she did have some rectal bleeding most likely secondary to her history of diverticulosis. Patient underwent heart catheterization which revealed left main disease of 95%, LAD total occlusion of the diagonal branches, left circumflex subtotally occluded, right coronary artery 70-80% distally. Due to severe triple-vessel disease, patient was transferred to the intensive care unit post procedure. Patient also underwent intra-aortic balloon pump insertion. After procedures, patient went to the intensive care unit and consult with cardiothoracic surgery added. 01/27:Patient has been seen by cardiothoracic team with plan for CABG possibly on Sunday or Sunday. Patient is seen today in the intensive care unit and continued on intra-aortic balloon pump and continued on heparin drip. She denies having any chest pain and shortness of breath is improved. Wind Ridge 5/325 ordered. Patient was seen by Dr. Cormier regarding rectal bleeding with no plan for intervention at this time and patient started on Flagyl. Patient is also followed by pulmonary medicine with plan to obtain bedside FEV1. She remains afebrile, heart rate in the 90s, blood pressure and 100/54, pulse ox 96% on 2 L nasal cannula. campus monitor sinus rhythm. Repeat blood work reveals WBC 6.9, hemoglobin 9.5, platelet count 373. Sodium 135, blood sugar 101. Electrolytes renal function are normal. Liver function tests are within normal limits. Urinalysis showed small amount of blood. Patient is reaching 750 on incentive spirometry. Repeat blood work and chest x-ray ordered for tomorrow morning. 01/28: Patient is laying down in bed flat to due to the fact that she had intra- aortic balloon pump, she denies any chest pain at this time, she is not complaining of shortness of breath, she stated that her pain is well controlled but she would left to take it more often than every 8 hours, I spoke with the nursing staff about increasing her Wind Ridge to every 4-6 hours as needed, moderate the patient very closely, continue with bowel care, continue lactulose and Senokot, patient was seen earlier by thoracic surgery as well as by cardiology it was recommended that the patient will go for coronary artery bypass grafting next Sunday unless she become and stable, she has been requiring 2 L nasal cannula, her blood pressure is stable, her oxygen saturation stable, her hemoglobin is stable at this time, she was seen by Dr. Fuentes and he was recommended for the patient to be continued on Flagyl for now with no further intervention. 01/29: Patient's is laying down in bed she continued to have the intra-aortic balloon pump in place, she is nauseated she had an episode of vomiting today she denies any chest pain or shortness breath, she denies any abdominal pain, she has been constipated, she did not respond to lactulose, she would be getting MiraLAX along with a stool softener, we will monitor the patient very closely in the intensive care unit, patient will likely be operated on Sunday, continue supportive care, continue heparin drip, continue baby aspirin, continue atorvastatin, follow-up with the patient very closely. 01/31: Today, patient underwent CABG with DOBBS to LAD, SVG to PDA and OM 1. Discontinued on intra-aortic balloon pump which is to be discontinued later to day. Patient is off nitroglycerin, continued on low dose Primacor. Patient was successfully extubated last evening. Pulse ox 92% on high flow nasal cannula 10 L. campus monitor sinus rhythm. Mediastinal and left pleural chest tube in place with serosanguineous output. She is currently on insulin drip. Patient complains of feeling tired and does have significant chest discomfort from surgery. Wind Ridge was added and Toradol to be edited by cardiothoracic. Patient did have a loose bowel movement but has been receiving lactulose for constipation. Repeat blood work reveals hemoglobin of 8. Creatinine 0.57. Blood sugars are running between 118- 128. Repeat chest x-ray reveals similar borderline heart size. Interval extubation and removal of NG tube. Persistent but improving retrocardiac postoperative atelectasis. 02/01: Patient remains in the intensive care unit, today she is sitting up in recliner and appears to be stronger from yesterday. She has been afebrile, heart rate 73, blood pressure 115/57, pulse ox 95-96% on 8 L nasal cannula. Repeat blood work reveals WBC 10.9, hemoglobin 7.6. Creatinine 0.79, potassium 4.0. Blood sugars are running between 115 and 124. Patient is not diabetic, insulin drip will be discontinued and patient placed on NovoLog scale only. est x-ray reveals chronic changes and mild cardiomegaly with left-sided chest tube. No pneumothorax. Patchy left basilar atelectasis. Patient is off balloon pump. 02/02: She remains in intensive care unit, found sitting up and recliner. Patient states that she is feeling better each day, ambulated in the hallway. Pain is well controlled. Incentive spirometry is reaching 1000 ML's. She does have decreased appetite. She states she did not sleep well last night. Patient has been afebrile, heart rate in the 70s, sinus rhythm, blood pressure 100/60, pulse ox 92% on 2 L. Repeat blood work reveals WBC 10.5, hemoglobin 8, creatinine 0.88. Blood sugars are running between 100-133. She is now off insulin drip and maintained only on scale insulin. Repeat chest x-ray reveals pulmonary vascular congestion along with trace effusions. Retrocardiac atelectasis and/or consolidation increased. Intra-aortic pump, Right cordis, chest tubes have been removed. Anticipate removal of Hackett catheter today. Continue to increase activity level. 02/03: Patient is now on the cardiac stepdown unit. Repeat echocardiogram reveals EF of 35-40% with borderline concentric left ventricular hypertrophy. Basal and Mid lateral inferior LV wall motion hypokinetic. Repeat chest x-ray reveals no acute pulmonary disease. WBC 9.5 and hemoglobin 7.8. Creatinine 0.78. Sodium 130. Capillary blood glucose running between 108 and 138. She did one reading of 271 yesterday afternoon. She has been afebrile, heart rate 74, blood pressure 120/73, pulse ox 95% on room air. campus monitor is a sinus rhythm. Patient denies having any chest pain. No worsening shortness of breath. She has been evaluated by Dr. Walker for possible inpatient rehab and patient appears to be a good candidate for inpatient rehab but prefers to go home. 02/04: Patient is seen today on the cardiac stepdown unit. She states she had diarrhea yesterday had also required Hackett catheter to be replaced due to urinary retention. Patient states in general she is not feeling well today. She is complaining of lower extremity edema and Aldactone 12.5 mg and Lasix 20 mg added. Patient is having leaking under the left breast from the previous left chest tube site that is serosanguineous, mostly serous. She's been afe brile, heart rate 87, blood pressure 129/59, pulse ox 92% on room air. 02/05: Patient is sitting up in bed in no acute distress, patient was diagnosed with catheter associated UTI, she was started on Bactrim double strength 1 tablet orally twice every day, with increased fluid intake, she was supposed to be discharged home however I believe cardiothoracic service want her to be seen in consultation by urology due to patient not able to void on her own, we will continue to monitor the patient very closely, Patient had decided not to go to subacute rehab rotation or inpatient rehabitation. 02/06: Patient sitting up in bed in no apparent distress, she continues to be generally weak, she continues to have issues with urinary retention, she was seen in consultation by urology was recommended to insert a Hackett catheterization and follow-up with him as an outpatient she will likely be able to be discharged home the next 24 hours with Hackett catheter in place, continue current treatment plan as indicated by cardiothoracic surgery. 02/07: Patient has been seen by Dr. Lara this morning and Hackett catheter has been removed and we are currently waiting for patient to void on her own. P manju denies any new concerns. She states she slept okay last night. She has been ambulating in the hallway and doing well with this. Patient has been afebrile, heart rate 91, blood pressure 126/71, pulse ox 97% on room air. Repeat blood work reveals WBC 9.4, hemoglobin 8.3, platelet count 604. Electrolytes normal. Creatinine 1.08. Blood sugars are running between 110 in 138. Urine culture finalized with Pseudomonas. Patient is anticipating discharge home today. REVIEW OF SYSTEMS Constitutional: No fever, no chills, no night sweats. No weight change. No we akness, reports fatigue no lethargy. Reports daytime sleepiness. HEENT: No headache. No blurred vision or double vision, no loss of vision. No loss of Hearing, no ringing in the ears, no dizziness. No nasal drainage or congestion. No epistaxis. No sore throat. Lungs: Reports shortness of breath-improved, cough, no sputum production. No wheezing. Reports exertional shortness of breath Cardiovascular: Reports severe chest discomfort, reports lower extremity edema. No palpitations. No paroxysmal nocturnal dyspnea. Reports orthopnea. No lightheadedness or dizziness. No syncopal episodes. Abdominal: No abdominal pain. No nausea, vomiting. No diarrhea. No constipation. Occasional bloody or tarry stools. No loss of appetite. Genitourinary: No dysuria, increased frequency, urgency. Reported urinary retention-Hackett removed. Musculoskeletal: No myalgias. No muscle weakness, no gait dysfunction, no frequent falls. Positive for back pain. No neck pain. Integumentary: No wounds, no lesions. No rash or pruritus. No unusual bruising. Neurologic: No aphasia. No facial droop. No change in mentation. No head injury. No headache. No paralysis. No paresthesia. Psychiatric: No depression. Positive for anxiety. No mood swings. Endocrine: Mildly abnormal blood sugars. No weight change. PHYSICAL EXAMINATION Gen: This is a 75-year-old female. She is resting in recliner and appears to be in no acute distress. HEENT: Head is atraumatic, normocephalic. Pupils equal, round. Sclerae is anicteric. NECK: Supple. No JVD. No lymphadenopathy. No thyromegaly. LUNGS: Diminished lung sounds bilaterally. No wheezing. No intercostal ret ractions. HEART: first heart sound is depressed, second heart sound is normal, there is systolic ejection murmur 2/6 located in the left sternal border, no rub ABDOMEN: Soft. Bowel sounds are present. No masses. No tenderness. EXTREMITIES: Bilateral pedal edema. No calf tenderness. Dorsalis pedis palpable bilaterally. NEUROLOGICAL: Patient is awake, alert and oriented x3. Cranial nerves 2 through 12 are grossly intact. ASSESSMENT AND PLAN 1. Acute hypoxic respiratory failure secondary to acute systolic heart failure with cardiogenic shock. Continue patient on metoprolol 25 mg orally twice every day, losartan 12.5 mg once every day, continue Lasix 20 mg IV push every 24 hours, and spironolactone 12.5 mg every day. 2. Status post CABG 3 with DOBBS to LAD, reverse saphenous venous graft to the PDA, reverse saphenous venous graft to the obtuse marginal branch 01/30. Continue aspirin 325 mg once every day, Plavix 75 mg once every day, atorvastatin 40 mg every day, metoprolol 25 mg orally twice every day, amiodarone 200 mg orally twice every day. 3. Ischemic cardiomyopathy. Ejection fraction about 30%.Continue metoprolol 25 mg orally twice every day, losartan 25 mg orally once every day, Lasix 20 mg IV push every 24 hours, spironolactone 12.5 mg orally once every day. 4. Rectal bleeding secondary to diverticulitis. Was treated with IV metronidazole. 5. Hyperglycemia without diagnosis of diabetes. Continue to monitor with NovoLog scale.. 6. Hypertension and hypertensive cardiovascular disease. Continue losartan 25 mg daily at noon and metoprolol 25 mg orally twice every day. 7. Hyperlipidemia. Continue atorvastatin 40 mg at bedtime. 8. Gastroesophageal reflux disease and GI prophylaxis. Continue Protonix 40 mg twice daily. 9. History of GI bleed, no active bleeding at this time. Patient had rectal bleeding 1 most likely secondary to diverticulitis 10. History of diverticulitis status post sigmoid colectomy and low anterior resection. 11. Degenerative disc disease in the cervical spine. 12. DVT prophylaxis. Continue heparin 5000 units subcutaneously every 8 hours. 13. COVID -19 testing negative. Patient has been hospitalized during a pandemic. 14. Opiate-induced constipation. continue Senokot 2 tablet orally bedtime. 15. Urinary retention requiring replacement of Hackett, expected with surgery. patient was seen in consultation by urology and Hackett catheter has been removed, monitor for urinary retention. DISCHARGE PLAN Home with [facility] Impression and plan of care have been directed as dictated by the signing physician. Lizzie Solomon nurse practitioner acting as scribe for signing physician. Objective - Vital Signs Vital signs: Vital Signs Temp 98.2 F 02/07/21 07:50 Pulse 91 02/07/21 07:53 Resp 18 02/07/21 07:53 BP 126/71 02/07/21 07:50 Pulse Ox 97 02/07/21 07:50 Intake & Output 02/06/21 02/07/21 02/07/21 18:59 06:59 18:59 Intake Total 800 Output Total 825 3000 Balance -25 -3000 Weight 88.1 kg Intake: Oral 800 Output: Urine 825 3000 Uretheral (Hackett) 825 2000 Other: Voiding Method Indwelling Catheter Indwelling Catheter ABP, PAP, CO, CI - Last Documented Arterial Blood Pressure 97/59 Pulmonary Artery Pressure 44/20 Cardiac Output 4.5 Cardiac Index 2.5 - Labs CBC & Chem 7: 02/07/21 06:27 02/07/21 06:27 Labs: Abnormal Lab Results - Last 24 Hours (Table) 02/06/21 02/06/21 02/06/21 Range/Units 07:28 07:28 11:36 RBC 2.73 L (3.80-5.40) m/uL Hgb 7.7 L (11.4-16.0) gm/dL Hct 24.8 L (34.0-46.0) % MCHC 30.9 L (31.0-37.0) g/dL RDW 15.8 H (11.5-15.5) % Plt Count 527 H (150-450) k/uL Sodium 136 L (137-145) mmol/L Creatinine 1.13 H (0.52-1.04) mg/dL Glucose 100 H (74-99) mg/dL POC Glucose (mg/dL) 132 H (75-99) mg/dL Albumin (3.5-5.0) g/dL 02/06/21 02/06/21 02/07/21 Range/Units 16:32 20:15 06:15 RBC (3.80-5.40) m/uL Hgb (11.4-16.0) gm/dL Hct (34.0-46.0) % MCHC (31.0-37.0) g/dL RDW (11.5-15.5) % Plt Count (150-450) k/uL Sodium (137-145) mmol/L Creatinine (0.52-1.04) mg/dL Glucose (74-99) mg/dL POC Glucose (mg/dL) 117 H 138 H 110 H (75-99) mg/dL Albumin (3.5-5.0) g/dL 02/07/21 02/07/21 Range/Units 06:27 06:27 RBC 2.92 L (3.80-5.40) m/uL Hgb 8.3 L (11.4-16.0) gm/dL Hct 26.5 L (34.0-46.0) % MCHC (31.0-37.0) g/dL RDW 16.0 H (11.5-15.5) % Plt Count 604 H (150-450) k/uL Sodium (137-145) mmol/L Creatinine 1.08 H (0.52-1.04) mg/dL Glucose 112 H (74-99) mg/dL POC Glucose (mg/dL) (75-99) mg/dL Albumin 3.2 L (3.5-5.0) g/dL Microbiology - Last 24 Hours (Table) 02/04/21 23:20 Urine Culture - Preliminary Urine,Voided Gram Neg Bacilli
[2021-02-08] MEDS ORDERED: AMIODARONE 200 MG TAB PO SCH (09:00)
== END 2021-02-07 17:50 | disposition home health service (06) | DRG 233 ==
LOC: EC 01:13 → 3SCARD 04:53 → 2SICU 01-26 13:31 → 3SCARD 02-02 21:52
PROVIDERS: ADMIT Surgery; ATTEND Surgery
PROC: 5A02210 Assistance with Cardiac Output using Balloon Pump, Continuous (ICD-10-PCS; 2021-01-26)
PROC: B51D1ZZ Fluoroscopy of Bilateral Lower Extremity Veins using Low Osmolar Contrast (ICD-10-PCS; 2021-01-26)
PROC: B2111ZZ Fluoroscopy of Multiple Coronary Arteries using Low Osmolar Contrast (ICD-10-PCS; 2021-01-26)
PROC: 4A023N7 Measurement of Cardiac Sampling and Pressure, Left Heart, Percutaneous Approach (ICD-10-PCS; 2021-01-26 11:30)
PROC: 06BQ4ZZ Excision of Left Saphenous Vein, Percutaneous Endoscopic Approach (ICD-10-PCS; 2021-01-30)
PROC: 02L70CK Occlusion of Left Atrial Appendage with Extraluminal Device, Open Approach (ICD-10-PCS; 2021-01-30)
PROC: B24BZZ4 Ultrasonography of Heart with Aorta, Transesophageal (ICD-10-PCS; 2021-01-30)
PROC: 5A1221Z Performance of Cardiac Output, Continuous (ICD-10-PCS; 2021-01-30)
PROC: 3E080GC Introduction of Other Therapeutic Substance into Heart, Open Approach (ICD-10-PCS; 2021-01-30)
PROC: 02100Z9 Bypass Coronary Artery, One Artery from Left Internal Mammary, Open Approach (ICD-10-PCS; principal; 2021-01-30 07:30)
PROC: 021109W Bypass Coronary Artery, Two Arteries from Aorta with Autologous Venous Tissue, Open Approach (ICD-10-PCS; 2021-01-30 07:30)
DX: I21.4 Non-ST elevation (NSTEMI) myocardial infarction (principal); J96.01 Acute respiratory failure with hypoxia; R57.0 Cardiogenic shock; I50.21 Acute systolic (congestive) heart failure; D62 Acute posthemorrhagic anemia; J98.11 Atelectasis; K62.5 Hemorrhage of anus and rectum; E66.01 Morbid (severe) obesity due to excess calories; Z68.37 Body mass index [BMI] 37.0-37.9, adult; E78.5 Hyperlipidemia, unspecified; G89.29 Other chronic pain; I25.119 Atherosclerotic heart disease of native coronary artery with unspecified angina pectoris; I11.0 Hypertensive heart disease with heart failure; I25.5 Ischemic cardiomyopathy; K21.9 Gastro-esophageal reflux disease without esophagitis; K31.7 Polyp of stomach and duodenum; K59.03 Drug induced constipation; K64.2 Third degree hemorrhoids; K64.4 Residual hemorrhoidal skin tags; Z20.822 Contact with and (suspected) exposure to COVID-19; M19.90 Unspecified osteoarthritis, unspecified site; M50.30 Other cervical disc degeneration, unspecified cervical region; T40.605A Adverse effect of unspecified narcotics, initial encounter; R73.9 Hyperglycemia, unspecified; R33.9 Retention of urine, unspecified; Z79.02 Long term (current) use of antithrombotics/antiplatelets; Z79.82 Long term (current) use of aspirin; Z79.899 Other long term (current) drug therapy; Z82.49 Family history of ischemic heart disease and other diseases of the circulatory system; Z90.49 Acquired absence of other specified parts of digestive tract; Z90.710 Acquired absence of both cervix and uterus
CPT/HCPCS: 33967; 36415; 71045; 71046; 80048; 80053; 80061; 81001; 82330; 82805; 83036; 83605; 83735; 83880; 84145; 84443; 84484; 85025; 85027; 85610; 85730; 86850; 86891; 86900; 86901; 86920; 87070; 87077; 87086; 87186; 87635; 93005; 93306; 93308; 93458; 93880; 93970; 94002; 94640; 94660; 94760; 99285

== ENCOUNTER → 2021-02-08 | Day surgery (SDC) | payer MEDICARE ==
[~2021-02-08] MED LIST changes: -LACTATED RINGERS 1,000 ML IV SCH; +MEROPENEM 1 GM in SODIUM CHLORIDE 0.9% 100 ML IVPB ONE
== END ==
LOC: CATHCVL 12:47
PROVIDERS: ATTEND Internal Medicine
DX: J15.1 Pneumonia due to Pseudomonas (principal)
CPT/HCPCS: 36410; 76937; J2185

== ENCOUNTER 2022-11-15 08:21 | Day surgery (SDC) | payer MEDICARE ==
[2022-11-13 12:38] VITALS: BMI 34.9
--- NOTE | 2022-11-15 07:58 | P.GSHP ---
History of Present Illness H&P Date: 11/15/22 CHIEF COMPLAINT: GERD and colon screen HISTORY OF PRESENT ILLNESS: The patient is a 76-year-old female who presents with dysphagia and change in bowel habit. Upper and lower endoscopy were offered for further evaluation and management. PAST MEDICAL HISTORY: Please see list. PAST SURGICAL HISTORY: Please see list. MEDICATIONS: Please see list. ALLERGIES: Please see list. SOCIAL HISTORY: No illicit drug use FAMILY HISTORY: No reports of Crohn disease or ulcerative colitis. REVIEW OF ORGAN SYSTEMS: CONSTITUTIONAL: No reports of fevers or chills. GI: Denies any blood in stools or constipation. PHYSICAL EXAM: VITAL SIGNS: Stable GENERAL: Well-developed pleasant in no acute distress. HEENT: No scleral icterus. Extraocular movements grossly intact. Moist buccal mucosa. NECK: Supple without lymphadenopathy. CHEST: Unlabored respirations. Equal bilateral excursions. CARDIOVASCULAR: Regular rate and rhythm. Distal 2+ pulses. ABDOMEN: Soft, nondistended. MUSCULOSKELETAL: No clubbing, cyanosis, or edema. ASSESSMENT: 1. Dysphagia 2. Change in bowel habits PLAN: 1. Recommend proceeding with an upper and lower endoscopy Past Medical History Past Medical History: GERD/Reflux, GI Bleed, Hyperlipidemia, Hypertension, Myoc ardial Infarction (NV), Osteoarthritis (OA) Additional Past Medical History / Comment(s): NV in 01/2021, heart cath with triple bypass. Diverticulitis. Angina. Hiatal hernia. Recent stomach problems and rectal bleeding. "Bad back, disintegrating discs in neck, head shakes.". OCCASIONAL BLE EDEMA, WEAR INCONTINENCE PADS Last Myocardial Infarction Date:: 01/2021 History of Any Multi-Drug Resistant Organisms: None Reported Past Surgical History: Bowel Resection, Coronary Bypass/CABG, Heart Cathete rization, Hysterectomy, Orthopedic Surgery Additional Past Surgical History / Comment(s): Left foot surgery, GURVINDER/BSO, left carpal tunnel surgery, colonoscopy X2. Past Anesthesia/Blood Transfusion Reactions: No Reported Reaction Smoking Status: Never smoker - Past Family History Father Family Medical History: Cancer Mother Family Medical History: Cancer Brother(s) Family Medical History: Coronary Artery Disease (CAD), Myocardial Infarction (NV) Sister(s) Family Medical History: Neurologic Disorder Daughter(s) Family Medical History: Pulmonary Embolus Son(s) Family Medical History: Coronary Artery Disease (CAD) Medications and Allergies Home Medications Medication Instructions Recorded Confirmed Type Magnesium Oxide [Mag-Ox] 250 mg PO DAILY 06/14/17 11/13/22 History Cyanocobalamin (Vitamin B-12) 1,000 mcg PO DAILY 12/07/20 11/13/22 History [Vitamin B-12] Omeprazole 40 mg PO DAILY 01/25/21 11/13/22 History Atorvastatin [Lipitor] 40 mg PO DAILY #30 tab 02/07/21 11/13/22 Rx Metoprolol Tartrate [Lopressor] 25 mg PO BID #60 tab 02/07/21 11/13/22 Rx Aspirin EC [Ecotrin Low Dose] 81 mg PO DAILY 07/02/21 11/13/22 History Bifidobacterium Infantis [Align] 4 mg PO DAILY 07/02/21 11/13/22 History Cholecalciferol [Vitamin D3 (25 25 mcg PO DAILY 07/02/21 11/13/22 History Mcg = 1000 Iu)] Ferrous Sulfate [Iron (65 MG 325 mg PO DAILY 07/02/21 11/13/22 History Elemental)] polyethylene glycoL 3350 [Miralax] 17 gm PO DAILY 07/02/21 11/13/22 History Furosemide [Lasix] 20 mg PO DAILY PRN 11/13/22 11/13/22 History Losartan [Cozaar] 25 mg PO HS 11/13/22 11/13/22 History Spironolactone [Aldactone] 25 mg PO DAILY 11/13/22 11/13/22 History Allergies Allergy/AdvReac Type Severity Reaction Status Date / Time ciprofloxacin Allergy Rash/Hives Verified 11/13/22 12:25 cortisone Allergy HAD Verified 11/13/22 12:25 NUMBNESS AT BACK OF HEAD FOLLOWING INJECTION hydrocortisone Allergy Unknown Verified 11/13/22 12:25 [From Cortizone-10] Penicillins Allergy Rash/Hives Verified 11/13/22 12:25
[2022-11-15] MEDS ORDERED: LACTATED RINGERS 1,000 ML IV ONE (08:36)
[2022-11-15] MEDS ORDERED: LIDOCAINE 1% (10MG/ML) FOR IV START INTRADERMA PRN (08:38)
[2022-11-15] MEDS ORDERED: LACTATED RINGERS 1,000 ML IV SCH (08:38)
[2022-11-15 08:45] VITALS: TEMP 98.2
[2022-11-15] MEDS ORDERED: PROPOFOL 10 MG/ML 20 ML VIAL IV ONE (09:43)
[2022-11-15] MEDS ORDERED: LIDOCAINE 2% INJ 20 MG/ML (2 ML VIAL) ONE (09:43)
[2022-11-15 10:41] VITALS: RESP 16
[2022-11-15 10:57] VITALS: BP 131/85; PULSE 62
--- NOTE | 2022-11-15 14:12 | P.PCN ---
Date of Procedure: 11/15/22 Description of Procedure: PREOPERATIVE DIAGNOSIS: Gastroesophageal reflux disease. Morbid obesity. POSTOPERATIVE DIAGNOSIS: Gastroesophageal reflux disease. Morbid obesity. Gastritis. Diaphragmatic hiatal hernia OPERATION: Esophagogastroduodenoscopy with biopsies along antrum and duodenum SURGEON: Mariya Carbajal MD ANESTHESIA: MAC. INDICATIONS: The patient is a 76-year-old female who presents with reflux disease. Benefits and risks of the procedure were described. Informed consent was obtained. DESCRIPTION: The patient was brought into the endoscopy suite and laid in the left lateral decubitus position. An Olympus gastroscope was passed along the posterior oropharynx down to the distal esophagus where the squamocolumnar junction was encountered at 40 cm from the incisors. The stomach was entered and no bile reflux was found. Additional findings are listed below. Biopsies with cold fo rceps were obtained of the antrum. The first through third portion of the duodenum was examined. Retroflexion of the scope confirmed Hill grade 3 lower esophageal valve. The squamocolumnar junction demonstrated LA grade B erosive esophagitis. The stomach was desufflated. The patient tolerated the procedure well. FINDINGS: Squamocolumnar junction 40 cm from the incisors. Diaphragmatic hiatus at 40 cm. Hiatal hernia, 4 cm Hill grade 4 lower esophageal valve. LA grade B erosive esophagitis. Biopsies obtained of the duodenum. Chronic gastritis with biopsies obtained. RECOMMENDATIONS: Upper endoscopy as needed. Has gastric polyps Small hiatal hernia 1 cm 38 cm Gastritis
== END 2022-11-15 11:56 | disposition home or self-care (01) ==
LOC: ORWHC2ENDO 08:21
PROVIDERS: ATTEND Surgery Plastic and Reconstructive Surgery
DX: D12.3 Benign neoplasm of transverse colon (principal); K64.8 Other hemorrhoids; K21.00 Gastro-esophageal reflux disease with esophagitis, without bleeding; K29.50 Unspecified chronic gastritis without bleeding; K44.9 Diaphragmatic hernia without obstruction or gangrene; K57.30 Diverticulosis of large intestine without perforation or abscess without bleeding; E66.01 Morbid (severe) obesity due to excess calories; Z68.33 Body mass index [BMI] 33.0-33.9, adult; I25.2 Old myocardial infarction; I10 Essential (primary) hypertension; E78.5 Hyperlipidemia, unspecified; M19.90 Unspecified osteoarthritis, unspecified site; Z95.1 Presence of aortocoronary bypass graft; Z90.710 Acquired absence of both cervix and uterus; Z98.890 Other specified postprocedural states; Z88.8 Allergy status to other drugs, medicaments and biological substances; Z88.1 Allergy status to other antibiotic agents; Z88.0 Allergy status to penicillin; Z88.5 Allergy status to narcotic agent; Z80.9 Family history of malignant neoplasm, unspecified; Z82.49 Family history of ischemic heart disease and other diseases of the circulatory system; Z86.711 Personal history of pulmonary embolism; Z79.82 Long term (current) use of aspirin; Z79.02 Long term (current) use of antithrombotics/antiplatelets; Z79.899 Other long term (current) drug therapy
CPT/HCPCS: 88305; 45380; 45385; 43239; J2704; J2001

== ENCOUNTER 2023-01-19 07:51 | Day surgery (SDC) | payer MEDICARE ==
[~2023-01-19 07:51] MED LIST changes: +ALPRAZolam 0.25 MG TAB PO PRN; +ALPRAZolam 0.5 MG TAB PO PRN; +ASPIRIN 325 MG TAB PO STA; +ATORVASTATIN 80 MG TAB PO STA; +HEPARIN SODIUM,PORCINE (1 ML) 2,500 UNIT in SODIUM CHLORIDE 0.9% 250 ML IRRIGATION PRN; +HEPARIN SODIUM,PORCINE 10,000 UNIT in SODIUM CHLORIDE 0.9% 1,000 ML IRRIGATION PRN; -MEROPENEM 1 GM in SODIUM CHLORIDE 0.9% 100 ML IVPB ONE; +NITROGLYCERIN SL TABS 0.4 MG TAB SUBLINGUAL PRN; +SODIUM CHLORIDE 0.9% 1,000 ML in EMPTY BAG 1 BAG IV SCH
[2023-01-19 08:20] VITALS: RESP 18; TEMP 97.1
[2023-01-19] MEDS ORDERED: fentaNYL (PF) 50 MCG/ML 2 ML AMP ONE (09:02)
[2023-01-19] MEDS ORDERED: fentaNYL (PF) 50 MCG/1 ML VIAL IVP ONE (09:11)
[2023-01-19] MEDS ORDERED: LIDOCAINE 1% INJ 10MG/ML (5 ML VIAL-PF) SQ ONE (09:15)
[2023-01-19] MEDS ORDERED: VERAPAMIL SYRINGE (5 MG/10 ML) INTRAARTER ONE (09:27)
[2023-01-19] MEDS ORDERED: MIDAZOLAM 2 MG/2 ML VIAL IVP ONE ×2 (09:28)
[2023-01-19] MEDS ORDERED: HEPARIN SODIUM 1,000 UN/ML (10ML VL) IV ONE (09:28)
[2023-01-19] MEDS ORDERED: IOPAMIDOL-370 200ML BTL INJ ONE (09:52)
[2023-01-19] MEDS ORDERED: RX INFO: IV CONTRAST WAS GIVEN 1 EACH MISC MISCELLANE PRN (10:10)
[2023-01-19] MEDS ORDERED: SODIUM CHLORIDE 0.9% 1,000 ML IV SCH (10:15)
--- NOTE | 2023-01-19 10:17 | P.CARDCATH ---
Date of Procedure: 01/19/23 Description of Procedure: Cardiac Catheterization: The patient is a 77-year-old female with a known history of CAD, post CABG, hypertension and hyperlipidemia who has been complaining of progressive dyspnea and fatigue. She had an abnormal MPI. Recommendations were made regarding cardiac catheterization, the risks and the complications were discussed with the patient who is in full understanding and agreement. Procedure Description: Patient was brought to pathology laboratory technologist in fasting semi-sedated state after receiving Fentanyl and Benadryl achieiving moderate conscious sedated state. Using Xylocaine Anesthesia and modified Seldinger technique, a 6-Central [place] sheath was introduced in the left radial artery . Subsequently, selective coronary angiography was performed using a 5-[place] 3.5 bend right Nabeel catheter and 5-[place] African multipurpose A2 catheter. Multiple views of the coronary artery including hemiaxial views were obtained. The Nabeel catheter was used to cannulate the TIAGO to the LAD and the multipurpose was used to cannulate the SVG. Following that, catheter and sheath were removed. Hemostasis was obtained with deployment of vascular band . There was no immediate complication. Patient was returned to room in stable condition. Of note, the patient received a total of 4000 units of intravenous heparin as well as intra-arterial verapamil. Findings: Fluoroscopy: Significant calcification in the left main and LAD was noted Left main: This vessel has a 99% stenosis at the distal segment, eccentric and calcified LAD: This vessel gives rise to a large diagonal branch after the diagonal branch there is competitive flow from the LAD graft. Left circumflex: This vessel is totally occluded proximally with no antegrade flow RCA: This is a dominant vessel that is totally occluded in the midsegment with no significant antegrade flow. The midsegment is diffusely diseased. DOBBS to the LAD: The distal anastomotic site is patent. There is retrograde flow into the diagonal branch. There is no evidence of obstructive disease. SVG to the OM the proximal and distal anastomotic sites are patent. There is retrograde flow into the distal left circumflex disease SVG to RCA: The proximal and distal anastomotic sites are patent the flow in the PDA is brisk there is no evidence of obstructive disease Left Ventriculogram: Not performed Conclusion: 1. Severe triple vessel disease with 99% stenosis in the distal left main and a chronically occluded left circumflex and RCA 2. Patent DOBBS to the LAD 3. Patent SVG to the OM 1 4. Patent SVG to the RCA Recommendations: I have recommended to continue medical therapy with aggressive coronary risks modifications, I see no indications for percutaneous revascularization at this time. The findings and the recommendations were discussed with the patient and the family and they were in full understanding and agreement. Duration of sedation is 35 minutes.
[2023-01-19 14:53] VITALS: BP 113/69; PULSE 72
[2023-01-19] MEDS ORDERED: METOPROLOL TARTRATE 25 MG TAB PO SCH (21:00)
[2023-01-19] MEDS ORDERED: LOSARTAN 25 MG TAB PO SCH (21:00)
[2023-01-19] MEDS ORDERED: ATORVASTATIN 40 MG TAB PO SCH (21:00)
[2023-01-20] MEDS ORDERED: NON FORMULARY DRUG (Omeprazole [Omeprazole] 40 MG Capsule) PO SCH (09:00)
[2023-01-20] MEDS ORDERED: SPIRONOLACTONE 25 MG TAB PO SCH (09:00)
[2023-01-20] MEDS ORDERED: NON FORMULARY DRUG (Aspirin Ec 81 MG Tablet) PO SCH (09:00)
== END 2023-01-19 14:47 | disposition home or self-care (01) ==
LOC: CATHCVL 07:51
PROVIDERS: ATTEND Internal Medicine Interventional Cardiology
DX: I25.10 Atherosclerotic heart disease of native coronary artery without angina pectoris (principal); I10 Essential (primary) hypertension; E78.5 Hyperlipidemia, unspecified; F12.90 Cannabis use, unspecified, uncomplicated; Z79.82 Long term (current) use of aspirin; Z79.899 Other long term (current) drug therapy; Z88.0 Allergy status to penicillin; Z88.5 Allergy status to narcotic agent; Z88.1 Allergy status to other antibiotic agents; Z87.891 Personal history of nicotine dependence; Z95.1 Presence of aortocoronary bypass graft
CPT/HCPCS: 93455; 99152; 99153; J2250; J2001; J1644; J3010; Q9967

== ENCOUNTER → 2023-06-06 | Outpatient (CLI) | payer MEDICARE ==
--- NOTE | 2023-06-07 08:13 | MM ---
Reason for Exam: Screening (asymptomatic). Last mammogram was performed 1 year(s) and 3 month(s) ago. Patient History: Menarche at age 9. First Full-Term at age 17. Left ovary removed at age 43. Right ovary removed at age 43. Hysterectomy at age 43. Postmenopausal. 1989, Benign Excisional Biopsy on the right side. Maternal cousin had breast cancer, age 55. Maternal cousin had breast cancer, age 55. Daughter had breast cancer, age 47. Risk Values: Yamini 5 year model risk: 4.1%. NCI Lifetime model risk: 6.7%. Prior Study Comparison: 05/04/2016 Bilateral Screening Mammogram, [facility]. 05/29/2017 Bilateral Screening Mammogram, [facility]. 06/04/2017 Right Diagnostic Mammogram, [facility]. 01/08/2020 Bilateral Screening Mammogram, [facility]. 02/22/2022 Bilateral Screening Mammogram, [facility]. Tissue Density: There are scattered areas of fibroglandular density. Findings: Analyzed By CAD. Right breast: There is no suspicious group of microcalcifications or new suspicious mass. Benign-appearing calcifications right breast. Left breast: There is no suspicious group of microcalcifications or new suspicious mass. Benign-appearing calcifications left breast. There is no suspicious group of microcalcifications or new suspicious mass. Overall Assessment: Benign, BI-RAD 2 Management: Screening Mammogram of both breasts in [address] [facility] will attempt to contact patient to return for supplemental views and ultrasound if indicated. Patient should continue monthly self-breast exams. A clinical breast exam by your physician is recommended on an annual basis. This exam should not preclude additional follow-up of suspicious palpable abnormalities. Note on Yamini scores and lifetime risk: 1. A Yamini score greater than 3% is considered moderate risk. If this is the case, consider specialist referral to assess eligibility for a risk reducing agent. 2. If overall lifetime risk for the development of breast cancer is 20% or higher, the patient may qualify for future screening with alternating mammogram and breast MRI. Electronically signed and approved by: Maynor Escobedo DO
== END | disposition home or self-care (01) ==
LOC: RADMAMWWP 09:51
PROVIDERS: ATTEND Internal Medicine
DX: Z12.31 Encounter for screening mammogram for malignant neoplasm of breast (principal); Z78.0 Asymptomatic menopausal state; Z80.3 Family history of malignant neoplasm of breast; M85.851 Other specified disorders of bone density and structure, right thigh
CPT/HCPCS: 77063; 77067

== ENCOUNTER 2024-03-16 15:03 | Observation (INO) | payer MEDICARE ==
[2024-03-16 15:47] LABS: Basophils # (A) 0.1 k/uL (0-0.2); Basophils % (A) 1 %; Eosinophils # (A) 0.1 k/uL (0-0.7); Eosinophils % (A) 1 %; HCT 39.8 % (34.0-46.0); HGB 13.4 gm/dL (11.4-16.0); Lymphocytes # (A) 3.1 k/uL (1.0-4.8); Lymphocytes % (A) 31 %; MCH 31.7 pg (25.0-35.0); MCHC 33.5 g/dL (31.0-37.0); MCV 94.7 fL (80.0-100.0); Mean Platelet Volume 6.7; Monocytes # (A) 0.4 k/uL (0-1.0); Monocytes % (A) 4 %; Neutrophils # (A) 6.2 k/uL (1.3-7.7); Neutrophils % (A) 61 %; Platelet Count 276 k/uL (150-450); RBC 4.21 m/uL (3.80-5.40); RDW 12.6 % (11.5-15.5); WBC 10.1 k/uL (3.8-10.6)
[2024-03-16 15:57] LABS: ALT 38 U/L (4-34); AST 38 U/L (14-36); African American GFR (CKD) 54 (>60 ml/min/1.73 sqM); Albumin 4.7 g/dL (3.5-5.0); Alkaline Phosphatase 76 U/L (38-126); Anion Gap 11 mmol/L; Blood Urea Nitrogen 26 mg/dL (7-17); Carbon Dioxide 23 mmol/L (22-30); Chloride 105 mmol/L (98-107); Glucose 118 mg/dL (74-99); Non-African American GFR(CKD) 47 (>60 ml/min/1.73 sqM); Sodium 139 mmol/L (137-145); Total Bilirubin 0.6 mg/dL (0.2-1.3); Total Protein 7.5 g/dL (6.3-8.2)
[2024-03-16 15:58] LABS: Partial Thromboplastin Time 22.2 sec (22.0-30.0); Prothrombin Time 10.7 sec (10.0-12.5)
[2024-03-16 16:05] LABS: NT-Pro-B-Type Natriuretic Pept 241 pg/mL
[2024-03-16] MEDS ORDERED: NITROGLYCERIN SL TABS 0.4 MG TAB SUBLINGUAL PRN (17:14)
--- NOTE | 2024-03-16 17:14 | ED ---
General Adult HPI - General Chief complaint: Chest Pain Stated complaint: Chest pain Time Seen by Provider: 03/16/24 15:41 Source: patient Mode of arrival: ambulatory Limitations: no limitations - History of Present Illness Initial comments: Dictation was produced using [employer] dictation software. please excuse any grammatical, word or spelling errors. Chief Complaint: 78-year-old female presents to the emergency department for chest pain History of Present Illness: Patient is an 78-year-old female with past medical history of CABG coronary artery disease presents to the ER for chest pressure. States that the pressure is substernal left upper chest area. States that it slightly radiates to the back. She describes it as a dull ache. Denies any radiation of symptoms down the arms or up towards the jaw. No associated diaphoresis. She does complain of some mild nausea. She has history of CABG. She tried taking a nitro at home which did not really help her symptoms. States she had some mild URI symptoms recently. The ROS documented in this emergency department record has been reviewed and confirmed by me. Those systems with pertinent positive or negative responses have been documented in the HPI. All other systems are other negative and/or noncontributory. - Related Data Home Medications Medication Instructions Recorded Confirmed Omeprazole 40 mg PO DAILY 01/25/21 01/19/23 Aspirin EC [Ecotrin Low Dose] 81 mg PO DAILY 07/02/21 01/19/23 Ferrous Sulfate [Iron (65 MG 325 mg PO DAILY 07/02/21 01/19/23 Elemental)] Losartan [Cozaar] 25 mg PO HS 11/13/22 01/19/23 Spironolactone [Aldactone] 25 mg PO DAILY 11/13/22 01/19/23 Bifidobacterium Infantis [Align] 4 mg PO QAM 01/17/23 01/19/23 Atorvastatin [Lipitor] 20 mg PO HS 03/16/24 03/16/24 Multivitamin [Multivitamins Adult 2 tab PO DAILY 03/16/24 03/16/24 Gummies] Previous Rx's Medication Instructions Recorded Metoprolol Tartrate [Lopressor] 25 mg PO BID #60 tab 02/07/21 Allergies Allergy/AdvReac Type Severity Reaction Status Date / Time ciprofloxacin Allergy Rash/Hives Verified 03/16/24 17:38 cortisone Allergy HAD Verified 03/16/24 17:38 NUMBNESS AT BACK OF HEAD FOLLOWING INJECTION hydrocortisone Allergy Unknown Verified 03/16/24 17:38 [From Cortizone-10] Penicillins Allergy Rash/Hives/ Verified 03/16/24 17:38 Swelling Review of Systems ROS Statement: Those systems with pertinent positive or pertinent negative responses have been documented in the HPI. ROS Other: All systems not noted in ROS Statement are negative. Past Medical History Past Medical History: GERD/Reflux, GI Bleed, Hyperlipidemia, Hypertension, Myocardial Infarction ([place]), Osteoarthritis ([place]) Additional Past Medical History / Comment(s): [place] in 01/2021, heart cath with triple bypass. Diverticulitis. Angina. Hiatal hernia. Recent stomach problems and rectal bleeding. "Bad back, disintegrating discs in neck, head shakes.". OCCASIONAL BLE EDEMA, WEAR INCONTINENCE PADS Last Myocardial Infarction Date:: 01/2021 History of Any Multi-Drug Resistant Organisms: None Reported Past Surgical History: Bowel Resection, Coronary Bypass/CABG, Heart Catheterization, Hysterectomy, Orthopedic Surgery Additional Past Surgical History / Comment(s): Left foot surgery, GURVINDER/BSO, left carpal tunnel surgery, colonoscopy X2. Past Anesthesia/Blood Transfusion Reactions: No Reported Reaction Past Psychological History: No Psychological Hx Reported Smoking Status: Never smoker Past Alcohol Use History: None Reported Past Drug Use History: None Reported - Past Family History Father Family Medical History: Cancer Mother Family Medical History: Cancer, Coronary Artery Disease (CAD) Brother(s) Family Medical History: Coronary Artery Disease (CAD), Myocardial Infarction ([place]) Sister(s) Family Medical History: Neurologic Disorder Daughter(s) Family Medical History: Pulmonary Embolus Son(s) Family Medical History: Coronary Artery Disease (CAD) General Exam - General Exam Comments Initial Comments: PHYSICAL EXAM: General Impression: Alert and oriented x3, not in acute distress HEENT: Normocephalic atraumatic, extra-ocular movements intact, pupils equal and reactive to light bilaterally, mucous membranes moist. Cardiovascular: Heart regular rate and rhythm Chest: Able to complete full sentences, no retractions, no tachypnea Abdomen: abdomen soft, non-tender, non-distended, no organomegaly Musculoskeletal: Pulses present and equal in all extremities, no peripheral edema Motor: no focal deficits noted Neurological: CN II-XII grossly intact, no focal motor or sensory deficits noted Skin: Intact with no visualized rashes Psych: Normal affect and mood Limitations: no limitations Course Vital Signs 03/16/24 15:05 Temperature 97.8 F Pulse Rate 82 Respiratory 20 Rate Blood Pressure 151/87 O2 Sat by Pulse 99 Oximetry EKG Findings - EKG Comments: EKG Findings:: My EKG interpretation: Ventricular rate 74, sinus rhythm,. 162, QRS 70, QTc 429. No ND prolongation, no QTC prolongation, no ST or T-wave briana nges noted. Overall, this EKG is unremarkable. EKG performed approximately the 22 minutes later showed no dynamic changes Medical Decision Making - Medical Decision Making Was pt. sent in by a medical professional or institution (, PA, WHITE SHOE RAGGER, urgent care, hospital, or fci...) When possible be specific @ -No Did you speak to anyone other than the patient for history (EMS, parent, family, police, friend...)? What history was obtained from this source @ -No Did you review nursing and triage notes (agree or disagree)? Why? @ -I reviewed and agree with nursing and triage notes Were old charts reviewed (outside hosp., previous admission, EMS record, old EKG, old radiological studies, urgent care reports/EKG's, fci records)? Report findings @ -No old charts were reviewed Differential Diagnosis (chest pain, altered mental status, abdominal pain women, abdominal pain men, vaginal bleeding, musculoskeletal, weakness, fever, dyspnea, syncope, headache, dizziness, GI bleed, back pain, seizure, CVA, palpatations, mental health)? @ -Differential Chest Pain: Stable Angina, Unstable Angina, STEMI, NSTEMI Aortic Dissection, Pneumothorax, Musculoskeletal, Esophageal Spasm GERD, Cholecystitis, Pancreatitis, Zoster, thi s is not meant to be an all-inclusive list. EKG interpreted by me (3pts min.). @ -See above X-rays interpreted by me (1pt min.). @ -Chest x-ray is nonacute CT interpreted by me (1pt min.). @ -None done U/S interpreted by me (1pt. min.). @ -None done What testing was considered but not performed or refused? (CT, X-rays, U/S, labs)? Why? @ -None What meds were considered but not given or refused? Why? @ -None Was smoking cessation discussed for >3mins.? @ -No Were there social determinants of health that impacted care today? How? (Homelessness, low income, unemployed, alcoholism, drug addiction, transportation, low edu. Level, literacy, decrease access to med. care, snf, rehab)? @ -No Was there de-escalation of care discussed even if they declined (Discuss DNR or withdrawal of care, Hospice)? DNR status @ -No What co-morbidities impacted this encounter? (DM, HTN, Smoking, COPD, CAD, Cancer, CVA, ARF, Chemo, Hep., AIDS, mental health diagnosis, sleep apnea, morbid obesity)? @ -Coronary artery disease, [place] Was patient admitted / discharged? Hospital course, mention meds given and route, prescriptions, significant lab abnormalities, going to OR and other pertinent info. @ -78-year-old female presents to the emergency department with chest pain concerning for acute coronary syndrome. Vital signs upon arrival are within acceptable limits. EKG shows no signs of ischemia infarction. Serial EKG showed no dynamic changes. Laboratory evaluation obtained. Labs are within acceptable limits. Troponin is negative. Did you discuss the management of the patient with other professionals (professionals i.e. , PA, WHITE SHOE RAGGER, lab, RT, psych nurse, social media designer, case management associate, teacher, agricultural technical officer, piano case maker)? Give summary @ -Discussed with hospitalist for admission Was critical care preformed (if so, how long)? @ -No Undiagnosed new problem with uncertain prognosis? @ -No Drug Therapy requiring intensive monitoring for toxicity (Heparin, Nitro, Insulin, Cardizem)? @ -No Were any procedures done? @ -No Diagnosis/symptom? Acute, or Chronic, or Acute on Chronic? Uncomplicated (without systemic symptoms) or Complicated (systemic symptoms)? @ -Acute coronary syndrome Side effects of treatment? @ -No Exacerbation, Progression, or Severe Exacerbation? @ -No Poses a threat to life or bodily function? How? (Chest pain, [place], [place], pneumonia, PE, COPD, DKA, ARF, appy, cholecystitis, CVA, Diverticulitis, Homicidal, Suicidal, threat to staff... and all critical care pts) @ -yes - Lab Data Result diagrams: 03/16/24 15:35 03/16/24 15:35 Lab Results 1203/16/24 03/16/24 Range/Units 15:35 15:35 15:35 WBC 10.1 (3.8-10.6) k/uL RBC 4.21 (3.80-5.40) m/uL Hgb 13.4 (11.4-16.0) gm/dL Hct 39.8 (34.0-46.0) % MCV 94.7 (80.0-100.0) fL MCH 31.7 (25.0-35.0) pg MCHC 33.5 (31.0-37.0) g/dL RDW 12.6 (11.5-15.5) % Plt Count 276 (150-450) k/uL MPV 6.7 Neutrophils % 61 % Lymphocytes % 31 % Monocytes % 4 % Eosinophils % 1 % Basophils % 1 % Neutrophils # 6.2 (1.3-7.7) k/uL Lymphocytes # 3.1 (1.0-4.8) k/uL Monocytes # 0.4 (0-1.0) k/uL Eosinophils # 0.1 (0-0.7) k/uL Basophils # 0.1 (0-0.2) k/uL PT 10.7 (10.0-12.5) sec INR 1.0 (<1.2) APTT 22.2 (22.0-30.0) sec Sodium 139 (137-145) mmol/L Potassium 4.0 (3.5-5.1) mmol/L Chloride 105 (98-107) mmol/L Carbon Dioxide 23 (22-30) mmol/L Anion Gap 11 mmol/L BUN 26 H (7-17) mg/dL Creatinine 1.12 H (0.52-1.04) mg/dL Est GFR (CKD-EPI)AfAm 54 (>60 ml/min/1.73 sqM) Est GFR (CKD-EPI)NonAf 47 (>60 ml/min/1.73 sqM) Glucose 118 H (74-99) mg/dL Calcium 10.0 (8.4-10.2) mg/dL Magnesium 2.0 (1.6-2.3) mg/dL Total Bilirubin 0.6 (0.2-1.3) mg/dL AST 38 H (14-36) U/L ALT 38 H (4-34) U/L Alkaline Phosphatase 76 (38-126) U/L Troponin I (0.000-0.034) ng/mL NT-Pro-B Natriuret Pep 241 pg/mL Total Protein 7.5 (6.3-8.2) g/dL Albumin 4.7 (3.5-5.0) g/dL 03/16/24 Range/Units 15:35 WBC (3.8-10.6) k/uL RBC (3.80-5.40) m/uL Hgb (11.4-16.0) gm/dL Hct (34.0-46.0) % MCV (80.0-100.0) fL MCH (25.0-35.0) pg MCHC (31.0-37.0) g/dL RDW (11.5-15.5) % Plt Count (150-450) k/uL MPV Neutrophils % % Lymphocytes % % Monocytes % % Eosinophils % % Basophils % % Neutrophils # (1.3-7.7) k/uL Lymphocytes # (1.0-4.8) k/uL Monocytes # (0-1.0) k/uL Eosinophils # (0-0.7) k/uL Basophils # (0-0.2) k/uL PT (10.0-12.5) sec INR (<1.2) APTT (22.0-30.0) sec Sodium (137-145) mmol/L Potassium (3.5-5.1) mmol/L Chloride (98-107) mmol/L Carbon Dioxide (22-30) mmol/L Anion Gap mmol/L BUN (7-17) mg/dL Creatinine (0.52-1.04) mg/dL Est GFR (CKD-EPI)AfAm (>60 ml/min/1.73 sqM) Est GFR (CKD-EPI)NonAf (>60 ml/min/1.73 sqM) Glucose (74-99) mg/dL Calcium (8.4-10.2) mg/dL Magnesium (1.6-2.3) mg/dL Total Bilirubin (0.2-1.3) mg/dL AST (14-36) U/L ALT (4-34) U/L Alkaline Phosphatase (38-126) U/L Troponin I <0.012 (0.000-0.034) ng/mL NT-Pro-B Natriuret Pep pg/mL Total Protein (6.3-8.2) g/dL Albumin (3.5-5.0) g/dL Disposition Clinical Impression: ACS (acute coronary syndrome) Disposition: ADMITTED IP TO THIS HOSP Condition: Fair Referrals: Vikash Avina MD [Primary Care Provider] - 1-2 days Decision Time: 17:14
--- NOTE | 2024-03-16 17:39 | XR ---
EXAMINATION TYPE: XR chest 2V DATE OF EXAM: 03/16/2024 5:29 PM 07/02/2021 COMPARISON: Chest radiographs from CLINICAL INDICATION: Female, 78 years old with history of Chest Pain; [facility] TECHNIQUE: XR chest 2V Frontal and lateral views of the chest. FINDINGS: Lungs/Pleura: There is no evidence of pleural effusion, focal consolidation, or pneumothorax. Pulmonary vascularity: Unremarkable. Heart/mediastinum: Cardiomediastinal silhouette is unremarkable. Left atrial appendage occlusion aaliyah ce is present. Musculoskeletal: No acute osseous pathology. Midline sternotomy wires are noted. IMPRESSION: No acute cardiopulmonary disease/process. [facility], , 03/16/2024 5:37 PM
[2024-03-16] MEDS: NITROGLYCERIN OINT 1 INCH/GM PACKET TOPICAL SCH (17:50)
[2024-03-16] MEDS: ASPIRIN 81 MG PO STA (17:57)
[2024-03-17] MEDS ORDERED: ASPIRIN 325 MG TAB PO SCH (09:00)
[2024-03-17 10:30] LABS: Chol/HDL Ratio 2.86 Ratio; LDL Cholesterol,Calculated 35.9 mg/dL (0.0-131.0)
[2024-03-17] MEDS: SPIRONOLACTONE 25 MG TAB PO SCH (10:58)
[2024-03-17] MEDS: ASPIRIN 81 MG PO SCH (10:59)
--- NOTE | 2024-03-17 12:40 | P.CRDCN ---
History of Present Illness History of present illness: HISTORY OF PRESENT ILLNESS: This is a 78-year-old female with a past medical history significant for hypertension, hyperlipidemia, and and coronary artery disease with previous three-vessel CABG in 2020. Patient follows in the office with Dr. Rincon. We have been asked to see the patient in consultation for chest pain. Patient examined at the bedside in the emergency room. Patient states she was at [place] yesterday when she began to have some heaviness in her chest. She states that it felt like a tightness as well. She states when she got home the pain began to get more intense and radiated into her left arm. She states the pain lasted until she came to the emergency room. She received a nitro patch which relieved her pain. She is chest pain-free at the time of examination. DIAGNOSTICS: - EKG reveals sinus mechanism with no signs of acute ischemia. - Chest xray negative for acute process. - Laboratory data: WBC 10.1. Hemoglobin 13.4. Platelet count 276. Sodium 139. Potassium 4.0. BUN 26. Creatinine 1.12. Troponin negative x 3. proBNP 241. - Current home cardiac medications include aspirin 81 mg daily, atorvastatin 20 mg at night, losartan 25 mg at night, Aldactone 25 mg daily, metoprolol tartrate 25 mg twice a day - Most recent echocardiogram obtained in November 2022 revealed ejection fraction 52%, mild MR, mild to moderate TR RVSP 41 mmHg - Cardiac catheterization history: January 2023 revealing patent DOBBS to LAD, patent VG to OM1, and patent VG to RCA REVIEW OF SYSTEMS: At the time of my exam: CONSTITUTIONAL: Denies fever or chills. HEENT: Denies blurred vision, vision changes, or eye pain. Denies hemoptysis CARDIOVASCULAR: Denies chest pain. Denies orthopnea. Denies PND. Denies palpitations RESPIRATORY: Denies shortness of breath. GASTROINTESTINAL: Denies abdominal pain. Denies nausea or vomiting. HEMATOLOGIC: Denies bleeding disorders. GENITOURINARY: Denies any blood in urine. SKIN: Denies pruitis. Denies rash. PHYSICAL EXAM: VITAL SIGNS: Reviewed. GENERAL: Well-developed in no acute distress. HEENT: Head is normocephalic. Pupils are equal, round. Sclerae anicteric. Mucous membranes of the mouth are moist. Neck supple. No JVD or thyromegaly LUNGS: Respirations even and unlabored. Lungs essentially clear to auscultation bilaterally. HEART: Regular rate and rhythm. S1 and S2 heard. Systolic murmur noted ABDOMEN: Soft. Nondistended. Nontender. EXTREMITIES: Normal range of motion. No clubbing or cyanosis. Peripheral pulses intact. No lower extremity edema NEUROLOGIC: Awake and alert. Oriented x 3. ASSESSMENT: Chest pain Coronary artery disease with previous three-vessel CABG, DOBBS to LAD, VG to OM1, VG to RCA, 01/2021 Hypertension Hyperlipidemia Obesity: BMI 34.2 PLAN: An acute coronary event has been ruled out Obtain 2D echo to assess cardiac structure and function Resume home cardiac medications Hold metoprolol due to stress testing N.p.o. at midnight Patient to undergo dobutamine stress test tomorrow Further recommendations pending patient course Nurse practitioner note has been reviewed by physician. Signing provider agrees with the documented findings, assessment, and plan of care documented by HEATER TENDER as a scribe. Past Medical History Past Medical History: GERD/Reflux, GI Bleed, Hyperlipidemia, Hypertension, Myocardial Infarction (NV), Osteoarthritis (OA) Additional Past Medical History / Comment(s): NV in 01/2021, heart cath with triple bypass. Diverticulitis. Angina. Hiatal hernia. Recent stomach problems and rectal bleeding. "Bad back, disintegrating discs in neck, head shakes.". OCCASIONAL BLE EDEMA, WEAR INCONTINENCE PADS Last Myocardial Infarction Date:: 01/2021 History of Any Multi-Drug Resistant Organisms: None Reported Past Surgical History: Bowel Resection, Coronary Bypass/CABG, Heart Catheterization, Hysterectomy, Orthopedic Surgery Additional Past Surgical History / Comment(s): Left foot surgery, GURVINDER/BSO, left carpal tunnel surgery, colonoscopy X2. Past Anesthesia/Blood Transfusion Reactions: No Reported Reaction Past Psychological History: No Psychological Hx Reported Smoking Status: Never smoker Past Alcohol Use History: None Reported Past Drug Use History: None Reported - Past Family History Father Family Medical History: Cancer Mother Family Medical History: Cancer, Coronary Artery Disease (CAD) Brother(s) Family Medical History: Coronary Artery Disease (CAD), Myocardial Infarction (NV) Sister(s) Family Medical History: Neurologic Disorder Daughter(s) Family Medical History: Pulmonary Embolus Son(s) Family Medical History: Coronary Artery Disease (CAD) Medications and Allergies Home Medications Medication Instructions Recorded Confirmed Type Omeprazole 40 mg PO DAILY 01/25/21 03/16/24 History Metoprolol Tartrate [Lopressor] 25 mg PO BID #60 tab 02/07/21 03/16/24 Rx Aspirin EC [Ecotrin Low Dose] 81 mg PO DAILY 07/02/21 03/16/24 History Ferrous Sulfate [Iron (65 MG 325 mg PO DAILY 07/02/21 03/16/24 History Elemental)] Losartan [Cozaar] 25 mg PO HS 11/13/22 03/16/24 History Spironolactone [Aldactone] 25 mg PO DAILY 11/13/22 03/16/24 History Bifidobacterium Infantis [Align] 4 mg PO DAILY 01/17/23 03/16/24 History Atorvastatin [Lipitor] 20 mg PO HS 03/16/24 03/16/24 History Multivitamin [Multivitamins Adult 2 tab PO DAILY 03/16/24 03/16/24 History Gummies] Allergies Allergy/AdvReac Type Severity Reaction Status Date / Time ciprofloxacin Allergy Rash/Hives Verified 03/16/24 17:38 cortisone Allergy HAD Verified 03/16/24 17:38 NUMBNESS AT BACK OF HEAD FOLLOWING INJECTION hydrocortisone Allergy Unknown Verified 03/16/24 17:38 [From Cortizone-10] Penicillins Allergy Rash/Hives/ Verified 03/16/24 17:38 Swelling Physical Exam Vitals: Vital Signs Temp Pulse Resp BP Pulse Ox 03/17/24 03:14 57 L 16 94/49 98 03/16/24 22:12 65 16 116/55 97 03/16/24 21:00 64 18 136/63 03/16/24 20:00 67 13 122/69 03/16/24 19:00 65 24 122/69 03/16/24 18:00 67 24 103/61 03/16/24 17:57 98.0 F 70 18 103/61 97 03/16/24 17:55 64 30 H 03/16/24 15:05 97.8 F 82 20 151/87 99 Intake and Output 03/16/24 03/17/24 03/17/24 22:59 06:59 14:59 Other: Weight 79.379 kg Results 03/16/24 15:35 03/16/24 15:35 Cardiac Enzymes 03/16/24 03/16/24 03/16/24 Range/Units 15:35 15:35 18:28 AST 38 H (14-36) U/L Troponin I <0.012 <0.012 (0.000-0.034) ng/mL 03/16/24 Range/Units 21:14 AST (14-36) U/L Troponin I <0.012 (0.000-0.034) ng/mL Coagulation 03/16/24 Range/Units 15:35 PT 10.7 (10.0-12.5) sec APTT 22.2 (22.0-30.0) sec CBC 03/16/24 Range/Units 15:35 WBC 10.1 (3.8-10.6) k/uL RBC 4.21 (3.80-5.40) m/uL Hgb 13.4 (11.4-16.0) gm/dL Hct 39.8 (34.0-46.0) % Plt Count 276 (150-450) k/uL Comprehensive Metabolic Panel 03/16/24 Range/Units 15:35 Sodium 139 (137-145) mmol/L Potassium 4.0 (3.5-5.1) mmol/L Chloride 105 (98-107) mmol/L Carbon Dioxide 23 (22-30) mmol/L BUN 26 H (7-17) mg/dL Creatinine 1.12 H (0.52-1.04) mg/dL Glucose 118 H (74-99) mg/dL Calcium 10.0 (8.4-10.2) mg/dL AST 38 H (14-36) U/L ALT 38 H (4-34) U/L Alkaline Phosphatase 76 (38-126) U/L Total Protein 7.5 (6.3-8.2) g/dL Albumin 4.7 (3.5-5.0) g/dL Current Medications Generic Name Dose Route Start Last Admin Trade Name Freq PRN Reason Stop Dose Admin Aspirin 325 mg 03/17/24 09:00 Aspirin 325 Mg Tab PO DAILY TIANNA Nitroglycerin 0.4 mg 03/16/24 17:14 Nitroglycerin Sl Tabs 0.4 Mg Tab SUBLINGUAL Q5M PRN Chest Pain Nitroglycerin 1 inch 03/16/24 18:00 03/16/24 23:04 Nitroglycerin Oint 1 Inch/Gm Packet TOPICAL 1 inch Q6HR TIANNA Administration Intake and Output 03/16/24 03/17/24 03/17/24 22:59 06:59 14:59 Other: Weight 79.379 kg 03/16/24 15:35 03/16/24 15:35
[2024-03-17] MEDS: ATORVASTATIN 20 MG TAB PO SCH (20:48)
[2024-03-17] MEDS: LOSARTAN 25 MG TAB PO SCH (20:48)
[2024-03-17] MEDS ORDERED: ACETAMINOPHEN TAB 325 MG TAB PO PRN (22:43)
[2024-03-17] MEDS: ACETAMINOPHEN TAB 325 MG TAB PO STA (23:23)
--- NOTE | 2024-03-18 01:05 | HP ---
HISTORY AND PHYSICAL CHIEF COMPLAINT: Chest pain. HISTORY OF PRESENT ILLNESS: This 78-year-old woman with a past medical history of CAD, CABG, is complaining of chest heaviness. The patient came to [facility]. The pain was situated in the anterior part without much radiation. Troponins are negative. Cardiology is evaluating the patient for possible dobutamine stress tomorrow. No chest pain. No palpitation. PAST MEDICAL HISTORY: Reviewed include hypertension and hyperlipidemia. Rest of the history noted. HOME MEDICATIONS: Include Lopressor. Dose and rest of medications are noted. ALLERGIES: Cipro. FAMILY HISTORY: History of cancer in the family. SOCIAL HISTORY: No smoke or alcohol. REVIEW OF SYSTEMS: Fourteen-point review of systems negative except as mentioned earlier. PHYSICAL EXAMINATION: VITAL SIGNS: Pulse 74, blood pressure 140/68, and respirations 17. HEENT: Conjunctivae normal. NECK: No JVD. CARDIOVASCULAR: S1 and S2. RESPIRATIONS: Breath sounds diminished at the bases. ABDOMEN: Soft. LEGS: No edema. NERVOUS SYSTEM: Nonfocal. LABORATORY DATA: Reviewed. ASSESSMENT: 1. Chest pain, possible unstable angina. 2. History of coronary artery disease, coronary artery bypass graft. 3. Hypertension. 4. Hyperlipidemia. 5. Multiple medical issues. RECOMMENDATION: Recommend to continue current management and continue symptomatic treatment. Cardiac stress test. Follow with Cardiology. Guarded prognosis. Further recommendations to follow. MMODL / IJN: [id number] /
[2024-03-18] MEDS ORDERED: DOBUTamine DRIP for NUC MED 500 MG in DEXTROSE/WATER 1 250ML.BAG IV PRN (06:00)
[2024-03-18] MEDS: PANTOPRAZOLE 40 MG TABLET PO SCH (08:13)
[2024-03-18] MEDS: FERROUS SULFATE 325 MG TAB PO SCH (08:13)
[2024-03-18 08:18] VITALS: RESP 17
--- NOTE | 2024-03-18 09:45 | CA ---
Transthoracic Echo Report Name: Maryam Carbajal Age: 78 Gender: F : 1945 Exam Date: 03/17/2024 15:49 Exam Location: [facility] Ht (in): 60 Wt (lb): 175 Ordering Physician: Leilani Stallworth Attending/Referring Phys: [id number], Basim Occupational Health Nurse Supervisor Shirley Ha RDCS Procedure CPT: Indications: chest pain, LV function Cardiac Hx: CABG 2020 Technical Quality: Fair Contrast 1: Total Dose (mL): Contrast 2: Total Dose (mL): MEASUREMENTS (Male / Female) Normal Values 2D ECHO LV Diastolic Diameter PLAX 4.5 cm 4.2 - 5.9 / 3.9 - 5.3 cm LV Systolic Diameter PLAX 3.5 cm IVS Diastolic Thickness 0.9 cm 0.6 - 1.0 / 0.6 - 0.9 cm LVPW Diastolic Thickness 1.1 cm 0.6 - 1.0 / 0.6 - 0.9 cm LV Relative Wall Thickness 0.4 RV Internal Dim ED PLAX 2.9 cm LA Systolic Diameter LX 3.6 cm 3.0 - 4.0 / 2.7 - 3.8 cm LV Diastolic Volume MOD 4C 55.4 cm??? LV Systolic Volume MOD 4C 27.6 cm??? LV Ejection Fraction MOD 4C 50.2 % LV Cardiac Index MOD 4C 1025.9 cm???/min???m??? LV Diastolic Length 4C 6.3 cm LV Systolic Length 4C 5.3 cm LV Diastolic Volume MOD 2C 71.9 cm??? LV Systolic Volume MOD 2C 29.1 cm??? LV Ejection Fraction MOD 2C 59.6 % LV Cardiac Index MOD 2C 1581.5 cm???/min???m??? LV Diastolic Length 2C 6.8 cm LV Systolic Length 2C 5.4 cm LA Volume 61.5 cm??? 18 - 58 / 22 - 52 cm??? LA Volume Index 32.9 cm???/m??? 16 - 28 cm???/m??? M-MODE Aortic Root Diameter MM 3.1 cm DOPPLER AV Peak Velocity 143.9 cm/s AV Peak Gradient 8.3 mmHg MV Area PHT 4.4 cm??? Mitral E Point Velocity 83.1 cm/s Mitral A Point Velocity 74.0 cm/s Mitral E to A Ratio 1.1 MV Deceleration Time 173.4 ms TR Peak Velocity 227.6 cm/s TR Peak Gradient 20.7 mmHg Right Ventricular Systolic Press 25.7 mmHg FINDINGS Left Ventricle Left ventricular ejection fraction is estimated at 50-55 %. Left ventricular cavity size normal. Mildly increased posterior wall thickness. Right Ventricle Normal right ventricular size. Right ventricular systolic pressure within normal limits. Right Atrium Normal right atrial size. No right atrial thrombus or mass seen. Left Atrium Mildly increased left atrial volume. No left atrial thrombus or mass present. Mitral Valve Structurally normal mitral valve. Trace to mild mitral regurgitation. Aortic Valve Trileaflet aortic valve. No aortic valve stenosis or regurgitation. Tricuspid Valve Structurally normal tricuspid valve. Mild tricuspid regurgitation. Pulmonic Valve Structurally normal pulmonic valve. Trace to mild pulmonic regurgitation. Pericardium No pericardial or pleural effusion. Aorta Normal size aortic root and proximal ascending aorta. CONCLUSIONS Low normal LV systolic function with EF at 50% No significant valvular abnormalities noted No pericardial effusion Previewed by: Dr. Danilo Chang MD (Electronically Signed) Final Date: 18 March 2024 09:44
--- NOTE | 2024-03-18 12:24 | CA ---
Dobutamine Stress Echocardiogram Report Maryam Carbajal Age: 78 Gender: F : 1945 Exam Date: 03/18/2024 09:45 Exam Location: [facility] Ordering Physician: Leilani Stallworth Referring Physician: [id number] Plant Electrician: Tila Ledbetter RDCS Technologist: Ht (in): 60 Wt (lb): 175 Procedure CPT: Indication: CP ICD-9 Codes: Rhythm: Patient History: Chest heavyness, BHUMI and history of ASCAD Cardiac Medications: Medications in past 24 hours: Contrast: Definity Total Dose (mL): 2 Stress Results Protocol: Dobutamine Peak Dose (???g/kg/min): 30 Duration (min:sec): Atropine:(mg) None Target HR: 119 Double Product: 83219 Resting HR: 70 Resting BP: 130 / 64 Peak HR: 139 Peak BP: 140 / 76 Max Predicted HR: 140 99 % Max Predicted HR Stress Summary: BP Response: Reason for Termination: Target HR Cardiac Symptoms: NO SYMPTOMS ECG Analysis Resting EKG: Stress EKG: Arrhythmia: Echo Analysis Base Echo Analysis: Low Echo Anaylsis: Peak Echo Analysis: Recovery Echo: MEASUREMENTS (Male/Female) Normal Values CONCLUSIONS Normal electrocardiogram and echocardiogram in response to dobutamine Dr. Danilo Chang MD (Electronically Signed) Final Date: 18 March 2024 12:23
--- NOTE | 2024-03-18 12:29 | P.PN ---
Subjective HISTORY OF PRESENT ILLNESS: This is a 78-year-old female with a past medical history significant for hypertension, hyperlipidemia, and and coronary artery disease with previous three-vessel CABG in 2020. Patient follows in the office with Dr. Rincon. We have been asked to see the patient in consultation for chest pain. Patient examined at the bedside in the emergency room. Patient states she was at [place] yesterday when she began to have some heaviness in her chest. She states that it felt like a tightness as well. She states when she got home the pain began to get more intense and radiated into her left arm. She states the pain lasted until she came to the emergency room. She received a nitro patch which relieved her pain. She is chest pain-free at the time of examination. DIAGNOSTICS: - EKG reveals sinus mechanism with no signs of acute ischemia. - Chest xray negative for acute process. - Laboratory data: WBC 10.1. Hemoglobin 13.4. Platelet count 276. Sodium 139. Potassium 4.0. BUN 26. Creatinine 1.12. Troponin negative x 3. proBNP 241. - Current home cardiac medications include aspirin 81 mg daily, atorvastatin 20 mg at night, losartan 25 mg at night, Aldactone 25 mg daily, metoprolol tartrate 25 mg twice a day - Most recent echocardiogram obtained in November 2022 revealed ejection fraction 52%, mild MR, mild to moderate TR RVSP 41 mmHg - Cardiac catheterization history: January 2023 revealing patent DOBBS to LAD, patent VG to OM1, and patent VG to RCA 03/18/2024 Patient examined this morning at the bedside. Patient currently denies chest pain or pressure. She denies shortness of breath. She does report having some left shoulder pain this morning. Patient underwent dobutamine stress echo this morning which was negative for ischemia. Echocardiogram completed revealing ejection fraction 50-55%, no significant valvular abnormalities noted and no pericardial effusion. PHYSICAL EXAM: VITAL SIGNS: Reviewed. GENERAL: Well-developed in no acute distress. HEENT: Head is normocephalic. Pupils are equal, round. Sclerae anicteric. Mucous membranes of the mouth are moist. Neck supple. No JVD or thyromegaly LUNGS: Respirations even and unlabored. Lungs essentially clear to auscultation bilaterally. HEART: Regular rate and rhythm. S1 and S2 heard. Systolic murmur noted ABDOMEN: Soft. Nondistended. Nontender. EXTREMITIES: Normal range of motion. No clubbing or cyanosis. Peripheral puls es intact. No lower extremity edema NEUROLOGIC: Awake and alert. Oriented x 3. ASSESSMENT: Chest pain, negative dobutamine stress test Coronary artery disease with previous three-vessel CABG, DOBBS to LAD, VG to OM1, VG to RCA, 01/2021 Hypertension Hyperlipidemia Obesity: BMI 34.2 PLAN: Patient with negative dobutamine stress echo this morning Continue current cardiac medications Patient is stable for discharge home today from a cardiac standpoint Patient to follow-up postdischarge with Dr. Rincon We will sign off. Please reconsult if needed. Nurse practitioner note has been reviewed by physician. Signing provider agrees with the documented findings, assessment, and plan of care documented by HIMS CLERK as a scribe. Objective - Vital Signs Vital signs: Vital Signs Temp 98.2 F 03/18/24 07:05 Pulse 88 03/18/24 07:05 Resp 17 03/18/24 07:05 BP 143/81 03/18/24 07:05 Pulse Ox 96 03/18/24 07:05 FiO2 Intake & Output 03/17/24 03/18/24 03/18/24 18:59 06:59 18:59 Weight 79.379 kg Other: # Voids 3 - Labs CBC & Chem 7: 03/16/24 15:35 03/16/24 15:35
[2024-03-18 14:37] VITALS: BP 120/74; PULSE 84; TEMP 98
[2024-03-18] MEDS ORDERED: METOPROLOL TARTRATE 25 MG TAB PO SCH (21:00)
--- NOTE | 2024-03-26 20:22 | P.DS ---
Providers Date of admission: 03/16/24 17:15 Attending physician: Robbin Gracia Primary care physician: Vikash Avina Hospital Course: Diagnoses: Chest pain, cardiac causes ruled out, patient feels improved Coronary artery disease status post previous CABG Hypertension Hyperlipidemia Obesity with BMI of 34.2 Chronic kidney disease stage III Hospital course: This is a pleasant 78 years old female with past medical history of chronic kidney disease obesity hypertension hyperlipidemia coronary artery disease. Patient presents because of chest pain, patient evaluated by rotary shear worker helper. proBNP is negative at 241, chest x-ray showing no acute process, EKG showing a sinus rhythm at [address]-T changes. Patient evaluated by rotary shear worker helper she under went dobutamine stress test which came back negative. Patient was cleared for discharge by rotary shear worker helper Patient denies any other new symptoms upon discharge. Chest pain resolved Problems and management plan were discussed with the patient and he verbalized understanding and acceptance Patient was found stable and can be discharged home in guarded prognosis however he needs follow-up as an outpatient. Patient was instructed to follow up with PCP Dr. Zacarias within one week and patient agrees Patient was instructed to follow-up with rotary shear worker helper Dr. Rincon in 1 to 2 weeks after discharge and she agrees Physical exam Gen: patient is a AAOx3, no distress CVS: S1-S2, RRR, no murmur Lungs: B/L CTA, no wheezing Abdomen: soft, no distention, no tenderness, positive bowel sounds Extremity: no leg edema or induration Time spent more than 35 minutes Patient Condition at Discharge: Fair Plan - Discharge Summary Discharge Rx Participant: Yes New Discharge Prescriptions: Continue Omeprazole 40 mg PO DAILY Metoprolol Tartrate [Lopressor] 25 mg PO BID #60 tab Aspirin EC [Ecotrin Low Dose] 81 mg PO DAILY Ferrous Sulfate [Iron (65 MG Elemental)] 325 mg PO DAILY Losartan [Cozaar] 25 mg PO HS Multivitamin [Multivitamins Adult Gummies] 2 tab PO DAILY Spironolactone [Aldactone] 25 mg PO DAILY Bifidobacterium Infantis [Align] 4 mg PO DAILY Atorvastatin [Lipitor] 20 mg PO HS Discharge Medication List Omeprazole 40 mg PO DAILY 01/25/21 [History] Metoprolol Tartrate [Lopressor] 25 mg PO BID #60 tab 02/07/21 [Rx] Aspirin EC [Ecotrin Low Dose] 81 mg PO DAILY 07/02/21 [History] Ferrous Sulfate [Iron (65 MG Elemental)] 325 mg PO DAILY 07/02/21 [History] Losartan [Cozaar] 25 mg PO HS 11/13/22 [History] Spironolactone [Aldactone] 25 mg PO DAILY 11/13/22 [History] Bifidobacterium Infantis [Align] 4 mg PO DAILY 01/17/23 [History] Atorvastatin [Lipitor] 20 mg PO HS 03/16/24 [History] Multivitamin [Multivitamins Adult Gummies] 2 tab PO DAILY 03/16/24 [History] Follow up Appointment(s)/Referral(s): Mary Rincon MD [STAFF PHYSICIAN] - 2 Weeks Vikash Avina MD [Primary Care Provider] - 1-2 days Patient Instructions/Handouts: Chest Pain (DC) Activity/Diet/Wound Care/Special Instructions: Heart healthy diet Activity as tolerated Discharge Disposition: HOME SELF-CARE
== END 2024-03-18 17:08 | disposition home or self-care (01) ==
LOC: EC 15:03 → 6NMEDSUR 17:15
PROVIDERS: ADMIT Hospitalist; ATTEND Hospitalist
DX: R07.2 Precordial pain (principal); I25.10 Atherosclerotic heart disease of native coronary artery without angina pectoris; I08.1 Rheumatic disorders of both mitral and tricuspid valves; I10 Essential (primary) hypertension; E78.5 Hyperlipidemia, unspecified; M25.512 Pain in left shoulder; R11.0 Nausea; M54.9 Dorsalgia, unspecified; M79.602 Pain in left arm; E66.9 Obesity, unspecified; Z68.34 Body mass index [BMI] 34.0-34.9, adult; I25.2 Old myocardial infarction; Z95.1 Presence of aortocoronary bypass graft; Z79.82 Long term (current) use of aspirin; Z79.899 Other long term (current) drug therapy; Z88.0 Allergy status to penicillin; Z88.1 Allergy status to other antibiotic agents; Z88.8 Allergy status to other drugs, medicaments and biological substances
CPT/HCPCS: 99285; 36415; 93005; 93306; 83880; 80061; 80053; 83735; 84484; 85025; 85610; 85730; 71046; G0378 ×3; C8930; Q9957; 93351

== ENCOUNTER → 2024-07-11 | Outpatient (CLI) | payer MEDICARE ==
--- NOTE | 2024-07-14 09:05 | MM ---
Reason for Exam: Screening (asymptomatic). Last mammogram was performed 1 year(s) and 1 month(s) ago. Patient History: Menarche at age 9. First Full-Term at age 17. Left ovary removed at age 43. Right ovary removed at age 43. Hysterectomy at age 43. Postmenopausal. 1989, Benign Excisional Biopsy on the right side. Maternal cousin had breast cancer, age 55. Maternal cousin had breast cancer, age 55. Daughter had breast cancer, age 47. Risk Values: Yamini 5 year model risk: 4.0%. NCI Lifetime model risk: 6.1%. Prior Study Comparison: 01/08/2020 Bilateral Screening Mammogram, [facility]. 02/22/2022 Bilateral Screening Mammogram, [facility]. 06/06/2023 Bilateral MG 3D screening mammo w/cad, [facility]. Tissue Density: There are scattered areas of fibroglandular density. Findings: Analyzed By CAD. There is no suspicious group of microcalcifications or new suspicious mass in either breast. Overall Assessment: Benign, BI-RAD 2 Management: Screening Mammogram of both breasts in 1 year. Patient should continue monthly self-breast exams. A clinical breast exam by your physician is recommended on an annual basis. This exam should not preclude additional follow-up of suspicious palpable abnormalities. Note on Yamini scores and lifetime risk: 1. A Yamini score greater than 3% is considered moderate risk. If this is the case, consider specialist referral to assess eligibility for a risk reducing agent. 2. If overall lifetime risk for the development of breast cancer is 20% or higher, the patient may qualify for future screening with alternating mammogram and breast MRI. [facility], , 07/11/2024 10:24 AM. Electronically signed and approved by: Martin Taylor M.D. Radiologis
== END | disposition home or self-care (01) ==
LOC: RADMAMWWP 12:06
PROVIDERS: ATTEND Internal Medicine
DX: Z12.31 Encounter for screening mammogram for malignant neoplasm of breast (principal); R92.323 Mammographic fibroglandular density, bilateral breasts; Z78.0 Asymptomatic menopausal state; Z80.3 Family history of malignant neoplasm of breast
CPT/HCPCS: 77063; 77067